=== PATIENT | male | born 1930 | race Caucasian/White ===

== ENCOUNTER → 2017-05-09 | Outpatient (CLI) | payer MEDICARE ==
[2017-05-09] MEDS: IOHEXOL 300 MG/ML 100ML VIAL. IV ×2 (10:36)
[2017-05-09] MEDS: IOHEXOL 240 MG/ML 50ML VIAL. PO ×2 (10:37)
== END | disposition home or self-care (01) ==
LOC: KCIC CT 10:20
DX: K43.9 Ventral hernia without obstruction or gangrene (principal); K57.30 Diverticulosis of large intestine without perforation or abscess without bleeding; N40.0 Benign prostatic hyperplasia without lower urinary tract symptoms; M47.896 Other spondylosis, lumbar region; D73.89 Other diseases of spleen; M81.0 Age-related osteoporosis without current pathological fracture; M48.061 Spinal stenosis, lumbar region without neurogenic claudication; I10 Essential (primary) hypertension; E11.9 Type 2 diabetes mellitus without complications; R91.1 Solitary pulmonary nodule
CPT/HCPCS: 74177; 82565; Q9966; Q9967

== ENCOUNTER 2017-06-24 05:52 | Observation (INO) | payer MEDICARE ==
[2017-06-24] MEDS: IV RINGERS,LACTATED 1000ML 1,000 ML IV (06:38)
[2017-06-24 06:40] LABS: POC GLUCOSE 161 mg/dL (70-99)
[2017-06-24 06:43] LABS: ADD MAN DIFF? NO
[2017-06-24 06:57] LABS: BASO % 1 % (0-3); EOS # 0.2 x10^3/uL (0.0-0.7); EOS % 3 % (0-3); HEMATOCRIT 43.6 % (39.0-53.0); HEMOGLOBIN 14.6 g/dL (13.0-17.5); LYMPH # 2.2 x10^3/uL (1.0-4.8); LYMPH % 36 % (24-48); MEAN CORPUSCULAR HEMOGLOBIN 31 pg (25-35); MEAN CORPUSCULAR HGB CONC 33 g/dL (31-37); MEAN CORPUSCULAR VOLUME 93 fL (79-100); MONO # 0.6 x10^3/uL (0.0-1.1); MONO % 10 % (0-9); NEUT # 3.1 x10^3uL (1.8-7.7); NEUT % 50 % (31-73); PLATELET COUNT 154 x10^3/uL (140-400); RED BLOOD COUNT 4.69 x10^6/uL (4.30-5.70); RED CELL DISTRIBUTION WIDTH 13.5 % (11.5-14.5); WHITE BLOOD COUNT 6.1 x10^3/uL (4.0-11.0)
[2017-06-24] MEDS ORDERED: LIDOCAINE 1% PF 2 ML VIAL. ID (07:00)
[2017-06-24] MEDS ORDERED: ONDANSETRON PF 4 MG/2 ML VIAL. IV ×2 (07:00→09:15)
[2017-06-24] MEDS ORDERED: MORPHINE SULFATE 4 MG/ML DISP.SYRIN. IV (07:00)
[2017-06-24] MEDS ORDERED: PROCHLORPERAZINE 10 MG/2 ML VIAL. IV (07:00)
[2017-06-24] MEDS ORDERED: fentaNYL PF VIAL 100 MCG/2 ML VIAL IV ×3 (07:00→10:15)
[2017-06-24] MEDS ORDERED: fentaNYL PF VIAL 100 MCG/2 ML VIAL ×2 (07:18→09:07)
[2017-06-24] MEDS ORDERED: DEXAMETHASONE SOD PHOS 20 MG/5 ML VIAL. (07:18)
[2017-06-24] MEDS ORDERED: PROPOFOL 20 ML IV (07:18)
[2017-06-24] MEDS ORDERED: ROCURONIUM 50 MG/5 ML VIAL. (07:18)
[2017-06-24] MEDS ORDERED: LIDOCAINE 1% PF 5 ML VIAL. (07:18)
[2017-06-24] MEDS ORDERED: ONDANSETRON PF 4 MG/2 ML VIAL. (07:18)
[2017-06-24] MEDS ORDERED: EPINEPHrine 1 MG/ML VIAL (07:52)
[2017-06-24] MEDS ORDERED: PHENYLEPHRINE 10 MG/ML VIAL. (08:03)
[2017-06-24] MEDS ORDERED: DESFLURANE 61 TO 120 MINUTES IH (08:24)
[2017-06-24] MEDS ORDERED: NEOSTIGMINE 10 MG/10 ML VIAL. (08:35)
[2017-06-24] MEDS ORDERED: GLYCOPYRROLATE 1 MG/5 ML VIAL. (08:36)
[2017-06-24] MEDS ORDERED: HYDROcodone/APAP 5/325MG 1 TAB TABLET PO (09:15)
[2017-06-24] MEDS ORDERED: 0.9 % SODIUM CHLORIDE 10 ML DISP.SYRIN. IV (09:15)
[2017-06-24 09:25] LABS: POC GLUCOSE 194 mg/dL (70-99)
[2017-06-24] MEDS: INSULIN ASPART 100 UNIT/ML 10ML VIAL. SQ (09:36)
[2017-06-24] MEDS: fentaNYL PF VIAL 100 MCG/2 ML VIAL IV ×2 (09:49→10:11)
[2017-06-24 10:56] LABS: POC GLUCOSE 160 mg/dL (70-99)
[2017-06-24] MEDS ORDERED: ceFAZolin 2GM PREMIX 2 GM/50 ML BAG IV (12:00)
[2017-06-24] MEDS: metFORMIN 500 MG TABLET PO ×2 (12:00→17:34)
[2017-06-24] MEDS: MULTIVITAMIN I-VITE TABLET. PO (12:17)
[2017-06-24] MEDS: IV 1/2 NORMAL SALINE 1,000 ML IV ×2 (12:21→23:30)
[2017-06-24 16:54] LABS: POC GLUCOSE 248 mg/dL (70-99)
[2017-06-24] MEDS: LISINOPRIL 20 MG TABLET PO (17:33)
[2017-06-24] MEDS: HYDROcodone/APAP 5/325MG 1 TAB TABLET PO (18:51)
[2017-06-24 20:46] LABS: POC GLUCOSE 252 mg/dL (70-99)
[2017-06-24] MEDS: ZOLPIDEM 5 MG TABLET. PO (20:53)
[2017-06-24] MEDS: ATORVASTATIN CALCIUM 10 MG TABLET. PO (20:54)
[2017-06-24] MEDS: TERAZOSIN 5 MG CAPSULE. PO (20:54)
[2017-06-25 08:42] LABS: POC GLUCOSE 170 mg/dL (70-99)
[2017-06-25] MEDS: MULTIVITAMIN I-VITE TABLET. PO (08:48)
[2017-06-25] MEDS: metFORMIN 500 MG TABLET PO ×2 (08:48→18:27)
[2017-06-25] MEDS: HYDROcodone/APAP 5/325MG 1 TAB TABLET PO ×2 (08:49→18:26)
[2017-06-25 13:10] LABS: POC GLUCOSE 241 mg/dL (70-99)
[2017-06-25] MEDS: IV 1/2 NORMAL SALINE 1,000 ML IV (13:48)
[2017-06-25 16:37] LABS: POC GLUCOSE 187 mg/dL (70-99)
[2017-06-25] MEDS: LISINOPRIL 20 MG TABLET PO (18:28)
== END 2017-06-25 19:00 | disposition home or self-care (01) ==
LOC: SURG 05:52 → 4 NORTH 09:12
DX: K43.9 Ventral hernia without obstruction or gangrene (principal)
CPT/HCPCS: 36415; 82962; 85025; G0378; G0379; J0171; J0690; J1100; J1815; J2405; J2704; J2710; J3010; J3490

== ENCOUNTER 2018-06-14 20:11 | Inpatient (IN) | payer MEDICARE ==
[~2018-06-14] VITALS: Ht 167.6 cm; Wt 91.9 kg
[~2018-06-14 20:11] MED LIST: DILT120C71 PO; FISH1CAP PO; HYDR-2761 PO; LISI-334 PO; LISI10TA2 PO; MECL-51 PO; METF500T16 PO; PRAV10TA2 PO; PRAV20TA2 PO; TERA5CAP3 PO; VIT1TABL32 PO; ZOLP10TA4 PO; ZOLP5TAB5 PO
[2018-06-14 20:35] LABS: BASO % 1 % (0-3); EOS # 0.2 x10^3/uL (0.0-0.7); EOS % 3 % (0-3); HEMATOCRIT 42.1 % (39.0-53.0); HEMOGLOBIN 14.1 g/dL (13.0-17.5); LYMPH # 2.3 x10^3/uL (1.0-4.8); LYMPH % 36 % (24-48); MEAN CORPUSCULAR HEMOGLOBIN 31 pg (25-35); MEAN CORPUSCULAR HGB CONC 34 g/dL (31-37); MEAN CORPUSCULAR VOLUME 93 fL (79-100); MONO # 0.6 x10^3/uL (0.0-1.1); MONO % 9 % (0-9); NEUT # 3.3 x10^3uL (1.8-7.7); NEUT % 51 % (31-73); PLATELET COUNT 157 x10^3/uL (140-400); RED BLOOD COUNT 4.53 x10^6/uL (4.30-5.70); RED CELL DISTRIBUTION WIDTH 13.5 % (11.5-14.5); WHITE BLOOD COUNT 6.4 x10^3/uL (4.0-11.0)
[2018-06-14 20:44] LABS: CREATININE 1.2 mg/dL (0.7-1.3); GFR 57.1; POTASSIUM 4.2 mmol/L (3.5-5.1)
[2018-06-14 20:45] LABS: PROTHROMBIN TIME PATIENT 11.8 SEC (11.7-14.0)
[2018-06-14] MEDS ORDERED: dilTIAZem INJ 125 MG in IV DEXTROSE 5% 100ML 100 ML IV ONE (20:45)
[2018-06-14] MEDS ORDERED: dilTIAZem IV PUSH 25 MG/5 ML VIAL IVP ONE (20:45)
[2018-06-14 20:49] LABS: ALBUMIN 3.8 g/dL (3.4-5.0); ALBUMIN/GLOBULIN RATIO 1.2 (1.0-1.7); MAGNESIUM 1.6 mg/dL (1.8-2.4); TOTAL BILIRUBIN 0.3 mg/dL (0.2-1.0); TOTAL PROTEIN 6.9 g/dL (6.4-8.2)
--- NOTE | 2018-06-14 20:51 | RAD ---
PORTABLE CHEST 1V History: Shortness of air, chest pressure Comparison: August 04, 2013 Findings: There is atherosclerotic calcification near aortic arch. Heart size is within normal limits. There is no pneumothorax or significant pleural fluid. There is some mild patchy airspace opacity at the lung bases bilaterally questionably increased at the right lung base, on the left probably component of fibrotic change. Impression: 1. There is mild patchy basilar airspace opacity probably somewhat increased on the right, could be due to mild infiltrate Electronically signed by: Tristen Justin MD (06/14/2018 8:48 PM) [facility]
[2018-06-14] MEDS ORDERED: IV NORMAL SALINE 500ML BAG 500 ML IV ONE (21:30)
[2018-06-14] MEDS ORDERED: cefTRIAXone IV Push 1 GM VIAL. IVP ONE (21:30)
[2018-06-14] MEDS ORDERED: DOXYCYCLINE HYCLATE 100 MG in IV DEXTROSE 5% 100ML 100 ML IV ONE (21:30)
[2018-06-14] MEDS ORDERED: MAGNESIUM SULFATE 1GM 100 ML IV ONE (21:45)
[2018-06-14] MEDS ORDERED: RIVAROXABAN 15 MG TABLET. PO ONE (21:45)
[2018-06-14 23:35] VITALS: BP 109/63
--- NOTE | 2018-06-14 23:43 | PHYS DOC ---
Past Medical History Past Medical History: Constipation, Diabetes-Type II, High Cholesterol, Hypertension Past Surgical History: Appendectomy Alcohol Use: None Drug Use: None Adult General Chief Complaint Chief Complaint: CHEST PAIN HPI HPI Patient is a 88 year old male who presents with brought in by ambulance with chest pain apparently had some chest heaviness lasted 20 minutes after eating 1- 1/2 hours after eating apparently was tachycardic for the paramedics currently totally chest pain-free no shortness of breath at all he feels fine now. No previous cardiac history history of hypertension diabetes only the chest pain was heaviness middle of the chest moderate in nature nonradiating Review of Systems Review of Systems Constitutional: Denies fever or chills [] Eyes: Denies change in visual acuity, redness, or eye pain [] HENT: Denies nasal congestion or sore throat [] Respiratory: [] : Denies dysuria or hematuria [] Musculoskeletal: Denies back pain or joint pain [] Integument: Denies rash or skin lesions [] Neurologic: Denies headache, focal weakness or sensory changes [] Endocrine: Denies polyuria or polydipsia [] All other systems were reviewed and found to be within normal limits, except as documented in this note. Current Medications Current Medications Current Medications Medications (Trade) Dose Ordered Sig/Jai Start Time Stop Time Status Last Admin Dose Admin Ceftriaxone Sodium (Rocephin) 1 gm 1X ONCE 06/14/18 21:30 06/14/18 21:31 DC 06/14/18 22:14 1 GM Diltiazem HCl (Cardizem Iv Push) 10 mg 1X ONCE 06/14/18 20:45 06/14/18 20:46 DC 06/14/18 20:52 10 MG Diltiazem HCl 125 mg/Dextrose 125 ml @ 5 mls/hr 1X ONCE 06/14/18 20:45 06/15/18 21:44 06/14/18 20:59 5 MLS/HR Doxycycline Hyclate 100 mg/ Dextrose 100 ml @ 50 mls/hr 1X ONCE 06/14/18 21:30 06/14/18 23:29 DC 06/14/18 21:44 50 MLS/HR Magnesium Sulfate/ Dextrose 100 ml @ 100 mls/hr 1X ONCE 06/14/18 21:45 06/14/18 22:44 DC 06/14/18 22:15 100 MLS/HR Rivaroxaban (Xarelto) 15 mg 1X ONCE 06/14/18 21:45 06/14/18 21:46 DC 06/14/18 21:56 15 MG Sodium Chloride 500 ml @ 500 mls/hr 1X ONCE 06/14/18 21:30 06/14/18 22:29 DC Allergies Allergies Allergies Coded Allergies Type Severity Reaction Last Updated Verified lovastatin Allergy Intermediate 06/24/17 Yes codeine Adverse Reaction Intermediate mental status change 06/24/17 Yes promethazine Adverse Reaction Intermediate mental status change 06/24/17 Yes Physical Exam Physical Exam Constitutional: Well developed, well nourished, no acute distress, non-toxic appearance. [] HENT: Normocephalic, atraumatic, bilateral external ears normal, oropharynx moist, no oral exudates, nose normal. [] Eyes: PERRLA, EOMI, conjunctiva normal, no discharge. [] Neck: Normal range of motion, no tenderness, supple, no stridor. [] Cardiovascular tachycardic and irregular no definite murmurs but difficult exam Lungs & Thorax: Bilateral breath sounds clear to auscultation [] Abdomen: Bowel sounds normal, soft, no tenderness, no masses, no pulsatile masses. [] Skin: Warm, dry, no erythema, no rash. [] Back: No tenderness, no CVA tenderness. [] Extremities: No tenderness, no cyanosis, no clubbing, ROM intact, trace edema. [ ] Neurologic: Alert and oriented X 3, normal motor function, normal sensory function, no focal deficits noted. [] Psychologic: Affect normal, judgement normal, mood normal. [] Current Patient Data Vital Signs Vital Signs Date Time Temp Pulse Resp B/P (MAP) Pulse Ox O2 Delivery O2 Flow Rate FiO2 06/14/18 21:12 146 18 100/58 (72) 96 Nasal Cannula 4.0 06/14/18 20:11 97.9 97.9 Lab Values Laboratory Tests Test 06/14/18 20:24 White Blood Count 6.4 x10^3/uL (4.0-11.0) Red Blood Count 4.53 x10^6/uL (4.30-5.70) Hemoglobin 14.1 g/dL (13.0-17.5) Hematocrit 42.1 % (39.0-53.0) Mean Corpuscular Volume 93 fL (79-100) Mean Corpuscular Hemoglobin 31 pg (25-35) Mean Corpuscular Hemoglobin Concent 34 g/dL (31-37) Red Cell Distribution Width 13.5 % (11.5-14.5) Platelet Count 157 x10^3/uL (140-400) Neutrophils (%) (Auto) 51 % (31-73) Lymphocytes (%) (Auto) 36 % (24-48) Monocytes (%) (Auto) 9 % (0-9) Eosinophils (%) (Auto) 3 % (0-3) Basophils (%) (Auto) 1 % (0-3) Neutrophils # (Auto) 3.3 x10^3uL (1.8-7.7) Lymphocytes # (Auto) 2.3 x10^3/uL (1.0-4.8) Monocytes # (Auto) 0.6 x10^3/uL (0.0-1.1) Eosinophils # (Auto) 0.2 x10^3/uL (0.0-0.7) Basophils # (Auto) 0.0 x10^3/uL (0.0-0.2) Prothrombin Time 11.8 SEC (11.7-14.0) Prothrombin Time INR 0.9 (0.8-1.1) Sodium Level 141 mmol/L (136-145) Potassium Level 4.2 mmol/L (3.5-5.1) Chloride Level 104 mmol/L (98-107) Carbon Dioxide Level 28 mmol/L (21-32) Anion Gap 9 (6-14) Blood Urea Nitrogen 13 mg/dL (8-26) Creatinine 1.2 mg/dL (0.7-1.3) Estimated GFR (Cockcroft-Gault) 57.1 BUN/Creatinine Ratio 11 (6-20) Glucose Level 235 mg/dL (70-99) H Lactic Acid Level 2.9 mmol/L (0.4-2.0) H Calcium Level 9.0 mg/dL (8.5-10.1) Magnesium Level 1.6 mg/dL (1.8-2.4) L Total Bilirubin 0.3 mg/dL (0.2-1.0) Aspartate Amino Transferase (AST) 13 U/L (15-37) L Alanine Aminotransferase (ALT) 21 U/L (16-63) Alkaline Phosphatase 122 U/L (46-116) H Troponin I Quantitative < 0.017 ng/mL (0.000-0.055) BX-Xno-Z-Type Natriuretic Peptide 243 pg/mL (0-449) Total Protein 6.9 g/dL (6.4-8.2) Albumin 3.8 g/dL (3.4-5.0) Albumin/Globulin Ratio 1.2 (1.0-1.7) Thyroid Stimulating Hormone (TSH) 3.981 uIU/mL (0.358-3.74) H Laboratory Tests 06/14/18 20:24 Laboratory Tests 06/14/18 20:24 EKG EKG []EKG at [address] Bowling he saw the EKG we are favoring A. fib with RVR due to irregular nature of this no obvious STEMI was identified however there were some rate related ST changes noted. Compared to August 04, 2013 this is different Radiology/Procedures Radiology/Procedures [] Impressions: Impression: 1. There is mild patchy basilar airspace opacity probably somewhat increased on the right, could be due to mild infiltrate Electronically signed by: Richard Mackey MD (06/14/2018 8:48 PM) [facility] DICTATED and SIGNED BY: RICHARD MACKEY MD DATE: 06/14/182047 Course & Med Decision Making Course & Med Decision Making Pertinent Labs and Imaging studies reviewed. (See chart for details) 88-year-old with hypertension diabetes found to be in tachyarrhythmia most likely A. fib I did give some consideration to ventricular tachycardia due to what seemed to be wide-complex over the QRS is measured at less than [address] Bowling favors A. fib with RVR I tend to agree due to irregular rhythm. We gave diltiazem per his recommendation the heart rate did go down from the 170s into the 130s and 40s in the emergency room apparently the blood pressure dropped so he was only on 5 of diltiazem when transferred to the ICU for further monitoring. Magnesium was repleted we did give antibiotics for the x- ray finding of the possible pneumonia although the patient really has not been coughing but we covered him anyway Magnesium was repleted lactic acid will be repeated, probably not from sepsis but rather from the tachyarrhythmia. Discussed with Dr. GARCIA WELL GAVE DOSE OF XARELTO TO COVER HIM TONIGHTFOR THE AFIB. LOW SUSPICION FOR PE PT IS NOT HYPOXIC, NO PLEURITIC PAIN. Critical care time was 45 minutes exclusive of procedures. Dragon Disclaimer Dragon Disclaimer This electronic medical record was generated, in whole or in part, using a voice recognition dictation system. Departure Departure Impression: Primary Impression: Atrial fibrillation with RVR Disposition: ADMITTED INPATIENT Admitting Physician: Snehal Garcia Condition: STABLE Referrals: PITER ALVAREZ MD (PCP) LOIS TALLEY MD Jun 14, 2018 23:43
[2018-06-14 23:45] VITALS: BP 98/69
[2018-06-15] VITALS (26 sets, daily range): BP systolic 85–137; BP diastolic 49–100
[2018-06-15] MEDS ORDERED: IV NORMAL SALINE 500ML BAG 500 ML IV PRN (01:30)
[2018-06-15] MEDS: IV NORMAL SALINE 1000ML BAG 1,000 ML IV SCH ×3 (02:00→20:53)
[2018-06-15] MEDS ORDERED: DIGOXIN IV 500 MCG/2 ML AMPUL. IV PRN (02:00)
[2018-06-15] MEDS ORDERED: DIGOXIN IV 500 MCG/2 ML AMPUL. IV ONE ×2 (02:30→04:30)
[2018-06-15] MEDS ORDERED: dilTIAZem INJ 125 MG in IV DEXTROSE 5% 100ML 100 ML IV PRN (06:45)
--- NOTE | 2018-06-15 10:28 | PDOC1 ---
History and Physical Date of Admission Date of Admission DATE: 06/15/18 TIME: 10:28 Identification/Chief Complaint Chief Complaint SEEN IN ER 88 year old male who presents with brought in by ambulance with chest pain //chest heaviness lasted 20 minutes after eating 1-1/2 hours after eating // was tachycardic for paramedics No previous cardiac history history of hypertension diabetes chest pain was heaviness middle of the chest moderate in nature nonradiating EKG suggested possible v-tach// a-fib rvr PREV CT SUGGESTED LUNG NODULE, [employer]MER [employer] denies cough/ soa cxr suggest mild infiltrate, pt INTERMITTENTLY hypotensive this AM Past Medical History Past Medical History Past Medical History Past Medical History: Constipation, Diabetes-Type II, High Cholesterol, Hypertension Past Surgical History: Appendectomy Alcohol Use: None Drug Use: None family hx obesity Cardiovascular: HTN Endocrine: Diabetes Past Surgical History Past Surgical History: Other Family History Family History: Hypertension Social History Smoke: Quit (QUIT 20 YRS AGO) ALCOHOL: none Drugs: None Current Medications Current Medications Current Medications Diltiazem HCl (Cardizem Iv Push) 10 mg 1X ONCE IVP Last administered on at 20:52; Start 06/14/18 at 20:45; Stop 06/14/18 at 20:46; Status DC Diltiazem HCl 125 mg/Dextrose 125 ml @ 5 mls/hr 1X ONCE IV Last administered on 06/14/18at 20:59; Start 06/14/18 at 20:45; Stop 06/15/18 at 07:17; Status DC Sodium Chloride 500 ml @ 500 mls/hr 1X ONCE IV ; Start 06/14/18 at 21:30; Stop 06/14/18 at 22:29; Status DC Ceftriaxone Sodium (Rocephin) 1 gm 1X ONCE IVP Last administered on 06/14/18at 22:14; Start 06/14/18 at 21:30; Stop 06/14/18 at 21:31; Status DC Doxycycline Hyclate 100 mg/ Dextrose 100 ml @ 50 mls/hr 1X ONCE IV Last administered on 06/14/18at 21:44; Start 06/14/18 at 21:30; Stop 06/14/18 at 23:29 ; Status DC Magnesium Sulfate/ Dextrose 100 ml @ 100 mls/hr 1X ONCE IV Last administered on 06/14/18at 22:15; Start 06/14/18 at 21:45; Stop 06/14/18 at 22:44; Status DC Rivaroxaban (Xarelto) 15 mg 1X ONCE PO Last administered on 06/14/18at 21:56; Start 06/14/18 at 21:45; Stop 06/14/18 at 21:46; Status DC Sodium Chloride 500 ml @ 500 mls/hr 1X PRN PRN IV PER PROTOCOL Last administered on 06/15/18at 01:49; Start 06/15/18 at 01:30 Sodium Chloride 1,000 ml @ 100 mls/hr Q10H IV Last administered on 06/15/18at 02:00; Start 06/15/18 at 02:00 Digoxin (Lanoxin) 0.625 mcg 1X PRN PRN IV PER PROTOCOL; Start 06/15/18 at 02:00 ; Stop 06/15/18 at 09:00; Status Cancel Digoxin (Lanoxin) 125 mcg 1X ONCE IV Last administered on 06/15/18at 02:43; Start 06/15/18 at 02:30; Stop 06/15/18 at 02:32; Status DC Digoxin (Lanoxin) 125 mcg 1X ONCE IV Last administered on 06/15/18at 05:12; Start 06/15/18 at 04:30; Stop 06/15/18 at 04:31; Status DC Diltiazem HCl 125 mg/Dextrose 125 ml @ 5 mls/hr CONT PRN IV SEE I/O RECORD Last administered on 06/15/18at 06:45; Start 06/15/18 at 06:45 Active Scripts Active Hydrocodone-Apap 5-325 (Hydrocodone Bit/Acetaminophen) 1 Each Tablet 1 Tab PO PRN Q4HRS PRN Reported Ocuvite Tablet (Vit A,C & E/Lutein/Minerals) 1 Each Tablet 1 Each PO DAILY Fish Oil 1,200 Mg Fish Oil (Fish Oil/Dha/Epa) 1 Each Capsule 1 Each PO DAILY Zolpidem Tartrate 5 Mg Tablet 5 Mg PO PRN QHS PRN Lisinopril 20 Mg Tablet 20 Mg PO DAILYBFRSUP Pravastatin Sodium 10 Mg Tablet 10 Mg PO QHS Terazosin Hcl 5 Mg Capsule 10 Mg PO QHS Metformin Hcl 500 Mg Tablet 500 Mg PO BID Cartia Xt (Diltiazem Hcl) 120 Mg Cap.er.24h 120 Mg PO Allergies Allergies: Coded Allergies: lovastatin (Verified Allergy, Intermediate, 06/24/17) codeine (Verified Adverse Reaction, Intermediate, mental status change, 06/24/17) promethazine (Verified Adverse Reaction, Intermediate, mental status change, 06/24/17) ROS Review of System Review of Systems Review of Systems Constitutional: Denies fever or chills [] Eyes: Denies change in visual acuity, redness, or eye pain [] HENT: Denies nasal congestion or sore throat [] Respiratory: [] : Denies dysuria or hematuria [] Musculoskeletal: Denies back pain or joint pain [] Integument: Denies rash or skin lesions [] Neurologic: Denies headache, focal weakness or sensory changes [] Endocrine: Denies polyuria or polydipsia [] 14 PT systems were reviewed and found to be within normal limits, except as documented General: No: Chills, Night Sweats, Fatigue, Malaise, Appetite, Other Respiratory: No: Cough, Hemoptysis, Orthopnea, Pleuritic Pain, Shortness of breath, SOB with excertion, Sputum Changes, Stridor, Tachypnea, Wheezing, Other Cardiovascular: yes Chest Pain Gastrointestinal: No Nausea, No Vomiting, No Abdominal Pain, No Diarrhea, No Constipation, No Melena, No Hematochezia, No Other Musculoskeletal: Yes Joint Stiffness Skin: No Dry Skin, No Eczema, No Hair Changes, No Lumps, No Mole Changes, No Mottling, No Nail Changes, No Pruritus, No Rash, No Skin Lesion Changes, No Other, No Acne Physical Exam Physical Exam Physical Exam Physical Exam Constitutional: Well developed, well nourished, no acute distress, non-toxic appearance. [] HENT: Normocephalic, atraumatic, bilateral external ears normal, oropharynx moist, no oral exudates, nose normal. [] Eyes: PERRLA, EOMI, conjunctiva normal, no discharge. [] Neck: Normal range of motion, no tenderness, supple, no stridor. [] Cardiovascular tachycardic and irregular no definite murmurs but difficult exam Lungs & Thorax: Bilateral breath sounds clear to auscultation [] Abdomen: Bowel sounds normal, soft, no tenderness, no masses, no pulsatile masses. [] Skin: Warm, dry, no erythema, no rash. [] Back: No tenderness, no CVA tenderness. [] Extremities: No tenderness, no cyanosis, no clubbing, ROM intact, trace edema. [ ] Neurologic: Alert and oriented X 3, normal motor function, normal sensory function, no focal deficits noted. [] Psychologic: Affect normal, judgement normal, mood normal. [] General: Alert, Oriented X3, Cooperative, No acute distress HEENT: Atraumatic, EOMI, Mucous membr. moist/pink Lungs: Normal air movement Heart: no rubs Breasts: Not examined Abdomen: Soft Rectal Exam: not examined Extremities: No clubbing, No cyanosis Skin: No breakdown Neuro: Normal speech, Cranial nerves 3-12 NL Psych/Mental Status: Mental status NL, Mood NL Vitals Vitals Vital Signs Date Time Temp Pulse Resp B/P (MAP) Pulse Ox O2 Delivery O2 Flow Rate FiO2 06/15/18 10:00 114 18 90/66 (74) 96 Nasal Cannula 2.0 06/15/18 08:00 97.8 97.8 Labs Labs Laboratory Tests Test 06/14/18 20:24 06/15/18 00:50 06/15/18 03:55 06/15/18 08:10 White Blood Count 6.4 x10^3/uL (4.0-11.0) Red Blood Count 4.53 x10^6/uL (4.30-5.70) Hemoglobin 14.1 g/dL (13.0-17.5) Hematocrit 42.1 % (39.0-53.0) Mean Corpuscular Volume 93 fL (79-100) Mean Corpuscular Hemoglobin 31 pg (25-35) Mean Corpuscular Hemoglobin Concent 34 g/dL (31-37) Red Cell Distribution Width 13.5 % (11.5-14.5) Platelet Count 157 x10^3/uL (140-400) Neutrophils (%) (Auto) 51 % (31-73) Lymphocytes (%) (Auto) 36 % (24-48) Monocytes (%) (Auto) 9 % (0-9) Eosinophils (%) (Auto) 3 % (0-3) Basophils (%) (Auto) 1 % (0-3) Neutrophils # (Auto) 3.3 x10^3uL (1.8-7.7) Lymphocytes # (Auto) 2.3 x10^3/uL (1.0-4.8) Monocytes # (Auto) 0.6 x10^3/uL (0.0-1.1) Eosinophils # (Auto) 0.2 x10^3/uL (0.0-0.7) Basophils # (Auto) 0.0 x10^3/uL (0.0-0.2) Prothrombin Time 11.8 SEC (11.7-14.0) Prothromb Time International Ratio 0.9 (0.8-1.1) Sodium Level 141 mmol/L (136-145) Potassium Level 4.2 mmol/L (3.5-5.1) Chloride Level 104 mmol/L (98-107) Carbon Dioxide Level 28 mmol/L (21-32) Anion Gap 9 (6-14) Blood Urea Nitrogen 13 mg/dL (8-26) Creatinine 1.2 mg/dL (0.7-1.3) Estimated GFR (Cockcroft-Gault) 57.1 BUN/Creatinine Ratio 11 (6-20) Glucose Level 235 mg/dL (70-99) Lactic Acid Level 2.9 mmol/L (0.4-2.0) 2.4 mmol/L (0.4-2.0) Calcium Level 9.0 mg/dL (8.5-10.1) Magnesium Level 1.6 mg/dL (1.8-2.4) 1.8 mg/dL (1.8-2.4) Total Bilirubin 0.3 mg/dL (0.2-1.0) Aspartate Amino Transf (AST/SGOT) 13 U/L (15-37) Alanine Aminotransferase (ALT/SGPT) 21 U/L (16-63) Alkaline Phosphatase 122 U/L (46-116) Troponin I Quantitative < 0.017 ng/mL (0.000-0.055) 0.486 ng/mL (0.000-0.055) 1.129 ng/mL (0.000-0.055) WG-Vbr-A-Type Natriuretic Peptide 243 pg/mL (0-449) Total Protein 6.9 g/dL (6.4-8.2) Albumin 3.8 g/dL (3.4-5.0) Albumin/Globulin Ratio 1.2 (1.0-1.7) Thyroid Stimulating Hormone (TSH) 3.981 uIU/mL (0.358-3.74) Glucose (Fingerstick) 132 mg/dL (70-99) Laboratory Tests Test 06/14/18 20:24 06/15/18 00:50 06/15/18 03:55 06/15/18 08:10 White Blood Count 6.4 x10^3/uL (4.0-11.0) Red Blood Count 4.53 x10^6/uL (4.30-5.70) Hemoglobin 14.1 g/dL (13.0-17.5) Hematocrit 42.1 % (39.0-53.0) Mean Corpuscular Volume 93 fL (79-100) Mean Corpuscular Hemoglobin 31 pg (25-35) Mean Corpuscular Hemoglobin Concent 34 g/dL (31-37) Red Cell Distribution Width 13.5 % (11.5-14.5) Platelet Count 157 x10^3/uL (140-400) Neutrophils (%) (Auto) 51 % (31-73) Lymphocytes (%) (Auto) 36 % (24-48) Monocytes (%) (Auto) 9 % (0-9) Eosinophils (%) (Auto) 3 % (0-3) Basophils (%) (Auto) 1 % (0-3) Neutrophils # (Auto) 3.3 x10^3uL (1.8-7.7) Lymphocytes # (Auto) 2.3 x10^3/uL (1.0-4.8) Monocytes # (Auto) 0.6 x10^3/uL (0.0-1.1) Eosinophils # (Auto) 0.2 x10^3/uL (0.0-0.7) Basophils # (Auto) 0.0 x10^3/uL (0.0-0.2) Prothrombin Time 11.8 SEC (11.7-14.0) Prothromb Time International Ratio 0.9 (0.8-1.1) Sodium Level 141 mmol/L (136-145) Potassium Level 4.2 mmol/L (3.5-5.1) Chloride Level 104 mmol/L (98-107) Carbon Dioxide Level 28 mmol/L (21-32) Anion Gap 9 (6-14) Blood Urea Nitrogen 13 mg/dL (8-26) Creatinine 1.2 mg/dL (0.7-1.3) Estimated GFR (Cockcroft-Gault) 57.1 BUN/Creatinine Ratio 11 (6-20) Glucose Level 235 mg/dL (70-99) Lactic Acid Level 2.9 mmol/L (0.4-2.0) 2.4 mmol/L (0.4-2.0) Calcium Level 9.0 mg/dL (8.5-10.1) Magnesium Level 1.6 mg/dL (1.8-2.4) 1.8 mg/dL (1.8-2.4) Total Bilirubin 0.3 mg/dL (0.2-1.0) Aspartate Amino Transf (AST/SGOT) 13 U/L (15-37) Alanine Aminotransferase (ALT/SGPT) 21 U/L (16-63) Alkaline Phosphatase 122 U/L (46-116) Troponin I Quantitative < 0.017 ng/mL (0.000-0.055) 0.486 ng/mL (0.000-0.055) 1.129 ng/mL (0.000-0.055) YQ-Znl-D-Type Natriuretic Peptide 243 pg/mL (0-449) Total Protein 6.9 g/dL (6.4-8.2) Albumin 3.8 g/dL (3.4-5.0) Albumin/Globulin Ratio 1.2 (1.0-1.7) Thyroid Stimulating Hormone (TSH) 3.981 uIU/mL (0.358-3.74) Glucose (Fingerstick) 132 mg/dL (70-99) Images Images 1. There is mild patchy basilar airspace opacity probably somewhat increased on the right, could be due to mild infiltrate VTE Prophylaxis Ordered VTE Prophylaxis Devices: Yes VTE Pharmacological Prophylaxi: Yes Assessment/Plan Assessment/Plan IMPRESSION 1. Chest pain 2. elevated troponin i 3. hypertension 4. tachyarrhythmia /// A. fib RVR // consideration of ventricular tachycardia // wide-complex over the QRS 5. hyperlipidemia 6. BPH 7. LACTIC ACIDOSIS R/O SEPSIS 8. Hypomagnesemia 9. patchy basilar airspace opacity increased on the right, could be due to mild infiltrate 10. hyperglycemia 11.Small noncalcified 9 mm nodule in the left lung base. follow-up CT chest today as per Fleischner Society criteria. 12. REMOTE TOBACCO ABUSE, stopped 06/14 diltiazem for heart rate for 170s into the 130s and 40s in the emergency room // became hypotensive transferred to the ICU for further monitoring. plan icu bed cardiology consult serial troponin i echo t4 cardizem blood and urine cultures iv zosyn, vanc ID consult accuchecks ct chest dvt prophylaxis xarelto if ok with cardiology d/w family 36 min cc time HALEY MARTINEZ MD Jun 15, 2018 10:28
[2018-06-15] MEDS ORDERED: ZOLPIDEM 5 MG TABLET. PO PRN (10:45)
[2018-06-15] MEDS: OMEGA-3 FATTY ACIDS/FISH OIL 1,000 MG CAPSULE. PO SCH (11:28)
[2018-06-15] MEDS ORDERED: VANCOMYCIN 1.75 GM in IV NORMAL SALINE 500ML BAG 500 ML IV ONE (13:00)
[2018-06-15] MEDS: PIPERACILLIN/TAZOBACTAM 3.375 GM in IV NORMAL SALINE 50ML 50 ML IV SCH ×3 (13:13→23:32)
--- NOTE | 2018-06-15 14:09 | RAD ---
Examination: CT CHEST WO CONTRAST History: mass Comparison/Correlation: 06/14/2018 portable chest x-ray exam, 08/04/2013 portable chest x-ray exam Findings: Axial images of chest were obtained without contrast. Sagittal and coronal reformatted images were provided. Coronary arterial calcification is notable. Small left pleural effusion is present. Very small right pleural effusion noted. No enlarged thoracic lymph nodes. Mild left basilar atelectasis is noted. Subtle interstitial thickening involving the right lateral lung armendariz is present and nonspecific. Right lateral lower lung field 0.5 cm diameter noncalcified nodule is present on axial image 32 of series 3. There is a 0.4 cm diameter noncalcified nodule involving the left lateral perihilar region also the same image. Few punctate noncalcified nodules also present involving the lower lung armendariz bilaterally. Calcification along the anterior aspect of the thoracic spine at numerous levels consecutively raises question of diffuse etiopathic skeletal hyperostosis. Partially visualized upper abdomen is unremarkable. Impression: No suspicious infiltrate. Small left pleural effusion is present with minimal adjacent atelectasis. There are noncalcified pulmonary nodules at the lower lung armendariz measuring less than 0.6 cm diameter. Findings may represent noncalcified granulomas. Correlate with risk factors in determining follow-up. Correlate with risk factors in determining interval follow-up CT exam in one year to assess stability. PQRS Compliance Statement: One or more of the following individualized dose reduction techniques were utilized for this examination: 1. Automated exposure control 2. Adjustment of the mA and/or kV according to patient size 3. Use of iterative reconstruction technique Electronically signed by: Anatoly Alvarado MD (06/15/2018 2:05 PM) [facility]
[2018-06-15] MEDS: VANCOMYCIN PER PHARMACY MC PRN ×2 (14:32→14:36)
--- NOTE | 2018-06-15 15:26 | PDOC ---
Infectious Disease Note Vital Sign Vital Signs Vital Signs Date Time Temp Pulse Resp B/P (MAP) Pulse Ox O2 Delivery O2 Flow Rate FiO2 06/15/18 15:00 64 18 116/58 (77) 97 Nasal Cannula 2.0 06/15/18 08:00 97.8 97.8 Labs Lab Laboratory Tests Test 06/14/18 20:24 06/15/18 00:50 06/15/18 03:12 06/15/18 03:55 White Blood Count 6.4 x10^3/uL (4.0-11.0) Red Blood Count 4.53 x10^6/uL (4.30-5.70) Hemoglobin 14.1 g/dL (13.0-17.5) Hematocrit 42.1 % (39.0-53.0) Mean Corpuscular Volume 93 fL (79-100) Mean Corpuscular Hemoglobin 31 pg (25-35) Mean Corpuscular Hemoglobin Concent 34 g/dL (31-37) Red Cell Distribution Width 13.5 % (11.5-14.5) Platelet Count 157 x10^3/uL (140-400) Neutrophils (%) (Auto) 51 % (31-73) Lymphocytes (%) (Auto) 36 % (24-48) Monocytes (%) (Auto) 9 % (0-9) Eosinophils (%) (Auto) 3 % (0-3) Basophils (%) (Auto) 1 % (0-3) Neutrophils # (Auto) 3.3 x10^3uL (1.8-7.7) Lymphocytes # (Auto) 2.3 x10^3/uL (1.0-4.8) Monocytes # (Auto) 0.6 x10^3/uL (0.0-1.1) Eosinophils # (Auto) 0.2 x10^3/uL (0.0-0.7) Basophils # (Auto) 0.0 x10^3/uL (0.0-0.2) Prothrombin Time 11.8 SEC (11.7-14.0) Prothromb Time International Ratio 0.9 (0.8-1.1) Sodium Level 141 mmol/L (136-145) Potassium Level 4.2 mmol/L (3.5-5.1) Chloride Level 104 mmol/L (98-107) Carbon Dioxide Level 28 mmol/L (21-32) Anion Gap 9 (6-14) Blood Urea Nitrogen 13 mg/dL (8-26) Creatinine 1.2 mg/dL (0.7-1.3) Estimated GFR (Cockcroft-Gault) 57.1 BUN/Creatinine Ratio 11 (6-20) Glucose Level 235 mg/dL (70-99) Lactic Acid Level 2.9 mmol/L (0.4-2.0) 2.4 mmol/L (0.4-2.0) Calcium Level 9.0 mg/dL (8.5-10.1) Magnesium Level 1.6 mg/dL (1.8-2.4) 1.8 mg/dL (1.8-2.4) Total Bilirubin 0.3 mg/dL (0.2-1.0) Aspartate Amino Transf (AST/SGOT) 13 U/L (15-37) Alanine Aminotransferase (ALT/SGPT) 21 U/L (16-63) Alkaline Phosphatase 122 U/L (46-116) Troponin I Quantitative < 0.017 ng/mL (0.000-0.055) 0.486 ng/mL (0.000-0.055) 1.129 ng/mL (0.000-0.055) EN-Rbr-N-Type Natriuretic Peptide 243 pg/mL (0-449) Total Protein 6.9 g/dL (6.4-8.2) Albumin 3.8 g/dL (3.4-5.0) Albumin/Globulin Ratio 1.2 (1.0-1.7) Thyroid Stimulating Hormone (TSH) 3.981 uIU/mL (0.358-3.74) Nasal Screen MRSA (PCR) Negative (Negative) Procalcitonin < 0.10 ng/mL (0.00-0.10) Free Thyroxine 0.96 ng/dL (0.76-1.46) Test 06/15/18 08:10 06/15/18 12:18 06/15/18 14:10 Glucose (Fingerstick) 132 mg/dL (70-99) 172 mg/dL (70-99) Lactic Acid Level 1.8 mmol/L (0.4-2.0) Objective Assessment Lactic acidosis,,,better A fib RVR,,on Cardizem Small left pleural effusion Noncalcified pulmonary nodules DM Plan Plan of Care Continue Zosyn, wean soon D/c vanc Monitor labs Supportive care D/w D/w nursing Thank you Patient seen, examined, I agree with above. Assessment and plan was formulated with DIRECTOR OF CRITICAL CARE. CRISTINA SINGER APRN Jun 15, 2018 15:26 MAGED VALLE MD Jun 15, 2018 16:31
--- NOTE | 2018-06-15 15:41 | PDOC2 ---
CONSULT Date of Consult Date of Consult DATE: 06/15/18 TIME: 15:36 Reason for Consult Reason for Consult: Tachyarrhythmia's Referring Physician Referring Physician: Dr. Cruz Identification/Chief Complaint Chief Complaint chest pressure Source Source: Chart review, Patient History of Present Illness Reason for Visit: The patient is a pleasant 88-year-old male reports feeling fatigue and weakness over the past month. He developed episodes of chest pressure and came to the ER for evaluation. In the ER the patient was found to be in a tachycardia arrhythmias prompting rapid atrial fibrillation with a rate of greater than 160. He was treated with IV Cardizem and anticoagulation and is feeling better today. Chest x-ray shows mild opacities. Troponin is minimally elevated at 1.1. EKG shows no acute ischemic changes. Today the patient is feeling significantly better. He denies any history of coronary disease, congestive heart failure or cardiac arrhythmias. Past Medical History Cardiovascular: HTN, Hyperlipidemia Endocrine: Diabetes Past Surgical History Past Surgical History: Appendectomy, Other Family History Family History: Hypertension Social History Quit (QUIT 20 YRS AGO) ALCOHOL: none Drugs: None Current Medications Current Medications Current Medications Diltiazem HCl (Cardizem Iv Push) 10 mg 1X ONCE IVP Last administered on at 20:52; Start 06/14/18 at 20:45; Stop 06/14/18 at 20:46; Status DC Diltiazem HCl 125 mg/Dextrose 125 ml @ 5 mls/hr 1X ONCE IV Last administered on 06/14/18at 20:59; Start 06/14/18 at 20:45; Stop 06/15/18 at 07:17; Status DC Sodium Chloride 500 ml @ 500 mls/hr 1X ONCE IV ; Start 06/14/18 at 21:30; Stop 06/14/18 at 22:29; Status DC Ceftriaxone Sodium (Rocephin) 1 gm 1X ONCE IVP Last administered on 06/14/18at 22:14; Start 06/14/18 at 21:30; Stop 06/14/18 at 21:31; Status DC Doxycycline Hyclate 100 mg/ Dextrose 100 ml @ 50 mls/hr 1X ONCE IV Last administered on 06/14/18at 21:44; Start 06/14/18 at 21:30; Stop 06/14/18 at 23:29 ; Status DC Magnesium Sulfate/ Dextrose 100 ml @ 100 mls/hr 1X ONCE IV Last administered on 06/14/18at 22:15; Start 06/14/18 at 21:45; Stop 06/14/18 at 22:44; Status DC Rivaroxaban (Xarelto) 15 mg 1X ONCE PO Last administered on 06/14/18at 21:56; Start 06/14/18 at 21:45; Stop 06/14/18 at 21:46; Status DC Sodium Chloride 500 ml @ 500 mls/hr 1X PRN PRN IV PER PROTOCOL Last administered on 06/15/18at 01:49; Start 06/15/18 at 01:30 Sodium Chloride 1,000 ml @ 100 mls/hr Q10H IV Last administered on 06/15/18at 11:29; Start 06/15/18 at 02:00 Digoxin (Lanoxin) 0.625 mcg 1X PRN PRN IV PER PROTOCOL; Start 06/15/18 at 02:00 ; Stop 06/15/18 at 09:00; Status Cancel Digoxin (Lanoxin) 125 mcg 1X ONCE IV Last administered on 06/15/18at 02:43; Start 06/15/18 at 02:30; Stop 06/15/18 at 02:32; Status DC Digoxin (Lanoxin) 125 mcg 1X ONCE IV Last administered on 06/15/18at 05:12; Start 06/15/18 at 04:30; Stop 06/15/18 at 04:31; Status DC Diltiazem HCl 125 mg/Dextrose 125 ml @ 5 mls/hr CONT PRN IV SEE I/O RECORD Last administered on 06/15/18at 06:45; Start 06/15/18 at 06:45 Lisinopril (Prinivil) 20 mg DAILYBFRSUP PO ; Start 06/15/18 at 17:00 Multivitamins/ Minerals (I-Marcel) 1 tab DAILY PO ; Start 06/16/18 at 09:00 Zolpidem Tartrate (Ambien) 5 mg PRN QHS PRN PO INSOMNIA; Start 06/15/18 at 10: 45 Fish Oil (Fish Oil) 1,000 mg DAILY PO Last administered on 06/15/18at 11:28; Start 06/15/18 at 11:00 Metformin HCl (Glucophage) 500 mg BIDWMEALS PO ; Start 06/15/18 at 17:00 Atorvastatin Calcium (Lipitor) 5 mg QHS PO ; Start 06/15/18 at 21:00 Terazosin HCl (Hytrin) 10 mg QHS PO ; Start 06/15/18 at 21:00 Diltiazem HCl (Cardizem 24hr Cd) 120 mg DAILY PO Last administered on at 11:28; Start 06/15/18 at 11:00 Piperacillin Sod/ Tazobactam Sod 3.375 gm/Sodium Chloride 50 ml @ 100 mls/hr Q6HRS IV Last administered on 06/15/18at 13:13; Start 06/15/18 at 13:00 Vancomycin HCl (Vanco Per Pharmacy) 1 each PRN DAILY PRN MC SEE COMMENTS Last administered on 06/15/18at 14:36; Start 06/15/18 at 12:30; Stop 06/15/18 at 15:21 ; Status DC Vancomycin HCl 1.75 gm/Sodium Chloride 500 ml @ 250 mls/hr 1X ONCE IV Last administered on 06/15/18at 13:53; Start 06/15/18 at 13:00; Stop 06/15/18 at 14:59 ; Status DC Albuterol/ Ipratropium (Duoneb) 3 ml RTQID NEB ; Start 06/15/18 at 16:00 Rivaroxaban (Xarelto) 15 mg DAILYWSUP PO ; Start 06/15/18 at 17:00 Vancomycin HCl 1.5 gm/Sodium Chloride 500 ml @ 250 mls/hr Q24H IV ; Start 06/16 at 14:00; Stop 06/16/18 at 14:00; Status DC Vancomycin HCl (Vancomycin Trough Level) 1 each 1X ONCE MC ; Start 06/17/18 at 13:30; Stop 06/17/18 at 13:31; Status Cancel Lactobacillus Rhamnosus (Culturelle) 1 cap BID PO ; Start 06/15/18 at 21:00 Active Scripts Active Hydrocodone-Apap 5-325 (Hydrocodone Bit/Acetaminophen) 1 Each Tablet 1 Tab PO PRN Q4HRS PRN Reported Ocuvite Tablet (Vit A,C & E/Lutein/Minerals) 1 Each Tablet 1 Each PO DAILY Fish Oil 1,200 Mg Fish Oil (Fish Oil/Dha/Epa) 1 Each Capsule 1 Each PO DAILY Zolpidem Tartrate 5 Mg Tablet 5 Mg PO PRN QHS PRN Lisinopril 20 Mg Tablet 20 Mg PO DAILYBFRSUP Pravastatin Sodium 10 Mg Tablet 10 Mg PO QHS Terazosin Hcl 5 Mg Capsule 10 Mg PO QHS Metformin Hcl 500 Mg Tablet 500 Mg PO BID Cartia Xt (Diltiazem Hcl) 120 Mg Cap.er.24h 120 Mg PO Allergies Allergies: Coded Allergies: lovastatin (Verified Allergy, Intermediate, 06/24/17) codeine (Verified Adverse Reaction, Intermediate, mental status change, 06/24/17) promethazine (Verified Adverse Reaction, Intermediate, mental status change, 06/24/17) ROS Respiratory: YES: SOB with excertion Cardiovascular: yes Chest Pain Physical Exam General: mild distress HEENT: Atraumatic Lungs: Other (mildly decreased breath sounds.) Heart: Other (irregularly irregular) Abdomen: Normal bowel sounds Vitals VITALS Vital Signs Date Time Temp Pulse Resp B/P (MAP) Pulse Ox O2 Delivery O2 Flow Rate FiO2 06/15/18 15:00 64 18 116/58 (77) 97 Nasal Cannula 2.0 06/15/18 08:00 97.8 97.8 Labs Labs Laboratory Tests Test 06/14/18 20:24 06/15/18 00:50 06/15/18 03:12 06/15/18 03:55 White Blood Count 6.4 x10^3/uL (4.0-11.0) Red Blood Count 4.53 x10^6/uL (4.30-5.70) Hemoglobin 14.1 g/dL (13.0-17.5) Hematocrit 42.1 % (39.0-53.0) Mean Corpuscular Volume 93 fL (79-100) Mean Corpuscular Hemoglobin 31 pg (25-35) Mean Corpuscular Hemoglobin Concent 34 g/dL (31-37) Red Cell Distribution Width 13.5 % (11.5-14.5) Platelet Count 157 x10^3/uL (140-400) Neutrophils (%) (Auto) 51 % (31-73) Lymphocytes (%) (Auto) 36 % (24-48) Monocytes (%) (Auto) 9 % (0-9) Eosinophils (%) (Auto) 3 % (0-3) Basophils (%) (Auto) 1 % (0-3) Neutrophils # (Auto) 3.3 x10^3uL (1.8-7.7) Lymphocytes # (Auto) 2.3 x10^3/uL (1.0-4.8) Monocytes # (Auto) 0.6 x10^3/uL (0.0-1.1) Eosinophils # (Auto) 0.2 x10^3/uL (0.0-0.7) Basophils # (Auto) 0.0 x10^3/uL (0.0-0.2) Prothrombin Time 11.8 SEC (11.7-14.0) Prothromb Time International Ratio 0.9 (0.8-1.1) Sodium Level 141 mmol/L (136-145) Potassium Level 4.2 mmol/L (3.5-5.1) Chloride Level 104 mmol/L (98-107) Carbon Dioxide Level 28 mmol/L (21-32) Anion Gap 9 (6-14) Blood Urea Nitrogen 13 mg/dL (8-26) Creatinine 1.2 mg/dL (0.7-1.3) Estimated GFR (Cockcroft-Gault) 57.1 BUN/Creatinine Ratio 11 (6-20) Glucose Level 235 mg/dL (70-99) Lactic Acid Level 2.9 mmol/L (0.4-2.0) 2.4 mmol/L (0.4-2.0) Calcium Level 9.0 mg/dL (8.5-10.1) Magnesium Level 1.6 mg/dL (1.8-2.4) 1.8 mg/dL (1.8-2.4) Total Bilirubin 0.3 mg/dL (0.2-1.0) Aspartate Amino Transf (AST/SGOT) 13 U/L (15-37) Alanine Aminotransferase (ALT/SGPT) 21 U/L (16-63) Alkaline Phosphatase 122 U/L (46-116) Troponin I Quantitative < 0.017 ng/mL (0.000-0.055) 0.486 ng/mL (0.000-0.055) 1.129 ng/mL (0.000-0.055) CF-Tda-D-Type Natriuretic Peptide 243 pg/mL (0-449) Total Protein 6.9 g/dL (6.4-8.2) Albumin 3.8 g/dL (3.4-5.0) Albumin/Globulin Ratio 1.2 (1.0-1.7) Thyroid Stimulating Hormone (TSH) 3.981 uIU/mL (0.358-3.74) Nasal Screen MRSA (PCR) Negative (Negative) Procalcitonin < 0.10 ng/mL (0.00-0.10) Free Thyroxine 0.96 ng/dL (0.76-1.46) Test 06/15/18 08:10 06/15/18 12:18 06/15/18 14:10 Glucose (Fingerstick) 132 mg/dL (70-99) 172 mg/dL (70-99) Lactic Acid Level 1.8 mmol/L (0.4-2.0) Laboratory Tests Test 06/14/18 20:24 06/15/18 00:50 06/15/18 03:12 06/15/18 03:55 White Blood Count 6.4 x10^3/uL (4.0-11.0) Red Blood Count 4.53 x10^6/uL (4.30-5.70) Hemoglobin 14.1 g/dL (13.0-17.5) Hematocrit 42.1 % (39.0-53.0) Mean Corpuscular Volume 93 fL (79-100) Mean Corpuscular Hemoglobin 31 pg (25-35) Mean Corpuscular Hemoglobin Concent 34 g/dL (31-37) Red Cell Distribution Width 13.5 % (11.5-14.5) Platelet Count 157 x10^3/uL (140-400) Neutrophils (%) (Auto) 51 % (31-73) Lymphocytes (%) (Auto) 36 % (24-48) Monocytes (%) (Auto) 9 % (0-9) Eosinophils (%) (Auto) 3 % (0-3) Basophils (%) (Auto) 1 % (0-3) Neutrophils # (Auto) 3.3 x10^3uL (1.8-7.7) Lymphocytes # (Auto) 2.3 x10^3/uL (1.0-4.8) Monocytes # (Auto) 0.6 x10^3/uL (0.0-1.1) Eosinophils # (Auto) 0.2 x10^3/uL (0.0-0.7) Basophils # (Auto) 0.0 x10^3/uL (0.0-0.2) Prothrombin Time 11.8 SEC (11.7-14.0) Prothromb Time International Ratio 0.9 (0.8-1.1) Sodium Level 141 mmol/L (136-145) Potassium Level 4.2 mmol/L (3.5-5.1) Chloride Level 104 mmol/L (98-107) Carbon Dioxide Level 28 mmol/L (21-32) Anion Gap 9 (6-14) Blood Urea Nitrogen 13 mg/dL (8-26) Creatinine 1.2 mg/dL (0.7-1.3) Estimated GFR (Cockcroft-Gault) 57.1 BUN/Creatinine Ratio 11 (6-20) Glucose Level 235 mg/dL (70-99) Lactic Acid Level 2.9 mmol/L (0.4-2.0) 2.4 mmol/L (0.4-2.0) Calcium Level 9.0 mg/dL (8.5-10.1) Magnesium Level 1.6 mg/dL (1.8-2.4) 1.8 mg/dL (1.8-2.4) Total Bilirubin 0.3 mg/dL (0.2-1.0) Aspartate Amino Transf (AST/SGOT) 13 U/L (15-37) Alanine Aminotransferase (ALT/SGPT) 21 U/L (16-63) Alkaline Phosphatase 122 U/L (46-116) Troponin I Quantitative < 0.017 ng/mL (0.000-0.055) 0.486 ng/mL (0.000-0.055) 1.129 ng/mL (0.000-0.055) CT-Dhl-L-Type Natriuretic Peptide 243 pg/mL (0-449) Total Protein 6.9 g/dL (6.4-8.2) Albumin 3.8 g/dL (3.4-5.0) Albumin/Globulin Ratio 1.2 (1.0-1.7) Thyroid Stimulating Hormone (TSH) 3.981 uIU/mL (0.358-3.74) Nasal Screen MRSA (PCR) Negative (Negative) Procalcitonin < 0.10 ng/mL (0.00-0.10) Free Thyroxine 0.96 ng/dL (0.76-1.46) Test 06/15/18 08:10 06/15/18 12:18 06/15/18 14:10 Glucose (Fingerstick) 132 mg/dL (70-99) 172 mg/dL (70-99) Lactic Acid Level 1.8 mmol/L (0.4-2.0) Images Images Chest X-ray with mild opacities. Assessment/Plan Assessment/Plan 1. Rapid atrial fibrillation. Patient's rate is under improved control. Patient reports feeling unwell for approximate month but his chest pressure and rapid heart rate appears to be new. Rate controlled with IV Cardizem. We'll convert to oral medications as tolerated. Anticoagulation has been started. TSH is minimally elevated at 3.9. We'll check an echocardiogram. Probably will attempt 3 weeks of anticoagulation and then consider cardioversion but this will depend on the patient's clinical response to treatment. This was discussed with the patient and his family. 2. Chest pain. Probably secondary to rapid atrial fibrillation. Mildly elevated troponin at 1.1. We'll continue to monitor. Echocardiogram for LV function. 3. Hypertension. Continue present medications and monitor. 4. Hyperlipidemia. Continue present medications. 5. Diabetes mellitus. As per the primary service. 6. Hypomagnesemia. Replace and monitor. Thank you for allowing us to participate in the care of your patient. DONNA THOMSON MD Jun 15, 2018 15:41
[2018-06-15] MEDS: IPRATRPIUM/ALBUTEROL 0.5/2.5MG 3 ML NEBU. NEB SCH ×2 (16:51→20:10)
[2018-06-15] MEDS ORDERED: RIVAROXABAN 15 MG TABLET. PO SCH (17:00)
[2018-06-15] MEDS: metFORMIN 500 MG TABLET PO SCH (17:21)
[2018-06-15] MEDS: LISINOPRIL 20 MG TABLET PO SCH (17:22)
[2018-06-15 19:33] LABS: BILIRUBIN,URINE NEGATIVE (NEG); CLARITY,URINE CLEAR; COLOR,URINE YELLOW; NITRITE,URINE NEGATIVE (NEG); PROTEIN,URINE NEGATIVE (NEG-TRACE); UROBILINOGEN,URINE 0.2 mg/dL (0.2 mg/dL)
[2018-06-15 19:59] LABS: BACTERIA,URINE 0 /HPF (0-FEW); RBC,URINE 0 /HPF (0-2); SQUAMOUS EPITHELIAL CELL,UR OCC /LPF
[2018-06-15] MEDS: LACTOBACILLUS RHAMNOSUS GG 1 CAPSULE. PO SCH (20:51)
[2018-06-15] MEDS: TERAZOSIN 5 MG CAPSULE. PO SCH (20:53)
[2018-06-15] MEDS: ATORVASTATIN CALCIUM 10 MG TABLET. PO SCH (20:53)
--- NOTE | 2018-06-15 22:06 | CONS ---
DATE OF CONSULTATION: 06/15/2018 REFERRING PHYSICIAN: Dr. Cruz. REASON FOR CONSULTATION: Lactic acidosis/pneumonitis. HISTORY OF PRESENT ILLNESS: This patient is an 88-year-old male with a PMH of cerebrovascular accident in 2009 without residual effect and a 20-year history of diabetes. He says he is independent of self-care and is normally very active. However, over the last month or so, he has not been feeling well. He has been unusually fatigued. No energy and lack of motivation. 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 He was brought to the ER by EMS. He was found to be in atrial fibrillation with RVR, responsive to Cardizem and anticoagulation. On admission, he had a lactic acid of 2.9. Normal WBC count. A chest CT scan revealed a small left pleural effusion with minimal adjacent atelectasis. Noncalcified pulmonary nodules at the lower lung field measuring less than 0.6 cm diameter. No suspicious infiltrate seen. He was dosed with vancomycin and Zosyn. ID has been asked to consult for further evaluation and antibiotic management. The patient says he is feeling much better. Chest pressure has settled down. He has a mild headache. Denies dizziness or lightheadedness. Denies nasal/sinus congestion or sore throat. Denies cough. Denies fevers, chills, sweats or body aches. Denies nausea, vomiting or diarrhea. His appetite has remained good with stable weight. He denies difficulty voiding. PAST MEDICAL HISTORY: CVA without residual effects in 2008, 20-year history of diabetes, hyperlipidemia, hypertension, BPH, lumbar spondylosis and stenosis, arthritis. PAST SURGICAL HISTORY: Ventral hernia repair with mesh in 2018, teeth extraction, appendectomy, skin cancer removed. FAMILY HISTORY: Positive for tremor. SOCIAL HISTORY: The patient is a x 2 and has been to his current for the past 16 years. He lives at home. 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 He enjoys gardening. 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 Denies history of smoking or heavy alcohol use. Denies traveling. ALLERGIES: CODEINE, LOVASTATIN AND PROMETHAZINE. MEDICATIONS: Vancomycin, Zosyn, one-time dose of doxycycline, Xarelto, Cardizem, probiotics, one-time dose of ceftriaxone. Other medications are available and have been reviewed on the MAR. REVIEW OF SYSTEMS: Per HPI, otherwise all other review of systems is negative. PHYSICAL EXAMINATION: VITAL SIGNS: Temperature is 97.8, blood pressure 116/58, heart rate 64, respiratory rate 18, pulse oximetry 97% on 2 liters oxygen. BMI 31. GENERAL: The patient is propped up in bed, alert and smiling. HEENT: Pupils equally round, reactive. Normal conjunctivae. He wears corrective lenses. Oral cavity: Pharynx pink and moist. Full dentures in place. NECK: Supple. LUNGS: Clear to auscultation. HEART: S1 and S2 regular. ABDOMEN: Obese, soft, nontender with bowel sounds present. EXTREMITIES: No gross edema or cyanosis. SKIN: Warm without rash. NEUROLOGIC: Alert and oriented x 3. LABORATORY DATA: From 06/14/2018, WBC 6.4, hemoglobin 14.1, platelets 157,000. Electrolytes unremarkable. Creatinine 1.2, BUN 13. Today's lactic acid 1.8 from 2.9. Troponin 1.129. Total bilirubin 0.3, AST 13, ALT 21, albumin 3.8. TSH 3.981. MRSA screen negative. Blood cultures pending. UA uncollected. Chest CT per HPI. Chest x-ray showed mild patchy basilar airspace opacity, probably somewhat increased on the right, could be due to mild infiltrate. IMPRESSION: 1. Lactic acidosis, improved. 2. Atrial fibrillation with rapid ventricular response, currently on Cardizem and Xarelto. 3. Small left pleural effusion. 4. Noncalcified pulmonary nodules. 5. Diabetes mellitus. PLAN: Discontinue the vancomycin. Continue the Zosyn for now, will dc soon. Monitor laboratory values and temperature. Cardiology is following. Supportive care. Discussed with . Thank you, Dr. Cruz for asking us to participate in this patient's care. Should you have further questions or concerns, please call. The patient seen, examined and plan of care implemented by Dr. Marjorie Yen. DICTATED BY: Abisai Craig, RICARDO MARJORIE YEN MD DR: KAT/kelly JOB#: [id number] / [id number] DIANA
[2018-06-16] VITALS (14 sets, daily range): BP systolic 112–158; BP diastolic 56–78
[2018-06-16 04:11] LABS: BASO % 0 % (0-3); EOS # 0.1 x10^3/uL (0.0-0.7); EOS % 2 % (0-3); HEMATOCRIT 36.3 % (39.0-53.0); HEMOGLOBIN 12.1 g/dL (13.0-17.5); LYMPH # 1.6 x10^3/uL (1.0-4.8); LYMPH % 25 % (24-48); MEAN CORPUSCULAR HEMOGLOBIN 31 pg (25-35); MEAN CORPUSCULAR HGB CONC 33 g/dL (31-37); MEAN CORPUSCULAR VOLUME 94 fL (79-100); MONO # 0.6 x10^3/uL (0.0-1.1); MONO % 9 % (0-9); NEUT % 64 % (31-73); PLATELET COUNT 130 x10^3/uL (140-400); RED BLOOD COUNT 3.86 x10^6/uL (4.30-5.70); RED CELL DISTRIBUTION WIDTH 13.8 % (11.5-14.5); WHITE BLOOD COUNT 6.3 x10^3/uL (4.0-11.0)
[2018-06-16 04:32] LABS: CALCIUM 8.2 mg/dL (8.5-10.1); CREATININE 1.1 mg/dL (0.7-1.3); GFR 63.2; MAGNESIUM 1.7 mg/dL (1.8-2.4); POTASSIUM 4.2 mmol/L (3.5-5.1)
[2018-06-16] MEDS: PIPERACILLIN/TAZOBACTAM 3.375 GM in IV NORMAL SALINE 50ML 50 ML IV SCH (06:06)
[2018-06-16] MEDS: IV NORMAL SALINE 1000ML BAG 1,000 ML IV SCH ×2 (07:43→18:21)
[2018-06-16] MEDS: LACTOBACILLUS RHAMNOSUS GG 1 CAPSULE. PO SCH ×2 (07:44→20:47)
[2018-06-16] MEDS: metFORMIN 500 MG TABLET PO SCH ×2 (07:44→16:47)
[2018-06-16] MEDS: OMEGA-3 FATTY ACIDS/FISH OIL 1,000 MG CAPSULE. PO SCH (07:44)
[2018-06-16] MEDS: MULTIVITAMIN I-VITE TABLET. PO SCH (07:44)
--- NOTE | 2018-06-16 09:15 | PDOC ---
Infectious Disease Note Subjective: Subjective Pt without complaints Some dry cough no chestpain no f/c/n/v/d/abdo pain ROS: ROS Negative except for above. Vital Signs: Vital Signs Vital Signs Date Time Temp Pulse Resp B/P (MAP) Pulse Ox O2 Delivery O2 Flow Rate FiO2 06/16/18 09:02 77 158/76 (103) 97 Nasal Cannula 2.0 06/16/18 07:00 98.0 14 98.0 Physical Exam: PHYSICAL EXAM GENERAL: The patient is propped up in bed, alert and smiling. HEENT: Pupils equally round, reactive. Normal conjunctivae. He wears corrective lenses. Oral cavity: Pharynx pink and moist. Full dentures in place. NECK: Supple. LUNGS: Clear to auscultation. HEART: S1 and S2 regular. ABDOMEN: Obese, soft, nontender with bowel sounds present. EXTREMITIES: No gross edema or cyanosis. SKIN: Warm without rash. NEUROLOGIC: Alert and oriented x 3. Medications: Inpatient Meds: Current Medications Medications (Trade) Dose Ordered Sig/Jai Start Time Stop Time Status Last Admin Dose Admin Albuterol/ Ipratropium (Duoneb) 3 ml RTQID 06/15/18 16:00 06/15/18 20:10 3 ML Atorvastatin Calcium (Lipitor) 5 mg QHS 06/15/18 21:00 06/15/18 20:53 5 MG Ceftriaxone Sodium (Rocephin) 1 gm 1X ONCE 06/14/18 21:30 06/14/18 21:31 DC 06/14/18 22:14 1 GM Digoxin (Lanoxin) 125 mcg 1X ONCE 06/15/18 04:30 06/15/18 04:31 DC 06/15/18 05:12 125 MCG Diltiazem HCl (Cardizem 24hr Cd) 120 mg DAILY 06/15/18 11:00 06/16/18 07:44 120 MG Diltiazem HCl (Cardizem Iv Push) 10 mg 1X ONCE 06/14/18 20:45 06/14/18 20:46 DC 06/14/18 20:52 10 MG Diltiazem HCl 125 mg/Dextrose 125 ml @ 5 mls/hr CONT PRN 06/15/18 06:45 06/15/18 06:45 15 MLS/HR Doxycycline Hyclate 100 mg/ Dextrose 100 ml @ 50 mls/hr 1X ONCE 06/14/18 21:30 06/14/18 23:29 DC 06/14/18 21:44 50 MLS/HR Fish Oil (Fish Oil) 1,000 mg DAILY 06/15/18 11:00 06/16/18 07:44 1,000 MG Lactobacillus Rhamnosus (Culturelle) 1 cap BID 06/15/18 21:00 06/16/18 07:44 1 CAP Lisinopril (Prinivil) 20 mg DAILYBFRSUP 06/15/18 17:00 06/15/18 17:22 20 MG Magnesium Sulfate/ Dextrose 100 ml @ 100 mls/hr 1X ONCE 06/14/18 21:45 06/14/18 22:44 DC 06/14/18 22:15 100 MLS/HR Metformin HCl (Glucophage) 500 mg BIDWMEALS 06/15/18 17:00 06/16/18 07:44 500 MG Multivitamins/ Minerals (I-[place]) 1 tab DAILY 06/16/18 09:00 06/16/18 07:44 1 TAB Piperacillin Sod/ Tazobactam Sod 3.375 gm/Sodium Chloride 50 ml @ 100 mls/hr Q6HRS 06/15/18 13:00 06/16/18 06:06 100 MLS/HR Rivaroxaban (Xarelto) 15 mg DAILYWSUP 06/15/18 17:00 06/15/18 17:00 15 MG Sodium Chloride 1,000 ml @ 100 mls/hr Q10H 06/15/18 02:00 06/16/18 07:43 100 MLS/HR Terazosin HCl (Hytrin) 10 mg QHS 06/15/18 21:00 06/15/18 20:53 10 MG Vancomycin HCl (Vanco Per Pharmacy) 1 each PRN DAILY PRN 06/15/18 12:30 06/15/18 15:21 DC 06/15/18 14:36 1 EACH Vancomycin HCl (Vancomycin Trough Level) 1 each 1X ONCE 06/17/18 13:30 06/17/18 13:31 Cancel Vancomycin HCl 1.5 gm/Sodium Chloride 500 ml @ 250 mls/hr Q24H 06/16/18 14:00 06/16/18 14:00 DC Vancomycin HCl 1.75 gm/Sodium Chloride 500 ml @ 250 mls/hr 1X ONCE 06/15/18 13:00 06/15/18 14:59 DC 06/15/18 13:53 250 MLS/HR Zolpidem Tartrate (Ambien) 5 mg PRN QHS PRN 06/15/18 10:45 Labs: Lab Laboratory Tests Test 06/15/18 12:18 06/15/18 14:10 06/15/18 17:10 06/15/18 19:00 Glucose (Fingerstick) 172 mg/dL (70-99) 140 mg/dL (70-99) Lactic Acid Level 1.8 mmol/L (0.4-2.0) Urine Collection Type Unknown Urine Color Yellow Urine Clarity Clear Urine pH 5.0 Urine Specific [place] 1.015 Urine Protein Negative mg/dL (NEG-TRACE) Urine Glucose (UA) Negative mg/dL (NEG) Urine Ketones (Stick) Negative mg/dL (NEG) Urine Blood Negative (NEG) Urine Nitrite Negative (NEG) Urine Bilirubin Negative (NEG) Urine Urobilinogen Dipstick 0.2 mg/dL (0.2 mg/dL) Urine Leukocyte Esterase Negative (NEG) Urine RBC 0 /HPF (0-2) Urine WBC 1-4 /HPF (0-4) Urine Squamous Epithelial Cells Occ /LPF Urine Bacteria 0 /HPF (0-FEW) Test 06/16/18 03:55 06/16/18 07:31 White Blood Count 6.3 x10^3/uL (4.0-11.0) Red Blood Count 3.86 x10^6/uL (4.30-5.70) Hemoglobin 12.1 g/dL (13.0-17.5) Hematocrit 36.3 % (39.0-53.0) Mean Corpuscular Volume 94 fL (79-100) Mean Corpuscular Hemoglobin 31 pg (25-35) Mean Corpuscular Hemoglobin Concent 33 g/dL (31-37) Red Cell Distribution Width 13.8 % (11.5-14.5) Platelet Count 130 x10^3/uL (140-400) Neutrophils (%) (Auto) 64 % (31-73) Lymphocytes (%) (Auto) 25 % (24-48) Monocytes (%) (Auto) 9 % (0-9) Eosinophils (%) (Auto) 2 % (0-3) Basophils (%) (Auto) 0 % (0-3) Neutrophils # (Auto) 4.0 x10^3uL (1.8-7.7) Lymphocytes # (Auto) 1.6 x10^3/uL (1.0-4.8) Monocytes # (Auto) 0.6 x10^3/uL (0.0-1.1) Eosinophils # (Auto) 0.1 x10^3/uL (0.0-0.7) Basophils # (Auto) 0.0 x10^3/uL (0.0-0.2) Sodium Level 144 mmol/L (136-145) Potassium Level 4.2 mmol/L (3.5-5.1) Chloride Level 108 mmol/L (98-107) Carbon Dioxide Level 27 mmol/L (21-32) Anion Gap 9 (6-14) Blood Urea Nitrogen 10 mg/dL (8-26) Creatinine 1.1 mg/dL (0.7-1.3) Estimated GFR (Cockcroft-Gault) 63.2 Glucose Level 149 mg/dL (70-99) Calcium Level 8.2 mg/dL (8.5-10.1) Magnesium Level 1.7 mg/dL (1.8-2.4) Troponin I Quantitative 0.866 ng/mL (0.000-0.055) Procalcitonin < 0.10 ng/mL (0.00-0.10) Glucose (Fingerstick) 135 mg/dL (70-99) Micro BC neg Objective: Assessment: 1. Lactic acidosis, improved.Cause likely noninfectious. 2. Atrial fibrillation with rapid ventricular response, currently on Cardizem and Xarelto. 3. Small left pleural effusion. 4. Noncalcified pulmonary nodules. 5. Diabetes mellitus. Plan: Plan of Care DC Zosyn Monitor off antibiotics closely Monitor labs Supportive care D/w nursing MAGED VALLE MD Jun 16, 2018 09:15
[2018-06-16] MEDS: IPRATRPIUM/ALBUTEROL 0.5/2.5MG 3 ML NEBU. NEB SCH ×4 (09:33→19:47)
--- NOTE | 2018-06-16 10:22 | EKG ---
[facility] [address] [place] [address] Test Date: 2018-06-14 Test Time: 20:19:25 Pat Name: MATTHEW GALLARDO Department: Room: 105 1 Gender: M [employer]ur[employer]: : 1930 Requested By: LOIS TALLEY Order Number: [id number] Reading MD: Chris Vaca MD Measurements Intervals Sikes Rate: 172 P: -39 MI: 126 QRS: 90 QRSD: 46 T: -149 QT: 204 QTc: 346 Interpretive Statements PROBABLE SUPRAVENTRICULAR TACHYCARDIA WITH ABERRANCY BUT CANNOT RULE OUT VT *SUSPECT LATERAL ACCESSORY PATHWAY BASED ON PRIOR EKG Electronically Signed On 06-16-2018 10:24:48 CDT by Chris Vaca MD
--- NOTE | 2018-06-16 10:51 | PDOC ---
PROGRESS NOTES History of Present Illness History of Present Illness Assessment/Plan Assessment/Plan IMPRESSION 1. Chest pain 2. elevated troponin i 3. hypertension 4. tachyarrhythmia /// A. fib RVR // consideration of ventricular tachycardia // wide-complex over the QRS 5. hyperlipidemia 6. BPH 7. LACTIC ACIDOSIS R/O SEPSIS 8. Hypomagnesemia 9. patchy basilar airspace opacity increased on the right, could be due to mild infiltrate 10. hyperglycemia 11.Small noncalcified 9 mm nodule in the left lung base. follow-up CT chest today as per Fleischner Society criteria. 12. REMOTE TOBACCO ABUSE, stopped 06/14 diltiazem for heart rate for 170s into the 130s and 40s in the emergency room // became hypotensive transferred to the ICU for further monitoring. plan Attempt 3 weeks of anticoagulation and then consider cardioversion icu bed cardiology consult serial troponin i echo t4 cardizem blood and urine cultures iv zosyn, vanc, D/C, MONITOR OFF ANTIBIOTICS ID consult accuchecks ct chest dvt prophylaxis xarelto if ok with cardiology d/w family 32 min cc time Vitals Vitals Vital Signs Date Time Temp Pulse Resp B/P (MAP) Pulse Ox O2 Delivery O2 Flow Rate FiO2 06/16/18 10:09 92 153/68 (96) 96 Nasal Cannula 2.0 06/16/18 07:00 98.0 14 98.0 Physical Exam Physical Exam GENERAL: The patient is propped up in bed, alert and smiling. HEENT: Pupils equally round, reactive. Normal conjunctivae. He wears corrective lenses. Oral cavity: Pharynx pink and moist. Full dentures in place. NECK: Supple. LUNGS: Clear to auscultation. HEART: S1 and S2 regular. ABDOMEN: Obese, soft, nontender with bowel sounds present. EXTREMITIES: No gross edema or cyanosis. SKIN: Warm without rash. NEUROLOGIC: Alert and oriented x 3. General: mild distress Heart: Other (irregularly irregular) Abdomen: Normal bowel sounds Extremities: No clubbing, No cyanosis Skin: No breakdown Labs LABS ATRIA The left atrium size is normal. The right atrium size is normal. The interatrial septum is intact with no evidence for an atrial septal defect or patent foramen ovale as noted on 2-D or Doppler imaging. AORTIC VALVE The aortic valve is not well visualized but appears calcified. Doppler and Color Flow revealed no significant aortic regurgitation. There is no significant aortic valvular stenosis. MITRAL VALVE The mitral valve is normal in structure and function. There is no evidence of mitral valve prolapse. There is no mitral valve stenosis. Doppler and Color Flow revealed trace mitral valve regurgitation. TRICUSPID VALVE The tricuspid valve is normal in structure and function. Doppler and Color Flow revealed trace to mild tricuspid regurgitation. The PA pressure was estimated at 38 mmHg. There is no tricuspid valve prolapse or vegetation. There is no tricuspid valve stenosis. PULMONIC VALVE The pulmonic valve is not well visualized. GREAT VESSELS The aortic root is mildly enlarged. The ascending aorta is not well seen. The IVC is normal in size and collapses >50% with inspiration. PERICARDIAL EFFUSION There is no evidence of significant pericardial effusion. Critical Notification Critical Value: No <Conclusion> Technically difficult study. The left ventricle is normal size. The systolic function is mildly impaired. The Ejection Fraction is 45-50%. There is mild global hypokinesis of the left ventricle. There is mild concentric left ventricular hypertrophy. There is no significant aortic valvular stenosis. Doppler and Color Flow revealed no significant aortic regurgitation. Doppler and Color Flow revealed trace mitral valve regurgitation. Doppler and Color Flow revealed trace to mild tricuspid regurgitation. The PA pressure was estimated at 38 mmHg. The aortic root is mildly enlarged. Signed by : Tim Recinos MD Electronically Approved : 06/16/2018 12:28:02 PATIENT: MATTHEW GALLARDO ACCT: [id number] LOC: 1 [facility] U : [id number] AGE/SX: 88/M ROOM: 105 REG : 06/14/[address]: KAREEN GRIGGS MD : 1930 BED: 1 DIS : STATUS: ADM IN TLOC: SPEC #: [id number] STAR: 06/15/18-49 STATUS: RES REQ #: [id number] RECD: 06/15/18-[address] [facility] [address]: LOIS TALLEY MD SOURCE: BLOOD ENTR: 06/14/[address] [facility] [address]: PITER ALVAREZ MD [facility]: ORDERED: BCULT Procedure Result BLOOD CULTURE Preliminary NO GROWTH AFTER 1 DAY Examination: CT CHEST WO CONTRAST History: mass Comparison/Correlation: 06/14/2018 portable chest x-ray exam, 08/04/2013 portable chest x-ray exam Findings: Axial images of chest were obtained without contrast. Sagittal and coronal reformatted images were provided. Coronary arterial calcification is notable. Small left pleural effusion is present. Very small right pleural effusion noted. No enlarged thoracic lymph nodes. Mild left basilar atelectasis is noted. Subtle interstitial thickening involving the right lateral lung armendariz is present and nonspecific. Right lateral lower lung field 0.5 cm diameter noncalcified nodule is present on axial image 32 of series 3. There is a 0.4 cm diameter noncalcified nodule involving the left lateral perihilar region also the same image. Few punctate noncalcified nodules also present involving the lower lung armendariz bilaterally. Calcification along the anterior aspect of the thoracic spine at numerous levels consecutively raises question of diffuse etiopathic skeletal hyperostosis. Partially visualized upper abdomen is unremarkable. Impression: No suspicious infiltrate. Small left pleural effusion is present with minimal adjacent atelectasis. There are noncalcified pulmonary nodules at the lower lung armendariz measuring less than 0.6 cm diameter. Findings may represent noncalcified granulomas. Correlate with risk factors in determining follow-up. Correlate with risk factors in determining interval follow-up CT exam in one year to assess stability. Laboratory Tests Test 06/15/18 12:18 06/15/18 14:10 06/15/18 17:10 06/15/18 19:00 Glucose (Fingerstick) 172 mg/dL (70-99) 140 mg/dL (70-99) Lactic Acid Level 1.8 mmol/L (0.4-2.0) Urine Collection Type Unknown Urine Color Yellow Urine Clarity Clear Urine pH 5.0 Urine Specific [place] 1.015 Urine Protein Negative mg/dL (NEG-TRACE) Urine Glucose (UA) Negative mg/dL (NEG) Urine Ketones (Stick) Negative mg/dL (NEG) Urine Blood Negative (NEG) Urine Nitrite Negative (NEG) Urine Bilirubin Negative (NEG) Urine Urobilinogen Dipstick 0.2 mg/dL (0.2 mg/dL) Urine Leukocyte Esterase Negative (NEG) Urine RBC 0 /HPF (0-2) Urine WBC 1-4 /HPF (0-4) Urine Squamous Epithelial Cells Occ /LPF Urine Bacteria 0 /HPF (0-FEW) Test 06/16/18 03:55 06/16/18 07:31 White Blood Count 6.3 x10^3/uL (4.0-11.0) Red Blood Count 3.86 x10^6/uL (4.30-5.70) Hemoglobin 12.1 g/dL (13.0-17.5) Hematocrit 36.3 % (39.0-53.0) Mean Corpuscular Volume 94 fL (79-100) Mean Corpuscular Hemoglobin 31 pg (25-35) Mean Corpuscular Hemoglobin Concent 33 g/dL (31-37) Red Cell Distribution Width 13.8 % (11.5-14.5) Platelet Count 130 x10^3/uL (140-400) Neutrophils (%) (Auto) 64 % (31-73) Lymphocytes (%) (Auto) 25 % (24-48) Monocytes (%) (Auto) 9 % (0-9) Eosinophils (%) (Auto) 2 % (0-3) Basophils (%) (Auto) 0 % (0-3) Neutrophils # (Auto) 4.0 x10^3uL (1.8-7.7) Lymphocytes # (Auto) 1.6 x10^3/uL (1.0-4.8) Monocytes # (Auto) 0.6 x10^3/uL (0.0-1.1) Eosinophils # (Auto) 0.1 x10^3/uL (0.0-0.7) Basophils # (Auto) 0.0 x10^3/uL (0.0-0.2) Sodium Level 144 mmol/L (136-145) Potassium Level 4.2 mmol/L (3.5-5.1) Chloride Level 108 mmol/L (98-107) Carbon Dioxide Level 27 mmol/L (21-32) Anion Gap 9 (6-14) Blood Urea Nitrogen 10 mg/dL (8-26) Creatinine 1.1 mg/dL (0.7-1.3) Estimated GFR (Cockcroft-Gault) 63.2 Glucose Level 149 mg/dL (70-99) Calcium Level 8.2 mg/dL (8.5-10.1) Magnesium Level 1.7 mg/dL (1.8-2.4) Troponin I Quantitative 0.866 ng/mL (0.000-0.055) Procalcitonin < 0.10 ng/mL (0.00-0.10) Glucose (Fingerstick) 135 mg/dL (70-99) Comment Review of Relevant I have reviewed the following items stewart (where applicable) has been applied. Labs Laboratory Tests Test 06/14/18 20:24 06/15/18 00:50 06/15/18 03:12 06/15/18 03:55 White Blood Count 6.4 x10^3/uL (4.0-11.0) Red Blood Count 4.53 x10^6/uL (4.30-5.70) Hemoglobin 14.1 g/dL (13.0-17.5) Hematocrit 42.1 % (39.0-53.0) Mean Corpuscular Volume 93 fL (79-100) Mean Corpuscular Hemoglobin 31 pg (25-35) Mean Corpuscular Hemoglobin Concent 34 g/dL (31-37) Red Cell Distribution Width 13.5 % (11.5-14.5) Platelet Count 157 x10^3/uL (140-400) Neutrophils (%) (Auto) 51 % (31-73) Lymphocytes (%) (Auto) 36 % (24-48) Monocytes (%) (Auto) 9 % (0-9) Eosinophils (%) (Auto) 3 % (0-3) Basophils (%) (Auto) 1 % (0-3) Neutrophils # (Auto) 3.3 x10^3uL (1.8-7.7) Lymphocytes # (Auto) 2.3 x10^3/uL (1.0-4.8) Monocytes # (Auto) 0.6 x10^3/uL (0.0-1.1) Eosinophils # (Auto) 0.2 x10^3/uL (0.0-0.7) Basophils # (Auto) 0.0 x10^3/uL (0.0-0.2) Prothrombin Time 11.8 SEC (11.7-14.0) Prothromb Time International Ratio 0.9 (0.8-1.1) Sodium Level 141 mmol/L (136-145) Potassium Level 4.2 mmol/L (3.5-5.1) Chloride Level 104 mmol/L (98-107) Carbon Dioxide Level 28 mmol/L (21-32) Anion Gap 9 (6-14) Blood Urea Nitrogen 13 mg/dL (8-26) Creatinine 1.2 mg/dL (0.7-1.3) Estimated GFR (Cockcroft-Gault) 57.1 BUN/Creatinine Ratio 11 (6-20) Glucose Level 235 mg/dL (70-99) Lactic Acid Level 2.9 mmol/L (0.4-2.0) 2.4 mmol/L (0.4-2.0) Calcium Level 9.0 mg/dL (8.5-10.1) Magnesium Level 1.6 mg/dL (1.8-2.4) 1.8 mg/dL (1.8-2.4) Total Bilirubin 0.3 mg/dL (0.2-1.0) Aspartate Amino Transf (AST/SGOT) 13 U/L (15-37) Alanine Aminotransferase (ALT/SGPT) 21 U/L (16-63) Alkaline Phosphatase 122 U/L (46-116) Troponin I Quantitative < 0.017 ng/mL (0.000-0.055) 0.486 ng/mL (0.000-0.055) 1.129 ng/mL (0.000-0.055) NQ-Ure-W-Type Natriuretic Peptide 243 pg/mL (0-449) Total Protein 6.9 g/dL (6.4-8.2) Albumin 3.8 g/dL (3.4-5.0) Albumin/Globulin Ratio 1.2 (1.0-1.7) Thyroid Stimulating Hormone (TSH) 3.981 uIU/mL (0.358-3.74) Nasal Screen MRSA (PCR) Negative (Negative) Procalcitonin < 0.10 ng/mL (0.00-0.10) Free Thyroxine 0.96 ng/dL (0.76-1.46) Test 06/15/18 08:10 06/15/18 12:18 06/15/18 14:10 06/15/18 17:10 Glucose (Fingerstick) 132 mg/dL (70-99) 172 mg/dL (70-99) 140 mg/dL (70-99) Lactic Acid Level 1.8 mmol/L (0.4-2.0) Test 06/15/18 19:00 06/16/18 03:55 06/16/18 07:31 Urine Collection Type Unknown Urine Color Yellow Urine Clarity Clear Urine pH 5.0 Urine Specific [place] 1.015 Urine Protein Negative mg/dL (NEG-TRACE) Urine Glucose (UA) Negative mg/dL (NEG) Urine Ketones (Stick) Negative mg/dL (NEG) Urine Blood Negative (NEG) Urine Nitrite Negative (NEG) Urine Bilirubin Negative (NEG) Urine Urobilinogen Dipstick 0.2 mg/dL (0.2 mg/dL) Urine Leukocyte Esterase Negative (NEG) Urine RBC 0 /HPF (0-2) Urine WBC 1-4 /HPF (0-4) Urine Squamous Epithelial Cells Occ /LPF Urine Bacteria 0 /HPF (0-FEW) White Blood Count 6.3 x10^3/uL (4.0-11.0) Red Blood Count 3.86 x10^6/uL (4.30-5.70) Hemoglobin 12.1 g/dL (13.0-17.5) Hematocrit 36.3 % (39.0-53.0) Mean Corpuscular Volume 94 fL (79-100) Mean Corpuscular Hemoglobin 31 pg (25-35) Mean Corpuscular Hemoglobin Concent 33 g/dL (31-37) Red Cell Distribution Width 13.8 % (11.5-14.5) Platelet Count 130 x10^3/uL (140-400) Neutrophils (%) (Auto) 64 % (31-73) Lymphocytes (%) (Auto) 25 % (24-48) Monocytes (%) (Auto) 9 % (0-9) Eosinophils (%) (Auto) 2 % (0-3) Basophils (%) (Auto) 0 % (0-3) Neutrophils # (Auto) 4.0 x10^3uL (1.8-7.7) Lymphocytes # (Auto) 1.6 x10^3/uL (1.0-4.8) Monocytes # (Auto) 0.6 x10^3/uL (0.0-1.1) Eosinophils # (Auto) 0.1 x10^3/uL (0.0-0.7) Basophils # (Auto) 0.0 x10^3/uL (0.0-0.2) Sodium Level 144 mmol/L (136-145) Potassium Level 4.2 mmol/L (3.5-5.1) Chloride Level 108 mmol/L (98-107) Carbon Dioxide Level 27 mmol/L (21-32) Anion Gap 9 (6-14) Blood Urea Nitrogen 10 mg/dL (8-26) Creatinine 1.1 mg/dL (0.7-1.3) Estimated GFR (Cockcroft-Gault) 63.2 Glucose Level 149 mg/dL (70-99) Calcium Level 8.2 mg/dL (8.5-10.1) Magnesium Level 1.7 mg/dL (1.8-2.4) Troponin I Quantitative 0.866 ng/mL (0.000-0.055) Procalcitonin < 0.10 ng/mL (0.00-0.10) Glucose (Fingerstick) 135 mg/dL (70-99) Laboratory Tests Test 06/15/18 12:18 06/15/18 14:10 06/15/18 17:10 06/15/18 19:00 Glucose (Fingerstick) 172 mg/dL (70-99) 140 mg/dL (70-99) Lactic Acid Level 1.8 mmol/L (0.4-2.0) Urine Collection Type Unknown Urine Color Yellow Urine Clarity Clear Urine pH 5.0 Urine Specific [place] 1.015 Urine Protein Negative mg/dL (NEG-TRACE) Urine Glucose (UA) Negative mg/dL (NEG) Urine Ketones (Stick) Negative mg/dL (NEG) Urine Blood Negative (NEG) Urine Nitrite Negative (NEG) Urine Bilirubin Negative (NEG) Urine Urobilinogen Dipstick 0.2 mg/dL (0.2 mg/dL) Urine Leukocyte Esterase Negative (NEG) Urine RBC 0 /HPF (0-2) Urine WBC 1-4 /HPF (0-4) Urine Squamous Epithelial Cells Occ /LPF Urine Bacteria 0 /HPF (0-FEW) Test 06/16/18 03:55 06/16/18 07:31 White Blood Count 6.3 x10^3/uL (4.0-11.0) Red Blood Count 3.86 x10^6/uL (4.30-5.70) Hemoglobin 12.1 g/dL (13.0-17.5) Hematocrit 36.3 % (39.0-53.0) Mean Corpuscular Volume 94 fL (79-100) Mean Corpuscular Hemoglobin 31 pg (25-35) Mean Corpuscular Hemoglobin Concent 33 g/dL (31-37) Red Cell Distribution Width 13.8 % (11.5-14.5) Platelet Count 130 x10^3/uL (140-400) Neutrophils (%) (Auto) 64 % (31-73) Lymphocytes (%) (Auto) 25 % (24-48) Monocytes (%) (Auto) 9 % (0-9) Eosinophils (%) (Auto) 2 % (0-3) Basophils (%) (Auto) 0 % (0-3) Neutrophils # (Auto) 4.0 x10^3uL (1.8-7.7) Lymphocytes # (Auto) 1.6 x10^3/uL (1.0-4.8) Monocytes # (Auto) 0.6 x10^3/uL (0.0-1.1) Eosinophils # (Auto) 0.1 x10^3/uL (0.0-0.7) Basophils # (Auto) 0.0 x10^3/uL (0.0-0.2) Sodium Level 144 mmol/L (136-145) Potassium Level 4.2 mmol/L (3.5-5.1) Chloride Level 108 mmol/L (98-107) Carbon Dioxide Level 27 mmol/L (21-32) Anion Gap 9 (6-14) Blood Urea Nitrogen 10 mg/dL (8-26) Creatinine 1.1 mg/dL (0.7-1.3) Estimated GFR (Cockcroft-Gault) 63.2 Glucose Level 149 mg/dL (70-99) Calcium Level 8.2 mg/dL (8.5-10.1) Magnesium Level 1.7 mg/dL (1.8-2.4) Troponin I Quantitative 0.866 ng/mL (0.000-0.055) Procalcitonin < 0.10 ng/mL (0.00-0.10) Glucose (Fingerstick) 135 mg/dL (70-99) Microbiology 06/15/18 Blood Culture - Preliminary, Resulted NO GROWTH AFTER 1 DAY Medications Current Medications Diltiazem HCl (Cardizem Iv Push) 10 mg 1X ONCE IVP Last administered on at 20:52; Start 06/14/18 at 20:45; Stop 06/14/18 at 20:46; Status DC Diltiazem HCl 125 mg/Dextrose 125 ml @ 5 mls/hr 1X ONCE IV Last administered on 06/14/18at 20:59; Start 06/14/18 at 20:45; Stop 06/15/18 at 07:17; Status DC Sodium Chloride 500 ml @ 500 mls/hr 1X ONCE IV ; Start 06/14/18 at 21:30; Stop 06/14/18 at 22:29; Status DC Ceftriaxone Sodium (Rocephin) 1 gm 1X ONCE IVP Last administered on 06/14/18at 22:14; Start 06/14/18 at 21:30; Stop 06/14/18 at 21:31; Status DC Doxycycline Hyclate 100 mg/ Dextrose 100 ml @ 50 mls/hr 1X ONCE IV Last administered on 06/14/18at 21:44; Start 06/14/18 at 21:30; Stop 06/14/18 at 23:29 ; Status DC Magnesium Sulfate/ Dextrose 100 ml @ 100 mls/hr 1X ONCE IV Last administered on 06/14/18at 22:15; Start 06/14/18 at 21:45; Stop 06/14/18 at 22:44; Status DC Rivaroxaban (Xarelto) 15 mg 1X ONCE PO Last administered on 06/14/18at 21:56; Start 06/14/18 at 21:45; Stop 06/14/18 at 21:46; Status DC Sodium Chloride 500 ml @ 500 mls/hr 1X PRN PRN IV PER PROTOCOL Last administered on 06/15/18at 01:49; Start 06/15/18 at 01:30 Sodium Chloride 1,000 ml @ 100 mls/hr Q10H IV Last administered on 06/16/18at 07:43; Start 06/15/18 at 02:00 Digoxin (Lanoxin) 0.625 mcg 1X PRN PRN IV PER PROTOCOL; Start 06/15/18 at 02:00 ; Stop 06/15/18 at 09:00; Status Cancel Digoxin (Lanoxin) 125 mcg 1X ONCE IV Last administered on 06/15/18at 02:43; Start 06/15/18 at 02:30; Stop 06/15/18 at 02:32; Status DC Digoxin (Lanoxin) 125 mcg 1X ONCE IV Last administered on 06/15/18at 05:12; Start 06/15/18 at 04:30; Stop 06/15/18 at 04:31; Status DC Diltiazem HCl 125 mg/Dextrose 125 ml @ 5 mls/hr CONT PRN IV SEE I/O RECORD Last administered on 06/15/18at 06:45; Start 06/15/18 at 06:45 Lisinopril (Prinivil) 20 mg DAILYBFRSUP PO Last administered on 06/15/18at 17:22 ; Start 06/15/18 at 17:00 Multivitamins/ Minerals (I-Marcel) 1 tab DAILY PO Last administered on 06/16/18 07:44; Start 06/16/18 at 09:00 Zolpidem Tartrate (Ambien) 5 mg PRN QHS PRN PO INSOMNIA; Start 06/15/18 at 10: 45 Fish Oil (Fish Oil) 1,000 mg DAILY PO Last administered on 06/16/18 07:44; Start 06/15/18 at 11:00 Metformin HCl (Glucophage) 500 mg BIDWMEALS PO Last administered on 06/16/18 07:44; Start 06/15/18 at 17:00 Atorvastatin Calcium (Lipitor) 5 mg QHS PO Last administered on 06/15/18 20:53 ; Start 06/15/18 at 21:00 Terazosin HCl (Hytrin) 10 mg QHS PO Last administered on 06/15/18 20:53; Start 06/15/18 at 21:00 Diltiazem HCl (Cardizem 24hr Cd) 120 mg DAILY PO Last administered on 07:44; Start 06/15/18 at 11:00 Piperacillin Sod/ Tazobactam Sod 3.375 gm/Sodium Chloride 50 ml @ 100 mls/hr Q6HRS IV Last administered on 06/16/18 06:06; Start 06/15/18 at 13:00; Stop at 09:16; Status DC Vancomycin HCl (Vanco Per Pharmacy) 1 each PRN DAILY PRN MC SEE COMMENTS Last administered on 06/15/18 14:36; Start 06/15/18 at 12:30; Stop 06/15/18 at 15:21 ; Status DC Vancomycin HCl 1.75 gm/Sodium Chloride 500 ml @ 250 mls/hr 1X ONCE IV Last administered on 06/15/18 13:53; Start 06/15/18 at 13:00; Stop 06/15/18 at 14:59 ; Status DC Albuterol/ Ipratropium (Duoneb) 3 ml RTQID NEB Last administered on 06/16/18 09:33; Start 06/15/18 at 16:00 Rivaroxaban (Xarelto) 15 mg DAILYWSUP PO Last administered on 06/15/18at 17:00; Start 06/15/18 at 17:00 Vancomycin HCl 1.5 gm/Sodium Chloride 500 ml @ 250 mls/hr Q24H IV ; Start 06/16 at 14:00; Stop 06/16/18 at 14:00; Status DC Vancomycin HCl (Vancomycin Trough Level) 1 each 1X ONCE MC ; Start 06/17/18 at 13:30; Stop 06/17/18 at 13:31; Status Cancel Lactobacillus Rhamnosus (Culturelle) 1 cap BID PO Last administered on at 07:44; Start 06/15/18 at 21:00 Active Scripts Active Hydrocodone-Apap 5-325 (Hydrocodone Bit/Acetaminophen) 1 Each Tablet 1 Tab PO PRN Q4HRS PRN Reported Ocuvite Tablet (Vit A,C & E/Lutein/Minerals) 1 Each Tablet 1 Each PO DAILY Fish Oil 1,200 Mg Fish Oil (Fish Oil/Dha/Epa) 1 Each Capsule 1 Each PO DAILY Zolpidem Tartrate 5 Mg Tablet 5 Mg PO PRN QHS PRN Lisinopril 20 Mg Tablet 20 Mg PO DAILYBFRSUP Pravastatin Sodium 10 Mg Tablet 10 Mg PO QHS Terazosin Hcl 5 Mg Capsule 10 Mg PO QHS Metformin Hcl 500 Mg Tablet 500 Mg PO BID Cartia Xt (Diltiazem Hcl) 120 Mg Cap.er.24h 120 Mg PO Vitals/I & O Vital Sign - Last 24 Hours 06/15/18 06/15/18 06/15/18 06/15/18 11:00 11:28 12:00 12:00 Temp 97.7 97.7 Pulse 104 96 Resp 20 B/P (MAP) 98/74 (82) 135/84 Pulse Ox 96 O2 Delivery Nasal Cannula Nasal Cannula O2 Flow Rate 2.0 2.0 06/15/18 06/15/18 06/15/18 06/15/18 12:00 13:00 14:00 15:00 Pulse 141 65 64 64 Resp 22 16 20 18 B/P (MAP) 107/74 (85) 137/62 (87) 120/60 (80) 116/58 (77) Pulse Ox 96 96 97 97 O2 Delivery Nasal Cannula Nasal Cannula Nasal Cannula Nasal Cannula O2 Flow Rate 2.0 2.0 2.0 2.0 06/15/18 06/15/18 06/15/18 06/15/18 16:00 16:00 16:53 17:00 Temp 97.9 97.9 Pulse 65 66 Resp 18 16 B/P (MAP) 133/49 (77) 129/56 (80) Pulse Ox 96 94 97 O2 Delivery Nasal Cannula Nasal Cannula Nasal Cannula Nasal Cannula O2 Flow Rate 2.0 2.0 2.0 2.0 06/15/18 06/15/18 06/15/18 06/15/18 17:22 18:00 19:00 20:00 Pulse 68 75 74 Resp 18 18 B/P (MAP) 141/65 133/64 (87) 121/59 (79) Pulse Ox 96 96 O2 Delivery Nasal Cannula Nasal Cannula Nasal Cannula O2 Flow Rate 2.0 2.0 2.0 06/15/18 06/15/18 06/15/18 06/15/18 20:00 20:10 20:53 21:00 Temp 98.1 98.1 Pulse 70 76 70 Resp 18 22 B/P (MAP) 124/56 (78) 128/56 128/56 (80) Pulse Ox 97 96 96 O2 Delivery Nasal Cannula Nasal Cannula Nasal Cannula O2 Flow Rate 2.0 2.0 2.0 06/15/18 06/15/18 06/16/18 06/16/18 22:00 23:00 00:00 00:00 Temp 98.5 98.5 Pulse 70 68 66 Resp 16 16 16 B/P (MAP) 118/60 (79) 112/61 (78) 119/59 (79) Pulse Ox 98 98 98 O2 Delivery Nasal Cannula Nasal Cannula Nasal Cannula Nasal Cannula O2 Flow Rate 2.0 2.0 2.0 2.0 06/16/18 06/16/18 06/16/18 06/16/18 01:00 02:00 03:00 03:35 Pulse 68 67 69 Resp 17 15 17 B/P (MAP) 121/60 (80) 123/63 (83) 124/60 (81) Pulse Ox 97 97 97 O2 Delivery Nasal Cannula Nasal Cannula Nasal Cannula Nasal Cannula O2 Flow Rate 2.0 2.0 2.0 2.0 06/16/18 06/16/18 06/16/18 06/16/18 04:00 05:00 06:00 07:00 Temp 98.1 98.0 98.1 98.0 Pulse 63 69 72 74 Resp 15 15 16 14 B/P (MAP) 130/61 (84) 112/60 (77) 126/65 (85) 144/72 (96) Pulse Ox 96 97 97 97 O2 Delivery Nasal Cannula Nasal Cannula Nasal Cannula Nasal Cannula O2 Flow Rate 2.0 2.0 2.0 2.0 06/16/18 06/16/18 06/16/18 06/16/18 07:44 07:50 07:55 09:02 Pulse 74 71 77 B/P (MAP) 144/72 152/78 (102) 158/76 (103) Pulse Ox 97 97 O2 Delivery Nasal Cannula Nasal Cannula Nasal Cannula O2 Flow Rate 2.0 2.0 2.0 06/16/18 06/16/18 09:33 10:09 Pulse 92 B/P (MAP) 153/68 (96) Pulse Ox 97 96 O2 Delivery Nasal Cannula Nasal Cannula O2 Flow Rate 2.0 2.0 Intake and Output 06/15/18 06/15/18 06/16/18 15:00 23:00 07:00 Intake Total 140.8 ml 2655.85 ml 1129 ml Output Total 1575 ml 825 ml Balance 140.8 ml 1080.85 ml 304 ml HALEY MARTINEZ MD Jun 16, 2018 10:51
[2018-06-16] MEDS ORDERED: MAGNESIUM SULFATE 1GM 100 ML IV ONE (11:30)
--- NOTE | 2018-06-16 12:06 | PDOC ---
PULMONARY PROGRESS NOTES Vitals Vital Signs Date Time Temp Pulse Resp B/P (MAP) Pulse Ox O2 Delivery O2 Flow Rate FiO2 06/16/18 11:05 86 138/56 (83) 98 Nasal Cannula 2.0 06/16/18 07:00 98.0 14 98.0 Labs Laboratory Tests Test 06/14/18 20:24 06/15/18 00:50 06/15/18 03:12 06/15/18 03:55 White Blood Count 6.4 x10^3/uL (4.0-11.0) Red Blood Count 4.53 x10^6/uL (4.30-5.70) Hemoglobin 14.1 g/dL (13.0-17.5) Hematocrit 42.1 % (39.0-53.0) Mean Corpuscular Volume 93 fL (79-100) Mean Corpuscular Hemoglobin 31 pg (25-35) Mean Corpuscular Hemoglobin Concent 34 g/dL (31-37) Red Cell Distribution Width 13.5 % (11.5-14.5) Platelet Count 157 x10^3/uL (140-400) Neutrophils (%) (Auto) 51 % (31-73) Lymphocytes (%) (Auto) 36 % (24-48) Monocytes (%) (Auto) 9 % (0-9) Eosinophils (%) (Auto) 3 % (0-3) Basophils (%) (Auto) 1 % (0-3) Neutrophils # (Auto) 3.3 x10^3uL (1.8-7.7) Lymphocytes # (Auto) 2.3 x10^3/uL (1.0-4.8) Monocytes # (Auto) 0.6 x10^3/uL (0.0-1.1) Eosinophils # (Auto) 0.2 x10^3/uL (0.0-0.7) Basophils # (Auto) 0.0 x10^3/uL (0.0-0.2) Prothrombin Time 11.8 SEC (11.7-14.0) Prothromb Time International Ratio 0.9 (0.8-1.1) Sodium Level 141 mmol/L (136-145) Potassium Level 4.2 mmol/L (3.5-5.1) Chloride Level 104 mmol/L (98-107) Carbon Dioxide Level 28 mmol/L (21-32) Anion Gap 9 (6-14) Blood Urea Nitrogen 13 mg/dL (8-26) Creatinine 1.2 mg/dL (0.7-1.3) Estimated GFR (Cockcroft-Gault) 57.1 BUN/Creatinine Ratio 11 (6-20) Glucose Level 235 mg/dL (70-99) Lactic Acid Level 2.9 mmol/L (0.4-2.0) 2.4 mmol/L (0.4-2.0) Calcium Level 9.0 mg/dL (8.5-10.1) Magnesium Level 1.6 mg/dL (1.8-2.4) 1.8 mg/dL (1.8-2.4) Total Bilirubin 0.3 mg/dL (0.2-1.0) Aspartate Amino Transf (AST/SGOT) 13 U/L (15-37) Alanine Aminotransferase (ALT/SGPT) 21 U/L (16-63) Alkaline Phosphatase 122 U/L (46-116) Troponin I Quantitative < 0.017 ng/mL (0.000-0.055) 0.486 ng/mL (0.000-0.055) 1.129 ng/mL (0.000-0.055) TO-Xeg-B-Type Natriuretic Peptide 243 pg/mL (0-449) Total Protein 6.9 g/dL (6.4-8.2) Albumin 3.8 g/dL (3.4-5.0) Albumin/Globulin Ratio 1.2 (1.0-1.7) Thyroid Stimulating Hormone (TSH) 3.981 uIU/mL (0.358-3.74) Nasal Screen MRSA (PCR) Negative (Negative) Procalcitonin < 0.10 ng/mL (0.00-0.10) Free Thyroxine 0.96 ng/dL (0.76-1.46) Test 06/15/18 08:10 06/15/18 12:18 06/15/18 14:10 06/15/18 17:10 Glucose (Fingerstick) 132 mg/dL (70-99) 172 mg/dL (70-99) 140 mg/dL (70-99) Lactic Acid Level 1.8 mmol/L (0.4-2.0) Test 06/15/18 19:00 06/16/18 03:55 06/16/18 07:31 06/16/18 12:00 Urine Collection Type Unknown Urine Color Yellow Urine Clarity Clear Urine pH 5.0 Urine Specific [place] 1.015 Urine Protein Negative mg/dL (NEG-TRACE) Urine Glucose (UA) Negative mg/dL (NEG) Urine Ketones (Stick) Negative mg/dL (NEG) Urine Blood Negative (NEG) Urine Nitrite Negative (NEG) Urine Bilirubin Negative (NEG) Urine Urobilinogen Dipstick 0.2 mg/dL (0.2 mg/dL) Urine Leukocyte Esterase Negative (NEG) Urine RBC 0 /HPF (0-2) Urine WBC 1-4 /HPF (0-4) Urine Squamous Epithelial Cells Occ /LPF Urine Bacteria 0 /HPF (0-FEW) White Blood Count 6.3 x10^3/uL (4.0-11.0) Red Blood Count 3.86 x10^6/uL (4.30-5.70) Hemoglobin 12.1 g/dL (13.0-17.5) Hematocrit 36.3 % (39.0-53.0) Mean Corpuscular Volume 94 fL (79-100) Mean Corpuscular Hemoglobin 31 pg (25-35) Mean Corpuscular Hemoglobin Concent 33 g/dL (31-37) Red Cell Distribution Width 13.8 % (11.5-14.5) Platelet Count 130 x10^3/uL (140-400) Neutrophils (%) (Auto) 64 % (31-73) Lymphocytes (%) (Auto) 25 % (24-48) Monocytes (%) (Auto) 9 % (0-9) Eosinophils (%) (Auto) 2 % (0-3) Basophils (%) (Auto) 0 % (0-3) Neutrophils # (Auto) 4.0 x10^3uL (1.8-7.7) Lymphocytes # (Auto) 1.6 x10^3/uL (1.0-4.8) Monocytes # (Auto) 0.6 x10^3/uL (0.0-1.1) Eosinophils # (Auto) 0.1 x10^3/uL (0.0-0.7) Basophils # (Auto) 0.0 x10^3/uL (0.0-0.2) Sodium Level 144 mmol/L (136-145) Potassium Level 4.2 mmol/L (3.5-5.1) Chloride Level 108 mmol/L (98-107) Carbon Dioxide Level 27 mmol/L (21-32) Anion Gap 9 (6-14) Blood Urea Nitrogen 10 mg/dL (8-26) Creatinine 1.1 mg/dL (0.7-1.3) Estimated GFR (Cockcroft-Gault) 63.2 Glucose Level 149 mg/dL (70-99) Calcium Level 8.2 mg/dL (8.5-10.1) Magnesium Level 1.7 mg/dL (1.8-2.4) Troponin I Quantitative 0.866 ng/mL (0.000-0.055) Procalcitonin < 0.10 ng/mL (0.00-0.10) Glucose (Fingerstick) 135 mg/dL (70-99) 178 mg/dL (70-99) Laboratory Tests Test 06/15/18 12:18 06/15/18 14:10 06/15/18 17:10 06/15/18 19:00 Glucose (Fingerstick) 172 mg/dL (70-99) 140 mg/dL (70-99) Lactic Acid Level 1.8 mmol/L (0.4-2.0) Urine Collection Type Unknown Urine Color Yellow Urine Clarity Clear Urine pH 5.0 Urine Specific [place] 1.015 Urine Protein Negative mg/dL (NEG-TRACE) Urine Glucose (UA) Negative mg/dL (NEG) Urine Ketones (Stick) Negative mg/dL (NEG) Urine Blood Negative (NEG) Urine Nitrite Negative (NEG) Urine Bilirubin Negative (NEG) Urine Urobilinogen Dipstick 0.2 mg/dL (0.2 mg/dL) Urine Leukocyte Esterase Negative (NEG) Urine RBC 0 /HPF (0-2) Urine WBC 1-4 /HPF (0-4) Urine Squamous Epithelial Cells Occ /LPF Urine Bacteria 0 /HPF (0-FEW) Test 06/16/18 03:55 06/16/18 07:31 06/16/18 12:00 White Blood Count 6.3 x10^3/uL (4.0-11.0) Red Blood Count 3.86 x10^6/uL (4.30-5.70) Hemoglobin 12.1 g/dL (13.0-17.5) Hematocrit 36.3 % (39.0-53.0) Mean Corpuscular Volume 94 fL (79-100) Mean Corpuscular Hemoglobin 31 pg (25-35) Mean Corpuscular Hemoglobin Concent 33 g/dL (31-37) Red Cell Distribution Width 13.8 % (11.5-14.5) Platelet Count 130 x10^3/uL (140-400) Neutrophils (%) (Auto) 64 % (31-73) Lymphocytes (%) (Auto) 25 % (24-48) Monocytes (%) (Auto) 9 % (0-9) Eosinophils (%) (Auto) 2 % (0-3) Basophils (%) (Auto) 0 % (0-3) Neutrophils # (Auto) 4.0 x10^3uL (1.8-7.7) Lymphocytes # (Auto) 1.6 x10^3/uL (1.0-4.8) Monocytes # (Auto) 0.6 x10^3/uL (0.0-1.1) Eosinophils # (Auto) 0.1 x10^3/uL (0.0-0.7) Basophils # (Auto) 0.0 x10^3/uL (0.0-0.2) Sodium Level 144 mmol/L (136-145) Potassium Level 4.2 mmol/L (3.5-5.1) Chloride Level 108 mmol/L (98-107) Carbon Dioxide Level 27 mmol/L (21-32) Anion Gap 9 (6-14) Blood Urea Nitrogen 10 mg/dL (8-26) Creatinine 1.1 mg/dL (0.7-1.3) Estimated GFR (Cockcroft-Gault) 63.2 Glucose Level 149 mg/dL (70-99) Calcium Level 8.2 mg/dL (8.5-10.1) Magnesium Level 1.7 mg/dL (1.8-2.4) Troponin I Quantitative 0.866 ng/mL (0.000-0.055) Procalcitonin < 0.10 ng/mL (0.00-0.10) Glucose (Fingerstick) 135 mg/dL (70-99) 178 mg/dL (70-99) Medications Active Scripts Medications Dose Route/Sig Max Daily Dose Days Date Category Hydrocodone-Apap 5-325 (Hydrocodone Bit/Acetaminophen) 1 Each Tablet 1 Tab PO PRN Q4HRS PRN 06/25/17 Rx Ocuvite Tablet (Vit A,C & E/Lutein/Minerals) 1 Each Tablet 1 Each PO DAILY 06/19/17 Reported Fish Oil 1,200 Mg Fish Oil (Fish Oil/Dha/Epa) 1 Each Capsule 1 Each PO DAILY 06/19/17 Reported Zolpidem Tartrate 5 Mg Tablet 5 Mg PO PRN QHS PRN 06/19/17 Reported Lisinopril 20 Mg Tablet 20 Mg PO DAILYBFRSUP 06/19/17 Reported Pravastatin Sodium 10 Mg Tablet 10 Mg PO QHS 06/19/17 Reported Terazosin Hcl 5 Mg Capsule 10 Mg PO QHS 08/04/13 Reported Metformin Hcl 500 Mg Tablet 500 Mg PO BID 08/04/13 Reported Cartia Xt (Diltiazem Hcl) 120 Mg Cap.er.24h 120 Mg PO 08/04/13 Reported Impression . FULL NOTE DICTATED THANKS WILL REPEAT CT CHEST IN 6 MONTHS NO FURTHER WORK UP AT THIS TIME SOFIA DAVID MD Jun 16, 2018 12:06
--- NOTE | 2018-06-16 12:26 | CONS ---
DATE OF CONSULTATION: 06/16/2018 ATTENDING PHYSICIAN: Dr. Cruz. REASON FOR CONSULTATION: The patient is seen in pulmonary consultation at the request of Dr. Cruz for abnormal CT chest. HISTORY OF PRESENT ILLNESS: The patient is an 88-year-old that normally does not wear oxygen, no history of documented COPD, does not utilize any metered dose inhalers at home, presented mainly because of chest discomfort across the chest. He is currently being evaluated by Cardiology. The patient denies any associated shortness of breath with chest pain. No fever or chills. No productive cough. He had a CT chest, which I personally reviewed. The CT has several findings including some peripheral interstitial lung disease mainly on the right. There was also evidence of small effusion on the left. There was a noncalcified pulmonary nodule in the lower lobes on the right and the left. I was asked to see him in consultation for further evaluation and management. The patient has a history of tobacco use, quit 20 years ago, smoked for approximately 30 years. He now uses smokeless tobacco. PAST MEDICAL HISTORY: Type 2 diabetes, hyperlipidemia, hypertension, status post appendectomy. PAST SURGICAL HISTORY: As above. ALLERGIES: CODEINE, LOVASTATIN, AND PROMETHAZINE. CURRENT MEDICATION: List was reviewed. 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 He smoked for 30 years, quit 20 years ago. FAMILY HISTORY: No family history of lung disorders. REVIEW OF SYSTEMS: CONSTITUTIONAL: No fever or chills. EYES: No change in visual acuity. HEENT: No nasal congestion or sore throat. PULMONARY: As indicated above. CARDIOVASCULAR: As indicated above. GASTROINTESTINAL: No nausea, vomiting, diarrhea. GENITOURINARY: No dysuria or frequency. MUSCULOSKELETAL: No localized muscle aches or joint pain. SKIN: No new skin rashes. NEUROLOGIC: No headaches, diplopia or blurred vision. PHYSICAL EXAMINATION: GENERAL: The patient was in the Intensive Care Unit, currently on 2 liters. He has been afebrile since admission. HEENT: Eyes: The sclerae were nonicteric. NECK: Jugular venous distention was not elevated. No lymphadenopathy. CHEST: Full expansion. LUNGS: Adequate airway flow with slight crackles. CARDIOVASCULAR: Regular rate and rhythm with S1, S2, no S3. ABDOMEN: Soft, nontender, nondistended. EXTREMITIES: No clubbing, cyanosis or edema. NEUROLOGIC: The patient was awake, alert, following commands. A detailed neuro exam was not performed. LABORATORY DATA: Reviewed. Troponin ghada to 0.866, baseline was 0.4, max was 1.29. Lactic acid level was initially elevated. Magnesium was low. CT and chest x-ray as indicated above. IMPRESSION: 1. 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 2. Two small nodules in a patient that smoked. We will repeat CT in 6 months. 3. Elevated troponin level per Cardiology. 4. Lactic acidosis related to increased work of breathing. 5. Atrial fibrillation with rapid ventricular response. 6. Hypertension. 7. Type 2 diabetes. 8. Hypomagnesemia. PLAN: 1. Repeat CT in 6 months. 2. Follow Cardiology input. 3. Empiric antibiotics. We will defer adjustments to ID. 4. Chest pain per Cardiology. I do appreciate the privilege in sharing in the patient's care. SOFIA DAVID MD DR: SHIRA/kelly JOB#: [id number] / [id number]
--- NOTE | 2018-06-16 12:28 | CARD ---
MR#: [id number] Date of Study: 06/16/2018 Ordering Physician: HALEY MARTINEZ, Referring Physician: KAREEN GRIGGS Tech: Bronwyn Kat [facility] APPROVED REPORT EXAM: Two-dimensional and M-mode echocardiogram with Doppler and color Doppler. Other Information Quality : Technically LimitedHR: 86bpm Rhythm : NSRTechnically limited study due to body habitus and lung interference. INDICATION Atrial Fibrillation 2D DIMENSIONS RVDd4.0 (2.9-3.5cm)Left Atrium(2D)2.7 (1.6-4.0cm) IVSd1.5 (0.7-1.1cm)Aortic Root(2D)4.0 (2.0-3.7cm) LVDd5.4 (3.9-5.9cm)LVOT Diameter2.1 (1.8-2.4cm) PWd1.3 (0.7-1.1cm)LVDs4.1 (2.5-4.0cm) FS (%) 22.6 %SV62.7 ml M-Mode DIMENSIONS Left Atrium(MM)3.52 (2.5-4.0cm)Aortic Root4.03 (2.2-3.7cm) Aortic Valve AoV Peak Manoj.168.8cm/sAoV VTI31.9cm AO Peak GR.11.4mmHgLVOT VTI 19.55cm AO Mean GR.7mmHgAVA (VMAX)2.20cm2 NIKOLAI (VTI)2.15cm2 Mitral Valve MV E Lhqucgia81.2cm/sMV DECEL ISBJ562pe MV A Xfbxbjpg258.2cm/sE/A Ratio0.7 MV A Tolepvdk116te Tricuspid Valve TR P. Cgbsoodd379zj/sRAP KAYPFPJZ2wsPs TR Peak Gr.38prXaSOUC40keSh LEFT VENTRICLE Technically difficult study. The left ventricle is normal size. There is mild concentric left ventric ular hypertrophy. The systolic function is mildly impaired. The Ejection Fraction is 45-50%. There is mild global hypokinesis of the left ventricle. Transmitral Doppler flow pattern is abnormal. RIGHT VENTRICLE The right ventricle is mildly dilated. There is normal right ventricular wall thickness. Right ventri cular function cannot be assessed due to poor image quality. ATRIA The left atrium size is normal. The right atrium size is normal. The interatrial septum is intact wit h no evidence for an atrial septal defect or patent foramen ovale as noted on 2-D or Doppler imaging. AORTIC VALVE The aortic valve is not well visualized but appears calcified. Doppler and Color Flow revealed no sig nificant aortic regurgitation. There is no significant aortic valvular stenosis. MITRAL VALVE The mitral valve is normal in structure and function. There is no evidence of mitral valve prolapse. There is no mitral valve stenosis. Doppler and Color Flow revealed trace mitral valve regurgitation. TRICUSPID VALVE The tricuspid valve is normal in structure and function. Doppler and Color Flow revealed trace to mil d tricuspid regurgitation. The PA pressure was estimated at 38 mmHg. There is no tricuspid valve prol apse or vegetation. There is no tricuspid valve stenosis. PULMONIC VALVE The pulmonic valve is not well visualized. GREAT VESSELS The aortic root is mildly enlarged. The ascending aorta is not well seen. The IVC is normal in size a nd collapses >50% with inspiration. PERICARDIAL EFFUSION There is no evidence of significant pericardial effusion. Critical Notification Critical Value: No <Conclusion> Technically difficult study. The left ventricle is normal size. The systolic function is mildly impaired. The Ejection Fraction is 45-50%. There is mild global hypokinesis of the left ventricle. There is mild concentric left ventricular hypertrophy. There is no significant aortic valvular stenosis. Doppler and Color Flow revealed no significant aortic regurgitation. Doppler and Color Flow revealed trace mitral valve regurgitation. Doppler and Color Flow revealed trace to mild tricuspid regurgitation. The PA pressure was estimated at 38 mmHg. The aortic root is mildly enlarged. Signed by : Tim Recinos MD Electronically Approved : 06/16/2018 12:28:02
--- NOTE | 2018-06-16 13:07 | PDOC ---
CARDIO Progress Notes Date and Time Date of Service 06/16/18 Subjective Subjective: No shortness of breath, No Palpitations, Other (c/o episode of CP following lunch. Heaviness/pressure across central chest. Radiated through to back and down left arm. Relieved with nitro x1) Vitals Vitals Vital Signs Date Time Temp Pulse Resp B/P (MAP) Pulse Ox O2 Delivery O2 Flow Rate FiO2 06/16/18 12:05 95 Nasal Cannula 2.0 06/16/18 11:05 86 138/56 (83) 06/16/18 07:00 98.0 14 98.0 Weight Weight [ ] Input and Output Intake and Output Intake and Output 06/16/18 07:00 Intake Total 3925.65 ml Output Total 2400 ml Balance 1525.65 ml Intake Oral 900 ml IV Total 3025.65 ml Output Urine Total 2400 ml # Voids 1 Laboratory Labs Laboratory Tests Test 06/15/18 14:10 06/15/18 17:10 06/15/18 19:00 06/16/18 03:55 Lactic Acid Level 1.8 mmol/L (0.4-2.0) Glucose (Fingerstick) 140 mg/dL (70-99) Urine Collection Type Unknown Urine Color Yellow Urine Clarity Clear Urine pH 5.0 Urine Specific [place] 1.015 Urine Protein Negative mg/dL (NEG-TRACE) Urine Glucose (UA) Negative mg/dL (NEG) Urine Ketones (Stick) Negative mg/dL (NEG) Urine Blood Negative (NEG) Urine Nitrite Negative (NEG) Urine Bilirubin Negative (NEG) Urine Urobilinogen Dipstick 0.2 mg/dL (0.2 mg/dL) Urine Leukocyte Esterase Negative (NEG) Urine RBC 0 /HPF (0-2) Urine WBC 1-4 /HPF (0-4) Urine Squamous Epithelial Cells Occ /LPF Urine Bacteria 0 /HPF (0-FEW) White Blood Count 6.3 x10^3/uL (4.0-11.0) Red Blood Count 3.86 x10^6/uL (4.30-5.70) Hemoglobin 12.1 g/dL (13.0-17.5) Hematocrit 36.3 % (39.0-53.0) Mean Corpuscular Volume 94 fL (79-100) Mean Corpuscular Hemoglobin 31 pg (25-35) Mean Corpuscular Hemoglobin Concent 33 g/dL (31-37) Red Cell Distribution Width 13.8 % (11.5-14.5) Platelet Count 130 x10^3/uL (140-400) Neutrophils (%) (Auto) 64 % (31-73) Lymphocytes (%) (Auto) 25 % (24-48) Monocytes (%) (Auto) 9 % (0-9) Eosinophils (%) (Auto) 2 % (0-3) Basophils (%) (Auto) 0 % (0-3) Neutrophils # (Auto) 4.0 x10^3uL (1.8-7.7) Lymphocytes # (Auto) 1.6 x10^3/uL (1.0-4.8) Monocytes # (Auto) 0.6 x10^3/uL (0.0-1.1) Eosinophils # (Auto) 0.1 x10^3/uL (0.0-0.7) Basophils # (Auto) 0.0 x10^3/uL (0.0-0.2) Sodium Level 144 mmol/L (136-145) Potassium Level 4.2 mmol/L (3.5-5.1) Chloride Level 108 mmol/L (98-107) Carbon Dioxide Level 27 mmol/L (21-32) Anion Gap 9 (6-14) Blood Urea Nitrogen 10 mg/dL (8-26) Creatinine 1.1 mg/dL (0.7-1.3) Estimated GFR (Cockcroft-Gault) 63.2 Glucose Level 149 mg/dL (70-99) Calcium Level 8.2 mg/dL (8.5-10.1) Magnesium Level 1.7 mg/dL (1.8-2.4) Troponin I Quantitative 0.866 ng/mL (0.000-0.055) Procalcitonin < 0.10 ng/mL (0.00-0.10) Test 06/16/18 07:31 06/16/18 12:00 Glucose (Fingerstick) 135 mg/dL (70-99) 178 mg/dL (70-99) Microbiology Micro Microbiology 06/15/18 Blood Culture - Preliminary, Resulted NO GROWTH AFTER 1 DAY Physical Exam HEENT: Neck Supple W Full Motion Chest: Symmetric LUNGS: Clear to Auscultation Heart: S1S2, RRR (SR/ST with LBBB), no rubs Abdomen: Soft N/T Extremities: No Edema Neurology: alert, oriented, follow commands Assessment Assessment 1. AFIB with RVR; converted to SR overnight. Oral Cardizem for rate control. Xarelto for stroke prophylaxis. 2. Chest pain, mixed features. Initially felt to be secondary to RVR, but patient c/o chest heaviness/pressure today despite controlled HF. Pain located across the chest and radiated down his left arm and through to his back. Associated with diaphoresis and resolved with SL nitro x1. 3. NSTEMI; peak 1.1. Echo revealed LVEF 45-50%. EKG with LBBB 4. CAD; coronary artery calcifications note on CT 5. Hypertension; controlled 6. Hyperlipidemia; statin 7. DM, II 8. Mid hypothyroidism Recommendations EKG now Keep NPO. Will monitor overnight and plan for MPI versus cardiac cath in am Hold Xarelto for now Add ASA Check lipids- increase statin as warranted Convert Cardizem to metoprolol Supportive care MARJORIE HARRIS APRN Jun 16, 2018 13:07
[2018-06-16] MEDS ORDERED: NITROGLYCERIN SUBLINGUAL 0.4 MG BOTTLE OF 25. SL PRN (13:45)
[2018-06-16] MEDS ORDERED: VANCOMYCIN 1.5 GM in IV NORMAL SALINE 500ML BAG 500 ML IV SCH (14:00)
--- NOTE | 2018-06-16 14:09 | EKG ---
[facility] [address] [place] [address] Test Date: 2018-06-16 Test Time: 14:01:24 Pat Name: MATTHEW GALLARDO Department: Room: 105 1 Gender: M Flame Gouger: TAYLOR : 1930 Requested By: HALEY MARTINEZ Order Number: [id number] Reading MD: Chris Vaca MD Measurements Intervals [place] Rate: 102 P: 36 OK: 204 QRS: -18 QRSD: 126 T: 130 QT: 374 QTc: 492 Interpretive Statements SINUS RHYTHM PAC'S LBBB PRIOR ANTEROLATERAL INFARCT POSSIBLE Electronically Signed On 06-17-2018 9:11:14 CDT by Chris Vaca MD
[2018-06-16] MEDS: ASPIRIN ENTERIC COATED 81 MG TABLET.DR. PO SCH (16:46)
[2018-06-16] MEDS: LISINOPRIL 20 MG TABLET PO SCH (16:46)
[2018-06-16] MEDS: TERAZOSIN 5 MG CAPSULE. PO SCH (20:47)
[2018-06-16] MEDS: ATORVASTATIN CALCIUM 10 MG TABLET. PO SCH (20:47)
[2018-06-16] MEDS: METOPROLOL TART IMMED RELEASE 50 MG TABLET. PO SCH (20:48)
[2018-06-17] VITALS (7 sets, daily range): BP systolic 114–165; BP diastolic 68–86
[2018-06-17] MEDS: IV NORMAL SALINE 1000ML BAG 1,000 ML IV SCH ×2 (04:00→14:00)
[2018-06-17 05:36] LABS: BASO # 0.1 x10^3/uL (0.0-0.2); BASO % 1 % (0-3); EOS # 0.2 x10^3/uL (0.0-0.7); EOS % 2 % (0-3); HEMATOCRIT 37.2 % (39.0-53.0); HEMOGLOBIN 12.7 g/dL (13.0-17.5); LYMPH # 1.4 x10^3/uL (1.0-4.8); LYMPH % 18 % (24-48); MEAN CORPUSCULAR HEMOGLOBIN 32 pg (25-35); MEAN CORPUSCULAR HGB CONC 34 g/dL (31-37); MEAN CORPUSCULAR VOLUME 93 fL (79-100); MONO # 0.7 x10^3/uL (0.0-1.1); MONO % 9 % (0-9); NEUT # 5.4 x10^3uL (1.8-7.7); NEUT % 70 % (31-73); PLATELET COUNT 134 x10^3/uL (140-400); RED BLOOD COUNT 3.99 x10^6/uL (4.30-5.70); RED CELL DISTRIBUTION WIDTH 13.7 % (11.5-14.5); WHITE BLOOD COUNT 7.7 x10^3/uL (4.0-11.0)
[2018-06-17 05:52] LABS: CALCIUM 8.3 mg/dL (8.5-10.1); CREATININE 0.8 mg/dL (0.7-1.3); GFR 91.2; POTASSIUM 4.1 mmol/L (3.5-5.1)
[2018-06-17] MEDS: IPRATRPIUM/ALBUTEROL 0.5/2.5MG 3 ML NEBU. NEB SCH ×4 (07:34→20:20)
[2018-06-17] MEDS: metFORMIN 500 MG TABLET PO SCH (08:00)
--- NOTE | 2018-06-17 08:17 | PDOC ---
Infectious Disease Note Subjective: Subjective Pt without complaints Some dry cough no chestpain no f/c/n/v/d/abdo pain ROS: ROS Negative except for above. Vital Signs: Vital Signs Vital Signs Date Time Temp Pulse Resp B/P (MAP) Pulse Ox O2 Delivery O2 Flow Rate FiO2 06/17/18 04:00 98.5 74 162/86 (111) 92 Room Air 98.5 06/16/18 16:05 2.0 06/16/18 07:00 14 Physical Exam: PHYSICAL EXAM GENERAL: The patient is propped up in bed, alert and smiling. HEENT: Pupils equally round, reactive. Normal conjunctivae. He wears corrective lenses. Oral cavity: Pharynx pink and moist. Full dentures in place. NECK: Supple. LUNGS: Clear to auscultation. HEART: S1 and S2 regular. ABDOMEN: Obese, soft, nontender with bowel sounds present. EXTREMITIES: No gross edema or cyanosis. SKIN: Warm without rash. NEUROLOGIC: Alert and oriented x 3. Medications: Inpatient Meds: Current Medications Medications (Trade) Dose Ordered Sig/Jai Start Time Stop Time Status Last Admin Dose Admin Albuterol/ Ipratropium (Duoneb) 3 ml RTQID 06/15/18 16:00 06/17/18 07:34 3 ML Aspirin (Ecotrin) 81 mg DAILYWBKFT 06/16/18 17:00 06/16/18 16:46 81 MG Atorvastatin Calcium (Lipitor) 5 mg QHS 06/15/18 21:00 06/16/18 20:47 5 MG Ceftriaxone Sodium (Rocephin) 1 gm 1X ONCE 06/14/18 21:30 06/14/18 21:31 DC 06/14/18 22:14 1 GM Digoxin (Lanoxin) 125 mcg 1X ONCE 06/15/18 04:30 06/15/18 04:31 DC 06/15/18 05:12 125 MCG Diltiazem HCl (Cardizem 24hr Cd) 120 mg DAILY 06/15/18 11:00 06/16/18 16:52 DC 06/16/18 07:44 120 MG Diltiazem HCl (Cardizem Iv Push) 10 mg 1X ONCE 06/14/18 20:45 06/14/18 20:46 DC 06/14/18 20:52 10 MG Diltiazem HCl 125 mg/Dextrose 125 ml @ 5 mls/hr CONT PRN 06/15/18 06:45 06/16/18 16:52 DC 06/15/18 06:45 15 MLS/HR Doxycycline Hyclate 100 mg/ Dextrose 100 ml @ 50 mls/hr 1X ONCE 06/14/18 21:30 06/14/18 23:29 DC 06/14/18 21:44 50 MLS/HR Fish Oil (Fish Oil) 1,000 mg DAILY 06/15/18 11:00 06/16/18 07:44 1,000 MG Lactobacillus Rhamnosus (Culturelle) 1 cap BID 06/15/18 21:00 06/16/18 20:47 1 CAP Lisinopril (Prinivil) 20 mg DAILYBFRSUP 06/15/18 17:00 06/16/18 16:46 20 MG Magnesium Sulfate/ Dextrose 100 ml @ 100 mls/hr 1X ONCE 06/16/18 11:30 06/16/18 12:29 DC 06/16/18 11:17 100 MLS/HR Metformin HCl (Glucophage) 500 mg BIDWMEALS 06/15/18 17:00 06/16/18 16:47 500 MG Metoprolol Tartrate (Lopressor) 50 mg BID 06/16/18 21:00 06/16/18 20:48 50 MG Multivitamins/ Minerals (I-Marcel) 1 tab DAILY 06/16/18 09:00 06/16/18 07:44 1 TAB Nitroglycerin (Nitrostat) 0.4 mg PRN Q5MIN PRN 06/16/18 13:45 06/16/18 13:45 0.4 MG Piperacillin Sod/ Tazobactam Sod 3.375 gm/Sodium Chloride 50 ml @ 100 mls/hr Q6HRS 06/15/18 13:00 06/16/18 09:16 DC 06/16/18 06:06 100 MLS/HR Rivaroxaban (Xarelto) 15 mg DAILYWSUP 06/15/18 17:00 06/16/18 16:41 DC 06/15/18 17:00 15 MG Sodium Chloride 1,000 ml @ 100 mls/hr Q10H 06/15/18 02:00 06/17/18 04:00 100 MLS/HR Terazosin HCl (Hytrin) 10 mg QHS 06/15/18 21:00 06/16/18 20:47 10 MG Vancomycin HCl (Vanco Per Pharmacy) 1 each PRN DAILY PRN 06/15/18 12:30 06/15/18 15:21 DC 06/15/18 14:36 1 EACH Vancomycin HCl (Vancomycin Trough Level) 1 each 1X ONCE 06/17/18 13:30 06/17/18 13:31 Cancel Vancomycin HCl 1.5 gm/Sodium Chloride 500 ml @ 250 mls/hr Q24H 06/16/18 14:00 06/16/18 14:00 DC Vancomycin HCl 1.75 gm/Sodium Chloride 500 ml @ 250 mls/hr 1X ONCE 06/15/18 13:00 06/15/18 14:59 DC 06/15/18 13:53 250 MLS/HR Zolpidem Tartrate (Ambien) 5 mg PRN QHS PRN 06/15/18 10:45 Labs: Lab Laboratory Tests Test 06/16/18 12:00 06/16/18 13:55 06/16/18 16:52 06/17/18 05:25 Glucose (Fingerstick) 178 mg/dL (70-99) 210 mg/dL (70-99) Troponin I Quantitative 0.364 ng/mL (0.000-0.055) White Blood Count 7.7 x10^3/uL (4.0-11.0) Red Blood Count 3.99 x10^6/uL (4.30-5.70) Hemoglobin 12.7 g/dL (13.0-17.5) Hematocrit 37.2 % (39.0-53.0) Mean Corpuscular Volume 93 fL (79-100) Mean Corpuscular Hemoglobin 32 pg (25-35) Mean Corpuscular Hemoglobin Concent 34 g/dL (31-37) Red Cell Distribution Width 13.7 % (11.5-14.5) Platelet Count 134 x10^3/uL (140-400) Neutrophils (%) (Auto) 70 % (31-73) Lymphocytes (%) (Auto) 18 % (24-48) Monocytes (%) (Auto) 9 % (0-9) Eosinophils (%) (Auto) 2 % (0-3) Basophils (%) (Auto) 1 % (0-3) Neutrophils # (Auto) 5.4 x10^3uL (1.8-7.7) Lymphocytes # (Auto) 1.4 x10^3/uL (1.0-4.8) Monocytes # (Auto) 0.7 x10^3/uL (0.0-1.1) Eosinophils # (Auto) 0.2 x10^3/uL (0.0-0.7) Basophils # (Auto) 0.1 x10^3/uL (0.0-0.2) Sodium Level 146 mmol/L (136-145) Potassium Level 4.1 mmol/L (3.5-5.1) Chloride Level 110 mmol/L (98-107) Carbon Dioxide Level 28 mmol/L (21-32) Anion Gap 8 (6-14) Blood Urea Nitrogen 9 mg/dL (8-26) Creatinine 0.8 mg/dL (0.7-1.3) Estimated GFR (Cockcroft-Gault) 91.2 Glucose Level 151 mg/dL (70-99) Calcium Level 8.3 mg/dL (8.5-10.1) Micro BC neg Objective: Assessment: 1. Lactic acidosis, improved.Cause likely noninfectious. 2. Atrial fibrillation with rapid ventricular response, currently on Cardizem and Xarelto. 3. Small left pleural effusion. 4. Noncalcified pulmonary nodules. 5. Diabetes mellitus. Plan: Plan of Care Monitor off antibiotics closely Monitor labs Supportive care D/w nursing MAGED VALLE MD Jun 17, 2018 08:17
[2018-06-17] MEDS: MULTIVITAMIN I-VITE TABLET. PO SCH (09:00)
[2018-06-17] MEDS: OMEGA-3 FATTY ACIDS/FISH OIL 1,000 MG CAPSULE. PO SCH (09:00)
[2018-06-17] MEDS: LACTOBACILLUS RHAMNOSUS GG 1 CAPSULE. PO SCH ×2 (09:00→21:11)
--- NOTE | 2018-06-17 09:11 | PDOC ---
CARDIO Progress Notes Date and Time Date of Service 06/17/2018 Time of Evaluation 0910 Subjective Subjective: No Chest Pain, No shortness of breath, No Palpitations Vitals Vitals Vital Signs Date Time Temp Pulse Resp B/P (MAP) Pulse Ox O2 Delivery O2 Flow Rate FiO2 06/17/18 08:00 97 Room Air 06/17/18 04:00 98.5 74 162/86 (111) 98.5 06/16/18 16:05 2.0 06/16/18 07:00 14 Weight Weight [ ] Input and Output Intake and Output Intake and Output 06/17/18 06:59 Intake Total 0 ml Output Total 2825 ml Balance -2825 ml Intake Oral 0 ml Output Urine Total 2825 ml # Voids 4 Laboratory Labs Laboratory Tests Test 06/16/18 12:00 06/16/18 13:55 06/16/18 16:52 06/17/18 05:25 Glucose (Fingerstick) 178 mg/dL (70-99) 210 mg/dL (70-99) Troponin I Quantitative 0.364 ng/mL (0.000-0.055) White Blood Count 7.7 x10^3/uL (4.0-11.0) Red Blood Count 3.99 x10^6/uL (4.30-5.70) Hemoglobin 12.7 g/dL (13.0-17.5) Hematocrit 37.2 % (39.0-53.0) Mean Corpuscular Volume 93 fL (79-100) Mean Corpuscular Hemoglobin 32 pg (25-35) Mean Corpuscular Hemoglobin Concent 34 g/dL (31-37) Red Cell Distribution Width 13.7 % (11.5-14.5) Platelet Count 134 x10^3/uL (140-400) Neutrophils (%) (Auto) 70 % (31-73) Lymphocytes (%) (Auto) 18 % (24-48) Monocytes (%) (Auto) 9 % (0-9) Eosinophils (%) (Auto) 2 % (0-3) Basophils (%) (Auto) 1 % (0-3) Neutrophils # (Auto) 5.4 x10^3uL (1.8-7.7) Lymphocytes # (Auto) 1.4 x10^3/uL (1.0-4.8) Monocytes # (Auto) 0.7 x10^3/uL (0.0-1.1) Eosinophils # (Auto) 0.2 x10^3/uL (0.0-0.7) Basophils # (Auto) 0.1 x10^3/uL (0.0-0.2) Sodium Level 146 mmol/L (136-145) Potassium Level 4.1 mmol/L (3.5-5.1) Chloride Level 110 mmol/L (98-107) Carbon Dioxide Level 28 mmol/L (21-32) Anion Gap 8 (6-14) Blood Urea Nitrogen 9 mg/dL (8-26) Creatinine 0.8 mg/dL (0.7-1.3) Estimated GFR (Cockcroft-Gault) 91.2 Glucose Level 151 mg/dL (70-99) Calcium Level 8.3 mg/dL (8.5-10.1) Microbiology Micro Microbiology 06/15/18 Blood Culture - Preliminary, Resulted NO GROWTH AFTER 2 DAYS Physical Exam HEENT: Neck Supple W Full Motion Chest: Symmetric LUNGS: Clear to Auscultation Heart: S1S2, RRR (SR LBBB) Abdomen: Soft N/T Extremities: No Calf Tenderness Neurology: alert, oriented, follow commands Assessment Assessment 1. AFIB with RVR; converted to SR overnight. 2. Chest pain, mixed features. Initially felt to be secondary to RVR, but patient c/o chest heaviness/pressure today despite controlled HF. Pain located across the chest and radiated down his left arm and through to his back. Associated with diaphoresis and resolved with SL nitro x1. 3. NSTEMI; peak 1.1. Echo revealed LVEF 45-50%. EKG with LBBB 4. CAD; coronary artery calcifications note on CT 5. Hypertension; controlled 6. Hyperlipidemia; on goal 7. DM, II 8. Mild hypothyroidism Recommendations Hold Radhika for now, secondary prevention measures, [facility] today, risks and benefits discussed and agreeable to proceed. BEVERLY BOND APRN Jun 17, 2018 09:11
[2018-06-17] MEDS ORDERED: LABETALOL 20 MG/4 ML DISP.SYRIN. IVP PRN (09:15)
--- NOTE | 2018-06-17 09:17 | PDOC ---
PULMONARY PROGRESS NOTES Subjective PT NOT MORE SOA Vitals Vital Signs Date Time Temp Pulse Resp B/P (MAP) Pulse Ox O2 Delivery O2 Flow Rate FiO2 06/17/18 08:00 97 Room Air 06/17/18 04:00 98.5 74 162/86 (111) 98.5 06/16/18 16:05 2.0 06/16/18 07:00 14 ROS: No Nausea, No Chest Pain, No Abdominal Pain, No Increase Cough General: Alert Cardiovascular: S1, S2 Abdomen: Soft Neuro Exam: Alert Extremities: No Edema Skin: Warm Labs Laboratory Tests Test 06/15/18 12:18 06/15/18 14:10 06/15/18 17:10 06/15/18 19:00 Glucose (Fingerstick) 172 mg/dL (70-99) 140 mg/dL (70-99) Lactic Acid Level 1.8 mmol/L (0.4-2.0) Urine Collection Type Unknown Urine Color Yellow Urine Clarity Clear Urine pH 5.0 Urine Specific [place] 1.015 Urine Protein Negative mg/dL (NEG-TRACE) Urine Glucose (UA) Negative mg/dL (NEG) Urine Ketones (Stick) Negative mg/dL (NEG) Urine Blood Negative (NEG) Urine Nitrite Negative (NEG) Urine Bilirubin Negative (NEG) Urine Urobilinogen Dipstick 0.2 mg/dL (0.2 mg/dL) Urine Leukocyte Esterase Negative (NEG) Urine RBC 0 /HPF (0-2) Urine WBC 1-4 /HPF (0-4) Urine Squamous Epithelial Cells Occ /LPF Urine Bacteria 0 /HPF (0-FEW) Test 06/16/18 03:55 06/16/18 07:31 06/16/18 12:00 06/16/18 13:55 White Blood Count 6.3 x10^3/uL (4.0-11.0) Red Blood Count 3.86 x10^6/uL (4.30-5.70) Hemoglobin 12.1 g/dL (13.0-17.5) Hematocrit 36.3 % (39.0-53.0) Mean Corpuscular Volume 94 fL (79-100) Mean Corpuscular Hemoglobin 31 pg (25-35) Mean Corpuscular Hemoglobin Concent 33 g/dL (31-37) Red Cell Distribution Width 13.8 % (11.5-14.5) Platelet Count 130 x10^3/uL (140-400) Neutrophils (%) (Auto) 64 % (31-73) Lymphocytes (%) (Auto) 25 % (24-48) Monocytes (%) (Auto) 9 % (0-9) Eosinophils (%) (Auto) 2 % (0-3) Basophils (%) (Auto) 0 % (0-3) Neutrophils # (Auto) 4.0 x10^3uL (1.8-7.7) Lymphocytes # (Auto) 1.6 x10^3/uL (1.0-4.8) Monocytes # (Auto) 0.6 x10^3/uL (0.0-1.1) Eosinophils # (Auto) 0.1 x10^3/uL (0.0-0.7) Basophils # (Auto) 0.0 x10^3/uL (0.0-0.2) Sodium Level 144 mmol/L (136-145) Potassium Level 4.2 mmol/L (3.5-5.1) Chloride Level 108 mmol/L (98-107) Carbon Dioxide Level 27 mmol/L (21-32) Anion Gap 9 (6-14) Blood Urea Nitrogen 10 mg/dL (8-26) Creatinine 1.1 mg/dL (0.7-1.3) Estimated GFR (Cockcroft-Gault) 63.2 Glucose Level 149 mg/dL (70-99) Calcium Level 8.2 mg/dL (8.5-10.1) Magnesium Level 1.7 mg/dL (1.8-2.4) Troponin I Quantitative 0.866 ng/mL (0.000-0.055) 0.364 ng/mL (0.000-0.055) Triglycerides Level 73 mg/dL (0-150) Cholesterol Level 118 mg/dL (0-200) LDL Cholesterol, Calculated 63 mg/dL (0-100) VLDL Cholesterol, Calculated 15 mg/dL (0-40) Non-HDL Cholesterol Calculated 78 mg/dL (0-129) HDL Cholesterol 40 mg/dL (40-60) Cholesterol/HDL Ratio 3.0 Procalcitonin < 0.10 ng/mL (0.00-0.10) Glucose (Fingerstick) 135 mg/dL (70-99) 178 mg/dL (70-99) Test 06/16/18 16:52 06/17/18 05:25 Glucose (Fingerstick) 210 mg/dL (70-99) White Blood Count 7.7 x10^3/uL (4.0-11.0) Red Blood Count 3.99 x10^6/uL (4.30-5.70) Hemoglobin 12.7 g/dL (13.0-17.5) Hematocrit 37.2 % (39.0-53.0) Mean Corpuscular Volume 93 fL (79-100) Mean Corpuscular Hemoglobin 32 pg (25-35) Mean Corpuscular Hemoglobin Concent 34 g/dL (31-37) Red Cell Distribution Width 13.7 % (11.5-14.5) Platelet Count 134 x10^3/uL (140-400) Neutrophils (%) (Auto) 70 % (31-73) Lymphocytes (%) (Auto) 18 % (24-48) Monocytes (%) (Auto) 9 % (0-9) Eosinophils (%) (Auto) 2 % (0-3) Basophils (%) (Auto) 1 % (0-3) Neutrophils # (Auto) 5.4 x10^3uL (1.8-7.7) Lymphocytes # (Auto) 1.4 x10^3/uL (1.0-4.8) Monocytes # (Auto) 0.7 x10^3/uL (0.0-1.1) Eosinophils # (Auto) 0.2 x10^3/uL (0.0-0.7) Basophils # (Auto) 0.1 x10^3/uL (0.0-0.2) Sodium Level 146 mmol/L (136-145) Potassium Level 4.1 mmol/L (3.5-5.1) Chloride Level 110 mmol/L (98-107) Carbon Dioxide Level 28 mmol/L (21-32) Anion Gap 8 (6-14) Blood Urea Nitrogen 9 mg/dL (8-26) Creatinine 0.8 mg/dL (0.7-1.3) Estimated GFR (Cockcroft-Gault) 91.2 Glucose Level 151 mg/dL (70-99) Calcium Level 8.3 mg/dL (8.5-10.1) Laboratory Tests Test 06/16/18 12:00 06/16/18 13:55 06/16/18 16:52 06/17/18 05:25 Glucose (Fingerstick) 178 mg/dL (70-99) 210 mg/dL (70-99) Troponin I Quantitative 0.364 ng/mL (0.000-0.055) White Blood Count 7.7 x10^3/uL (4.0-11.0) Red Blood Count 3.99 x10^6/uL (4.30-5.70) Hemoglobin 12.7 g/dL (13.0-17.5) Hematocrit 37.2 % (39.0-53.0) Mean Corpuscular Volume 93 fL (79-100) Mean Corpuscular Hemoglobin 32 pg (25-35) Mean Corpuscular Hemoglobin Concent 34 g/dL (31-37) Red Cell Distribution Width 13.7 % (11.5-14.5) Platelet Count 134 x10^3/uL (140-400) Neutrophils (%) (Auto) 70 % (31-73) Lymphocytes (%) (Auto) 18 % (24-48) Monocytes (%) (Auto) 9 % (0-9) Eosinophils (%) (Auto) 2 % (0-3) Basophils (%) (Auto) 1 % (0-3) Neutrophils # (Auto) 5.4 x10^3uL (1.8-7.7) Lymphocytes # (Auto) 1.4 x10^3/uL (1.0-4.8) Monocytes # (Auto) 0.7 x10^3/uL (0.0-1.1) Eosinophils # (Auto) 0.2 x10^3/uL (0.0-0.7) Basophils # (Auto) 0.1 x10^3/uL (0.0-0.2) Sodium Level 146 mmol/L (136-145) Potassium Level 4.1 mmol/L (3.5-5.1) Chloride Level 110 mmol/L (98-107) Carbon Dioxide Level 28 mmol/L (21-32) Anion Gap 8 (6-14) Blood Urea Nitrogen 9 mg/dL (8-26) Creatinine 0.8 mg/dL (0.7-1.3) Estimated GFR (Cockcroft-Gault) 91.2 Glucose Level 151 mg/dL (70-99) Calcium Level 8.3 mg/dL (8.5-10.1) Medications Active Scripts Medications Dose Route/Sig Max Daily Dose Days Date Category Hydrocodone-Apap 5-325 (Hydrocodone Bit/Acetaminophen) 1 Each Tablet 1 Tab PO PRN Q4HRS PRN 06/25/17 Rx Ocuvite Tablet (Vit A,C & E/Lutein/Minerals) 1 Each Tablet 1 Each PO DAILY 06/19/17 Reported Fish Oil 1,200 Mg Fish Oil (Fish Oil/Dha/Epa) 1 Each Capsule 1 Each PO DAILY 06/19/17 Reported Zolpidem Tartrate 5 Mg Tablet 5 Mg PO PRN QHS PRN 06/19/17 Reported Lisinopril 20 Mg Tablet 20 Mg PO DAILYBFRSUP 06/19/17 Reported Pravastatin Sodium 10 Mg Tablet 10 Mg PO QHS 06/19/17 Reported Terazosin Hcl 5 Mg Capsule 10 Mg PO QHS 08/04/13 Reported Metformin Hcl 500 Mg Tablet 500 Mg PO BID 08/04/13 Reported Cartia Xt (Diltiazem Hcl) 120 Mg Cap.er.24h 120 Mg PO 08/04/13 Reported Impression . IMPRESSION: 1. 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 2. Two small nodules in a patient that smoked. We will repeat CT in 6 months. 3. Elevated troponin level per Cardiology. 4. Lactic acidosis related to increased work of breathing. 5. Atrial fibrillation with rapid ventricular response. 6. Hypertension. 7. Type 2 diabetes. 8. Hypomagnesemia. Plan . PT TO UNDERGO CATH TODAY SPOKE WITH DR Olson 1. Repeat CT in 6 months. 2. Follow Cardiology input. 3. Empiric antibiotics. We will defer adjustments to ID. 4. Chest pain per Cardiology. SOFIA DAVID MD Jun 17, 2018 09:17
[2018-06-17] MEDS: METOPROLOL TART IMMED RELEASE 50 MG TABLET. PO SCH ×2 (09:50→21:10)
[2018-06-17] MEDS: ASPIRIN ENTERIC COATED 81 MG TABLET.DR. PO SCH (09:50)
--- NOTE | 2018-06-17 10:42 | PDOC ---
PROGRESS NOTES History of Present Illness History of Present Illness Assessment/Plan Assessment/Plan IMPRESSION 1. Chest pain 2. elevated troponin i 3. hypertension 4. tachyarrhythmia /// A. fib RVR // consideration of ventricular tachycardia // wide-complex over the QRS 5. hyperlipidemia 6. BPH 7. LACTIC ACIDOSIS R/O SEPSIS 8. Hypomagnesemia 9. patchy basilar airspace opacity increased on the right, could be due to mild infiltrate 10. hyperglycemia 11.Small noncalcified 9 mm nodule in the left lung base. follow-up CT chest today as per Fleischner Society criteria. 12. REMOTE TOBACCO ABUSE, stopped 06/14 diltiazem for heart rate for 170s into the 130s and 40s in the emergency room // became hypotensive transferred to the ICU for further monitoring. plan Attempt 3 weeks of anticoagulation and then consider cardioversion icu bed cardiology consult serial troponin i echo t4 cardizem blood and urine cultures iv zosyn, vanc, D/C, MONITOR OFF ANTIBIOTICS ID consult accuchecks ct chest dvt prophylaxis xarelto if ok with cardiology d/w family TO CUST[employer]ER ADVIS[employer] SPECIALIST TODAY 06/17 UNSTABLE ANGINA 36 min cc time Vitals Vitals Vital Signs Date Time Temp Pulse Resp B/P (MAP) Pulse Ox O2 Delivery O2 Flow Rate FiO2 06/17/18 09:50 86 165/82 06/17/18 08:00 Room Air 06/17/18 08:00 98.6 18 95 98.6 06/16/18 16:05 2.0 Physical Exam Physical Exam GENERAL: The patient is propped up in bed, alert and smiling. HEENT: Pupils equally round, reactive. Normal conjunctivae. He wears corrective lenses. Oral cavity: Pharynx pink and moist. Full dentures in place. NECK: Supple. LUNGS: Clear to auscultation. HEART: S1 and S2 regular. ABDOMEN: Obese, soft, nontender with bowel sounds present. EXTREMITIES: No gross edema or cyanosis. SKIN: Warm without rash. NEUROLOGIC: Alert and oriented x 3. General: mild distress Heart: Other (irregularly irregular) Abdomen: Normal bowel sounds Extremities: No clubbing, No cyanosis Skin: No breakdown Labs LABS Right lateral lower lung field 0.5 cm diameter noncalcified nodule is present on axial image 32 of series 3. There is a 0.4 cm diameter noncalcified nodule involving the left lateral perihilar region also the same image. Few punctate noncalcified nodules also present involving the lower lung armendariz bilaterally. Calcification along the anterior aspect of the thoracic spine at numerous levels consecutively raises question of diffuse etiopathic skeletal hyperostosis. Partially visualized upper abdomen is unremarkable. Impression: No suspicious infiltrate. Small left pleural effusion is present with minimal adjacent atelectasis. There are noncalcified pulmonary nodules at the lower lung armendariz measuring less than 0.6 cm diameter. Findings may represent noncalcified granulomas. Correlate with risk factors in determining follow-up. Correlate with risk factors in determining interval follow-up CT exam in one year to assess stability. PQRS Compliance Statement: One or more of the following individualized dose reduction techniques were utilized for this examination: 1. Automated exposure control 2. Adjustment of the mA and/or kV according to patient size 3. Use of iterative reconstruction technique Electronically signed by: Anatoly Alvarado MD (06/15/2018 2:05 PM) [facility] Laboratory Tests Test 06/16/18 12:00 06/16/18 13:55 06/16/18 16:52 06/17/18 05:25 Glucose (Fingerstick) 178 mg/dL (70-99) 210 mg/dL (70-99) Troponin I Quantitative 0.364 ng/mL (0.000-0.055) White Blood Count 7.7 x10^3/uL (4.0-11.0) Red Blood Count 3.99 x10^6/uL (4.30-5.70) Hemoglobin 12.7 g/dL (13.0-17.5) Hematocrit 37.2 % (39.0-53.0) Mean Corpuscular Volume 93 fL (79-100) Mean Corpuscular Hemoglobin 32 pg (25-35) Mean Corpuscular Hemoglobin Concent 34 g/dL (31-37) Red Cell Distribution Width 13.7 % (11.5-14.5) Platelet Count 134 x10^3/uL (140-400) Neutrophils (%) (Auto) 70 % (31-73) Lymphocytes (%) (Auto) 18 % (24-48) Monocytes (%) (Auto) 9 % (0-9) Eosinophils (%) (Auto) 2 % (0-3) Basophils (%) (Auto) 1 % (0-3) Neutrophils # (Auto) 5.4 x10^3uL (1.8-7.7) Lymphocytes # (Auto) 1.4 x10^3/uL (1.0-4.8) Monocytes # (Auto) 0.7 x10^3/uL (0.0-1.1) Eosinophils # (Auto) 0.2 x10^3/uL (0.0-0.7) Basophils # (Auto) 0.1 x10^3/uL (0.0-0.2) Sodium Level 146 mmol/L (136-145) Potassium Level 4.1 mmol/L (3.5-5.1) Chloride Level 110 mmol/L (98-107) Carbon Dioxide Level 28 mmol/L (21-32) Anion Gap 8 (6-14) Blood Urea Nitrogen 9 mg/dL (8-26) Creatinine 0.8 mg/dL (0.7-1.3) Estimated GFR (Cockcroft-Gault) 91.2 Glucose Level 151 mg/dL (70-99) Calcium Level 8.3 mg/dL (8.5-10.1) Test 06/17/18 09:48 Glucose (Fingerstick) 143 mg/dL (70-99) Comment Review of Relevant I have reviewed the following items stewart (where applicable) has been applied. Labs Laboratory Tests Test 06/15/18 12:18 06/15/18 14:10 06/15/18 17:10 06/15/18 19:00 Glucose (Fingerstick) 172 mg/dL (70-99) 140 mg/dL (70-99) Lactic Acid Level 1.8 mmol/L (0.4-2.0) Urine Collection Type Unknown Urine Color Yellow Urine Clarity Clear Urine pH 5.0 Urine Specific [place] 1.015 Urine Protein Negative mg/dL (NEG-TRACE) Urine Glucose (UA) Negative mg/dL (NEG) Urine Ketones (Stick) Negative mg/dL (NEG) Urine Blood Negative (NEG) Urine Nitrite Negative (NEG) Urine Bilirubin Negative (NEG) Urine Urobilinogen Dipstick 0.2 mg/dL (0.2 mg/dL) Urine Leukocyte Esterase Negative (NEG) Urine RBC 0 /HPF (0-2) Urine WBC 1-4 /HPF (0-4) Urine Squamous Epithelial Cells Occ /LPF Urine Bacteria 0 /HPF (0-FEW) Test 06/16/18 03:55 06/16/18 07:31 06/16/18 12:00 06/16/18 13:55 White Blood Count 6.3 x10^3/uL (4.0-11.0) Red Blood Count 3.86 x10^6/uL (4.30-5.70) Hemoglobin 12.1 g/dL (13.0-17.5) Hematocrit 36.3 % (39.0-53.0) Mean Corpuscular Volume 94 fL (79-100) Mean Corpuscular Hemoglobin 31 pg (25-35) Mean Corpuscular Hemoglobin Concent 33 g/dL (31-37) Red Cell Distribution Width 13.8 % (11.5-14.5) Platelet Count 130 x10^3/uL (140-400) Neutrophils (%) (Auto) 64 % (31-73) Lymphocytes (%) (Auto) 25 % (24-48) Monocytes (%) (Auto) 9 % (0-9) Eosinophils (%) (Auto) 2 % (0-3) Basophils (%) (Auto) 0 % (0-3) Neutrophils # (Auto) 4.0 x10^3uL (1.8-7.7) Lymphocytes # (Auto) 1.6 x10^3/uL (1.0-4.8) Monocytes # (Auto) 0.6 x10^3/uL (0.0-1.1) Eosinophils # (Auto) 0.1 x10^3/uL (0.0-0.7) Basophils # (Auto) 0.0 x10^3/uL (0.0-0.2) Sodium Level 144 mmol/L (136-145) Potassium Level 4.2 mmol/L (3.5-5.1) Chloride Level 108 mmol/L (98-107) Carbon Dioxide Level 27 mmol/L (21-32) Anion Gap 9 (6-14) Blood Urea Nitrogen 10 mg/dL (8-26) Creatinine 1.1 mg/dL (0.7-1.3) Estimated GFR (Cockcroft-Gault) 63.2 Glucose Level 149 mg/dL (70-99) Calcium Level 8.2 mg/dL (8.5-10.1) Magnesium Level 1.7 mg/dL (1.8-2.4) Troponin I Quantitative 0.866 ng/mL (0.000-0.055) 0.364 ng/mL (0.000-0.055) Triglycerides Level 73 mg/dL (0-150) Cholesterol Level 118 mg/dL (0-200) LDL Cholesterol, Calculated 63 mg/dL (0-100) VLDL Cholesterol, Calculated 15 mg/dL (0-40) Non-HDL Cholesterol Calculated 78 mg/dL (0-129) HDL Cholesterol 40 mg/dL (40-60) Cholesterol/HDL Ratio 3.0 Procalcitonin < 0.10 ng/mL (0.00-0.10) Glucose (Fingerstick) 135 mg/dL (70-99) 178 mg/dL (70-99) Test 06/16/18 16:52 06/17/18 05:25 06/17/18 09:48 Glucose (Fingerstick) 210 mg/dL (70-99) 143 mg/dL (70-99) White Blood Count 7.7 x10^3/uL (4.0-11.0) Red Blood Count 3.99 x10^6/uL (4.30-5.70) Hemoglobin 12.7 g/dL (13.0-17.5) Hematocrit 37.2 % (39.0-53.0) Mean Corpuscular Volume 93 fL (79-100) Mean Corpuscular Hemoglobin 32 pg (25-35) Mean Corpuscular Hemoglobin Concent 34 g/dL (31-37) Red Cell Distribution Width 13.7 % (11.5-14.5) Platelet Count 134 x10^3/uL (140-400) Neutrophils (%) (Auto) 70 % (31-73) Lymphocytes (%) (Auto) 18 % (24-48) Monocytes (%) (Auto) 9 % (0-9) Eosinophils (%) (Auto) 2 % (0-3) Basophils (%) (Auto) 1 % (0-3) Neutrophils # (Auto) 5.4 x10^3uL (1.8-7.7) Lymphocytes # (Auto) 1.4 x10^3/uL (1.0-4.8) Monocytes # (Auto) 0.7 x10^3/uL (0.0-1.1) Eosinophils # (Auto) 0.2 x10^3/uL (0.0-0.7) Basophils # (Auto) 0.1 x10^3/uL (0.0-0.2) Sodium Level 146 mmol/L (136-145) Potassium Level 4.1 mmol/L (3.5-5.1) Chloride Level 110 mmol/L (98-107) Carbon Dioxide Level 28 mmol/L (21-32) Anion Gap 8 (6-14) Blood Urea Nitrogen 9 mg/dL (8-26) Creatinine 0.8 mg/dL (0.7-1.3) Estimated GFR (Cockcroft-Gault) 91.2 Glucose Level 151 mg/dL (70-99) Calcium Level 8.3 mg/dL (8.5-10.1) Laboratory Tests Test 06/16/18 12:00 06/16/18 13:55 06/16/18 16:52 06/17/18 05:25 Glucose (Fingerstick) 178 mg/dL (70-99) 210 mg/dL (70-99) Troponin I Quantitative 0.364 ng/mL (0.000-0.055) White Blood Count 7.7 x10^3/uL (4.0-11.0) Red Blood Count 3.99 x10^6/uL (4.30-5.70) Hemoglobin 12.7 g/dL (13.0-17.5) Hematocrit 37.2 % (39.0-53.0) Mean Corpuscular Volume 93 fL (79-100) Mean Corpuscular Hemoglobin 32 pg (25-35) Mean Corpuscular Hemoglobin Concent 34 g/dL (31-37) Red Cell Distribution Width 13.7 % (11.5-14.5) Platelet Count 134 x10^3/uL (140-400) Neutrophils (%) (Auto) 70 % (31-73) Lymphocytes (%) (Auto) 18 % (24-48) Monocytes (%) (Auto) 9 % (0-9) Eosinophils (%) (Auto) 2 % (0-3) Basophils (%) (Auto) 1 % (0-3) Neutrophils # (Auto) 5.4 x10^3uL (1.8-7.7) Lymphocytes # (Auto) 1.4 x10^3/uL (1.0-4.8) Monocytes # (Auto) 0.7 x10^3/uL (0.0-1.1) Eosinophils # (Auto) 0.2 x10^3/uL (0.0-0.7) Basophils # (Auto) 0.1 x10^3/uL (0.0-0.2) Sodium Level 146 mmol/L (136-145) Potassium Level 4.1 mmol/L (3.5-5.1) Chloride Level 110 mmol/L (98-107) Carbon Dioxide Level 28 mmol/L (21-32) Anion Gap 8 (6-14) Blood Urea Nitrogen 9 mg/dL (8-26) Creatinine 0.8 mg/dL (0.7-1.3) Estimated GFR (Cockcroft-Gault) 91.2 Glucose Level 151 mg/dL (70-99) Calcium Level 8.3 mg/dL (8.5-10.1) Test 06/17/18 09:48 Glucose (Fingerstick) 143 mg/dL (70-99) Microbiology 06/15/18 Blood Culture - Preliminary, Resulted NO GROWTH AFTER 2 DAYS Medications Current Medications Diltiazem HCl (Cardizem Iv Push) 10 mg 1X ONCE IVP Last administered on at 20:52; Start 06/14/18 at 20:45; Stop 06/14/18 at 20:46; Status DC Diltiazem HCl 125 mg/Dextrose 125 ml @ 5 mls/hr 1X ONCE IV Last administered on 06/14/18at 20:59; Start 06/14/18 at 20:45; Stop 06/15/18 at 07:17; Status DC Sodium Chloride 500 ml @ 500 mls/hr 1X ONCE IV ; Start 06/14/18 at 21:30; Stop 06/14/18 at 22:29; Status DC Ceftriaxone Sodium (Rocephin) 1 gm 1X ONCE IVP Last administered on 06/14/18at 22:14; Start 06/14/18 at 21:30; Stop 06/14/18 at 21:31; Status DC Doxycycline Hyclate 100 mg/ Dextrose 100 ml @ 50 mls/hr 1X ONCE IV Last administered on 06/14/18at 21:44; Start 06/14/18 at 21:30; Stop 06/14/18 at 23:29 ; Status DC Magnesium Sulfate/ Dextrose 100 ml @ 100 mls/hr 1X ONCE IV Last administered on 06/14/18at 22:15; Start 06/14/18 at 21:45; Stop 06/14/18 at 22:44; Status DC Rivaroxaban (Xarelto) 15 mg 1X ONCE PO Last administered on 06/14/18at 21:56; Start 06/14/18 at 21:45; Stop 06/14/18 at 21:46; Status DC Sodium Chloride 500 ml @ 500 mls/hr 1X PRN PRN IV PER PROTOCOL Last administered on 06/15/18at 01:49; Start 06/15/18 at 01:30 Sodium Chloride 1,000 ml @ 100 mls/hr Q10H IV Last administered on 06/17/18at 04:00; Start 06/15/18 at 02:00 Digoxin (Lanoxin) 0.625 mcg 1X PRN PRN IV PER PROTOCOL; Start 06/15/18 at 02:00 ; Stop 06/15/18 at 09:00; Status Cancel Digoxin (Lanoxin) 125 mcg 1X ONCE IV Last administered on 06/15/18at 02:43; Start 06/15/18 at 02:30; Stop 06/15/18 at 02:32; Status DC Digoxin (Lanoxin) 125 mcg 1X ONCE IV Last administered on 06/15/18at 05:12; Start 06/15/18 at 04:30; Stop 06/15/18 at 04:31; Status DC Diltiazem HCl 125 mg/Dextrose 125 ml @ 5 mls/hr CONT PRN IV SEE I/O RECORD Last administered on 06/15/18at 06:45; Start 06/15/18 at 06:45; Stop 06/16/18 at 16:52; Status DC Lisinopril (Prinivil) 20 mg DAILYBFRSUP PO Last administered on 06/16/18at 16:46 ; Start 06/15/18 at 17:00 Multivitamins/ Minerals (I-Marcel) 1 tab DAILY PO Last administered on 06/16/18at 07:44; Start 06/16/18 at 09:00 Zolpidem Tartrate (Ambien) 5 mg PRN QHS PRN PO INSOMNIA; Start 06/15/18 at 10: 45 Fish Oil (Fish Oil) 1,000 mg DAILY PO Last administered on 06/16/18 07:44; Start 06/15/18 at 11:00 Metformin HCl (Glucophage) 500 mg BIDWMEALS PO Last administered on 06/16/18 16:47; Start 06/15/18 at 17:00 Atorvastatin Calcium (Lipitor) 5 mg QHS PO Last administered on 06/16/18 20:47 ; Start 06/15/18 at 21:00 Terazosin HCl (Hytrin) 10 mg QHS PO Last administered on 06/16/18 20:47; Start 06/15/18 at 21:00 Diltiazem HCl (Cardizem 24hr Cd) 120 mg DAILY PO Last administered on 07:44; Start 06/15/18 at 11:00; Stop 06/16/18 at 16:52; Status DC Piperacillin Sod/ Tazobactam Sod 3.375 gm/Sodium Chloride 50 ml @ 100 mls/hr Q6HRS IV Last administered on 06/16/18 06:06; Start 06/15/18 at 13:00; Stop at 09:16; Status DC Vancomycin HCl (Vanco Per Pharmacy) 1 each PRN DAILY PRN MC SEE COMMENTS Last administered on 06/15/18at 14:36; Start 06/15/18 at 12:30; Stop 06/15/18 at 15:21 ; Status DC Vancomycin HCl 1.75 gm/Sodium Chloride 500 ml @ 250 mls/hr 1X ONCE IV Last administered on 06/15/18 13:53; Start 06/15/18 at 13:00; Stop 06/15/18 at 14:59 ; Status DC Albuterol/ Ipratropium (Duoneb) 3 ml RTQID NEB Last administered on 06/17/18at 07:34; Start 06/15/18 at 16:00 Rivaroxaban (Xarelto) 15 mg DAILYWSUP PO Last administered on 06/15/18 17:00; Start 06/15/18 at 17:00; Stop 06/16/18 at 16:41; Status DC Vancomycin HCl 1.5 gm/Sodium Chloride 500 ml @ 250 mls/hr Q24H IV ; Start 06/16 at 14:00; Stop 06/16/18 at 14:00; Status DC Vancomycin HCl (Vancomycin Trough Level) 1 each 1X ONCE MC ; Start 06/17/18 at 13:30; Stop 06/17/18 at 13:31; Status Cancel Lactobacillus Rhamnosus (Culturelle) 1 cap BID PO Last administered on at 20:47; Start 06/15/18 at 21:00 Magnesium Sulfate/ Dextrose 100 ml @ 100 mls/hr 1X ONCE IV Last administered on 06/16/18at 11:17; Start 06/16/18 at 11:30; Stop 06/16/18 at 12:29; Status DC Nitroglycerin (Nitrostat) 0.4 mg PRN Q5MIN PRN SL CHEST PAIN Last administered on 06/16/18at 13:45; Start 06/16/18 at 13:45 Aspirin (Ecotrin) 81 mg DAILYWBKFT PO Last administered on 06/17/18at 09:50; Start 06/16/18 at 17:00 Metoprolol Tartrate (Lopressor) 50 mg BID PO Last administered on 06/17/18at 09: 50; Start 06/16/18 at 21:00 Labetalol HCl (Normodyne Iv Push) 20 mg PRN Q2HR PRN IVP HYPERTENSION, SEE COMMENTS; Start 06/17/18 at 09:15 Active Scripts Active Hydrocodone-Apap 5-325 (Hydrocodone Bit/Acetaminophen) 1 Each Tablet 1 Tab PO PRN Q4HRS PRN Reported Ocuvite Tablet (Vit A,C & E/Lutein/Minerals) 1 Each Tablet 1 Each PO DAILY Fish Oil 1,200 Mg Fish Oil (Fish Oil/Dha/Epa) 1 Each Capsule 1 Each PO DAILY Zolpidem Tartrate 5 Mg Tablet 5 Mg PO PRN QHS PRN Lisinopril 20 Mg Tablet 20 Mg PO DAILYBFRSUP Pravastatin Sodium 10 Mg Tablet 10 Mg PO QHS Terazosin Hcl 5 Mg Capsule 10 Mg PO QHS Metformin Hcl 500 Mg Tablet 500 Mg PO BID Cartia Xt (Diltiazem Hcl) 120 Mg Cap.er.24h 120 Mg PO Vitals/I & O Vital Sign - Last 24 Hours 06/16/18 06/16/18 06/16/18 06/16/18 11:05 12:05 13:45 15:06 Pulse 86 106 B/P (MAP) 138/56 (83) 149/75 Pulse Ox 98 95 98 O2 Delivery Nasal Cannula Nasal Cannula Room Air O2 Flow Rate 2.0 2.0 06/16/18 06/16/18 06/16/18 06/16/18 16:05 16:46 19:47 20:00 Temp 98.6 98.6 Pulse 106 106 96 B/P (MAP) 140/74 (96) 140/74 128/68 (88) Pulse Ox 96 94 95 O2 Delivery Nasal Cannula Room Air Room Air O2 Flow Rate 2.0 06/16/18 06/16/18 06/16/18 06/17/18 20:00 20:47 20:48 00:00 Temp 98.9 98.9 Pulse 110 111 78 B/P (MAP) 128/68 128/68 114/69 (84) Pulse Ox 91 O2 Delivery Room Air Room Air 06/17/18 06/17/18 06/17/18 06/17/18 04:00 08:00 08:00 08:00 Temp 98.5 98.6 98.5 98.6 Pulse 74 86 Resp 18 B/P (MAP) 162/86 (111) 165/82 (109) Pulse Ox 92 97 95 O2 Delivery Room Air Room Air Room Air Room Air 06/17/18 09:50 Pulse 86 B/P (MAP) 165/82 Intake and Output 06/16/18 06/16/18 06/17/18 14:59 22:59 06:59 Intake Total 0 ml Output Total 1475 ml 825 ml 525 ml Balance -1475 ml -825 ml -525 ml HALEY MARTINEZ MD Jun 17, 2018 10:42
[2018-06-17] MEDS ORDERED: LIDOCAINE 1% Multi-Dose 20 ML VIAL. ONE (12:32)
[2018-06-17] MEDS ORDERED: IODIXANOL 320 MG/ML 100 ML VIAL. ONE (12:32)
[2018-06-17] MEDS ORDERED: VERAPAMIL 5 MG/2 ML VIAL. ONE (12:39)
[2018-06-17] MEDS ORDERED: HEPARIN for IV BOLUS 10,000 UNIT/10 ML VIAL. ONE (12:39)
[2018-06-17] MEDS ORDERED: fentaNYL PF VIAL 100 MCG/2 ML VIAL ONE (12:39)
[2018-06-17] MEDS ORDERED: NITROGLYCERIN 200 MCG/2 ML SYRINGE FOR CATH/VASC LAB. ONE (12:39)
[2018-06-17] MEDS ORDERED: MIDAZOLAM HCL/PF 2 MG/2 ML VIAL. ONE (12:39)
--- NOTE | 2018-06-17 12:58 | PDOC ---
MODERATE SEDATION ASSESSMENT RISKS/ALTERNATIVES Risks/Alternatives Risks and alternatives of this type of sedation and procedure discussed with: RISK/ALTERNATIVES: Patient H & P ON CHART H & P H & P on chart and reviewed for co-morbid conditions and appropriate labs. H&P ON CHART: Yes STATUS PREG STATUS ASSESSED: N/A MEDS/ALLERGIES REVIEWED Meds/Allergies Reviewed Medications and Allergies including time and route of recently administered narcotics and sedatives. MEDS/ALLERGIES REVIEWED: Yes ASA RATING ASA RATING: II AIRWAY ASSESSMENT Airway Assessment Airway patency, oral function limitations, presence of caps, crowns, dentures, partials, and ability to extend neck assessed. AIRWAY ASSESSMENT: Yes MALLAMPATI SCORE MALLAMPATI SCORE: II PRE-SEDATION ASSESSMENT PRE-SEDATION ASSESSMENT: Yes ROBBI BARNETT MD Jun 17, 2018 12:58
[2018-06-17] MEDS ORDERED: DEXTROSE 50% 25 GM / 50ML DISP.SYRIN. IV PRN (13:15)
[2018-06-17] MEDS ORDERED: MIDAZOLAM HCL/PF 2 MG/2 ML VIAL. IV ONE (13:15)
[2018-06-17] MEDS ORDERED: VERAPAMIL 5 MG/2 ML VIAL. IART ONE (13:15)
[2018-06-17] MEDS ORDERED: NITROGLYCERIN 200 MCG/2 ML SYRINGE FOR CATH/VASC LAB. IART ONE (13:15)
[2018-06-17] MEDS ORDERED: IODIXANOL 320 MG/ML 100 ML VIAL. IART ONE (13:15)
[2018-06-17] MEDS ORDERED: CONTRAST GIVEN. MC PRN (13:15)
[2018-06-17] MEDS ORDERED: LIDOCAINE 1% PF 2 ML VIAL. INJ ONE (13:15)
[2018-06-17] MEDS ORDERED: fentaNYL PF VIAL 100 MCG/2 ML VIAL IV ONE (13:15)
[2018-06-17] MEDS ORDERED: HEPARIN for IV BOLUS 10,000 UNIT/10 ML VIAL. IART ONE (13:15)
[2018-06-17] MEDS ORDERED: LIDOCAINE 1% Multi-Dose 20 ML VIAL. INJ ONE (13:30)
--- NOTE | 2018-06-17 14:47 | CARD ---
MR#: [id number] Date of Study: 06/17/2018 Ordering Physician: BEVERLY BOND, Referring Physician: KAREEN GRIGGS Tech: RT Dagmar (R) APPROVED REPORT Technologist: Jessica Nath RT (R) Nurse: Hilda Marinelli R.N. Procedure(s) performed: moderate sedation: 30 minutes fluoro time: 3.6 minutes DAP: 0.71 Gym2 contrast: 77cc [facility], Coronary angiography HISTORY The patient is a 88 year-old male with a history of : hypertension, dyslipidemia. INDICATION The indication(s) include : non-STEMI . CSHA Clinical Frailty Scale CS Clinical Frailty Scale: Vulnerable Heart Failure Heart Failure: Yes If Yes, Newly Diagnosed: Yes If Yes, HF Type: Diastolic If Yes, NYHA Class: Class II PROCEDURE NARRATIVE INFORMED CONSENT: After explaining the risks and benefits of the procedure and alternatives, informed consent was obtained. The patient was brought electively to the cardiac catheterization lab. A timeout was performed confi rming the patient's name, date of , procedure, and site of procedure. All necessary personnel w ere wearing the appropriate protective equipment and radiation monitor devices. (See nursing notes for medications administered). ACCESS: The right wrist was sterilely prepped and draped in the usual fashion. The right wrist was infiltrat ed with 1 mL of 2% lidocaine for subcutaneous anesthesia. A 6 Telugu Terumo glide sheath was inserte d into the right radial artery without difficulty. CORONARY ANGIOGRAPHY: Right and left coronary angiography was performed using a 6Fr TIG 4.0 catheter. Left ventricular en d diastolic pressure was obtained with a pigtail catheter and pullback was performed after left ventr iculography. All catheter exchanges and advancements were performed over a guidewire. CLOSURE: At case completion the right radial sheath was removed and a Terumo radial band was applied with 13 m l of air. COMPLICATIONS: The patient tolerated the procedure well and there were no immediate complications. FINDINGS: HEMODYNAMICS: LVEDP 15 mm Hg No gradient on LV to aortic pullback. AO: 128/78 LEFT VENTRICULOGRAM: Deferred due to known EF by echo. CORONARY ANGIOGRAPHY: LM is a very short caliber vessel with near separate ostia of the LAD and LCx. LAD is a large caliber vessel with proximal 40% stenosis. There is a mid 40% stenosis. Remainder of t he vessel has mild luminal irregularities. D1 is a small caliber vessel with mild luminal irregularities. LCx is a large caliber co-dominant vessel with a mid subtotal occlusion with left to left collaterals . OM1 is a moderate caliber vessel with proximal 40% stenosis. LPL/LPDA are small caliber vessels that fill via left to left collaterals and have mild luminal irreg ularities. RCA is a moderate caliber non-dominant vessel with a proximal 99, heavily calcified stenosis. The dis carlos vessel is seen to fill via left to right collaterals. Conclusion 1. Normal left sided filling pressures. 2. 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 Recommendations 1. Consider aggressive medical therapy. If no symptom improvement then consider PCI of MEAL TEMPERER of the LCx . Signed by : Chris Vaca, Electronically Approved : 06/17/2018 14:47:15
--- NOTE | 2018-06-17 16:52 | PDOC3 ---
Discharge Summary Date of Admission: Jun 15, 2018 Date of Discharge: Jun 17, 2018 Follow-Up: 3-5 days Admitting Diagnosis comment: discharge dx Assessment/Plan IMPRESSION 1. Chest pain/ unstable angina 2. elevated troponin i 3. hypertension 4. tachyarrhythmia /// A. fib RVR // consideration of ventricular tachycardia // wide-complex over the QRS 5. hyperlipidemia 6. BPH 7. LACTIC ACIDOSIS R/O SEPSIS 8. Hypomagnesemia 9. patchy basilar airspace opacity increased on the right, could be due to mild infiltrate 10. hyperglycemia 11.Small noncalcified 9 mm nodule in the left lung base. follow-up CT chest today as per Fleischner Society criteria. 12. REMOTE TOBACCO ABUSE, stopped 06/14 diltiazem for heart rate for 170s into the 130s and 40s in the emergency room // became hypotensive transferred to the ICU for further monitoring. plan Attempt 3 weeks of anticoagulation and then consider cardioversion icu bed cardiology consult serial troponin i echo t4 cardizem blood and urine cultures iv zosyn, vanc, D/C, MONITOR OFF ANTIBIOTICS ID consult accuchecks ct chest dvt prophylaxis xarelto if ok with cardiology d/w family TO ENVELOPE ADJUSTER TODAY 06/17 UNSTABLE ANGINA 36 min cc time Vitals Vitals Vital Signs Date Time Temp Pulse Resp B/P (MAP) Pulse Ox O2 Delivery O2 Flow Rate FiO2 06/17/18 09:50 86 165/82 06/17/18 08:00 Room Air 06/17/18 08:00 98.6 18 95 98.6 06/16/18 16:05 2.0 Physical Exam Physical Exam GENERAL: The patient is propped up in bed, alert and smiling. HEENT: Pupils equally round, reactive. Normal conjunctivae. He wears corrective lenses. Oral cavity: Pharynx pink and moist. Full dentures in place. NECK: Supple. LUNGS: Clear to auscultation. HEART: S1 and S2 regular. ABDOMEN: Obese, soft, nontender with bowel sounds present. EXTREMITIES: No gross edema or cyanosis. SKIN: Warm without rash. NEUROLOGIC: Alert and oriented x 3. General: mild distress Heart: Other (irregularly irregular) Abdomen: Normal bowel sounds Extremities: No clubbing, No cyanosis Skin: No breakdown Labs LABS Right lateral lower lung field 0.5 cm diameter noncalcified nodule is present on axial image 32 of series 3. There is a 0.4 cm diameter noncalcified nodule involving the left lateral perihilar region also the same image. Few punctate noncalcified nodules also present involving the lower lung armendariz bilaterally. Calcification along the anterior aspect of the thoracic spine at numerous levels consecutively raises question of diffuse etiopathic skeletal hyperostosis. Partially visualized upper abdomen is unremarkable. Impression: No suspicious infiltrate. Small left pleural effusion is present with minimal adjacent atelectasis. There are noncalcified pulmonary nodules at the lower lung armendariz measuring less than 0.6 cm diameter. Findings may represent noncalcified granulomas. Correlate with risk factors in determining follow-up. Correlate with risk factors in determining interval follow-up CT exam in one year to assess stability. PQRS Compliance Statement: One or more of the following individualized dose reduction techniques were utilized for this examination: 1. Automated exposure control 2. Adjustment of the mA and/or kV according to patient size 3. Use of iterative reconstruction technique Electronically signed by: Anatoly Alvarado MD (06/15/2018 2:05 PM) [facility] Technologist: Jessica Nath RT (R) Nurse: Hilda Marinelli R.N. Procedure(s) performed: moderate sedation: 30 minutes fluoro time: 3.6 minutes DAP: 0.71 Gym2 contrast: 77cc C, Coronary angiography HISTORY The patient is a 88 year-old male with a history of : hypertension, dyslipidemia. INDICATION The indication(s) include : non-STEMI . CSHA Clinical Frailty Scale [facility] Clinical Frailty Scale: Vulnerable Heart Failure Heart Failure: Yes If Yes, Newly Diagnosed: Yes If Yes, HF Type: Diastolic If Yes, NYHA Class: Class II PROCEDURE NARRATIVE INFORMED CONSENT: After explaining the risks and benefits of the procedure and alternatives, informed consent was obtained. The patient was brought electively to the cardiac catheterization lab. A timeout was performed confirming the patient's name, date of , procedure, and site of procedure. All necessary personnel were wearing the appropriate protective equipment and radiation monitor devices. (See nursing notes for medications administered). ACCESS: The right wrist was sterilely prepped and draped in the usual fashion. The right wrist was infiltrated with 1 mL of 2% lidocaine for subcutaneous anesthesia. A 6 [place] Terumo glide sheath was inserted into the right radial artery without difficulty. CORONARY ANGIOGRAPHY: Right and left coronary angiography was performed using a 6Fr TIG 4.0 catheter. Left ventricular end diastolic pressure was obtained with a pigtail catheter and pullback was performed after left ventriculography. All catheter exchanges and advancements were performed over a guidewire. CLOSURE: At case completion the right radial sheath was removed and a Terumo radial band was applied with 13 ml of air. COMPLICATIONS: The patient tolerated the procedure well and there were no immediate complications. FINDINGS: HEMODYNAMICS: LVEDP 15 mm Hg No gradient on LV to aortic pullback. AO: 128/78 LEFT VENTRICULOGRAM: Deferred due to known EF by echo. CORONARY ANGIOGRAPHY: LM is a very short caliber vessel with near separate ostia of the LAD and LCx. LAD is a large caliber vessel with proximal 40% stenosis. There is a mid 40% stenosis. Remainder of the vessel has mild luminal irregularities. D1 is a small caliber vessel with mild luminal irregularities. LCx is a large caliber co-dominant vessel with a mid subtotal occlusion with left to left collaterals. OM1 is a moderate caliber vessel with proximal 40% stenosis. LPL/LPDA are small caliber vessels that fill via left to left collaterals and have mild luminal irregularities. RCA is a moderate caliber non-dominant vessel with a proximal 99, heavily calcified stenosis. The distal vessel is seen to fill via left to right collaterals. Conclusion 1. Normal left sided filling pressures. 2. 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 Recommendations 1. Consider aggressive medical therapy. If no symptom improvement then consider PCI of SNOWBLOWER [employer]CH[employer]IC of the LCx. Signed by : Robbi Vaca, Electronically Approved : 06/17/2018 14:47:15 DICTATED and SIGNED BY: ROBBI VACA MD DATE: 06/17/18 1447 [id number] 0 [id number] CC: BEVERLY BOND APRN; ROBBI VACA MD; KAREEN GRIGGS MD; PITER ALVAREZ MD ~ Page of Brief Hospital Course Mr. Fernandes is a 88 old [sex] who presented with [ unstable angina] CONDITION AT DISCHARGE: Improved Discharge Medications Current Medications Diltiazem HCl (Cardizem Iv Push) 10 mg 1X ONCE IVP Last administered on at 20:52; Start 06/14/18 at 20:45; Stop 06/14/18 at 20:46; Status DC Diltiazem HCl 125 mg/Dextrose 125 ml @ 5 mls/hr 1X ONCE IV Last administered on 06/14/18at 20:59; Start 06/14/18 at 20:45; Stop 06/15/18 at 07:17; Status DC Sodium Chloride 500 ml @ 500 mls/hr 1X ONCE IV ; Start 06/14/18 at 21:30; Stop 06/14/18 at 22:29; Status DC Ceftriaxone Sodium (Rocephin) 1 gm 1X ONCE IVP Last administered on 06/14/18at 22:14; Start 06/14/18 at 21:30; Stop 06/14/18 at 21:31; Status DC Doxycycline Hyclate 100 mg/ Dextrose 100 ml @ 50 mls/hr 1X ONCE IV Last administered on 06/14/18at 21:44; Start 06/14/18 at 21:30; Stop 06/14/18 at 23:29 ; Status DC Magnesium Sulfate/ Dextrose 100 ml @ 100 mls/hr 1X ONCE IV Last administered on 06/14/18at 22:15; Start 06/14/18 at 21:45; Stop 06/14/18 at 22:44; Status DC Rivaroxaban (Xarelto) 15 mg 1X ONCE PO Last administered on 06/14/18at 21:56; Start 06/14/18 at 21:45; Stop 06/14/18 at 21:46; Status DC Sodium Chloride 500 ml @ 500 mls/hr 1X PRN PRN IV PER PROTOCOL Last administered on 06/15/18at 01:49; Start 06/15/18 at 01:30 Sodium Chloride 1,000 ml @ 100 mls/hr Q10H IV Last administered on 06/17/18at 04:00; Start 06/15/18 at 02:00 Digoxin (Lanoxin) 0.625 mcg 1X PRN PRN IV PER PROTOCOL; Start 06/15/18 at 02:00 ; Stop 06/15/18 at 09:00; Status Cancel Digoxin (Lanoxin) 125 mcg 1X ONCE IV Last administered on 06/15/18at 02:43; Start 06/15/18 at 02:30; Stop 06/15/18 at 02:32; Status DC Digoxin (Lanoxin) 125 mcg 1X ONCE IV Last administered on 06/15/18at 05:12; Start 06/15/18 at 04:30; Stop 06/15/18 at 04:31; Status DC Diltiazem HCl 125 mg/Dextrose 125 ml @ 5 mls/hr CONT PRN IV SEE I/O RECORD Last administered on 06/15/18at 06:45; Start 06/15/18 at 06:45; Stop 06/16/18 at 16:52; Status DC Lisinopril (Prinivil) 20 mg DAILYBFRSUP PO Last administered on 06/16/18at 16:46 ; Start 06/15/18 at 17:00 Multivitamins/ Minerals (I-Marcel) 1 tab DAILY PO Last administered on 06/16/18at 07:44; Start 06/16/18 at 09:00 Zolpidem Tartrate (Ambien) 5 mg PRN QHS PRN PO INSOMNIA; Start 06/15/18 at 10: 45 Fish Oil (Fish Oil) 1,000 mg DAILY PO Last administered on 06/16/18at 07:44; Start 06/15/18 at 11:00 Metformin HCl (Glucophage) 500 mg BIDWMEALS PO Last administered on 06/16/18at 16:47; Start 06/15/18 at 17:00; Stop 06/17/18 at 13:12; Status DC Atorvastatin Calcium (Lipitor) 5 mg QHS PO Last administered on 06/16/18at 20:47 ; Start 06/15/18 at 21:00 Terazosin HCl (Hytrin) 10 mg QHS PO Last administered on 06/16/18at 20:47; Start 06/15/18 at 21:00 Diltiazem HCl (Cardizem 24hr Cd) 120 mg DAILY PO Last administered on at 07:44; Start 06/15/18 at 11:00; Stop 06/16/18 at 16:52; Status DC Piperacillin Sod/ Tazobactam Sod 3.375 gm/Sodium Chloride 50 ml @ 100 mls/hr Q6HRS IV Last administered on 06/16/18at 06:06; Start 06/15/18 at 13:00; Stop at 09:16; Status DC Vancomycin HCl (Vanco Per Pharmacy) 1 each PRN DAILY PRN MC SEE COMMENTS Last administered on 06/15/18at 14:36; Start 06/15/18 at 12:30; Stop 06/15/18 at 15:21 ; Status DC Vancomycin HCl 1.75 gm/Sodium Chloride 500 ml @ 250 mls/hr 1X ONCE IV Last administered on 06/15/18at 13:53; Start 06/15/18 at 13:00; Stop 06/15/18 at 14:59 ; Status DC Albuterol/ Ipratropium (Duoneb) 3 ml RTQID NEB Last administered on 06/17/18at 12:09; Start 06/15/18 at 16:00 Rivaroxaban (Xarelto) 15 mg DAILYWSUP PO Last administered on 06/15/18at 17:00; Start 06/15/18 at 17:00; Stop 06/16/18 at 16:41; Status DC Vancomycin HCl 1.5 gm/Sodium Chloride 500 ml @ 250 mls/hr Q24H IV ; Start 06/16 at 14:00; Stop 06/16/18 at 14:00; Status DC Vancomycin HCl (Vancomycin Trough Level) 1 each 1X ONCE MC ; Start 06/17/18 at 13:30; Stop 06/17/18 at 13:31; Status Cancel Lactobacillus Rhamnosus (Culturelle) 1 cap BID PO Last administered on at 20:47; Start 06/15/18 at 21:00 Magnesium Sulfate/ Dextrose 100 ml @ 100 mls/hr 1X ONCE IV Last administered on 06/16/18at 11:17; Start 06/16/18 at 11:30; Stop 06/16/18 at 12:29; Status DC Nitroglycerin (Nitrostat) 0.4 mg PRN Q5MIN PRN SL CHEST PAIN Last administered on 06/16/18at 13:45; Start 06/16/18 at 13:45 Aspirin (Ecotrin) 81 mg DAILYWBKFT PO Last administered on 06/17/18at 09:50; Start 06/16/18 at 17:00 Metoprolol Tartrate (Lopressor) 50 mg BID PO Last administered on 06/17/18at 09: 50; Start 06/16/18 at 21:00 Labetalol HCl (Normodyne Iv Push) 20 mg PRN Q2HR PRN IVP HYPERTENSION, SEE COMMENTS; Start 06/17/18 at 09:15 Iodixanol (Visipaque 320) 100 ml STK-MED ONCE .ROUTE ; Start 06/17/18 at 12:32; Stop 06/17/18 at 12:33; Status DC Lidocaine HCl (Lidocaine 1% 20ml Vial) 20 ml STK-MED ONCE .ROUTE ; Start at 12:32; Stop 06/17/18 at 12:33; Status DC Heparin Sodium/ Sodium Chloride 1,000 ml @ As Directed STK-MED ONCE .ROUTE ; Start 06/17/18 at 12:32; Stop 06/17/18 at 12:33; Status DC Fentanyl Citrate (Fentanyl 2ml Vial) 100 mcg STK-MED ONCE .ROUTE ; Start at 12:39; Stop 06/17/18 at 12:40; Status DC Midazolam HCl (Versed) 2 mg STK-MED ONCE .ROUTE ; Start 06/17/18 at 12:39; Stop 06/17/18 at 12:40; Status DC Heparin Sodium (Porcine) (Heparin Sodium) 10,000 unit STK-MED ONCE .ROUTE ; Start 06/17/18 at 12:39; Stop 06/17/18 at 12:40; Status DC Verapamil HCl (Verapamil) 5 mg STK-MED ONCE .ROUTE ; Start 06/17/18 at 12:39; Stop 06/17/18 at 12:40; Status DC Nitroglycerin (Nitroglycerin) 200 mcg STK-MED ONCE .ROUTE ; Start 06/17/18 at 12 :39; Stop 06/17/18 at 12:40; Status DC Nitroglycerin (Nitroglycerin) 200 mcg 1X ONCE IART Last administered on at 13:22; Start 06/17/18 at 13:15; Stop 06/17/18 at 13:16; Status DC Verapamil HCl (Verapamil) 2.5 mg 1X ONCE IART Last administered on 06/17/18at 13:23; Start 06/17/18 at 13:15; Stop 06/17/18 at 13:16; Status DC Heparin Sodium (Porcine) (Heparin Sodium) 2,500 unit 1X ONCE IART Last administered on 06/17/18at 13:28; Start 06/17/18 at 13:15; Stop 06/17/18 at 13:16 ; Status DC Heparin Sodium/ Sodium Chloride (HEPARIN for ARTERIAL LINE FLUSH) 1,000 unit 1X ONCE IART Last administered on 06/17/18at 13:22; Start 06/17/18 at 13:15; Stop 06/17/18 at 13:16; Status DC Midazolam HCl (Versed) 2 mg 1X ONCE IV Last administered on 06/17/18at 13:24; Start 06/17/18 at 13:15; Stop 06/17/18 at 13:16; Status DC Fentanyl Citrate (Fentanyl 2ml Vial) 100 mcg 1X ONCE IV Last administered on at 13:24; Start 06/17/18 at 13:15; Stop 06/17/18 at 13:16; Status DC Iodixanol (Visipaque 320) 100 ml 1X ONCE IART Last administered on 06/17/18at 13:22; Start 06/17/18 at 13:15; Stop 06/17/18 at 13:16; Status DC Lidocaine HCl (Xylocaine-Mpf 1% 2ml Vial) 2 ml 1X ONCE INJ ; Start 06/17/18 at 13:15; Stop 06/17/18 at 13:16; Status Cancel Info (CONTRAST GIVEN -- Rx MONITORING) 1 each PRN DAILY PRN MC SEE COMMENTS; Start 06/17/18 at 13:15; Stop 06/19/18 at 13:14 Metformin HCl (Glucophage) 500 mg BIDWMEALS PO ; Start 06/19/18 at 17:00 Insulin Human Lispro (HumaLOG) 0-5 UNITS TIDWMEALS SQ ; Start 06/17/18 at 17:00 Dextrose (Dextrose 50%-Water Syringe) 12.5 gm PRN Q15MIN PRN IV SEE COMMENTS; Start 06/17/18 at 13:15 Lidocaine HCl (Lidocaine 1% 20ml Vial) 20 ml 1X ONCE INJ Last administered on 06/17/18at 13:30; Start 06/17/18 at 13:30; Stop 06/17/18 at 13:31; Status DC Active Scripts Active Hydrocodone-Apap 5-325 (Hydrocodone Bit/Acetaminophen) 1 Each Tablet 1 Tab PO PRN Q4HRS PRN Reported Ocuvite Tablet (Vit A,C & E/Lutein/Minerals) 1 Each Tablet 1 Each PO DAILY Fish Oil 1,200 Mg Fish Oil (Fish Oil/Dha/Epa) 1 Each Capsule 1 Each PO DAILY Zolpidem Tartrate 5 Mg Tablet 5 Mg PO PRN QHS PRN Lisinopril 20 Mg Tablet 20 Mg PO DAILYBFRSUP Pravastatin Sodium 10 Mg Tablet 10 Mg PO QHS Terazosin Hcl 5 Mg Capsule 10 Mg PO QHS Metformin Hcl 500 Mg Tablet 500 Mg PO BID Cartia Xt (Diltiazem Hcl) 120 Mg Cap.er.24h 120 Mg PO Vital Signs Vital Signs Date Time Temp Pulse Resp B/P (MAP) Pulse Ox O2 Delivery O2 Flow Rate FiO2 06/17/18 16:00 72 16 134/74 (94) Room Air 06/17/18 13:29 93 2.0 06/17/18 11:41 98.5 98.5 Labs Laboratory Tests Test 06/15/18 17:10 06/15/18 19:00 06/16/18 03:55 06/16/18 07:31 Glucose (Fingerstick) 140 mg/dL (70-99) 135 mg/dL (70-99) Urine Collection Type Unknown Urine Color Yellow Urine Clarity Clear Urine pH 5.0 Urine Specific [place] 1.015 Urine Protein Negative mg/dL (NEG-TRACE) Urine Glucose (UA) Negative mg/dL (NEG) Urine Ketones (Stick) Negative mg/dL (NEG) Urine Blood Negative (NEG) Urine Nitrite Negative (NEG) Urine Bilirubin Negative (NEG) Urine Urobilinogen Dipstick 0.2 mg/dL (0.2 mg/dL) Urine Leukocyte Esterase Negative (NEG) Urine RBC 0 /HPF (0-2) Urine WBC 1-4 /HPF (0-4) Urine Squamous Epithelial Cells Occ /LPF Urine Bacteria 0 /HPF (0-FEW) White Blood Count 6.3 x10^3/uL (4.0-11.0) Red Blood Count 3.86 x10^6/uL (4.30-5.70) Hemoglobin 12.1 g/dL (13.0-17.5) Hematocrit 36.3 % (39.0-53.0) Mean Corpuscular Volume 94 fL (79-100) Mean Corpuscular Hemoglobin 31 pg (25-35) Mean Corpuscular Hemoglobin Concent 33 g/dL (31-37) Red Cell Distribution Width 13.8 % (11.5-14.5) Platelet Count 130 x10^3/uL (140-400) Neutrophils (%) (Auto) 64 % (31-73) Lymphocytes (%) (Auto) 25 % (24-48) Monocytes (%) (Auto) 9 % (0-9) Eosinophils (%) (Auto) 2 % (0-3) Basophils (%) (Auto) 0 % (0-3) Neutrophils # (Auto) 4.0 x10^3uL (1.8-7.7) Lymphocytes # (Auto) 1.6 x10^3/uL (1.0-4.8) Monocytes # (Auto) 0.6 x10^3/uL (0.0-1.1) Eosinophils # (Auto) 0.1 x10^3/uL (0.0-0.7) Basophils # (Auto) 0.0 x10^3/uL (0.0-0.2) Sodium Level 144 mmol/L (136-145) Potassium Level 4.2 mmol/L (3.5-5.1) Chloride Level 108 mmol/L (98-107) Carbon Dioxide Level 27 mmol/L (21-32) Anion Gap 9 (6-14) Blood Urea Nitrogen 10 mg/dL (8-26) Creatinine 1.1 mg/dL (0.7-1.3) Estimated GFR (Cockcroft-Gault) 63.2 Glucose Level 149 mg/dL (70-99) Calcium Level 8.2 mg/dL (8.5-10.1) Magnesium Level 1.7 mg/dL (1.8-2.4) Troponin I Quantitative 0.866 ng/mL (0.000-0.055) Triglycerides Level 73 mg/dL (0-150) Cholesterol Level 118 mg/dL (0-200) LDL Cholesterol, Calculated 63 mg/dL (0-100) VLDL Cholesterol, Calculated 15 mg/dL (0-40) Non-HDL Cholesterol Calculated 78 mg/dL (0-129) HDL Cholesterol 40 mg/dL (40-60) Cholesterol/HDL Ratio 3.0 Procalcitonin < 0.10 ng/mL (0.00-0.10) Test 06/16/18 12:00 06/16/18 13:55 06/16/18 16:52 06/17/18 05:25 Glucose (Fingerstick) 178 mg/dL (70-99) 210 mg/dL (70-99) Troponin I Quantitative 0.364 ng/mL (0.000-0.055) White Blood Count 7.7 x10^3/uL (4.0-11.0) Red Blood Count 3.99 x10^6/uL (4.30-5.70) Hemoglobin 12.7 g/dL (13.0-17.5) Hematocrit 37.2 % (39.0-53.0) Mean Corpuscular Volume 93 fL (79-100) Mean Corpuscular Hemoglobin 32 pg (25-35) Mean Corpuscular Hemoglobin Concent 34 g/dL (31-37) Red Cell Distribution Width 13.7 % (11.5-14.5) Platelet Count 134 x10^3/uL (140-400) Neutrophils (%) (Auto) 70 % (31-73) Lymphocytes (%) (Auto) 18 % (24-48) Monocytes (%) (Auto) 9 % (0-9) Eosinophils (%) (Auto) 2 % (0-3) Basophils (%) (Auto) 1 % (0-3) Neutrophils # (Auto) 5.4 x10^3uL (1.8-7.7) Lymphocytes # (Auto) 1.4 x10^3/uL (1.0-4.8) Monocytes # (Auto) 0.7 x10^3/uL (0.0-1.1) Eosinophils # (Auto) 0.2 x10^3/uL (0.0-0.7) Basophils # (Auto) 0.1 x10^3/uL (0.0-0.2) Sodium Level 146 mmol/L (136-145) Potassium Level 4.1 mmol/L (3.5-5.1) Chloride Level 110 mmol/L (98-107) Carbon Dioxide Level 28 mmol/L (21-32) Anion Gap 8 (6-14) Blood Urea Nitrogen 9 mg/dL (8-26) Creatinine 0.8 mg/dL (0.7-1.3) Estimated GFR (Cockcroft-Gault) 91.2 Glucose Level 151 mg/dL (70-99) Calcium Level 8.3 mg/dL (8.5-10.1) Test 06/17/18 09:48 06/17/18 11:24 Glucose (Fingerstick) 143 mg/dL (70-99) 147 mg/dL (70-99) Laboratory Tests Test 06/16/18 16:52 06/17/18 05:25 06/17/18 09:48 06/17/18 11:24 Glucose (Fingerstick) 210 mg/dL (70-99) 143 mg/dL (70-99) 147 mg/dL (70-99) White Blood Count 7.7 x10^3/uL (4.0-11.0) Red Blood Count 3.99 x10^6/uL (4.30-5.70) Hemoglobin 12.7 g/dL (13.0-17.5) Hematocrit 37.2 % (39.0-53.0) Mean Corpuscular Volume 93 fL (79-100) Mean Corpuscular Hemoglobin 32 pg (25-35) Mean Corpuscular Hemoglobin Concent 34 g/dL (31-37) Red Cell Distribution Width 13.7 % (11.5-14.5) Platelet Count 134 x10^3/uL (140-400) Neutrophils (%) (Auto) 70 % (31-73) Lymphocytes (%) (Auto) 18 % (24-48) Monocytes (%) (Auto) 9 % (0-9) Eosinophils (%) (Auto) 2 % (0-3) Basophils (%) (Auto) 1 % (0-3) Neutrophils # (Auto) 5.4 x10^3uL (1.8-7.7) Lymphocytes # (Auto) 1.4 x10^3/uL (1.0-4.8) Monocytes # (Auto) 0.7 x10^3/uL (0.0-1.1) Eosinophils # (Auto) 0.2 x10^3/uL (0.0-0.7) Basophils # (Auto) 0.1 x10^3/uL (0.0-0.2) Sodium Level 146 mmol/L (136-145) Potassium Level 4.1 mmol/L (3.5-5.1) Chloride Level 110 mmol/L (98-107) Carbon Dioxide Level 28 mmol/L (21-32) Anion Gap 8 (6-14) Blood Urea Nitrogen 9 mg/dL (8-26) Creatinine 0.8 mg/dL (0.7-1.3) Estimated GFR (Cockcroft-Gault) 91.2 Glucose Level 151 mg/dL (70-99) Calcium Level 8.3 mg/dL (8.5-10.1) Allergies Allergies Coded Allergies Type Severity Reaction Last Updated Verified lovastatin Allergy Intermediate 06/24/17 Yes codeine Adverse Reaction Intermediate mental status change 06/24/17 Yes promethazine Adverse Reaction Intermediate mental status change 06/24/17 Yes Disposition/Orders: D/C to Home Patient Instructions d/c planning 44 min HALEY MARTINEZ MD Jun 17, 2018 16:52
[2018-06-17] MEDS ORDERED: NITR0.4T SL (16:56)
[2018-06-17] MEDS ORDERED: IPRA3AMP29 NEB (16:56)
[2018-06-17] MEDS ORDERED: METO50TA6 PO (16:56)
--- NOTE | 2018-06-17 16:58 | DISCH ---
DISCHARGE INSTRUCTIONS Condition on Discharge Condition on Discharge: Stable Activity After Discharge Activity Instructions for Disc: Activity as tolerated Lifting Instructions after Dis: No heavy lifting, No pulling or pushing Exercise Instruction after Dis: Walk 10 min, 3 x per day Driving Instructions after Dis: Do not drive Weight Bearing Status after Di: As tolerated Diet after Discharge Diet after Discharge: Cardiac Checks after Discharge Checks after discharge: Check blood press - daily Contacting the DR. after DC Call your doctor for: If your condition worsens HALEY MARTINEZ MD Jun 17, 2018 16:58
[2018-06-17] MEDS: LISINOPRIL 20 MG TABLET PO SCH (17:15)
[2018-06-17] MEDS: INSULIN LISPRO 300 UNITS/3 ML INSULN.PEN. SQ SCH (17:15)
[2018-06-17] MEDS: ATORVASTATIN CALCIUM 10 MG TABLET. PO SCH (21:09)
[2018-06-17] MEDS: TERAZOSIN 5 MG CAPSULE. PO SCH (21:10)
[2018-06-18 00:27] VITALS: BP 123/63
[2018-06-18 03:40] VITALS: BP 136/70
[2018-06-18 03:57] LABS: GFR 70.5
[2018-06-18] MEDS: IPRATRPIUM/ALBUTEROL 0.5/2.5MG 3 ML NEBU. NEB SCH ×3 (06:01→15:33)
[2018-06-18 07:00] VITALS: BP 141/64
[2018-06-18] MEDS: INSULIN LISPRO 300 UNITS/3 ML INSULN.PEN. SQ SCH ×3 (08:00→17:00)
[2018-06-18] MEDS: OMEGA-3 FATTY ACIDS/FISH OIL 1,000 MG CAPSULE. PO SCH (08:42)
[2018-06-18] MEDS: LACTOBACILLUS RHAMNOSUS GG 1 CAPSULE. PO SCH (08:42)
[2018-06-18] MEDS: MULTIVITAMIN I-VITE TABLET. PO SCH (08:42)
[2018-06-18] MEDS: ASPIRIN ENTERIC COATED 81 MG TABLET.DR. PO SCH (08:42)
[2018-06-18] MEDS: METOPROLOL TART IMMED RELEASE 50 MG TABLET. PO SCH (08:43)
--- NOTE | 2018-06-18 08:58 | PDOC ---
Infectious Disease Note Subjective: Subjective Pt without complaints some cough,dry no chestpain no f/c/n/v/d/abdo pain ROS: ROS Negative except for above. Vital Signs: Vital Signs Vital Signs Date Time Temp Pulse Resp B/P (MAP) Pulse Ox O2 Delivery O2 Flow Rate FiO2 06/18/18 08:43 83 141/64 06/18/18 07:00 97.9 18 92 Room Air 97.9 06/17/18 13:29 2.0 Physical Exam: PHYSICAL EXAM GENERAL: The patient is propped up in bed, alert and smiling. HEENT: Pupils equally round, reactive. Normal conjunctivae. He wears corrective lenses. Oral cavity: Pharynx pink and moist. Full dentures in place. NECK: Supple. LUNGS: Clear to auscultation. HEART: S1 and S2 regular. ABDOMEN: Obese, soft, nontender with bowel sounds present. EXTREMITIES: No gross edema or cyanosis. SKIN: Warm without rash. NEUROLOGIC: Alert and oriented x 3. Medications: Inpatient Meds: Current Medications Medications (Trade) Dose Ordered Sig/Jai Start Time Stop Time Status Last Admin Dose Admin Albuterol/ Ipratropium (Duoneb) 3 ml RTQID 06/15/18 16:00 06/18/18 06:01 3 ML Aspirin (Ecotrin) 81 mg DAILYWBKFT 06/16/18 17:00 06/18/18 08:42 81 MG Atorvastatin Calcium (Lipitor) 5 mg QHS 06/15/18 21:00 06/17/18 21:09 5 MG Ceftriaxone Sodium (Rocephin) 1 gm 1X ONCE 06/14/18 21:30 06/14/18 21:31 DC 06/14/18 22:14 1 GM Dextrose (Dextrose 50%-Water Syringe) 12.5 gm PRN Q15MIN PRN 06/17/18 13:15 Digoxin (Lanoxin) 125 mcg 1X ONCE 06/15/18 04:30 06/15/18 04:31 DC 06/15/18 05:12 125 MCG Diltiazem HCl (Cardizem 24hr Cd) 120 mg DAILY 06/15/18 11:00 06/16/18 16:52 DC 06/16/18 07:44 120 MG Diltiazem HCl (Cardizem Iv Push) 10 mg 1X ONCE 06/14/18 20:45 06/14/18 20:46 DC 06/14/18 20:52 10 MG Diltiazem HCl 125 mg/Dextrose 125 ml @ 5 mls/hr CONT PRN 06/15/18 06:45 06/16/18 16:52 DC 06/15/18 06:45 15 MLS/HR Doxycycline Hyclate 100 mg/ Dextrose 100 ml @ 50 mls/hr 1X ONCE 06/14/18 21:30 06/14/18 23:29 DC 06/14/18 21:44 50 MLS/HR Fentanyl Citrate (Fentanyl 2ml Vial) 100 mcg 1X ONCE 06/17/18 13:15 06/17/18 13:16 DC 06/17/18 13:24 50 MCG Fish Oil (Fish Oil) 1,000 mg DAILY 06/15/18 11:00 06/18/18 08:42 1,000 MG Heparin Sodium (Porcine) (Heparin Sodium) 2,500 unit 1X ONCE 06/17/18 13:15 06/17/18 13:16 DC 06/17/18 13:28 2,500 UNIT Heparin Sodium/ Sodium Chloride (HEPARIN for ARTERIAL LINE FLUSH) 1,000 unit 1X ONCE 06/17/18 13:15 06/17/18 13:16 DC 06/17/18 13:22 2,000 UNIT Info (CONTRAST GIVEN -- Rx MONITORING) 1 each PRN DAILY PRN 06/17/18 13:15 06/19/18 13:14 Insulin Human Lispro (HumaLOG) 0-5 UNITS TIDWMEALS 06/17/18 17:00 06/17/18 17:15 2 UNITS Iodixanol (Visipaque 320) 100 ml 1X ONCE 06/17/18 13:15 06/17/18 13:16 DC 06/17/18 13:22 77 ML Labetalol HCl (Normodyne Iv Push) 20 mg PRN Q2HR PRN 06/17/18 09:15 Lactobacillus Rhamnosus (Culturelle) 1 cap BID 06/15/18 21:00 06/18/18 08:42 1 CAP Lidocaine HCl (Lidocaine 1% 20ml Vial) 20 ml 1X ONCE 06/17/18 13:30 06/17/18 13:31 DC 06/17/18 13:30 2 ML Lidocaine HCl (Xylocaine-Mpf 1% 2ml Vial) 2 ml 1X ONCE 06/17/18 13:15 06/17/18 13:16 Cancel Lisinopril (Prinivil) 20 mg DAILYBFRSUP 06/15/18 17:00 06/17/18 17:15 20 MG Magnesium Sulfate/ Dextrose 100 ml @ 100 mls/hr 1X ONCE 06/16/18 11:30 06/16/18 12:29 DC 06/16/18 11:17 100 MLS/HR Metformin HCl (Glucophage) 500 mg BIDWMEALS 06/19/18 17:00 Metoprolol Tartrate (Lopressor) 50 mg BID 06/16/18 21:00 06/18/18 08:43 50 MG Midazolam HCl (Versed) 2 mg 1X ONCE 06/17/18 13:15 06/17/18 13:16 DC 06/17/18 13:24 1 MG Multivitamins/ Minerals (I-Marcel) 1 tab DAILY 06/16/18 09:00 06/18/18 08:42 1 TAB Nitroglycerin (Nitroglycerin) 200 mcg 1X ONCE 06/17/18 13:15 06/17/18 13:16 DC 06/17/18 13:22 200 MCG Nitroglycerin (Nitrostat) 0.4 mg PRN Q5MIN PRN 06/16/18 13:45 06/16/18 13:45 0.4 MG Piperacillin Sod/ Tazobactam Sod 3.375 gm/Sodium Chloride 50 ml @ 100 mls/hr Q6HRS 06/15/18 13:00 06/16/18 09:16 DC 06/16/18 06:06 100 MLS/HR Rivaroxaban (Xarelto) 15 mg DAILYWSUP 06/15/18 17:00 06/16/18 16:41 DC 06/15/18 17:00 15 MG Sodium Chloride 1,000 ml @ 100 mls/hr Q10H 06/15/18 02:00 06/17/18 04:00 100 MLS/HR Terazosin HCl (Hytrin) 10 mg QHS 06/15/18 21:00 06/17/18 21:10 10 MG Vancomycin HCl (Vanco Per Pharmacy) 1 each PRN DAILY PRN 06/15/18 12:30 06/15/18 15:21 DC 06/15/18 14:36 1 EACH Vancomycin HCl (Vancomycin Trough Level) 1 each 1X ONCE 06/17/18 13:30 06/17/18 13:31 Cancel Vancomycin HCl 1.5 gm/Sodium Chloride 500 ml @ 250 mls/hr Q24H 06/16/18 14:00 06/16/18 14:00 DC Vancomycin HCl 1.75 gm/Sodium Chloride 500 ml @ 250 mls/hr 1X ONCE 06/15/18 13:00 06/15/18 14:59 DC 06/15/18 13:53 250 MLS/HR Verapamil HCl (Verapamil) 2.5 mg 1X ONCE 06/17/18 13:15 06/17/18 13:16 DC 06/17/18 13:23 2.5 MG Zolpidem Tartrate (Ambien) 5 mg PRN QHS PRN 06/15/18 10:45 Labs: Lab Laboratory Tests Test 06/17/18 09:48 06/17/18 11:24 06/17/18 17:13 06/17/18 21:20 Glucose (Fingerstick) 143 mg/dL (70-99) 147 mg/dL (70-99) 154 mg/dL (70-99) 123 mg/dL (70-99) Test 06/18/18 03:00 06/18/18 07:10 Creatinine 1.0 mg/dL (0.7-1.3) Estimated GFR (Cockcroft-Gault) 70.5 Glucose (Fingerstick) 131 mg/dL (70-99) Micro BC neg Objective: Assessment: 1. Lactic acidosis, improved.Cause likely noninfectious. 2. Atrial fibrillation with rapid ventricular response, currently on Cardizem and Xarelto. 3. Small left pleural effusion. 4. Noncalcified pulmonary nodules. 5. Diabetes mellitus. Plan: Plan of Care Monitor off antibiotics closely cult neg so far Supportive care D/w nursing MAGED VALLE MD Jun 18, 2018 08:58
--- NOTE | 2018-06-18 09:21 | PDOC ---
PULMONARY PROGRESS NOTES Subjective PT NOT MORE SOA Vitals Vital Signs Date Time Temp Pulse Resp B/P (MAP) Pulse Ox O2 Delivery O2 Flow Rate FiO2 06/18/18 08:43 83 141/64 06/18/18 07:00 97.9 18 92 Room Air 97.9 06/17/18 13:29 2.0 ROS: No Nausea, No Chest Pain, No Abdominal Pain, No Increase Cough General: Alert Cardiovascular: S1, S2 Abdomen: Soft Neuro Exam: Alert Extremities: No Edema Skin: Warm Labs Laboratory Tests Test 06/16/18 12:00 06/16/18 13:55 06/16/18 16:52 06/17/18 05:25 Glucose (Fingerstick) 178 mg/dL (70-99) 210 mg/dL (70-99) Troponin I Quantitative 0.364 ng/mL (0.000-0.055) White Blood Count 7.7 x10^3/uL (4.0-11.0) Red Blood Count 3.99 x10^6/uL (4.30-5.70) Hemoglobin 12.7 g/dL (13.0-17.5) Hematocrit 37.2 % (39.0-53.0) Mean Corpuscular Volume 93 fL (79-100) Mean Corpuscular Hemoglobin 32 pg (25-35) Mean Corpuscular Hemoglobin Concent 34 g/dL (31-37) Red Cell Distribution Width 13.7 % (11.5-14.5) Platelet Count 134 x10^3/uL (140-400) Neutrophils (%) (Auto) 70 % (31-73) Lymphocytes (%) (Auto) 18 % (24-48) Monocytes (%) (Auto) 9 % (0-9) Eosinophils (%) (Auto) 2 % (0-3) Basophils (%) (Auto) 1 % (0-3) Neutrophils # (Auto) 5.4 x10^3uL (1.8-7.7) Lymphocytes # (Auto) 1.4 x10^3/uL (1.0-4.8) Monocytes # (Auto) 0.7 x10^3/uL (0.0-1.1) Eosinophils # (Auto) 0.2 x10^3/uL (0.0-0.7) Basophils # (Auto) 0.1 x10^3/uL (0.0-0.2) Sodium Level 146 mmol/L (136-145) Potassium Level 4.1 mmol/L (3.5-5.1) Chloride Level 110 mmol/L (98-107) Carbon Dioxide Level 28 mmol/L (21-32) Anion Gap 8 (6-14) Blood Urea Nitrogen 9 mg/dL (8-26) Creatinine 0.8 mg/dL (0.7-1.3) Estimated GFR (Cockcroft-Gault) 91.2 Glucose Level 151 mg/dL (70-99) Calcium Level 8.3 mg/dL (8.5-10.1) Test 06/17/18 09:48 06/17/18 11:24 06/17/18 17:13 06/17/18 21:20 Glucose (Fingerstick) 143 mg/dL (70-99) 147 mg/dL (70-99) 154 mg/dL (70-99) 123 mg/dL (70-99) Test 06/18/18 03:00 06/18/18 07:10 Creatinine 1.0 mg/dL (0.7-1.3) Estimated GFR (Cockcroft-Gault) 70.5 Glucose (Fingerstick) 131 mg/dL (70-99) Laboratory Tests Test 06/17/18 09:48 06/17/18 11:24 06/17/18 17:13 06/17/18 21:20 Glucose (Fingerstick) 143 mg/dL (70-99) 147 mg/dL (70-99) 154 mg/dL (70-99) 123 mg/dL (70-99) Test 06/18/18 03:00 06/18/18 07:10 Creatinine 1.0 mg/dL (0.7-1.3) Estimated GFR (Cockcroft-Gault) 70.5 Glucose (Fingerstick) 131 mg/dL (70-99) Medications Active Scripts Medications Dose Route/Sig Max Daily Dose Days Date Category Hydrocodone-Apap 5-325 (Hydrocodone Bit/Acetaminophen) 1 Each Tablet 1 Tab PO PRN Q4HRS PRN 06/25/17 Rx Ocuvite Tablet (Vit A,C & E/Lutein/Minerals) 1 Each Tablet 1 Each PO DAILY 06/19/17 Reported Fish Oil 1,200 Mg Fish Oil (Fish Oil/Dha/Epa) 1 Each Capsule 1 Each PO DAILY 06/19/17 Reported Zolpidem Tartrate 5 Mg Tablet 5 Mg PO PRN QHS PRN 06/19/17 Reported Lisinopril 20 Mg Tablet 20 Mg PO DAILYBFRSUP 06/19/17 Reported Pravastatin Sodium 10 Mg Tablet 10 Mg PO QHS 06/19/17 Reported Terazosin Hcl 5 Mg Capsule 10 Mg PO QHS 08/04/13 Reported Metformin Hcl 500 Mg Tablet 500 Mg PO BID 08/04/13 Reported Cartia Xt (Diltiazem Hcl) 120 Mg Cap.er.24h 120 Mg PO 08/04/13 Reported Impression . IMPRESSION: 1. 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 2. Two small nodules in a patient that smoked. We will repeat CT in 6 months. 3. Elevated troponin level per Cardiology. 4. Lactic acidosis related to increased work of breathing. 5. Atrial fibrillation with rapid ventricular response. 6. Hypertension. 7. Type 2 diabetes. 8. Hypomagnesemia. CATH Conclusion 1. Normal left sided filling pressures. 2. 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 Recommendations 1. Consider aggressive medical therapy. 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 Plan . D/C HOME FOLLOW UP WITH ME IN 6-8 WEEKS FOLLOW CARD INPUT REPEAT CT 6 MONTHS SOFIA DAVID MD Jun 18, 2018 09:21
[2018-06-18] MEDS: IV NORMAL SALINE 1000ML BAG 1,000 ML IV SCH ×2 (10:00)
[2018-06-18 11:11] VITALS: BP 129/75
--- NOTE | 2018-06-18 11:14 | PDOC ---
PROGRESS NOTES History of Present Illness History of Present Illness Assessment/Plan Assessment/Plan IMPRESSION 1. Chest pain 2. elevated troponin i 3. hypertension 4. tachyarrhythmia /// A. fib RVR // consideration of ventricular tachycardia // wide-complex over the QRS 5. hyperlipidemia 6. BPH 7. LACTIC ACIDOSIS R/O SEPSIS 8. Hypomagnesemia 9. patchy basilar airspace opacity increased on the right, could be due to mild infiltrate 10. hyperglycemia 11.Small noncalcified 9 mm nodule in the left lung base. follow-up CT chest today as per Fleischner Society criteria. 12. REMOTE TOBACCO ABUSE, stopped 06/14 diltiazem for heart rate for 170s into the 130s and 40s in the emergency room // became hypotensive transferred to the ICU for further monitoring. plan Follow up with Dr. Recinos in 4 weeks. 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 HEENT: Pupils equally round, reactive. Normal conjunctivae. He wears corrective lenses. Oral cavity: Pharynx pink and moist. Full dentures in place. NECK: Supple. LUNGS: Clear to auscultation. HEART: S1 and S2 regular. ABDOMEN: Obese, soft, nontender with bowel sounds present. EXTREMITIES: No gross edema or cyanosis. SKIN: Warm without rash. NEUROLOGIC: Alert and oriented x 3. General: Alert, Oriented X3, Cooperative, No acute distress, mild distress Heart: Other (irregularly irregular) Lungs: Clear Abdomen: Normal bowel sounds Extremities: No clubbing, No cyanosis Skin: No breakdown Labs LABS Laboratory Tests Test 06/17/18 11:24 06/17/18 17:13 06/17/18 21:20 06/18/18 03:00 Glucose (Fingerstick) 147 mg/dL (70-99) 154 mg/dL (70-99) 123 mg/dL (70-99) Creatinine 1.0 mg/dL (0.7-1.3) Estimated GFR (Cockcroft-Gault) 70.5 Test 06/18/18 07:10 Glucose (Fingerstick) 131 mg/dL (70-99) Comment Review of Relevant I have reviewed the following items stewart (where applicable) has been applied. Labs Laboratory Tests Test 06/16/18 12:00 06/16/18 13:55 06/16/18 16:52 06/17/18 05:25 Glucose (Fingerstick) 178 mg/dL (70-99) 210 mg/dL (70-99) Troponin I Quantitative 0.364 ng/mL (0.000-0.055) White Blood Count 7.7 x10^3/uL (4.0-11.0) Red Blood Count 3.99 x10^6/uL (4.30-5.70) Hemoglobin 12.7 g/dL (13.0-17.5) Hematocrit 37.2 % (39.0-53.0) Mean Corpuscular Volume 93 fL (79-100) Mean Corpuscular Hemoglobin 32 pg (25-35) Mean Corpuscular Hemoglobin Concent 34 g/dL (31-37) Red Cell Distribution Width 13.7 % (11.5-14.5) Platelet Count 134 x10^3/uL (140-400) Neutrophils (%) (Auto) 70 % (31-73) Lymphocytes (%) (Auto) 18 % (24-48) Monocytes (%) (Auto) 9 % (0-9) Eosinophils (%) (Auto) 2 % (0-3) Basophils (%) (Auto) 1 % (0-3) Neutrophils # (Auto) 5.4 x10^3uL (1.8-7.7) Lymphocytes # (Auto) 1.4 x10^3/uL (1.0-4.8) Monocytes # (Auto) 0.7 x10^3/uL (0.0-1.1) Eosinophils # (Auto) 0.2 x10^3/uL (0.0-0.7) Basophils # (Auto) 0.1 x10^3/uL (0.0-0.2) Sodium Level 146 mmol/L (136-145) Potassium Level 4.1 mmol/L (3.5-5.1) Chloride Level 110 mmol/L (98-107) Carbon Dioxide Level 28 mmol/L (21-32) Anion Gap 8 (6-14) Blood Urea Nitrogen 9 mg/dL (8-26) Creatinine 0.8 mg/dL (0.7-1.3) Estimated GFR (Cockcroft-Gault) 91.2 Glucose Level 151 mg/dL (70-99) Calcium Level 8.3 mg/dL (8.5-10.1) Test 06/17/18 09:48 06/17/18 11:24 06/17/18 17:13 06/17/18 21:20 Glucose (Fingerstick) 143 mg/dL (70-99) 147 mg/dL (70-99) 154 mg/dL (70-99) 123 mg/dL (70-99) Test 06/18/18 03:00 06/18/18 07:10 Creatinine 1.0 mg/dL (0.7-1.3) Estimated GFR (Cockcroft-Gault) 70.5 Glucose (Fingerstick) 131 mg/dL (70-99) Laboratory Tests Test 06/17/18 11:24 06/17/18 17:13 06/17/18 21:20 06/18/18 03:00 Glucose (Fingerstick) 147 mg/dL (70-99) 154 mg/dL (70-99) 123 mg/dL (70-99) Creatinine 1.0 mg/dL (0.7-1.3) Estimated GFR (Cockcroft-Gault) 70.5 Test 06/18/18 07:10 Glucose (Fingerstick) 131 mg/dL (70-99) Microbiology 06/15/18 Blood Culture - Preliminary, Resulted NO GROWTH AFTER 3 DAYS Medications Current Medications Diltiazem HCl (Cardizem Iv Push) 10 mg 1X ONCE IVP Last administered on at 20:52; Start 06/14/18 at 20:45; Stop 06/14/18 at 20:46; Status DC Diltiazem HCl 125 mg/Dextrose 125 ml @ 5 mls/hr 1X ONCE IV Last administered on 06/14/18at 20:59; Start 06/14/18 at 20:45; Stop 06/15/18 at 07:17; Status DC Sodium Chloride 500 ml @ 500 mls/hr 1X ONCE IV ; Start 06/14/18 at 21:30; Stop 06/14/18 at 22:29; Status DC Ceftriaxone Sodium (Rocephin) 1 gm 1X ONCE IVP Last administered on 06/14/18at 22:14; Start 06/14/18 at 21:30; Stop 06/14/18 at 21:31; Status DC Doxycycline Hyclate 100 mg/ Dextrose 100 ml @ 50 mls/hr 1X ONCE IV Last administered on 06/14/18at 21:44; Start 06/14/18 at 21:30; Stop 06/14/18 at 23:29 ; Status DC Magnesium Sulfate/ Dextrose 100 ml @ 100 mls/hr 1X ONCE IV Last administered on 06/14/18at 22:15; Start 06/14/18 at 21:45; Stop 06/14/18 at 22:44; Status DC Rivaroxaban (Xarelto) 15 mg 1X ONCE PO Last administered on 06/14/18at 21:56; Start 06/14/18 at 21:45; Stop 06/14/18 at 21:46; Status DC Sodium Chloride 500 ml @ 500 mls/hr 1X PRN PRN IV PER PROTOCOL Last administered on 06/15/18at 01:49; Start 06/15/18 at 01:30 Sodium Chloride 1,000 ml @ 100 mls/hr Q10H IV Last administered on 06/17/18at 04:00; Start 06/15/18 at 02:00 Digoxin (Lanoxin) 0.625 mcg 1X PRN PRN IV PER PROTOCOL; Start 06/15/18 at 02:00 ; Stop 06/15/18 at 09:00; Status Cancel Digoxin (Lanoxin) 125 mcg 1X ONCE IV Last administered on 06/15/18at 02:43; Start 06/15/18 at 02:30; Stop 06/15/18 at 02:32; Status DC Digoxin (Lanoxin) 125 mcg 1X ONCE IV Last administered on 06/15/18at 05:12; Start 06/15/18 at 04:30; Stop 06/15/18 at 04:31; Status DC Diltiazem HCl 125 mg/Dextrose 125 ml @ 5 mls/hr CONT PRN IV SEE I/O RECORD Last administered on 06/15/18at 06:45; Start 06/15/18 at 06:45; Stop 06/16/18 at 16:52; Status DC Lisinopril (Prinivil) 20 mg DAILYBFRSUP PO Last administered on 06/17/18at 17:15 ; Start 06/15/18 at 17:00 Multivitamins/ Minerals (I-Marcel) 1 tab DAILY PO Last administered on 06/18/18at 08:42; Start 06/16/18 at 09:00 Zolpidem Tartrate (Ambien) 5 mg PRN QHS PRN PO INSOMNIA; Start 06/15/18 at 10: 45 Fish Oil (Fish Oil) 1,000 mg DAILY PO Last administered on 06/18/18at 08:42; Start 06/15/18 at 11:00 Metformin HCl (Glucophage) 500 mg BIDWMEALS PO Last administered on 06/16/18at 16:47; Start 06/15/18 at 17:00; Stop 06/17/18 at 13:12; Status DC Atorvastatin Calcium (Lipitor) 5 mg QHS PO Last administered on 06/17/18at 21:09 ; Start 06/15/18 at 21:00 Terazosin HCl (Hytrin) 10 mg QHS PO Last administered on 06/17/18at 21:10; Start 06/15/18 at 21:00 Diltiazem HCl (Cardizem 24hr Cd) 120 mg DAILY PO Last administered on at 07:44; Start 06/15/18 at 11:00; Stop 06/16/18 at 16:52; Status DC Piperacillin Sod/ Tazobactam Sod 3.375 gm/Sodium Chloride 50 ml @ 100 mls/hr Q6HRS IV Last administered on 06/16/18at 06:06; Start 06/15/18 at 13:00; Stop at 09:16; Status DC Vancomycin HCl (Vanco Per Pharmacy) 1 each PRN DAILY PRN MC SEE COMMENTS Last administered on 06/15/18at 14:36; Start 06/15/18 at 12:30; Stop 06/15/18 at 15:21 ; Status DC Vancomycin HCl 1.75 gm/Sodium Chloride 500 ml @ 250 mls/hr 1X ONCE IV Last administered on 06/15/18at 13:53; Start 06/15/18 at 13:00; Stop 06/15/18 at 14:59 ; Status DC Albuterol/ Ipratropium (Duoneb) 3 ml RTQID NEB Last administered on 06/18/18at 06:01; Start 06/15/18 at 16:00 Rivaroxaban (Xarelto) 15 mg DAILYWSUP PO Last administered on 06/15/18at 17:00; Start 06/15/18 at 17:00; Stop 06/16/18 at 16:41; Status DC Vancomycin HCl 1.5 gm/Sodium Chloride 500 ml @ 250 mls/hr Q24H IV ; Start 06/16 at 14:00; Stop 06/16/18 at 14:00; Status DC Vancomycin HCl (Vancomycin Trough Level) 1 each 1X ONCE MC ; Start 06/17/18 at 13:30; Stop 06/17/18 at 13:31; Status Cancel Lactobacillus Rhamnosus (Culturelle) 1 cap BID PO Last administered on at 08:42; Start 06/15/18 at 21:00 Magnesium Sulfate/ Dextrose 100 ml @ 100 mls/hr 1X ONCE IV Last administered on 06/16/18at 11:17; Start 06/16/18 at 11:30; Stop 06/16/18 at 12:29; Status DC Nitroglycerin (Nitrostat) 0.4 mg PRN Q5MIN PRN SL CHEST PAIN Last administered on 06/16/18at 13:45; Start 06/16/18 at 13:45 Aspirin (Ecotrin) 81 mg DAILYWBKFT PO Last administered on 06/18/18at 08:42; Start 06/16/18 at 17:00 Metoprolol Tartrate (Lopressor) 50 mg BID PO Last administered on 06/18/18at 08: 43; Start 06/16/18 at 21:00 Labetalol HCl (Normodyne Iv Push) 20 mg PRN Q2HR PRN IVP HYPERTENSION, SEE COMMENTS; Start 06/17/18 at 09:15 Iodixanol (Visipaque 320) 100 ml STK-MED ONCE .ROUTE ; Start 06/17/18 at 12:32; Stop 06/17/18 at 12:33; Status DC Lidocaine HCl (Lidocaine 1% 20ml Vial) 20 ml STK-MED ONCE .ROUTE ; Start at 12:32; Stop 06/17/18 at 12:33; Status DC Heparin Sodium/ Sodium Chloride 1,000 ml @ As Directed STK-MED ONCE .ROUTE ; Start 06/17/18 at 12:32; Stop 06/17/18 at 12:33; Status DC Fentanyl Citrate (Fentanyl 2ml Vial) 100 mcg STK-MED ONCE .ROUTE ; Start at 12:39; Stop 06/17/18 at 12:40; Status DC Midazolam HCl (Versed) 2 mg STK-MED ONCE .ROUTE ; Start 06/17/18 at 12:39; Stop 06/17/18 at 12:40; Status DC Heparin Sodium (Porcine) (Heparin Sodium) 10,000 unit STK-MED ONCE .ROUTE ; Start 06/17/18 at 12:39; Stop 06/17/18 at 12:40; Status DC Verapamil HCl (Verapamil) 5 mg STK-MED ONCE .ROUTE ; Start 06/17/18 at 12:39; Stop 06/17/18 at 12:40; Status DC Nitroglycerin (Nitroglycerin) 200 mcg STK-MED ONCE .ROUTE ; Start 06/17/18 at 12 :39; Stop 06/17/18 at 12:40; Status DC Nitroglycerin (Nitroglycerin) 200 mcg 1X ONCE IART Last administered on at 13:22; Start 06/17/18 at 13:15; Stop 06/17/18 at 13:16; Status DC Verapamil HCl (Verapamil) 2.5 mg 1X ONCE IART Last administered on 06/17/18at 13:23; Start 06/17/18 at 13:15; Stop 06/17/18 at 13:16; Status DC Heparin Sodium (Porcine) (Heparin Sodium) 2,500 unit 1X ONCE IART Last administered on 06/17/18at 13:28; Start 06/17/18 at 13:15; Stop 06/17/18 at 13:16 ; Status DC Heparin Sodium/ Sodium Chloride (HEPARIN for ARTERIAL LINE FLUSH) 1,000 unit 1X ONCE IART Last administered on 06/17/18at 13:22; Start 06/17/18 at 13:15; Stop 06/17/18 at 13:16; Status DC Midazolam HCl (Versed) 2 mg 1X ONCE IV Last administered on 06/17/18at 13:24; Start 06/17/18 at 13:15; Stop 06/17/18 at 13:16; Status DC Fentanyl Citrate (Fentanyl 2ml Vial) 100 mcg 1X ONCE IV Last administered on at 13:24; Start 06/17/18 at 13:15; Stop 06/17/18 at 13:16; Status DC Iodixanol (Visipaque 320) 100 ml 1X ONCE IART Last administered on 06/17/18at 13:22; Start 06/17/18 at 13:15; Stop 06/17/18 at 13:16; Status DC Lidocaine HCl (Xylocaine-Mpf 1% 2ml Vial) 2 ml 1X ONCE INJ ; Start 06/17/18 at 13:15; Stop 06/17/18 at 13:16; Status Cancel Info (CONTRAST GIVEN -- Rx MONITORING) 1 each PRN DAILY PRN MC SEE COMMENTS; Start 06/17/18 at 13:15; Stop 06/19/18 at 13:14 Metformin HCl (Glucophage) 500 mg BIDWMEALS PO ; Start 06/19/18 at 17:00 Insulin Human Lispro (HumaLOG) 0-5 UNITS TIDWMEALS SQ Last administered on 06/17at 17:15; Start 06/17/18 at 17:00 Dextrose (Dextrose 50%-Water Syringe) 12.5 gm PRN Q15MIN PRN IV SEE COMMENTS; Start 06/17/18 at 13:15 Lidocaine HCl (Lidocaine 1% 20ml Vial) 20 ml 1X ONCE INJ Last administered on 06/17/18at 13:30; Start 06/17/18 at 13:30; Stop 06/17/18 at 13:31; Status DC Active Scripts Active Hydrocodone-Apap 5-325 (Hydrocodone Bit/Acetaminophen) 1 Each Tablet 1 Tab PO PRN Q4HRS PRN Reported Ocuvite Tablet (Vit A,C & E/Lutein/Minerals) 1 Each Tablet 1 Each PO DAILY Fish Oil 1,200 Mg Fish Oil (Fish Oil/Dha/Epa) 1 Each Capsule 1 Each PO DAILY Zolpidem Tartrate 5 Mg Tablet 5 Mg PO PRN QHS PRN Lisinopril 20 Mg Tablet 20 Mg PO DAILYBFRSUP Pravastatin Sodium 10 Mg Tablet 10 Mg PO QHS Terazosin Hcl 5 Mg Capsule 10 Mg PO QHS Metformin Hcl 500 Mg Tablet 500 Mg PO BID Cartia Xt (Diltiazem Hcl) 120 Mg Cap.er.24h 120 Mg PO Vitals/I & O Vital Sign - Last 24 Hours 06/17/18 06/17/18 06/17/18 06/17/18 11:41 12:05 13:23 13:24 Temp 98.5 98.5 Pulse 68 60 Resp 16 22 B/P (MAP) 143/81 (101) 142/71 Pulse Ox 94 98 93 O2 Delivery Room Air Room Air Nasal Cannula O2 Flow Rate 2.0 06/17/18 06/17/18 06/17/18 06/17/18 13:29 16:00 16:58 17:15 Pulse 91 72 72 Resp 21 16 B/P (MAP) 134/74 (94) 134/74 Pulse Ox 93 95 O2 Delivery Nasal Cannula Room Air Room Air O2 Flow Rate 2.0 06/17/18 06/17/18 06/17/18 06/17/18 19:10 20:00 20:20 21:10 Temp 97.6 97.6 Pulse 82 82 Resp 19 B/P (MAP) 142/68 (92) 142/68 Pulse Ox 93 93 O2 Delivery Room Air Room Air Room Air 06/17/18 06/18/18 06/18/18 06/18/18 21:10 00:27 03:40 06:01 Temp 98.4 98.8 98.4 98.8 Pulse 82 77 77 Resp 18 18 B/P (MAP) 142/68 123/63 (83) 136/70 (92) Pulse Ox 94 93 94 O2 Delivery Room Air Room Air Room Air 06/18/18 06/18/18 06/18/18 06/18/18 07:00 07:30 08:43 11:11 Temp 97.9 97.5 97.9 97.5 Pulse 81 83 71 Resp 18 17 B/P (MAP) 141/64 (89) 141/64 129/75 (93) Pulse Ox 92 93 O2 Delivery Room Air Room Air Room Air Intake and Output 06/17/18 06/17/18 06/18/18 15:00 23:00 07:00 Intake Total 200 ml 400 ml Output Total 525 ml 700 ml Balance -525 ml 200 ml -300 ml HALEY MARTINEZ MD Jun 18, 2018 11:14
--- NOTE | 2018-06-18 13:24 | PDOC ---
CARDIO Progress Notes Date and Time Date of Service 06/18/2018 Time of Evaluation 1300 Subjective Subjective: No Chest Pain, No shortness of breath, No Palpitations Vitals Vitals Vital Signs Date Time Temp Pulse Resp B/P (MAP) Pulse Ox O2 Delivery O2 Flow Rate FiO2 06/18/18 11:29 94 Room Air 06/18/18 11:11 97.5 71 17 129/75 (93) 97.5 06/17/18 13:29 2.0 Weight Weight [ ] Input and Output Intake and Output Intake and Output 06/18/18 07:00 Intake Total 600 ml Output Total 1225 ml Balance -625 ml Intake Oral 600 ml Output Urine Total 1225 ml Laboratory Labs Laboratory Tests Test 06/17/18 17:13 06/17/18 21:20 06/18/18 03:00 06/18/18 07:10 Glucose (Fingerstick) 154 mg/dL (70-99) 123 mg/dL (70-99) 131 mg/dL (70-99) Creatinine 1.0 mg/dL (0.7-1.3) Estimated GFR (Cockcroft-Gault) 70.5 Test 06/18/18 12:07 Glucose (Fingerstick) 142 mg/dL (70-99) Microbiology Micro Microbiology 06/15/18 Blood Culture - Preliminary, Resulted NO GROWTH AFTER 3 DAYS Physical Exam HEENT: Neck Supple W Full Motion Chest: Symmetric LUNGS: Clear to Auscultation Heart: S1S2, RRR (SR LBBB) Abdomen: Soft N/T Extremities: No Calf Tenderness Neurology: alert, oriented, follow commands Other Exams right wrist arteriotomy site intact, no erythema or swelling. Neurovascular status to right hand intact Assessment Assessment 1. AFIB with RVR; converted to SR overnight. Likely the culprit for CP 2. NSTEMI; peak 1.1. 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 3. CAD; coronary artery calcifications note on CT 4. Hypertension; controlled 5. Hyperlipidemia; on goal 6. DM, II 7. Mild hypothyroidism Recommendations 1. Follow up with Dr. Recinos in 4 weeks. 2. Xarelto 15 mg, borderline CrCl, for stroke prevention 3. Secondary prevention measures 4. Consider aggressive medical therapy. 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 5. ACEi/BB, statin, ASA. 6. Encouraged cardiac rehab 7. MCOT to note afib burden and therapy adjustment BEVERLY BOND WAITER/WAITRESS CAPTAIN Jun 18, 2018 13:24
[2018-06-18 15:08] VITALS: BP 157/76
[2018-06-18] MEDS ORDERED: ANTI-COAG MONITOR BY PHARMACY. MC PRN (16:00)
[2018-06-18] MEDS ORDERED: RIVAROXABAN 15 MG TABLET. PO SCH (17:00)
[2018-06-18 17:07] VITALS: BP 157/76
[2018-06-18] MEDS: LISINOPRIL 20 MG TABLET PO SCH (17:07)
--- NOTE | 2018-06-18 17:10 | PDOC3 ---
Discharge Summary Date of Admission: Jun 15, 2018 Date of Discharge: Jun 18, 2018 Follow-Up: By telephone Admitting Diagnosis comment: DISCHARGE DX Assessment/Plan IMPRESSION 1. Chest pain, NSTEMI 2. elevated troponin i 3. hypertension 4. tachyarrhythmia /// A. fib RVR // consideration of ventricular tachycardia // wide-complex over the QRS 5. hyperlipidemia 6. BPH 7. LACTIC ACIDOSIS R/O SEPSIS 8. Hypomagnesemia, REPLACED 9. patchy basilar airspace opacity increased on the right, could be due to mild infiltrate 10. hyperglycemia 11.Small noncalcified 9 mm nodule in the left lung base. follow-up CT chest today as per Fleischner Society criteria. 12. REMOTE TOBACCO ABUSE, stopped 06/14 diltiazem for heart rate for 170s into the 130s and 40s in the emergency room // became hypotensive transferred to the ICU for further monitoring. plan Follow up with Dr. Recinos in 4 weeks. Xarelto 15 mg, borderline CrCl, for stroke prevention Attempt 3 weeks of anticoagulation and then consider cardioversion cvc bed cardiology consult ok with d/c today serial troponin i echo t4 cardizem blood and urine cultures iv zosyn, vanc, D/C, MONITOR OFF ANTIBIOTICS ID consult accuchecks ct chest d/w family TO WOUND CARE RN TODAY 06/17 UNSTABLE ANGINA 26 min d/c planning time Vitals Vitals Vital Signs Date Time Temp Pulse Resp B/P (MAP) Pulse Ox O2 Delivery O2 Flow Rate FiO2 06/18/18 11:11 97.5 71 17 129/75 (93) 93 Room Air 97.5 06/17/18 13:29 2.0 Physical Exam Physical Exam GENERAL: The patient is propped up in bed, alert and smiling. HEENT: Pupils equally round, reactive. Normal conjunctivae. He wears corrective lenses. Oral cavity: Pharynx pink and moist. Full dentures in place. NECK: Supple. LUNGS: Clear to auscultation. HEART: S1 and S2 regular. ABDOMEN: Obese, soft, nontender with bowel sounds present. EXTREMITIES: No gross edema or cyanosis. SKIN: Warm without rash. NEUROLOGIC: Alert and oriented x 3. General: Alert, Oriented X3, Cooperative, No acute distress, mild distress Heart: Other (irregularly irregular) Lungs: Clear Abdomen: Normal bowel sounds Extremities: No clubbing, No cyanosis Skin: No breakdown Brief Hospital Course Mr. Fernandes is a 88 old [sex] who presented with [ a-fib rvr/ angina// NSTEMI] CONDITION AT DISCHARGE: Improved Discharge Medications Current Medications Diltiazem HCl (Cardizem Iv Push) 10 mg 1X ONCE IVP Last administered on at 20:52; Start 06/14/18 at 20:45; Stop 06/14/18 at 20:46; Status DC Diltiazem HCl 125 mg/Dextrose 125 ml @ 5 mls/hr 1X ONCE IV Last administered on 06/14/18at 20:59; Start 06/14/18 at 20:45; Stop 06/15/18 at 07:17; Status DC Sodium Chloride 500 ml @ 500 mls/hr 1X ONCE IV ; Start 06/14/18 at 21:30; Stop 06/14/18 at 22:29; Status DC Ceftriaxone Sodium (Rocephin) 1 gm 1X ONCE IVP Last administered on 06/14/18at 22:14; Start 06/14/18 at 21:30; Stop 06/14/18 at 21:31; Status DC Doxycycline Hyclate 100 mg/ Dextrose 100 ml @ 50 mls/hr 1X ONCE IV Last administered on 06/14/18at 21:44; Start 06/14/18 at 21:30; Stop 06/14/18 at 23:29 ; Status DC Magnesium Sulfate/ Dextrose 100 ml @ 100 mls/hr 1X ONCE IV Last administered on 06/14/18at 22:15; Start 06/14/18 at 21:45; Stop 06/14/18 at 22:44; Status DC Rivaroxaban (Xarelto) 15 mg 1X ONCE PO Last administered on 06/14/18at 21:56; Start 06/14/18 at 21:45; Stop 06/14/18 at 21:46; Status DC Sodium Chloride 500 ml @ 500 mls/hr 1X PRN PRN IV PER PROTOCOL Last administered on 06/15/18at 01:49; Start 06/15/18 at 01:30 Sodium Chloride 1,000 ml @ 100 mls/hr Q10H IV Last administered on 06/17/18at 04:00; Start 06/15/18 at 02:00 Digoxin (Lanoxin) 0.625 mcg 1X PRN PRN IV PER PROTOCOL; Start 06/15/18 at 02:00 ; Stop 06/15/18 at 09:00; Status Cancel Digoxin (Lanoxin) 125 mcg 1X ONCE IV Last administered on 06/15/18at 02:43; Start 06/15/18 at 02:30; Stop 06/15/18 at 02:32; Status DC Digoxin (Lanoxin) 125 mcg 1X ONCE IV Last administered on 06/15/18at 05:12; Start 06/15/18 at 04:30; Stop 06/15/18 at 04:31; Status DC Diltiazem HCl 125 mg/Dextrose 125 ml @ 5 mls/hr CONT PRN IV SEE I/O RECORD Last administered on 06/15/18at 06:45; Start 06/15/18 at 06:45; Stop 06/16/18 at 16:52; Status DC Lisinopril (Prinivil) 20 mg DAILYBFRSUP PO Last administered on 06/17/18at 17:15 ; Start 06/15/18 at 17:00 Multivitamins/ Minerals (I-Marcel) 1 tab DAILY PO Last administered on 06/18/18 08:42; Start 06/16/18 at 09:00 Zolpidem Tartrate (Ambien) 5 mg PRN QHS PRN PO INSOMNIA; Start 06/15/18 at 10: 45 Fish Oil (Fish Oil) 1,000 mg DAILY PO Last administered on 06/18/18 08:42; Start 06/15/18 at 11:00 Metformin HCl (Glucophage) 500 mg BIDWMEALS PO Last administered on 06/16/18at 16:47; Start 06/15/18 at 17:00; Stop 06/17/18 at 13:12; Status DC Atorvastatin Calcium (Lipitor) 5 mg QHS PO Last administered on 06/17/18 21:09 ; Start 06/15/18 at 21:00 Terazosin HCl (Hytrin) 10 mg QHS PO Last administered on 06/17/18at 21:10; Start 06/15/18 at 21:00 Diltiazem HCl (Cardizem 24hr Cd) 120 mg DAILY PO Last administered on 3/25/ 19at 07:44; Start 06/15/18 at 11:00; Stop 06/16/18 at 16:52; Status DC Piperacillin Sod/ Tazobactam Sod 3.375 gm/Sodium Chloride 50 ml @ 100 mls/hr Q6HRS IV Last administered on 06/16/18at 06:06; Start 06/15/18 at 13:00; Stop at 09:16; Status DC Vancomycin HCl (Vanco Per Pharmacy) 1 each PRN DAILY PRN MC SEE COMMENTS Last administered on 06/15/18at 14:36; Start 06/15/18 at 12:30; Stop 06/15/18 at 15:21 ; Status DC Vancomycin HCl 1.75 gm/Sodium Chloride 500 ml @ 250 mls/hr 1X ONCE IV Last administered on 06/15/18at 13:53; Start 06/15/18 at 13:00; Stop 06/15/18 at 14:59 ; Status DC Albuterol/ Ipratropium (Duoneb) 3 ml RTQID NEB Last administered on 06/18/18at 15:33; Start 06/15/18 at 16:00 Rivaroxaban (Xarelto) 15 mg DAILYWSUP PO Last administered on 06/15/18at 17:00; Start 06/15/18 at 17:00; Stop 06/16/18 at 16:41; Status DC Vancomycin HCl 1.5 gm/Sodium Chloride 500 ml @ 250 mls/hr Q24H IV ; Start 06/16 at 14:00; Stop 06/16/18 at 14:00; Status DC Vancomycin HCl (Vancomycin Trough Level) 1 each 1X ONCE MC ; Start 06/17/18 at 13:30; Stop 06/17/18 at 13:31; Status Cancel Lactobacillus Rhamnosus (Culturelle) 1 cap BID PO Last administered on at 08:42; Start 06/15/18 at 21:00 Magnesium Sulfate/ Dextrose 100 ml @ 100 mls/hr 1X ONCE IV Last administered on 06/16/18at 11:17; Start 06/16/18 at 11:30; Stop 06/16/18 at 12:29; Status DC Nitroglycerin (Nitrostat) 0.4 mg PRN Q5MIN PRN SL CHEST PAIN Last administered on 06/16/18at 13:45; Start 06/16/18 at 13:45 Aspirin (Ecotrin) 81 mg DAILYWBKFT PO Last administered on 06/18/18at 08:42; Start 06/16/18 at 17:00 Metoprolol Tartrate (Lopressor) 50 mg BID PO Last administered on 06/18/18at 08: 43; Start 06/16/18 at 21:00 Labetalol HCl (Normodyne Iv Push) 20 mg PRN Q2HR PRN IVP HYPERTENSION, SEE COMMENTS; Start 06/17/18 at 09:15 Iodixanol (Visipaque 320) 100 ml STK-MED ONCE .ROUTE ; Start 06/17/18 at 12:32; Stop 06/17/18 at 12:33; Status DC Lidocaine HCl (Lidocaine 1% 20ml Vial) 20 ml STK-MED ONCE .ROUTE ; Start at 12:32; Stop 06/17/18 at 12:33; Status DC Heparin Sodium/ Sodium Chloride 1,000 ml @ As Directed STK-MED ONCE .ROUTE ; Start 06/17/18 at 12:32; Stop 06/17/18 at 12:33; Status DC Fentanyl Citrate (Fentanyl 2ml Vial) 100 mcg STK-MED ONCE .ROUTE ; Start at 12:39; Stop 06/17/18 at 12:40; Status DC Midazolam HCl (Versed) 2 mg STK-MED ONCE .ROUTE ; Start 06/17/18 at 12:39; Stop 06/17/18 at 12:40; Status DC Heparin Sodium (Porcine) (Heparin Sodium) 10,000 unit STK-MED ONCE .ROUTE ; Start 06/17/18 at 12:39; Stop 06/17/18 at 12:40; Status DC Verapamil HCl (Verapamil) 5 mg STK-MED ONCE .ROUTE ; Start 06/17/18 at 12:39; Stop 06/17/18 at 12:40; Status DC Nitroglycerin (Nitroglycerin) 200 mcg STK-MED ONCE .ROUTE ; Start 06/17/18 at 12 :39; Stop 06/17/18 at 12:40; Status DC Nitroglycerin (Nitroglycerin) 200 mcg 1X ONCE IART Last administered on at 13:22; Start 06/17/18 at 13:15; Stop 06/17/18 at 13:16; Status DC Verapamil HCl (Verapamil) 2.5 mg 1X ONCE IART Last administered on 06/17/18 13:23; Start 06/17/18 at 13:15; Stop 06/17/18 at 13:16; Status DC Heparin Sodium (Porcine) (Heparin Sodium) 2,500 unit 1X ONCE IART Last administered on 06/17/18 13:28; Start 06/17/18 at 13:15; Stop 06/17/18 at 13:16 ; Status DC Heparin Sodium/ Sodium Chloride (HEPARIN for ARTERIAL LINE FLUSH) 1,000 unit 1X ONCE IART Last administered on 06/17/18 13:22; Start 06/17/18 at 13:15; Stop 06/17/18 at 13:16; Status DC Midazolam HCl (Versed) 2 mg 1X ONCE IV Last administered on 06/17/18 13:24; Start 06/17/18 at 13:15; Stop 06/17/18 at 13:16; Status DC Fentanyl Citrate (Fentanyl 2ml Vial) 100 mcg 1X ONCE IV Last administered on 13:24; Start 06/17/18 at 13:15; Stop 06/17/18 at 13:16; Status DC Iodixanol (Visipaque 320) 100 ml 1X ONCE IART Last administered on 06/17/18 13:22; Start 06/17/18 at 13:15; Stop 06/17/18 at 13:16; Status DC Lidocaine HCl (Xylocaine-Mpf 1% 2ml Vial) 2 ml 1X ONCE INJ ; Start 06/17/18 at 13:15; Stop 06/17/18 at 13:16; Status Cancel Info (CONTRAST GIVEN -- Rx MONITORING) 1 each PRN DAILY PRN MC SEE COMMENTS; Start 06/17/18 at 13:15; Stop 06/19/18 at 13:14 Metformin HCl (Glucophage) 500 mg BIDWMEALS PO ; Start 06/19/18 at 17:00 Insulin Human Lispro (HumaLOG) 0-5 UNITS TIDWMEALS SQ Last administered on 06/17at 17:15; Start 06/17/18 at 17:00 Dextrose (Dextrose 50%-Water Syringe) 12.5 gm PRN Q15MIN PRN IV SEE COMMENTS; Start 06/17/18 at 13:15 Lidocaine HCl (Lidocaine 1% 20ml Vial) 20 ml 1X ONCE INJ Last administered on 06/17/18at 13:30; Start 06/17/18 at 13:30; Stop 06/17/18 at 13:31; Status DC Rivaroxaban (Xarelto) 15 mg DAILYWSUP PO ; Start 06/18/18 at 17:00 Aspirin (Ecotrin) 81 mg DAILYWBKFT PO ; Start 06/19/18 at 08:00; Status UNV Info (Anti-Coagulation Monitoring By Pharmacy) 1 each PRN DAILY PRN MC SEE COMMENTS Last administered on 06/18/18at 15:51; Start 06/18/18 at 16:00 Active Scripts Active Hydrocodone-Apap 5-325 (Hydrocodone Bit/Acetaminophen) 1 Each Tablet 1 Tab PO PRN Q4HRS PRN Reported Ocuvite Tablet (Vit A,C & E/Lutein/Minerals) 1 Each Tablet 1 Each PO DAILY Fish Oil 1,200 Mg Fish Oil (Fish Oil/Dha/Epa) 1 Each Capsule 1 Each PO DAILY Zolpidem Tartrate 5 Mg Tablet 5 Mg PO PRN QHS PRN Lisinopril 20 Mg Tablet 20 Mg PO DAILYBFRSUP Pravastatin Sodium 10 Mg Tablet 10 Mg PO QHS Terazosin Hcl 5 Mg Capsule 10 Mg PO QHS Metformin Hcl 500 Mg Tablet 500 Mg PO BID Cartia Xt (Diltiazem Hcl) 120 Mg Cap.er.24h 120 Mg PO Vital Signs Vital Signs Date Time Temp Pulse Resp B/P (MAP) Pulse Ox O2 Delivery O2 Flow Rate FiO2 06/18/18 15:34 Room Air 06/18/18 15:08 97.8 72 16 157/76 (103) 94 97.8 06/17/18 13:29 2.0 Labs Laboratory Tests Test 06/17/18 05:25 06/17/18 09:48 06/17/18 11:24 06/17/18 17:13 White Blood Count 7.7 x10^3/uL (4.0-11.0) Red Blood Count 3.99 x10^6/uL (4.30-5.70) Hemoglobin 12.7 g/dL (13.0-17.5) Hematocrit 37.2 % (39.0-53.0) Mean Corpuscular Volume 93 fL (79-100) Mean Corpuscular Hemoglobin 32 pg (25-35) Mean Corpuscular Hemoglobin Concent 34 g/dL (31-37) Red Cell Distribution Width 13.7 % (11.5-14.5) Platelet Count 134 x10^3/uL (140-400) Neutrophils (%) (Auto) 70 % (31-73) Lymphocytes (%) (Auto) 18 % (24-48) Monocytes (%) (Auto) 9 % (0-9) Eosinophils (%) (Auto) 2 % (0-3) Basophils (%) (Auto) 1 % (0-3) Neutrophils # (Auto) 5.4 x10^3uL (1.8-7.7) Lymphocytes # (Auto) 1.4 x10^3/uL (1.0-4.8) Monocytes # (Auto) 0.7 x10^3/uL (0.0-1.1) Eosinophils # (Auto) 0.2 x10^3/uL (0.0-0.7) Basophils # (Auto) 0.1 x10^3/uL (0.0-0.2) Sodium Level 146 mmol/L (136-145) Potassium Level 4.1 mmol/L (3.5-5.1) Chloride Level 110 mmol/L (98-107) Carbon Dioxide Level 28 mmol/L (21-32) Anion Gap 8 (6-14) Blood Urea Nitrogen 9 mg/dL (8-26) Creatinine 0.8 mg/dL (0.7-1.3) Estimated GFR (Cockcroft-Gault) 91.2 Glucose Level 151 mg/dL (70-99) Calcium Level 8.3 mg/dL (8.5-10.1) Glucose (Fingerstick) 143 mg/dL (70-99) 147 mg/dL (70-99) 154 mg/dL (70-99) Test 06/17/18 21:20 06/18/18 03:00 06/18/18 07:10 06/18/18 12:07 Glucose (Fingerstick) 123 mg/dL (70-99) 131 mg/dL (70-99) 142 mg/dL (70-99) Creatinine 1.0 mg/dL (0.7-1.3) Estimated GFR (Cockcroft-Gault) 70.5 Laboratory Tests Test 06/17/18 17:13 06/17/18 21:20 06/18/18 03:00 06/18/18 07:10 Glucose (Fingerstick) 154 mg/dL (70-99) 123 mg/dL (70-99) 131 mg/dL (70-99) Creatinine 1.0 mg/dL (0.7-1.3) Estimated GFR (Cockcroft-Gault) 70.5 Test 06/18/18 12:07 Glucose (Fingerstick) 142 mg/dL (70-99) Allergies Allergies Coded Allergies Type Severity Reaction Last Updated Verified lovastatin Allergy Intermediate 06/24/17 Yes codeine Adverse Reaction Intermediate mental status change 06/24/17 Yes promethazine Adverse Reaction Intermediate mental status change 06/24/17 Yes Disposition/Orders: D/C to Home Patient Instructions d/c planning 26 min HALEY MARTINEZ MD Jun 18, 2018 17:10
[2018-06-19] MEDS ORDERED: ASPIRIN ENTERIC COATED 81 MG TABLET.DR. PO SCH (08:00)
[2018-06-19] MEDS ORDERED: metFORMIN 500 MG TABLET PO SCH (17:00)
[2018-06-26] MEDS ORDERED: ASPI-612 PO (13:08)
== END 2018-06-18 18:38 | disposition home or self-care (01) | DRG 871 ==
LOC: ER 20:11 → 1 WEST ICU 22:40 → 2 SOUTH 06-17 18:45
PROVIDERS: ADMIT Internal Medicine; ATTEND Internal Medicine
PROC: 4A023N7 Measurement of Cardiac Sampling and Pressure, Left Heart, Percutaneous Approach (ICD-10-PCS; principal; 2018-06-17)
PROC: B2111ZZ Fluoroscopy of Multiple Coronary Arteries using Low Osmolar Contrast (ICD-10-PCS; 2018-06-17)
DX: A41.9 Sepsis, unspecified organism (principal); I21.4 Non-ST elevation (NSTEMI) myocardial infarction; J18.9 Pneumonia, unspecified organism; E87.2 Acidosis; I25.110 Atherosclerotic heart disease of native coronary artery with unstable angina pectoris; I48.91 Unspecified atrial fibrillation; E03.9 Hypothyroidism, unspecified; E78.00 Pure hypercholesterolemia, unspecified; E78.5 Hyperlipidemia, unspecified; E83.42 Hypomagnesemia; I11.0 Hypertensive heart disease with heart failure; E11.65 Type 2 diabetes mellitus with hyperglycemia; I50.9 Heart failure, unspecified; I44.7 Left bundle-branch block, unspecified; N40.0 Benign prostatic hyperplasia without lower urinary tract symptoms; Z90.49 Acquired absence of other specified parts of digestive tract; Z88.8 Allergy status to other drugs, medicaments and biological substances; Z79.899 Other long term (current) drug therapy; Z86.73 Personal history of transient ischemic attack (TIA), and cerebral infarction without residual deficits; Z85.828 Personal history of other malignant neoplasm of skin; Z82.49 Family history of ischemic heart disease and other diseases of the circulatory system; Z83.3 Family history of diabetes mellitus
CPT/HCPCS: 36415; 71045; 71250; 80048; 80053; 80061; 81001; 82565; 82962; 83605; 83735; 83880; 84145; 84439; 84443; 84484; 85025; 85610; 87040; 87641; 93005; 93306; 93458; 94640; 94760; 96365; 96366; 96368; 96375; 99152; 99153; C1769; C1892; J0696; J1160; J1644; J1815; J2250; J2543; J3010; J3370; J3475; J3490; J7030; J7040; J7620; Q9967; 97116; 99285-25

== ENCOUNTER 2019-11-24 22:32 | Inpatient (IN) | payer MEDICARE ==
[~2019-11-24] VITALS: Ht 172.7 cm; Wt 85.8 kg
[~2019-11-24 22:32] MED LIST changes: +AMIO200T7 PO; +AMLO10TA8 PO; +ASPI-886 PO; +IPRA3AMP29 NEB; +METO50TA6 PO; +NITR0.4T24 SL; +RIVA15TA PO; +TERA10CA3 PO
[2019-11-24] MEDS ORDERED: AMIODARONE 450 MG in IV DEXTROSE 5% 250 ML IV PRN (22:45)
[2019-11-24 22:54] LABS: BASO # 0.1 x10^3/uL (0.0-0.2); BASO % 1 % (0-3); EOS # 0.2 x10^3/uL (0.0-0.7); EOS % 2 % (0-3); HEMATOCRIT 41.3 % (39.0-53.0); LYMPH # 2.8 x10^3/uL (1.0-4.8); LYMPH % 33 % (24-48); MEAN CORPUSCULAR HEMOGLOBIN 32 pg (25-35); MEAN CORPUSCULAR HGB CONC 34 g/dL (31-37); MEAN CORPUSCULAR VOLUME 94 fL (79-100); MONO # 0.7 x10^3/uL (0.0-1.1); MONO % 9 % (0-9); NEUT # 4.9 x10^3/uL (1.8-7.7); NEUT % 56 % (31-73); PLATELET COUNT 173 x10^3/uL (140-400); RED BLOOD COUNT 4.39 x10^6/uL (4.30-5.70); RED CELL DISTRIBUTION WIDTH 14.2 % (11.5-14.5); WHITE BLOOD COUNT 8.7 x10^3/uL (4.0-11.0)
[2019-11-24 23:00] LABS: CALCIUM 9.1 mg/dL (8.5-10.1); CREATININE 1.8 mg/dL (0.7-1.3); GFR 35.7; POTASSIUM 4.8 mmol/L (3.5-5.1)
[2019-11-24] MEDS ORDERED: fentaNYL PF VIAL 100 MCG/2 ML VIAL IV ONE (23:00)
[2019-11-24] MEDS ORDERED: ASPIRIN 325 MG TABLET PO ONE (23:00)
[2019-11-24] MEDS ORDERED: IV NORMAL SALINE 1000ML BAG 1,000 ML IV ONE (23:00)
[2019-11-24] MEDS ORDERED: AMIODARONE 150 MG/3 ML VIAL IVP ONE (23:00)
[2019-11-24] MEDS ORDERED: fentaNYL PF VIAL 100 MCG/2 ML VIAL IV PRN (23:00)
[2019-11-24 23:07] LABS: ALBUMIN 3.5 g/dL (3.4-5.0); ALBUMIN/GLOBULIN RATIO 1.2 (1.0-1.7); MAGNESIUM 1.7 mg/dL (1.8-2.4); TOTAL BILIRUBIN 0.4 mg/dL (0.2-1.0); TOTAL PROTEIN 6.5 g/dL (6.4-8.2)
[2019-11-24] MEDS ORDERED: ROCURONIUM 50 MG/5 ML VIAL. IV ONE (23:30)
[2019-11-24] MEDS ORDERED: ETOMIDATE 20 MG/10 ML VIAL. IV ONE (23:30)
[2019-11-24 23:55] LABS: BASE EXCESS ABG -16 mmol/L (-3-3); FIO2 ABG 100; HCO3 ABG 13 mmol/L (21-28); PCO2 ABG 39 mmHg (35-46); PO2 ABG < 42 mmHg (65-108); SAT O2 ABG 65 % (92-99)
[2019-11-25] VITALS (22 sets, daily range): BP systolic 94–144; BP diastolic 51–96
--- NOTE | 2019-11-25 00:13 | RAD ---
INDICATION: Reason: chest pain, ET and gastric tube placement / Spl. Instructions: / History: COMPARISON: September 17, 2019 FINDINGS: Single view of chest obtained. Endotracheal tube near the thoracic inlet. Enteric tube coursing below diaphragm. Disorganized pulmonary markings bilaterally with groundglass and interstitial opacities seen IMPRESSION: * Interstitial and groundglass opacities bilaterally which could be secondary to edema or infiltrate. * Lines and tubes as above. Electronically signed by: Gregorio Maloney MD (11/25/2019 12:11 AM) [id number]
[2019-11-25] MEDS ORDERED: PROPOFOL 50 ML IV PRN (00:15)
--- NOTE | 2019-11-25 00:18 | PHYS DOC ---
Past Medical History Past Medical History: CHF, Constipation, CVA, Diabetes-Type II, High Cholesterol, Hypertension, [place] Past Medical History Limited secondary to respiratory distress Past Surgical History: Appendectomy Past Surgical History Limited secondary to respiratory distress Smoking Status: Former Smoker Alcohol Use: None Drug Use: None Social History Limited secondary to respiratory distress General Adult EDM: Chief Complaint: CHEST PAIN HPI: HPI: Patient is a 89 year old male who presents via EMS from home with report of shortness of breath. Patient has had slow onset and increasing shortness of breath over the last few days. He contacted EMS when he felt clammy and diaphoretic and had some chest pain. Denies known fever. Family denies known exposure to COVID19. EMS reports concern for runs of Vtach noted on telemetry monitoring upon arrival. History of present illness limited secondary to respiratory distress. Review of Systems: Review of Systems: Constitutional: Denies fever or chills Respiratory: Reports shortness of breath Cardiovascular: Reports chest pain GI: Patient reports nausea. Neurologic: Denies headache, focal weakness or sensory changes Review of systems limited secondary to respiratory distress Heart Score: HEART Score for Chest Pain: HEART Score for Chest Pain Response (Comments) Value History Moderately Suspicious 1 ECG Nonspecific Repolarizatio 1 Age > 65 2 Risk Factors >3 Risk Factors or Hx CAD 2 Troponin >1-<3x Normal Limit 1 Total 7 Risk Factors: Risk Factors: DM, Current or recent (<one month) smoker, HTN, HLP, family history of CAD, obesity. Risk Scores: Score 0 - 3: 2.5% MACE over next 6 weeks - Discharge Home Score 4 - 6: 20.3% MACE over next 6 weeks - Admit for Clinical Observation Score 7 - 10: 72.7% MACE over next 6 weeks - Early Invasive Strategies Current Medications: Current Medications Medications (Trade) Dose Ordered Sig/Jai Start Time Stop Time Status Last Admin Dose Admin Amiodarone HCl (Cordarone) 150 mg 1X ONCE 11/24/19 23:00 11/24/19 23:01 DC 11/24/19 22:39 150 MG Amiodarone HCl 450 mg/Dextrose 259 ml @ 0 mls/hr CONT PRN 11/24/19 22:45 Aspirin (Aspirin Rectal Supp) 300 mg 1X ONCE 11/25/19 00:30 11/25/19 00:31 Aspirin (Nidhi Aspirin) 325 mg 1X ONCE 11/24/19 23:00 11/24/19 23:52 DC Bumetanide (Bumex) 1 mg 1X ONCE 11/25/19 00:30 11/25/19 00:31 Chlorhexidine Gluconate (Peridex) 15 ml BID 11/25/19 09:00 Etomidate (Amidate) 20 mg 1X ONCE 11/24/19 23:30 11/24/19 23:31 DC 11/24/19 23:09 20 MG Fentanyl Citrate (Fentanyl 2ml Vial) 50 mcg PRN Q1HR PRN 11/24/19 23:00 Norepinephrine Bitartrate 8 mg/ Dextrose 258 ml @ 20.124 mls/ hr 1X ONCE 11/25/19 00:30 11/25/19 13:19 Propofol 50 ml @ 1.56 mls/hr CONT PRN PRN 11/25/19 00:15 11/25/19 12:00 Rocuronium [place] (Zemuron) 50 mg 1X ONCE 11/24/19 23:30 11/24/19 23:31 DC 11/24/19 23:09 50 MG Sodium Bicarbonate 150 meq/Sterile Water 1,150 ml @ 125 mls/hr 1X ONCE 11/25/19 00:30 11/25/19 09:41 Sodium Chloride 1,000 ml @ 1,000 mls/hr 1X ONCE 11/24/19 23:00 11/24/19 23:59 DC 11/24/19 23:00 1,000 MLS/HR Allergies: Allergies: Allergies Coded Allergies Type Severity Reaction Last Updated Verified lovastatin Allergy Intermediate 06/24/17 Yes codeine Adverse Reaction Intermediate mental status change 06/24/17 Yes Physical Exam: PE: Constitutional: Patient appears to be in severe acute distress respiratory distress, exceptionally diaphoretic whole body HENT: Normocephalic, atraumatic Eyes: PERRL, conjunctiva normal, no discharge Neck: Normal range of motion, no tenderness, supple. No carotid bruits. Lungs & Thorax: Patient has bilateral crackles in upper and lower lobes, worse in the lower lobes. Increased work of breathing. Heart: Irregular rapid heartbeat. No murmurs auscultated. S1 and S2 indistinguishable. Heart sounds are very faint and distant. .,. Abdomen: Protuberant mildly tense abdomen. Positive fluid wave. Bowel sounds present in all 4 quadrants. Skin: Cold clammy diaphoretic. Back: No tenderness, no CVA tenderness Extremities: No tenderness, ROM intact, 2+ pitting edema bilateral lower extremities. Neurologic: Alert and oriented X 3, no focal deficits noted Current Patient Data: Labs: Laboratory Tests Test 11/24/19 22:39 11/24/19 22:49 11/24/19 23:32 White Blood Count 8.7 x10^3/uL (4.0-11.0) Red Blood Count 4.39 x10^6/uL (4.30-5.70) Hemoglobin 14.0 g/dL (13.0-17.5) Hematocrit 41.3 % (39.0-53.0) Mean Corpuscular Volume 94 fL (79-100) Mean Corpuscular Hemoglobin 32 pg (25-35) Mean Corpuscular Hemoglobin Concent 34 g/dL (31-37) Red Cell Distribution Width 14.2 % (11.5-14.5) Platelet Count 173 x10^3/uL (140-400) Neutrophils (%) (Auto) 56 % (31-73) Lymphocytes (%) (Auto) 33 % (24-48) Monocytes (%) (Auto) 9 % (0-9) Eosinophils (%) (Auto) 2 % (0-3) Basophils (%) (Auto) 1 % (0-3) Neutrophils # (Auto) 4.9 x10^3/uL (1.8-7.7) Lymphocytes # (Auto) 2.8 x10^3/uL (1.0-4.8) Monocytes # (Auto) 0.7 x10^3/uL (0.0-1.1) Eosinophils # (Auto) 0.2 x10^3/uL (0.0-0.7) Basophils # (Auto) 0.1 x10^3/uL (0.0-0.2) Prothrombin Time 18.0 SEC (11.7-14.0) H Prothrombin Time INR 1.5 (0.8-1.1) H Activated Partial Thromboplast Time 29 SEC (24-38) Sodium Level 136 mmol/L (136-145) Potassium Level 4.8 mmol/L (3.5-5.1) Chloride Level 104 mmol/L (98-107) Carbon Dioxide Level 21 mmol/L (21-32) Anion Gap 11 (6-14) Blood Urea Nitrogen 35 mg/dL (8-26) H Creatinine 1.8 mg/dL (0.7-1.3) H Estimated GFR (Cockcroft-Gault) 35.7 BUN/Creatinine Ratio 19 (6-20) Glucose Level 254 mg/dL (70-99) H Calcium Level 9.1 mg/dL (8.5-10.1) Magnesium Level 1.7 mg/dL (1.8-2.4) L Total Bilirubin 0.4 mg/dL (0.2-1.0) Aspartate Amino Transferase (AST) 10 U/L (15-37) L Alanine Aminotransferase (ALT) 18 U/L (16-63) Alkaline Phosphatase 117 U/L (46-116) H Troponin I Quantitative 0.088 ng/mL (0.000-0.055) OE-Xej-U-Type Natriuretic Peptide 5998 pg/mL (0-449) H Total Protein 6.5 g/dL (6.4-8.2) Albumin 3.5 g/dL (3.4-5.0) Albumin/Globulin Ratio 1.2 (1.0-1.7) Lipase 108 U/L (73-393) Glucose (Fingerstick) 306 mg/dL (70-99) H O2 Saturation 65 % (92-99) *L Arterial Blood pH 7.12 (7.35-7.45) *L Arterial Blood pCO2 at Patient Temp 39 mmHg (35-46) Arterial Blood pO2 at Patient Temp < 42 mmHg (65-108) *L Arterial Blood HCO3 13 mmol/L (21-28) L Arterial Blood Base Excess -16 mmol/L (-3-3) L FiO2 100 Laboratory Tests 11/24/19 22:39 Laboratory Tests 11/24/19 22:39 Vital Signs: Vital Signs Date Time Temp Pulse Resp B/P (MAP) Pulse Ox O2 Delivery O2 Flow Rate FiO2 11/24/19 23:56 88 127/60 (82) 97 Ventilator 11/24/19 23:11 12.0 11/24/19 22:54 97.6 34 97.6 EKG: EK09/18/2019 6:33 KS: 212 ms QRS: 128 ms QT: 464 ms QTc: 469 [place] Sinus rhythm with left axis deviation and a left bundle branch block. Mild ST depression noted in V4 V5 and V6. 11/24/2019 22:45 KS: --- QRS:180ms QT: 338ms QTc: 504 Sustained ventricular tachycardia, with left bundle branch block. 11-25-2019 3:26 AM KS: 242 ms QRS 148 ms QT 458 ms QTc 550 ms Sinus bradycardia, left bundle branch block consistent with prior EKGs from before this episode of CHF exacerbation. T wave inversion in leads II, III and aVF, V3 through 6. Potential ST segment depression in lead II. Radiology/Procedures: Radiology/Procedures: PROCEDURE: PORTABLE CHEST 1V INDICATION: Reason: chest pain, ET and gastric tube placement / Spl. Instructions: / History: COMPARISON: September 17, 2019 FINDINGS: Single view of chest obtained. Endotracheal tube near the thoracic inlet. Enteric tube coursing below diaphragm. Disorganized pulmonary markings bilaterally with groundglass and interstitial opacities seen IMPRESSION: * Interstitial and groundglass opacities bilaterally which could be secondary to edema or infiltrate. * Lines and tubes as above. Electronically signed by: Gregorio Maloney MD (11/25/2019 12:11 AM) [id number] PROCEDURE: CHEST AP ONLY INDICATION: Reason: s/p RIJ central line, pt intubated / Spl. Instructions: / History: COMPARISON: One day prior FINDINGS: Single view of chest obtained. Rotated exam limits evaluation. Endotracheal tube near the thoracic inlet. Enteric tube is seen coursing towards the diaphragm. Interval placement of right-sided vascular catheter with tip projecting over SVC. There is some patchy opacities within the bilateral lungs again seen. Appears slightly more prominent right lung base compared to prior IMPRESSION: * Interval placement of right-sided vascular catheter with tip projecting over SVC. * Multifocal opacities in the bilateral lungs which could be from infiltrate or asymmetric edema. Appears slightly increased at right lung base compared to prior. Electronically signed by: Gregorio Maloney MD (11/25/2019 3:45 AM) [id number] Course & Med Decision Making: Course & Med Decision Making Patient presents with severe respiratory distress with HR up to 160 bpm. O2 sats were approximately 72%. Telemetry monitoring noted patient with runs of Vtach. Amidorone bolus given. Patient with worsening respiratory status. Concern for flash pulmonary edema. Decision to protect airway. Patient able to verbalize request to provide intubation and placement on ventilator. Following intubation ventilation patient O2 sats returned to the mid 90s. Labs obtained and posted to chart. Troponin slightly elevated. BNP ~6000. Bumex provided. Patient's blood pressure tenuous with especially with addition of sedation medications. Levophed therefore initiated. Central line therefore placed to [facility] under bedside ultrasound guidance. Cannot fully exclude COVID. COVID precautions in place upon patient's arrival. COVID testing pending. Patient requiring admission for further evaluation and treatment. Discussed with Dr. Chiang (hospitalist) who is in agreement with ICU admission. Discussed findings and plan with family, who acknowledges understanding and agreement. Patient's repeat troponin up to 1.5. Patient currently on Xarelto. Discussed case with Dr. Vaca (cardiology) regarding. Recommends to hold heparin at this time, given patient anticoagulated with Xarelto. COVID-19 CRITERIA: The patient was evaluated during the global COVID-19 pandemic, and that diagnosis was suspected/considered upon their initial presentation. Their evaluation, treatment and testing was consistent with current guidelines for patients who present with complaints or symptoms that may be related to COVID-19. Dragon Disclaimer: [employer] Disclaimer: This electronic medical record was generated, in whole or in part, using a voice recognition dictation system. Central Line Central Line : Central Line Lumen: triple Central Line Procedure: sterile drapes applied, sterile dressing applied Central Line Postion: internal jugular (R) Anesthesia: Lidocaine cc's of anesthesia: 3 Complications: none Central Line Post Position: sutured, good blood return, position confirmed w/ CXR Progress Written consent obtained from spouse. Time out performed. Hand hygiene utilized. Sterile gloves and gown donned. Right neck cleaned with ChloraPrep and sterile drapes applied. Bedside ultrasound utilized with visualization of oval shaped, thin-walled, compressible hypoechoic structure consistent with right internal jugular vein. Anesthesia obtained via a 25-gauge hypodermic needle with (1) mL's of lidocaine 1%. Triple-lumen catheter successfully placed under ultrasound guidance via Seldinger technique. Catheter sutured in place. All three ports checked with good blood return and flush easily. XR obtained with good position of central line. Sterile dressing placed. Patient tolerated procedure well and without difficulty. Intubation Intubation : Intubation Method: orotracheal Tube Size (cm): 8.0 Breath Sounds after Intubation: equal Intubation Complications: no complications Post Intubation Xray: Yes Progress Emergent consent obtained. Time out performed. Hand hygiene utilized. Rapid sequence intubation performed with 20 mg of etomidate and 50 mg of rocuronium. #4 [place] bladed laryngoscope utilized with visualization of vocal cords and successful placement of 8.0 ET tube over bougie. Fogging of the tube noted with equal breath sounds and chest rise. Positive CO2 indicator. Patient tolerated procedure well and without difficulty. Departure Departure Impression: Primary Impression: Respiratory failure Qualified Codes: J96.01 - Acute respiratory failure with hypoxia Additional Impressions: V-tach Elevated troponin Acute exacerbation of CHF (congestive heart failure) Qualified Codes: I50.9 - Heart failure, unspecified Hypoxia Suspected 2019 novel coronavirus infection Hypomagnesemia Disposition: ADMITTED INPATIENT Admitting Physician: ABRAM (Mariia) Condition: GUARDED Referrals: PITER ALVAREZ MD (PCP) Justicifation of Admission Dx: Justifications for Admission: Justification of Admission Dx: Yes CHF: Cardiac Arrhythmias Respiratory Failure: Mechanical Ventilation COVID-19 Assessment: COVID-19 Patient Risks: Age 65 or older: Yes Sign of co-morbidity: Yes Exp to person + for COVID: No Exp to PUI: No Travel from affected area: No Lower respiratory symptoms: Yes Fever: No PPE Use: Full PPE with N95 mask or PAPR: Yes Critical Care Time Critical care time was 30 minutes which includes time at bedside, spent in discussion of patient's care with specialists and/or family members, with interpretation of laboratory and/or radiological studies and is exclusive of procedures. ALMA ROSA ECHOLS DO Nov 25, 2019 00:18
[2019-11-25] MEDS ORDERED: SODIUM BICARBONATE VIAL 150 MEQ in IV STERILE WATER 1,000 ML IV ONE (00:30)
[2019-11-25] MEDS ORDERED: ASPIRIN RECTAL 300 MG SUPP. PR ONE (00:30)
[2019-11-25] MEDS ORDERED: BUMETANIDE 1 MG/4 ML VIAL. IV ONE (00:30)
[2019-11-25] MEDS ORDERED: NOREPINEPHRINE VIAL 8 MG in IV DEXTROSE 5% 250 ML IV ONE (00:30)
[2019-11-25] MEDS ORDERED: ONDANSETRON PF 4 MG/2 ML VIAL. IV PRN (00:30)
[2019-11-25] MEDS ORDERED: DEXTROSE 50% 25 GM / 50ML DISP.SYRIN. IV PRN ×2 (00:30→20:30)
[2019-11-25 00:35] LABS: BASE EXCESS COOX -8 mmol/L (-3-3); HCO3 COOX 17 mmol/L (21-28); METHEMOGLOBIN 0.4 % (0.0-1.9); OXYHEMOGLOBIN 92.1 %; PCO2 COOX 36 mmHg (35-46); PO2 COOX 74 mmHg (65-108); SAT O2 COOX 93 % (92-99)
[2019-11-25] MEDS ORDERED: fentaNYL PF VIAL 100 MCG/2 ML VIAL IV ONE (01:00)
[2019-11-25] MEDS ORDERED: MIDAZOLAM HCL/PF 5 MG/5 ML VIAL. IV ONE (01:00)
[2019-11-25] MEDS ORDERED: PROPOFOL 50 ML IV ONE (03:06)
[2019-11-25] MEDS ORDERED: MIDAZOLAM 100mg/100ml NS BAG 100 ML IV PRN (03:30)
[2019-11-25] MEDS ORDERED: MAGNESIUM SULFATE 2GM 50 ML IV ONE (03:30)
--- NOTE | 2019-11-25 03:48 | RAD ---
INDICATION: Reason: s/p RIJ central line, pt intubated / Spl. Instructions: / History: COMPARISON: One day prior FINDINGS: Single view of chest obtained. Rotated exam limits evaluation. Endotracheal tube near the thoracic inlet. Enteric tube is seen coursing towards the diaphragm. Interval placement of right-sided vascular catheter with tip projecting over SVC. There is some patchy opacities within the bilateral lungs again seen. Appears slightly more prominent right lung base compared to prior IMPRESSION: * Interval placement of right-sided vascular catheter with tip projecting over SVC. * Multifocal opacities in the bilateral lungs which could be from infiltrate or asymmetric edema. Appears slightly increased at right lung base compared to prior. Electronically signed by: Gregorio Maloney MD (11/25/2019 3:45 AM) [id number]
--- NOTE | 2019-11-25 05:00 | NUR ---
Arrived to ICU room 107 from the ED. Amiodorone, levophed, propofol, and bicarb infusing. Ventilated via ETT and OG placed in ED. Placement confirmed with cxr in Ed. VSS with infusions. No family present for further patient information.
[2019-11-25] MEDS: PROPOFOL 100 ML IV PRN ×4 (05:10→21:07)
[2019-11-25] MEDS ORDERED: ETOMIDATE 20 MG/10 ML VIAL. IV ONE (07:09)
[2019-11-25] MEDS ORDERED: ROCURONIUM 50 MG/5 ML VIAL. ONE (07:09)
[2019-11-25] MEDS: CHLORHEXIDINE 0.12% 15 ML MOUTHWASH. MM SCH ×2 (07:42→20:10)
[2019-11-25 08:00] LABS: BASE EXCESS ABG -2 mmol/L (-3-3); HCO3 ABG 21 mmol/L (21-28); PCO2 ABG 31 mmHg (35-46); PO2 ABG 409 mmHg (65-108); SAT O2 ABG 100 % (92-99)
[2019-11-25 08:02] LABS: FIO2 ABG 100/VENT
[2019-11-25] MEDS: INSULIN LISPRO 300 UNITS/3 ML VIAL. SQ SCH ×3 (08:02→17:25)
[2019-11-25] MEDS: NOREPINEPHRINE VIAL 8 MG in IV DEXTROSE 5% 250 ML IV PRN ×2 (08:09→19:31)
[2019-11-25 08:21] LABS: CREATININE 1.9 mg/dL (0.7-1.3); GFR 33.5; MAGNESIUM 2.4 mg/dL (1.8-2.4); POTASSIUM 5.6 mmol/L (3.5-5.1)
--- NOTE | 2019-11-25 08:41 | RAD ---
EXAM: CHEST AP ONLY INDICATION: Reason: adjustment (advanced 2cm) of ETT / Spl. Instructions: / History: . TECHNIQUE: Single view COMPARISON: Chest x-ray 11/25/2019 at 2:47 AM FINDINGS: Endotracheal tube appears to have been advanced in the interval. Tip now terminates 3.1 cm above the korey. Stable right jugular approach central venous catheter with tip in the proximal SVC. Stable enteric tube passing below the diaphragms. The heart size is unchanged, borderline enlarged.. The great vessels show aortic calcification and tortuosity similar to prior.. There is no hilar or mediastinal mass. The lungs show improvement in aeration of the right lung base with less volume loss. Perihilar hazy densities in the left lung base are marginally improved as well. There is no evidence of a pleural effusion or pneumothorax but the costophrenic angles are partly excluded.. There are no significant osseous abnormalities. IMPRESSION: Interval advancement of endotracheal tube with the tip now 3 cm above the korey, and slight improvement in aeration of the lungs, most notably at the right lung base. Electronically signed by: Cassy Dorantes MD (11/25/2019 8:38 AM) [id number]
--- NOTE | 2019-11-25 08:58 | PDOC2 ---
BEVERLY BOND RN ACUTE DIALYSIS 11/25/19 0858: CARDIAC CONSULT DATE OF CONSULT Date of Consult DATE: 11/25/19 TIME: 08:49 REASON FOR CONSULT Reason for Consult: VT, CHF REFERRING PHYSICIAN Referring Physician: Forrest SOURCE Source: Chart review HISTORY OF PRESENT ILLNESS HISTORY OF PRESENT ILLNESS This is an 89 yo male admitted for complains of SOA and chest pain. Presently he is intubated with vent. Pt was noted with diaphoresis and clamminess per chart review. No known fever. I checked his medications and no listed diuretics. Upon admission he was noted with NSTEMI and also is in decompensated CHF. He has known CAD and cardiomyopathy. Also was noted with VT but no copy to verify. He is chronically has LBBB and has hx of PAFIB. PAST MEDICAL HISTORY Past Medical History Cardiovascular: AFIB, CAD, CHF, HTN, Hyperlipidemia Pulmonary: Other (midl ILD?) CENTRAL NERVOUS SYSTEM: Other (No pertinent history) GI: No pertinent hx, Diverticulosis Hepatobiliary: No pertinent hx Psych: No pertinent hx Musculoskeletal: Osteoarthritis Rheumatologic: No pertinent hx Infectious disease: No pertinent hx ENT: No pertinent hx Renal/: Benign prostatic enlarg. Endocrine: Diabetes Dermatology: Other (skin CA) PAST SURGICAL HISTORY Past Surgical History Appendectomy, Other (LHC) FAMILY HISTORY Family History: Hypertension SOCIAL HISTORY Smoke: No ALCOHOL: none Drugs: None Lives: with Family CURRENT MEDICATIONS CURRENT MEDICATIONS Current Medications Medications (Trade) Dose Ordered Sig/Jai Route PRN Reason Start Time Stop Time Status Last Admin Dose Admin Sodium Chloride 1,000 ml @ 1,000 mls/hr 1X ONCE IV 11/24/19 23:00 11/24/19 23:59 DC 11/24/19 23:00 Amiodarone HCl (Cordarone) 150 mg 1X ONCE IVP 11/24/19 23:00 11/24/19 23:01 DC 11/24/19 22:39 Fentanyl Citrate (Fentanyl 2ml Vial) 50 mcg 1X ONCE IV 11/24/19 23:00 11/24/19 23:01 DC 11/24/19 23:53 Rocuronium [place] (Zemuron) 50 mg 1X ONCE IV 11/24/19 23:30 11/24/19 23:31 DC 11/24/19 23:09 Etomidate (Amidate) 20 mg 1X ONCE IV 11/24/19 23:30 11/24/19 23:31 DC 11/24/19 23:09 Propofol 100 ml @ 0 mls/hr CONT PRN IV SEE PROTOCOL 11/24/19 23:00 11/25/19 05:10 Chlorhexidine Gluconate (Peridex) 15 ml BID MM 11/25/19 09:00 11/25/19 07:42 Sodium Bicarbonate 150 meq/Sterile Water 1,150 ml @ 125 mls/hr 1X ONCE IV 11/25/19 00:30 11/25/19 09:41 11/25/19 05:11 Bumetanide (Bumex) 1 mg 1X ONCE IV 11/25/19 00:30 11/25/19 00:31 DC 11/25/19 00:29 Norepinephrine Bitartrate 8 mg/ Dextrose 258 ml @ 20.124 mls/ hr 1X ONCE IV 11/25/19 00:30 11/25/19 13:19 11/25/19 01:30 Aspirin (Aspirin Rectal Supp) 300 mg 1X ONCE MN 11/25/19 00:30 11/25/19 00:31 DC 11/25/19 00:30 Propofol 50 ml @ 1.56 mls/hr CONT PRN PRN IV SEDATION 11/25/19 00:15 11/25/19 03:00 DC 11/25/19 00:23 Insulin Human Lispro (HumaLOG) 0-5 UNITS TIDWMEALS SQ 11/25/19 08:00 11/25/19 08:02 Fentanyl Citrate (Fentanyl 2ml Vial) 100 mcg 1X ONCE IV 11/25/19 01:00 11/25/19 01:01 DC 11/25/19 01:04 Midazolam HCl (Versed) 5 mg 1X ONCE IV 11/25/19 01:00 11/25/19 01:01 DC 11/25/19 01:03 Magnesium Sulfate 50 ml @ 25 mls/hr 1X ONCE IV 11/25/19 03:30 11/25/19 05:29 DC 11/25/19 04:27 Norepinephrine Bitartrate 8 mg/ Dextrose 258 ml @ 17.028 mls/ hr CONT PRN IV PER PROTOCOL 11/25/19 06:15 11/25/19 08:09 ALLERGIES ALLERGIES: Coded Allergies: lovastatin (Verified Allergy, Intermediate, 11/25/19) Atorvastatin ok codeine (Verified Adverse Reaction, Intermediate, mental status change, 06/24/17) ROS Review of System unreliable, intubated PHYSICAL EXAM General: Other (sedated) HEENT: Atraumatic Lungs: Other (diminished, mechanical vent) Heart: Regular rate (SR with LBBB) Abdomen: Soft Extremities: Other (2+ bilateral LE pitting edema) Skin: No breakdown Neuro: Other (sedated) MUSCULOSKELETAL: Osteoarthritic changes both hands VITALS/I&O VITALS/I&O: Vital Signs Date Time Temp Pulse Resp B/P (MAP) Pulse Ox O2 Delivery O2 Flow Rate FiO2 11/25/19 07:38 100 Ventilator 11/25/19 07:00 60 24 114/55 (74) 11/25/19 06:00 96.3 96.3 11/24/19 23:11 12.0 I & O 11/24/19 11/24/19 11/25/19 15:00 23:00 07:00 Output Total 625 ml Balance -625 ml LABS Lab: Laboratory Tests Test 11/24/19 22:39 11/24/19 22:49 11/24/19 23:32 11/25/19 00:35 White Blood Count 8.7 x10^3/uL (4.0-11.0) Red Blood Count 4.39 x10^6/uL (4.30-5.70) Hemoglobin 14.0 g/dL (13.0-17.5) Hematocrit 41.3 % (39.0-53.0) Mean Corpuscular Volume 94 fL (79-100) Mean Corpuscular Hemoglobin 32 pg (25-35) Mean Corpuscular Hemoglobin Concent 34 g/dL (31-37) Red Cell Distribution Width 14.2 % (11.5-14.5) Platelet Count 173 x10^3/uL (140-400) Neutrophils (%) (Auto) 56 % (31-73) Lymphocytes (%) (Auto) 33 % (24-48) Monocytes (%) (Auto) 9 % (0-9) Eosinophils (%) (Auto) 2 % (0-3) Basophils (%) (Auto) 1 % (0-3) Neutrophils # (Auto) 4.9 x10^3/uL (1.8-7.7) Lymphocytes # (Auto) 2.8 x10^3/uL (1.0-4.8) Monocytes # (Auto) 0.7 x10^3/uL (0.0-1.1) Eosinophils # (Auto) 0.2 x10^3/uL (0.0-0.7) Basophils # (Auto) 0.1 x10^3/uL (0.0-0.2) Prothrombin Time 18.0 SEC (11.7-14.0) H Prothrombin Time INR 1.5 (0.8-1.1) H Activated Partial Thromboplast Time 29 SEC (24-38) Sodium Level 136 mmol/L (136-145) Potassium Level 4.8 mmol/L (3.5-5.1) Chloride Level 104 mmol/L (98-107) Carbon Dioxide Level 21 mmol/L (21-32) Anion Gap 11 (6-14) Blood Urea Nitrogen 35 mg/dL (8-26) H Creatinine 1.8 mg/dL (0.7-1.3) H Estimated GFR (Cockcroft-Gault) 35.7 BUN/Creatinine Ratio 19 (6-20) Glucose Level 254 mg/dL (70-99) H Calcium Level 9.1 mg/dL (8.5-10.1) Magnesium Level 1.7 mg/dL (1.8-2.4) L Total Bilirubin 0.4 mg/dL (0.2-1.0) Aspartate Amino Transferase (AST) 10 U/L (15-37) L Alanine Aminotransferase (ALT) 18 U/L (16-63) Alkaline Phosphatase 117 U/L (46-116) H Troponin I Quantitative 0.088 ng/mL (0.000-0.055) UO-Oze-Z-Type Natriuretic Peptide 5998 pg/mL (0-449) H Total Protein 6.5 g/dL (6.4-8.2) Albumin 3.5 g/dL (3.4-5.0) Albumin/Globulin Ratio 1.2 (1.0-1.7) Lipase 108 U/L (73-393) Glucose (Fingerstick) 306 mg/dL (70-99) H O2 Saturation 65 % (92-99) *L 93 % (92-99) Arterial Blood pH 7.12 (7.35-7.45) *L 7.30 (7.35-7.45) L Arterial Blood pCO2 at Patient Temp 39 mmHg (35-46) 36 mmHg (35-46) Arterial Blood pO2 at Patient Temp < 42 mmHg (65-108) *L 74 mmHg (65-108) Arterial Blood HCO3 13 mmol/L (21-28) L 17 mmol/L (21-28) L Arterial Blood Base Excess -16 mmol/L (-3-3) L -8 mmol/L (-3-3) L FiO2 100 100 Oxyhemoglobin 92.1 % Methemoglobin 0.4 % (0.0-1.9) Carbon Monoxide, Quantitative 0.3 % (0.0-1.9) Test 11/25/19 01:23 11/25/19 07:44 11/25/19 07:59 11/25/19 08:00 Troponin I Quantitative 1.596 ng/mL (0.000-0.055) 9.514 ng/mL (0.000-0.055) Glucose (Fingerstick) 352 mg/dL (70-99) H Sodium Level 134 mmol/L (136-145) L Potassium Level 5.6 mmol/L (3.5-5.1) H Chloride Level 100 mmol/L (98-107) Carbon Dioxide Level 25 mmol/L (21-32) Anion Gap 9 (6-14) Blood Urea Nitrogen 38 mg/dL (8-26) H Creatinine 1.9 mg/dL (0.7-1.3) H Estimated GFR (Cockcroft-Gault) 33.5 Glucose Level 361 mg/dL (70-99) H Calcium Level 8.0 mg/dL (8.5-10.1) L Magnesium Level 2.4 mg/dL (1.8-2.4) O2 Saturation 100 % (92-99) H Arterial Blood pH 7.44 (7.35-7.45) Arterial Blood pCO2 at Patient Temp 31 mmHg (35-46) L Arterial Blood pO2 at Patient Temp 409 mmHg (65-108) H Arterial Blood HCO3 21 mmol/L (21-28) Arterial Blood Base Excess -2 mmol/L (-3-3) FiO2 100/vent Laboratory Tests 11/24/19 22:39 Laboratory Tests 11/24/19 22:39 11/25/19 07:59 ECHOCARDIOGRAM ECHOCARDIOGRAM <Conclusion> The ejection fraction is moderately to severely impaired. Ejection fraction 25- 30%. There is global hypokinesis of the left ventricle. Doppler and Color-flow revealed mild to moderate mitral regurgitation. DATE: 09/18/19 1142 HEART CATH HEART CATH LEFT VENTRICULOGRAM: Deferred due to known EF by echo. CORONARY ANGIOGRAPHY: LM is a very short caliber vessel with near separate ostia of the LAD and LCx. LAD is a large caliber vessel with proximal 40% stenosis. There is a mid 40% stenosis. Remainder of the vessel has mild luminal irregularities. D1 is a small caliber vessel with mild luminal irregularities. LCx is a large caliber co-dominant vessel with a mid subtotal occlusion with left to left collaterals. OM1 is a moderate caliber vessel with proximal 40% stenosis. LPL/LPDA are small caliber vessels that fill via left to left collaterals and have mild luminal irregularities. RCA is a moderate caliber non-dominant vessel with a proximal 99, heavily calcified stenosis. The distal vessel is seen to fill via left to right collaterals. Conclusion 1. Normal left sided filling pressures. 2. 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 Recommendations 1. Consider aggressive medical therapy. If no symptom improvement then consider PCI of YARD HAND of the LCx. DATE: 06/17/18 1447 ASSESSMENT/PLAN ASSESSMENT/PLAN 1. NSTEMI; typical features with EKG changes 2. OFELIA on CKD with hyperkalemia 3. Acute on chronic combined diastolic/systolic CHF: no diuretics noted on home meds 4. Chronic LBBB 5. CAD: notable for YARD HAND to LCx with multiple underlying lesions. recent LHC as noted above 6. HTN; controlled 7. Acute on chronic respiratory failure due to CHF and severe CM: intubated with vent 8. PAFIB: presently SR 9. VT?: no copies noted in chart. potential from sinus tach with underlying LBBB or abberant AFIB 10. Severe ICM 11. Cardiogenic shock Recommendations 1. Optimize diuretic therapy. Pressor as warranted., on levophed currently, BP stable 2. Secondary prevention measures. ASA and start on heparin drip. 3. Discussed case with primary byproducts extractor, ischemic workup in the next 24-48 hours. 4. Restart home amiodarone. hold home xarelto. 5. BMP and troponin at noon MCSWEYN,DONNA J MD 11/25/191926: CARDIAC CONSULT ASSESSMENT/PLAN ASSESSMENT/PLAN Patient seen and examined Discussed with our nurse practitioner. I agree with assessment and plan as above. Respiratory failure. Intubated. History of cardiomyopathy. Ventilator management as per pulmonary. Continue diuretics and pressors as tolerated. Episodes of ventricular tachycardia by report. Now sinus tachycardia with preexistent left bundle. We will continue amiodarone. Non-ST elevated myocardial infarction. Continuing present treatments. Reviewing old imaging. Continuing present treatment as above. Acute kidney injury. Hyperkalemia. Treatments and diuretics with close mon itoring. Paroxysmal atrial fibrillation. Monitor shows sinus rhythm at this time. Thank you for allowing us to participate in the care of your patient. BEVERLY BOND APRN Nov 25, 2019 08:58 DONNA THOMSON MD Nov 25, 2019 19:27
[2019-11-25] MEDS ORDERED: HEPARIN 25,000UTS/250ML PREMIX 250 ML IV PRN (09:00)
[2019-11-25] MEDS ORDERED: HEPARIN for IV BOLUS 10,000 UNIT/10 ML VIAL. IV PRN ×2 (09:00)
[2019-11-25] MEDS: HEPARIN 25,000UTS/250ML PREMIX 250 ML IV PRN (09:20)
--- NOTE | 2019-11-25 09:33 | EKG ---
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
--- NOTE | 2019-11-25 09:35 | EKG ---
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
[2019-11-25] MEDS ORDERED: FUROSEMIDE 40 MG/4 ML VIAL. IVP ONE (10:45)
[2019-11-25] MEDS: AMIODARONE HCL 200 MG TABLET. PO SCH (10:51)
--- NOTE | 2019-11-25 11:28 | CONS ---
DATE OF CONSULTATION: 11/25/2019 PULMONARY CONSULTATION ATTENDING PHYSICIAN: Nathan Chiang MD REASON FOR CONSULTATION: Respiratory failure. HISTORY OF PRESENT ILLNESS: The patient is an 89-year-old male who has history of coronary artery disease, history of previous echo with an EF of 25-30% and global hypokinesis of left ventricle. He was brought into the hospital with increasing shortness of breath. Per EMS report, he had suspected V-tach. He was intubated by the ER physician. He had no exposures to COVID-19. I have reviewed post-intubation chest x-rays that revealed evidence of mild CHF. He is currently on Levophed. He is sedated. His ABGs showed a pH of 7.12, pCO2 of 39, a pO2 of less than 42 with bicarbonate of 13. Latest ABG showed a pH of 7.44, pCO2 of 31 and a pO2 of 409. He is on 50% oxygen and 12 of PEEP. I have been asked to see him for further evaluation. PAST MEDICAL HISTORY: Significant for CVA, history of constipation, CHF, cardiomyopathy with an EF of 25%, dyslipidemia, hypertension and NE. PAST SURGICAL HISTORY: Appendectomy. SOCIAL HISTORY: Former smoker. ALLERGIES: CODEINE and LOVASTATIN. MEDICATIONS: Reviewed as listed in the MRAD. REVIEW OF SYSTEMS: Unable to obtain from the patient. PHYSICAL EXAMINATION: VITAL SIGNS: Reviewed. Blood pressure is stable on pressors. Pulse ox 99-100%, afebrile. HEENT: Visual exam done due to COVID-19 pandemia. CHEST: He is in no obvious respiratory distress. No paradoxical respiratory motion. SKIN: No skin rash. LABORATORY DATA: Reviewed. ABGs as discussed in my history of present illness. BUN 38, creatinine 1.9. Troponin is 9.5, potassium 5.6. INR 1.5. White cell count 8.7, hemoglobin 14.0, and platelets 173. IMPRESSION: 1. Acute hypoxic respiratory failure secondary to ventricular arrhythmias in a patient with severe cardiomyopathy. 2. 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 3. Metabolic acidosis, likely related to acute kidney injury. 4. Markedly increased troponin level suggestive of non STEMI. 5. Abnormal chest x-ray consistent with congestive heart failure. RECOMMENDATIONS: 1. Continue present assist control mode. Would recommend to wean PEEP down and wean FiO2. 2. Follow cardiology recommendations. 3. Wean off vasopressor. 4. Amiodarone per Cardiology. 5. Heparin protocol per Cardiology. 6. The patient's prognosis is poor. I would recommend establishment of code status. I have discussed with family. I have discussed with the patient, RN and RT. Critical care time 37 minutes. FITZ KENT MD DR: BRET/kelly JOB#: [id number] / [id number] DIANA
--- NOTE | 2019-11-25 12:34 | HP ---
ADMIT DATE: 11/25/2019 CHIEF COMPLAINT: Shortness of breath. HISTORY OF PRESENT ILLNESS: The patient is a pleasant 89-year-old male who has a previous known history of severe coronary artery disease that was managed medically. He also has heart failure. He presented with shortness of breath via ambulance. He states it has been occurring for the past several days, but got worse suddenly last night. He increased his home meds, but that did not help. Describes the symptoms as very irritating. Symptoms are worse with moving, better with sitting still, rated at 7/10. I discussed the case with the ER physician. It appears the patient has acute on chronic systolic and diastolic heart failure and respiratory failure as well. He had to be intubated. The patient is now being examined in the ICU where he is critically ill. PAST MEDICAL HISTORY: CHF, CAD that was being treated medically because the lesions were not able to be stented, constipation, stroke, diabetes, hyperlipidemia, hypertension, myocardial infarction, appendectomy, previous tobacco abuse. ALLERGIES: CODEINE AND LOVASTATIN. FAMILY HISTORY: Coronary artery disease. SOCIAL HISTORY: He quit smoking, no drinking or drugs. He is retired. MEDICATIONS: Reviewed, please refer to the MRAD. REVIEW OF SYSTEMS: Unable to obtain. The patient is intubated. PHYSICAL EXAMINATION: VITALS: Within normal limits and are stable. GENERAL: He is sedated with propofol and he also has Levophed hanging and a bicarbonate drip. HEENT: Normal cephalic atraumatic, external auditory canals are patent. Eyes: Extraocular muscles are intact, pupils are equally round and reactive to light and accommodation MUSCULOSKELETAL: Well developed, well nourished, good range of motion. ENDOCRINE: No thyromegaly was palpated. LYMPHATICS: No cervical chain or axillary nodes were noted. HEMATOPOIETIC: No bruising. NECK: Supple, no JVD, no thyromegaly was noted. LUNGS: He is intubated with assist control/24/450/50% with 12 of PEEP. He has bilateral crackles. HEART: RRR, S1, S2 present. Peripheral pulses intact, no obvious murmurs were noted. GASTROINTESTINAL: His abdomen is distended with decreased bowel sounds. EXTREMITIES: Without any cyanosis, clubbing, or edema. Pedal pulses intact, Homans sign is negative. NEUROLOGIC: Normal speech, normal tone. A and O x 3, moves all extremities, no obvious focal deficits. PSYCHIATRIC: Unobtainable. SKIN: No ulcerations or rashes, good skin turgor, no jaundice. VASCULAR: Good capillary refill, neurovascular bundle appears to be intact. LABORATORY DATA: Hematology is normal. Electrolytes: Sodium 144, potassium 5.6, chloride 100, bicarbonate 25, BUN 38, creatinine 1.9, glucose 361. INR is 1.5. ABG: pH 7.12, pCO2 of 39, pO2 of 40 and that was taken on 100% FiO2. He was satting 65%. After being intubated, his saturation is currently 100%. He has got a pH of 7.4, pCO2 of 31 and pO2 of 49. Chest x-ray shows interstitial ground glass opacities, which could be secondary to edema or infiltrate. ASSESSMENT AND PLAN: Respiratory failure. The patient has been admitted to the ICU, on the vent. We have consulted Pulmonary. We have consulted Cardiology. IV Lasix. Serial enzymes. Serial EKGs. Consider echocardiogram. Home meds. DVT prophylaxis. Full code. He is critically ill. TOTAL CC TIME: 32 minutes. [place] CALVO DO DR: PIOTR/kelly JOB#: [id number] / [id number]
[2019-11-25 12:45] LABS: CREATININE 1.9 mg/dL (0.7-1.3); GFR 33.5; POTASSIUM 4.3 mmol/L (3.5-5.1)
[2019-11-25] MEDS: IV NORMAL SALINE 1000ML BAG 1,000 ML IV SCH (12:45)
[2019-11-25 12:50] LABS: BILIRUBIN,URINE NEGATIVE (NEG); CLARITY,URINE CLEAR; COLOR,URINE YELLOW; NITRITE,URINE NEGATIVE (NEG); PROTEIN,URINE NEGATIVE (NEG-TRACE); UROBILINOGEN,URINE 0.2 mg/dL (0.2 mg/dL)
[2019-11-25 12:59] LABS: RBC,URINE RARE /HPF (0-2); WBC,URINE RARE /HPF (0-4)
[2019-11-25 13:00] LABS: BACTERIA,URINE 0 /HPF (0-FEW)
[2019-11-25] MEDS: ANTI-COAG MONITOR BY PHARMACY. MC PRN ×2 (13:01→13:06)
--- NOTE | 2019-11-25 14:33 | NUR ---
SS following for discharge planning. SS reviewed pt chart and discussed with pt RN. Pt is from home with spouse and is currently on the vent. COVID19 test pending. SS will continue to follow for discharge planning.
[2019-11-25] MEDS: PANTOPRAZOLE IV PUSH 40 MG VIAL. IVP SCH (14:56)
[2019-11-25] MEDS: ATORVASTATIN CALCIUM 10 MG TABLET. PO SCH (23:09)
[2019-11-26] VITALS (24 sets, daily range): BP systolic 73–140; BP diastolic 3–65
[2019-11-26] MEDS: PROPOFOL 100 ML IV PRN ×2 (00:49→09:07)
[2019-11-26] MEDS: IV NORMAL SALINE 1000ML BAG 1,000 ML IV SCH ×2 (04:08→20:44)
[2019-11-26] MEDS: HEPARIN 25,000UTS/250ML PREMIX 250 ML IV PRN (06:04)
[2019-11-26 06:19] LABS: HEMATOCRIT 35.4 % (39.0-53.0); RED BLOOD COUNT 3.83 x10^6/uL (4.30-5.70); WHITE BLOOD COUNT 9.3 x10^3/uL (4.0-11.0)
[2019-11-26 06:28] LABS: CALCIUM 8.4 mg/dL (8.5-10.1); CREATININE 1.4 mg/dL (0.7-1.3); GFR 47.7; MAGNESIUM 1.6 mg/dL (1.8-2.4); POTASSIUM 3.8 mmol/L (3.5-5.1)
[2019-11-26 06:37] LABS: CHOLESTEROL/HDL RATIO 2.5
--- NOTE | 2019-11-26 07:39 | EKG ---
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
[2019-11-26] MEDS: NOREPINEPHRINE VIAL 8 MG in IV DEXTROSE 5% 250 ML IV PRN (07:52)
[2019-11-26] MEDS: PANTOPRAZOLE IV PUSH 40 MG VIAL. IVP SCH ×2 (09:17→20:48)
[2019-11-26] MEDS: ASPIRIN CHEWABLE 81 MG TABLET. PO SCH (09:18)
[2019-11-26] MEDS: FUROSEMIDE 40 MG/4 ML VIAL. IVP SCH (09:18)
[2019-11-26] MEDS: AMIODARONE HCL 200 MG TABLET. PO SCH (09:19)
[2019-11-26 09:24] LABS: BASE EXCESS ABG 1 mmol/L (-3-3); HCO3 ABG 22 mmol/L (21-28); PCO2 ABG 27 mmHg (35-46); PO2 ABG 100 mmHg (65-108); SAT O2 ABG 98 % (92-99)
[2019-11-26 09:26] LABS: FIO2 ABG 40
--- NOTE | 2019-11-26 10:15 | PDOC ---
PULMONARY PROGRESS NOTES DATE: 11/26/19 TIME: 10:12 Subjective intubated/sedated low dose levophed Vitals Vital Signs Date Time Temp Pulse Resp B/P (MAP) Pulse Ox O2 Delivery O2 Flow Rate FiO2 11/26/19 09:19 132/61 11/26/19 09:09 99 Ventilator 11/26/19 06:00 50 24 11/26/19 04:00 98.6 98.6 11/26/19 03:48 12.0 Lungs: Other (decrease bs) Cardiovascular: S1, S2 Abdomen: Soft Extremities: No Edema Skin: Warm Labs Laboratory Tests Test 11/24/19 22:39 11/24/19 22:49 11/24/19 23:32 11/25/19 00:35 White Blood Count 8.7 x10^3/uL (4.0-11.0) Red Blood Count 4.39 x10^6/uL (4.30-5.70) Hemoglobin 14.0 g/dL (13.0-17.5) Hematocrit 41.3 % (39.0-53.0) Mean Corpuscular Volume 94 fL (79-100) Mean Corpuscular Hemoglobin 32 pg (25-35) Mean Corpuscular Hemoglobin Concent 34 g/dL (31-37) Red Cell Distribution Width 14.2 % (11.5-14.5) Platelet Count 173 x10^3/uL (140-400) Neutrophils (%) (Auto) 56 % (31-73) Lymphocytes (%) (Auto) 33 % (24-48) Monocytes (%) (Auto) 9 % (0-9) Eosinophils (%) (Auto) 2 % (0-3) Basophils (%) (Auto) 1 % (0-3) Neutrophils # (Auto) 4.9 x10^3/uL (1.8-7.7) Lymphocytes # (Auto) 2.8 x10^3/uL (1.0-4.8) Monocytes # (Auto) 0.7 x10^3/uL (0.0-1.1) Eosinophils # (Auto) 0.2 x10^3/uL (0.0-0.7) Basophils # (Auto) 0.1 x10^3/uL (0.0-0.2) Prothrombin Time 18.0 SEC (11.7-14.0) Prothromb Time International Ratio 1.5 (0.8-1.1) Activated Partial Thromboplast Time 29 SEC (24-38) Sodium Level 136 mmol/L (136-145) Potassium Level 4.8 mmol/L (3.5-5.1) Chloride Level 104 mmol/L (98-107) Carbon Dioxide Level 21 mmol/L (21-32) Anion Gap 11 (6-14) Blood Urea Nitrogen 35 mg/dL (8-26) Creatinine 1.8 mg/dL (0.7-1.3) Estimated GFR (Cockcroft-Gault) 35.7 BUN/Creatinine Ratio 19 (6-20) Glucose Level 254 mg/dL (70-99) Calcium Level 9.1 mg/dL (8.5-10.1) Magnesium Level 1.7 mg/dL (1.8-2.4) Total Bilirubin 0.4 mg/dL (0.2-1.0) Aspartate Amino Transf (AST/SGOT) 10 U/L (15-37) Alanine Aminotransferase (ALT/SGPT) 18 U/L (16-63) Alkaline Phosphatase 117 U/L (46-116) Troponin I Quantitative 0.088 ng/mL (0.000-0.055) DX-Poj-Q-Type Natriuretic Peptide 5998 pg/mL (0-449) Total Protein 6.5 g/dL (6.4-8.2) Albumin 3.5 g/dL (3.4-5.0) Albumin/Globulin Ratio 1.2 (1.0-1.7) Lipase 108 U/L (73-393) Glucose (Fingerstick) 306 mg/dL (70-99) O2 Saturation 65 % (92-99) 93 % (92-99) Arterial Blood pH 7.12 (7.35-7.45) 7.30 (7.35-7.45) Arterial Blood pCO2 at Patient Temp 39 mmHg (35-46) 36 mmHg (35-46) Arterial Blood pO2 at Patient Temp < 42 mmHg (65-108) 74 mmHg (65-108) Arterial Blood HCO3 13 mmol/L (21-28) 17 mmol/L (21-28) Arterial Blood Base Excess -16 mmol/L (-3-3) -8 mmol/L (-3-3) FiO2 100 100 Oxyhemoglobin 92.1 % Methemoglobin 0.4 % (0.0-1.9) Carbon Monoxide, Quantitative 0.3 % (0.0-1.9) Test 11/25/19 01:23 11/25/19 07:44 11/25/19 07:59 11/25/19 08:00 Troponin I Quantitative 1.596 ng/mL (0.000-0.055) 9.514 ng/mL (0.000-0.055) Glucose (Fingerstick) 352 mg/dL (70-99) Sodium Level 134 mmol/L (136-145) Potassium Level 5.6 mmol/L (3.5-5.1) Chloride Level 100 mmol/L (98-107) Carbon Dioxide Level 25 mmol/L (21-32) Anion Gap 9 (6-14) Blood Urea Nitrogen 38 mg/dL (8-26) Creatinine 1.9 mg/dL (0.7-1.3) Estimated GFR (Cockcroft-Gault) 33.5 Glucose Level 361 mg/dL (70-99) Calcium Level 8.0 mg/dL (8.5-10.1) Magnesium Level 2.4 mg/dL (1.8-2.4) Thyroid Stimulating Hormone (TSH) 4.344 uIU/mL (0.358-3.74) O2 Saturation 100 % (92-99) Arterial Blood pH 7.44 (7.35-7.45) Arterial Blood pCO2 at Patient Temp 31 mmHg (35-46) Arterial Blood pO2 at Patient Temp 409 mmHg (65-108) Arterial Blood HCO3 21 mmol/L (21-28) Arterial Blood Base Excess -2 mmol/L (-3-3) FiO2 100/vent Test 11/25/19 12:00 11/25/19 12:22 11/25/19 12:42 11/25/19 15:08 Urine Collection Type Unknown Urine Color Yellow Urine Clarity Clear Urine pH 6.0 (<5.0-8.0) Urine Specific [place] <=1.005 (1.000-1.030) Urine Protein Negative mg/dL (NEG-TRACE) Urine Glucose (UA) Negative mg/dL (NEG) Urine Ketones (Stick) Negative mg/dL (NEG) Urine Blood Negative (NEG) Urine Nitrite Negative (NEG) Urine Bilirubin Negative (NEG) Urine Urobilinogen Dipstick 0.2 mg/dL (0.2 mg/dL) Urine Leukocyte Esterase Negative (NEG) Urine RBC Rare /HPF (0-2) Urine WBC Rare /HPF (0-4) Urine Bacteria 0 /HPF (0-FEW) Sodium Level 137 mmol/L (136-145) Potassium Level 4.3 mmol/L (3.5-5.1) Chloride Level 101 mmol/L (98-107) Carbon Dioxide Level 27 mmol/L (21-32) Anion Gap 9 (6-14) Blood Urea Nitrogen 33 mg/dL (8-26) Creatinine 1.9 mg/dL (0.7-1.3) Estimated GFR (Cockcroft-Gault) 33.5 Glucose Level 275 mg/dL (70-99) Calcium Level 8.0 mg/dL (8.5-10.1) Coronavirus (PCR) Not detected (Not Detected) Troponin I Quantitative 12.686 ng/mL (0.000-0.055) Glucose (Fingerstick) 237 mg/dL (70-99) Activated Partial Thromboplast Time 52 SEC (24-38) Test 11/25/19 17:23 11/25/19 21:22 11/26/19 01:58 11/26/19 06:00 Glucose (Fingerstick) 220 mg/dL (70-99) 229 mg/dL (70-99) Activated Partial Thromboplast Time 71 SEC (24-38) White Blood Count 9.3 x10^3/uL (4.0-11.0) Red Blood Count 3.83 x10^6/uL (4.30-5.70) Hemoglobin 12.0 g/dL (13.0-17.5) Hematocrit 35.4 % (39.0-53.0) Mean Corpuscular Volume 93 fL (79-100) Mean Corpuscular Hemoglobin 31 pg (25-35) Mean Corpuscular Hemoglobin Concent 34 g/dL (31-37) Red Cell Distribution Width 14.0 % (11.5-14.5) Platelet Count 157 x10^3/uL (140-400) Sodium Level 137 mmol/L (136-145) Potassium Level 3.8 mmol/L (3.5-5.1) Chloride Level 103 mmol/L (98-107) Carbon Dioxide Level 28 mmol/L (21-32) Anion Gap 6 (6-14) Blood Urea Nitrogen 24 mg/dL (8-26) Creatinine 1.4 mg/dL (0.7-1.3) Estimated GFR (Cockcroft-Gault) 47.7 Glucose Level 227 mg/dL (70-99) Calcium Level 8.4 mg/dL (8.5-10.1) Magnesium Level 1.6 mg/dL (1.8-2.4) Triglycerides Level 70 mg/dL (0-150) Cholesterol Level 116 mg/dL (0-200) LDL Cholesterol, Calculated 56 mg/dL (0-100) VLDL Cholesterol, Calculated 14 mg/dL (0-40) Non-HDL Cholesterol Calculated 70 mg/dL (0-129) HDL Cholesterol 46 mg/dL (40-60) Cholesterol/HDL Ratio 2.5 Test 11/26/19 09:20 O2 Saturation 98 % (92-99) Arterial Blood pH 7.53 (7.35-7.45) Arterial Blood pCO2 at Patient Temp 27 mmHg (35-46) Arterial Blood pO2 at Patient Temp 100 mmHg (65-108) Arterial Blood HCO3 22 mmol/L (21-28) Arterial Blood Base Excess 1 mmol/L (-3-3) FiO2 40 Laboratory Tests Test 11/25/19 12:00 11/25/19 12:22 11/25/19 12:42 11/25/19 15:08 Urine Collection Type Unknown Urine Color Yellow Urine Clarity Clear Urine pH 6.0 (<5.0-8.0) Urine Specific [place] <=1.005 (1.000-1.030) Urine Protein Negative mg/dL (NEG-TRACE) Urine Glucose (UA) Negative mg/dL (NEG) Urine Ketones (Stick) Negative mg/dL (NEG) Urine Blood Negative (NEG) Urine Nitrite Negative (NEG) Urine Bilirubin Negative (NEG) Urine Urobilinogen Dipstick 0.2 mg/dL (0.2 mg/dL) Urine Leukocyte Esterase Negative (NEG) Urine RBC Rare /HPF (0-2) Urine WBC Rare /HPF (0-4) Urine Bacteria 0 /HPF (0-FEW) Sodium Level 137 mmol/L (136-145) Potassium Level 4.3 mmol/L (3.5-5.1) Chloride Level 101 mmol/L (98-107) Carbon Dioxide Level 27 mmol/L (21-32) Anion Gap 9 (6-14) Blood Urea Nitrogen 33 mg/dL (8-26) Creatinine 1.9 mg/dL (0.7-1.3) Estimated GFR (Cockcroft-Gault) 33.5 Glucose Level 275 mg/dL (70-99) Calcium Level 8.0 mg/dL (8.5-10.1) Coronavirus (PCR) Not detected (Not Detected) Troponin I Quantitative 12.686 ng/mL (0.000-0.055) Glucose (Fingerstick) 237 mg/dL (70-99) Activated Partial Thromboplast Time 52 SEC (24-38) Test 11/25/19 17:23 11/25/19 21:22 11/26/19 01:58 11/26/19 06:00 Glucose (Fingerstick) 220 mg/dL (70-99) 229 mg/dL (70-99) Activated Partial Thromboplast Time 71 SEC (24-38) White Blood Count 9.3 x10^3/uL (4.0-11.0) Red Blood Count 3.83 x10^6/uL (4.30-5.70) Hemoglobin 12.0 g/dL (13.0-17.5) Hematocrit 35.4 % (39.0-53.0) Mean Corpuscular Volume 93 fL (79-100) Mean Corpuscular Hemoglobin 31 pg (25-35) Mean Corpuscular Hemoglobin Concent 34 g/dL (31-37) Red Cell Distribution Width 14.0 % (11.5-14.5) Platelet Count 157 x10^3/uL (140-400) Sodium Level 137 mmol/L (136-145) Potassium Level 3.8 mmol/L (3.5-5.1) Chloride Level 103 mmol/L (98-107) Carbon Dioxide Level 28 mmol/L (21-32) Anion Gap 6 (6-14) Blood Urea Nitrogen 24 mg/dL (8-26) Creatinine 1.4 mg/dL (0.7-1.3) Estimated GFR (Cockcroft-Gault) 47.7 Glucose Level 227 mg/dL (70-99) Calcium Level 8.4 mg/dL (8.5-10.1) Magnesium Level 1.6 mg/dL (1.8-2.4) Triglycerides Level 70 mg/dL (0-150) Cholesterol Level 116 mg/dL (0-200) LDL Cholesterol, Calculated 56 mg/dL (0-100) VLDL Cholesterol, Calculated 14 mg/dL (0-40) Non-HDL Cholesterol Calculated 70 mg/dL (0-129) HDL Cholesterol 46 mg/dL (40-60) Cholesterol/HDL Ratio 2.5 Test 11/26/19 09:20 O2 Saturation 98 % (92-99) Arterial Blood pH 7.53 (7.35-7.45) Arterial Blood pCO2 at Patient Temp 27 mmHg (35-46) Arterial Blood pO2 at Patient Temp 100 mmHg (65-108) Arterial Blood HCO3 22 mmol/L (21-28) Arterial Blood Base Excess 1 mmol/L (-3-3) FiO2 40 Medications Active Scripts Medications Dose Route/Sig Max Daily Dose Days Date Category Amlodipine Besylate 10 Mg Tablet 10 Mg PO DAILY 30 09/20/19 Rx Pacerone (Amiodarone Hcl) 200 Mg Tablet 200 Mg PO DAILY 30 09/20/19 Rx Xarelto (Rivaroxaban) 15 Mg Tablet 15 Mg PO DAILY 11/19/18 Reported Terazosin Hcl 10 Mg Capsule 10 Mg PO HS 11/19/18 Reported Aspirin Ec (Aspirin) 81 Mg Tablet.dr 1 Tab PO DAILY 06/26/18 Rx Metoprolol Tartrate 50 Mg Tablet 50 Mg PO BID 30 06/17/18 Rx Nitrostat (Nitroglycerin) 0.4 Mg Tab.subl 0.4 Mg SL PRN Q5MIN PRN 30 06/17/18 Rx Zolpidem Tartrate 5 Mg Tablet 5 Mg PO PRN QHS PRN 06/19/17 Reported Lisinopril 20 Mg Tablet 20 Mg PO DAILYBFRSUP 06/19/17 Reported Pravastatin Sodium 10 Mg Tablet 10 Mg PO QHS 06/19/17 Reported Metformin Hcl 500 Mg Tablet 500 Mg PO BID 08/04/13 Reported Impression . 1. Acute hypoxic respiratory failure secondary to ventricular arrhythmias in a patient with severe cardiomyopathy. 2. 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 3. Metabolic acidosis, likely related to acute kidney injury. 4. Markedly increased troponin level suggestive of non STEMI. 9peak at 12) 5. Abnormal chest x-ray consistent with congestive heart failure. Plan . 1. Continue present assist control mode. wean off sedation. reduce rate. CPAP trial once awake 2. Follow cardiology recommendations. 3. Wean off vasopressor. 4. Amiodarone per Cardiology. 5. Heparin protocol per Cardiology. 6. The patient's prognosis is poor. I would recommend establishment of code status. I have discussed with the patient, RN and RT. 7. Plans for cath per cardiology Critical care time 30 minutes. FITZ KENT MD Nov 26, 2019 10:15
--- NOTE | 2019-11-26 10:42 | NUR ---
SS following up with discharge planning. SS reviewed pt chart and discussed with pt RN. Pt on the vent at this time. Possible extubation soon. COVID19 negative. No cath per Dr. Bowling. SS will continue to follow for discharge planning.
[2019-11-26] MEDS: ANTI-COAG MONITOR BY PHARMACY. MC PRN (11:03)
--- NOTE | 2019-11-26 11:08 | PDOC ---
[employer] PROGRESS NOTE Date of Service DOS: DATE: 11/26/19 TIME: 11:07 Chief Complaint Chief Complaint Respiratory failure requiring mechanical ventilation Prior history of CHF, CAD that was being treated medically because the lesions were not able to be stented, constipation, stroke, diabetes, hyperlipidemia, hypertension, myocardial infarction, appendectomy, previous tobacco abuse. History of Present Illness History of Present Illness 11/26/2019 Patient seen and examined in the ICU He is mechanically ventilated Assist-control/24/ 50/40% with 6 of PEEP He has OG feeds running at 45 cc/h Discussed with case management Discussed with RN Chart reviewed Vitals/I&O Vitals/I&O: Vital Signs Date Time Temp Pulse Resp B/P (MAP) Pulse Ox O2 Delivery O2 Flow Rate FiO2 11/26/19 09:19 132/61 11/26/19 09:09 99 Ventilator 11/26/19 06:00 50 24 11/26/19 04:00 98.6 98.6 11/26/19 03:48 12.0 I & O 11/25/19 11/25/19 11/26/19 15:00 23:00 07:00 Intake Total 120 ml 737 ml 259 ml Output Total 2475 ml 855 ml 625 ml Balance -2355 ml -118 ml -366 ml Physical Exam General: Other (sedated on the vent) Heart: Regular rate (SR with LBBB) Lungs: Crackles, Other (decrease bs) Abdomen: Soft Extremities: Other (2+ bilateral LE pitting edema) Skin: No breakdown Labs Labs: Laboratory Tests Test 11/25/19 12:00 11/25/19 12:22 11/25/19 12:42 11/25/19 15:08 Urine Collection Type Unknown Urine Color Yellow Urine Clarity Clear Urine pH 6.0 (<5.0-8.0) Urine Specific [place] <=1.005 (1.000-1.030) Urine Protein Negative mg/dL (NEG-TRACE) Urine Glucose (UA) Negative mg/dL (NEG) Urine Ketones (Stick) Negative mg/dL (NEG) Urine Blood Negative (NEG) Urine Nitrite Negative (NEG) Urine Bilirubin Negative (NEG) Urine Urobilinogen Dipstick 0.2 mg/dL (0.2 mg/dL) Urine Leukocyte Esterase Negative (NEG) Urine RBC Rare /HPF (0-2) Urine WBC Rare /HPF (0-4) Urine Bacteria 0 /HPF (0-FEW) Sodium Level 137 mmol/L (136-145) Potassium Level 4.3 mmol/L (3.5-5.1) Chloride Level 101 mmol/L (98-107) Carbon Dioxide Level 27 mmol/L (21-32) Anion Gap 9 (6-14) Blood Urea Nitrogen 33 mg/dL (8-26) Creatinine 1.9 mg/dL (0.7-1.3) Estimated GFR (Cockcroft-Gault) 33.5 Glucose Level 275 mg/dL (70-99) Calcium Level 8.0 mg/dL (8.5-10.1) Coronavirus (PCR) Not detected (Not Detected) Troponin I Quantitative 12.686 ng/mL (0.000-0.055) Glucose (Fingerstick) 237 mg/dL (70-99) Activated Partial Thromboplast Time 52 SEC (24-38) Test 11/25/19 17:23 11/25/19 21:22 11/26/19 01:58 11/26/19 06:00 Glucose (Fingerstick) 220 mg/dL (70-99) 229 mg/dL (70-99) Activated Partial Thromboplast Time 71 SEC (24-38) 85 SEC (24-38) White Blood Count 9.3 x10^3/uL (4.0-11.0) Red Blood Count 3.83 x10^6/uL (4.30-5.70) Hemoglobin 12.0 g/dL (13.0-17.5) Hematocrit 35.4 % (39.0-53.0) Mean Corpuscular Volume 93 fL (79-100) Mean Corpuscular Hemoglobin 31 pg (25-35) Mean Corpuscular Hemoglobin Concent 34 g/dL (31-37) Red Cell Distribution Width 14.0 % (11.5-14.5) Platelet Count 157 x10^3/uL (140-400) Sodium Level 137 mmol/L (136-145) Potassium Level 3.8 mmol/L (3.5-5.1) Chloride Level 103 mmol/L (98-107) Carbon Dioxide Level 28 mmol/L (21-32) Anion Gap 6 (6-14) Blood Urea Nitrogen 24 mg/dL (8-26) Creatinine 1.4 mg/dL (0.7-1.3) Estimated GFR (Cockcroft-Gault) 47.7 Glucose Level 227 mg/dL (70-99) Calcium Level 8.4 mg/dL (8.5-10.1) Magnesium Level 1.6 mg/dL (1.8-2.4) Triglycerides Level 70 mg/dL (0-150) Cholesterol Level 116 mg/dL (0-200) LDL Cholesterol, Calculated 56 mg/dL (0-100) VLDL Cholesterol, Calculated 14 mg/dL (0-40) Non-HDL Cholesterol Calculated 70 mg/dL (0-129) HDL Cholesterol 46 mg/dL (40-60) Cholesterol/HDL Ratio 2.5 Test 11/26/19 09:20 O2 Saturation 98 % (92-99) Arterial Blood pH 7.53 (7.35-7.45) Arterial Blood pCO2 at Patient Temp 27 mmHg (35-46) Arterial Blood pO2 at Patient Temp 100 mmHg (65-108) Arterial Blood HCO3 22 mmol/L (21-28) Arterial Blood Base Excess 1 mmol/L (-3-3) FiO2 40 Assessment and Plan Assessmemt and Plan Problems Medical Problems: (1) Acute exacerbation of CHF (congestive heart failure) Status: Acute (2) Elevated troponin Status: Acute (3) Hypomagnesemia Status: Acute (4) Hypoxia Status: Acute (5) Respiratory failure Status: Acute (6) Suspected 2019 novel coronavirus infection Status: Acute (7) V-tach Status: Acute Respiratory failure requiring mechanical ventilation Prior history of CHF, CAD that was being treated medically because the lesions were not able to be stented, constipation, stroke, diabetes, hyperlipidemia, hypertension, myocardial infarction, appendectomy, previous tobacco abuse. Plan ICU monitoring Mechanical ventilation Vent weaning Continue OG feeds at 45 cc an hour Trying to wean off the Levophed Discussed with case investigator Discussed with RN Chart reviewed He remains critically ill Prognosis guarded 32 minutes cc time Comment Review of Relevant I have reviewed the following items stewart (where applicable) has been applied. Medications: Current Medications Medications (Trade) Dose Ordered Sig/Jai Route PRN Reason Start Time Stop Time Status Last Admin Dose Admin Atorvastatin Calcium (Lipitor) 5 mg QHS PO 11/25/19 21:00 11/25/19 23:09 Aspirin (Aspirin Chewable) 81 mg [id number] PO 11/26/19 08:00 11/26/19 09:18 Info (Anti-Coagulation Monitoring By Pharmacy) 1 each PRN DAILY PRN MC SEE COMMENTS 11/25/19 13:00 11/26/19 11:03 Pantoprazole Sodium (PROTONIX VIAL for IV PUSH) 40 mg DAILYAC IVP 11/25/19 14:00 11/26/19 09:17 Furosemide (Lasix) 40 mg DAILY IVP 11/26/19 09:00 11/26/19 09:18 Justifications for Admission Other Justification [place] CALVO III DO Nov 26, 2019 11:08
--- NOTE | 2019-11-26 13:31 | PDOC ---
CARDIO Progress Notes Date and Time Date of Service 11/26/2019 Time of Evaluation 1130 Subjective Subjective: Other (tracking with eyes, intubate) Vitals Vitals Vital Signs Date Time Temp Pulse Resp B/P (MAP) Pulse Ox O2 Delivery O2 Flow Rate FiO2 11/26/19 11:04 99 Ventilator 11/26/19 11:00 62 20 137/62 (87) 11/26/19 08:00 98.7 98.7 11/26/19 03:48 12.0 Weight Weight [ ] Input and Output Intake and Output Intake and Output 11/26/19 07:00 Intake Total 1116 ml Output Total 3955 ml Balance -2839 ml Intake IV Total 780 ml Tube Feeding 216 ml Other 120 ml Output Urine Total 3955 ml Laboratory Labs Laboratory Tests Test 11/25/19 15:08 11/25/19 17:23 11/25/19 21:22 11/26/19 01:58 Activated Partial Thromboplast Time 52 SEC (24-38) 71 SEC (24-38) Glucose (Fingerstick) 220 mg/dL (70-99) 229 mg/dL (70-99) Test 11/26/19 06:00 11/26/19 09:20 White Blood Count 9.3 x10^3/uL (4.0-11.0) Red Blood Count 3.83 x10^6/uL (4.30-5.70) Hemoglobin 12.0 g/dL (13.0-17.5) Hematocrit 35.4 % (39.0-53.0) Mean Corpuscular Volume 93 fL (79-100) Mean Corpuscular Hemoglobin 31 pg (25-35) Mean Corpuscular Hemoglobin Concent 34 g/dL (31-37) Red Cell Distribution Width 14.0 % (11.5-14.5) Platelet Count 157 x10^3/uL (140-400) Activated Partial Thromboplast Time 85 SEC (24-38) Sodium Level 137 mmol/L (136-145) Potassium Level 3.8 mmol/L (3.5-5.1) Chloride Level 103 mmol/L (98-107) Carbon Dioxide Level 28 mmol/L (21-32) Anion Gap 6 (6-14) Blood Urea Nitrogen 24 mg/dL (8-26) Creatinine 1.4 mg/dL (0.7-1.3) Estimated GFR (Cockcroft-Gault) 47.7 Glucose Level 227 mg/dL (70-99) Calcium Level 8.4 mg/dL (8.5-10.1) Magnesium Level 1.6 mg/dL (1.8-2.4) Triglycerides Level 70 mg/dL (0-150) Cholesterol Level 116 mg/dL (0-200) LDL Cholesterol, Calculated 56 mg/dL (0-100) VLDL Cholesterol, Calculated 14 mg/dL (0-40) Non-HDL Cholesterol Calculated 70 mg/dL (0-129) HDL Cholesterol 46 mg/dL (40-60) Cholesterol/HDL Ratio 2.5 O2 Saturation 98 % (92-99) Arterial Blood pH 7.53 (7.35-7.45) Arterial Blood pCO2 at Patient Temp 27 mmHg (35-46) Arterial Blood pO2 at Patient Temp 100 mmHg (65-108) Arterial Blood HCO3 22 mmol/L (21-28) Arterial Blood Base Excess 1 mmol/L (-3-3) FiO2 40 Physical Exam HEENT: Neck Supple W Full Motion Chest: Symmetric LUNGS: Other (diminsihed, intubated with vent) Heart: RRR (SR) Abdomen: Soft N/T Extremities: No Calf Tenderness Neurology: other (off sedation; awake) Assessment Assessment 1. NSTEMI: typical features 2. OFELIA on CKD with hyperkalemia: back to baseline 3. Acute on chronic combined diastolic/systolic CHF: better with diurese 4. Chronic LBBB 5. 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 recent LHC as noted above 6. HTN; controlled 7. Acute on chronic respiratory failure due to CHF and severe CM: intubated with vent 8. PAFIB: presently SR with LBBB 9. VT?: no copies noted in chart. potential from sinus tach with underlying LBBB or abberant AFIB. No recurrence 10. Severe ICM 11. Cardiogenic shock: BP better Recommendations 1. Off sedation, vent weaning ongoing. Continue diuretic therapy 2. Secondary prevention measures. ASA and will DC heparin drip tomorrow 3. Discussed case with primary bleach mixer. Notable for significant lesions to RCA and LCx but with collaterals, noted with diffuse disease. Given the latter, high risk with advanced age and noted complex lesions, will treat medically and will start on vasodilators, optimize diuretics pending BP trend. 4. Continue PO amiodarone and will restart xarelto tomorrow when off heparin and able to swallow. 5. Rhythm stable and levophed to titrate off. Justicifation of Admission Dx: Justifications for Admission: Justification of Admission Dx: Yes CHF: Cardiac Arrhythmias Respiratory Failure: Mechanical Ventilation BEVERLY BOND APRN Nov 26, 2019 13:31
[2019-11-26] MEDS: ATORVASTATIN CALCIUM 10 MG TABLET. PO SCH (20:33)
[2019-11-27] VITALS (14 sets, daily range): BP systolic 110–148; BP diastolic 50–68
[2019-11-27] MEDS: HEPARIN 25,000UTS/250ML PREMIX 250 ML IV PRN ×2 (04:17→05:17)
--- NOTE | 2019-11-27 08:17 | PDOC ---
CARDIO Progress Notes Date and Time Date of Service 11/27/2019 Time of Evaluation 0930 Subjective Subjective: No Chest Pain, No shortness of breath Vitals Vitals Vital Signs Date Time Temp Pulse Resp B/P (MAP) Pulse Ox O2 Delivery O2 Flow Rate FiO2 11/27/19 06:00 86 32 148/65 (92) 98 Nasal Cannula 2.0 11/26/19 23:00 99.2 99.2 Weight Weight [ ] Input and Output Intake and Output Intake and Output 11/27/19 07:00 Intake Total 1879 ml Output Total 4600 ml Balance -2721 ml Intake Oral 0 ml IV Total 1159 ml Other 720 ml Output Urine Total 4600 ml Laboratory Labs Laboratory Tests Test 11/26/19 09:20 11/26/19 16:30 11/26/19 16:44 11/26/19 23:26 O2 Saturation 98 % (92-99) Arterial Blood pH 7.53 (7.35-7.45) Arterial Blood pCO2 at Patient Temp 27 mmHg (35-46) Arterial Blood pO2 at Patient Temp 100 mmHg (65-108) Arterial Blood HCO3 22 mmol/L (21-28) Arterial Blood Base Excess 1 mmol/L (-3-3) FiO2 40 Activated Partial Thromboplast Time 92 SEC (24-38) Glucose (Fingerstick) 183 mg/dL (70-99) 154 mg/dL (70-99) Test 11/27/19 04:25 Activated Partial Thromboplast Time 76 SEC (24-38) Physical Exam HEENT: Neck Supple W Full Motion Chest: Symmetric LUNGS: Other (diminsihed, intubated with vent) Heart: RRR (SR) Abdomen: Soft N/T Extremities: No Calf Tenderness, Other (trace LE edema) Neurology: alert, follow commands, other (disoriented) Assessment Assessment 1. NSTEMI: multifactorial 2. OFELIA on CKD with hyperkalemia: back to baseline 3. Acute on chronic combined diastolic/systolic CHF: better compensated 4. Chronic LBBB 5. 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 recent LHC as noted above 6. HTN; controlled 7. Acute on chronic respiratory failure due to CHF: now extubated 8. PAFIB: presently SR with LBBB 9. VT?: no copies noted in chart. potential from sinus tach with underlying LBBB or abberant AFIB. No recurrence 10. Hx of Severe ICM: EF was 25% now at 55% 11. Hematuria: noted with [place] Recommendations 1. Extubated. Replace Mg. Continue diuretic therapy. DC heparin. Will restart home xarelto for stroke prevention once hematuria is better 2. Secondary prevention measures. Will continue ASA. Continue PO amiodarone. Resume BB and ACEi 3. Notable for significant lesions to RCA and LCx but with collaterals, noted with diffuse disease. Given the latter, high risk with advanced age and noted complex lesions, will treat medically and will start on vasodilators, optimize diuretics pending BP trend. Justicifation of Admission Dx: Justifications for Admission: Justification of Admission Dx: Yes CHF: Cardiac Arrhythmias Respiratory Failure: Mechanical Ventilation BEVERLY BOND [employer]AL HANDLING SUPERVISOR Nov 27, 2019 08:17
[2019-11-27] MEDS: ASPIRIN CHEWABLE 81 MG TABLET. PO SCH (08:19)
[2019-11-27] MEDS: AMIODARONE HCL 200 MG TABLET. PO SCH (08:20)
[2019-11-27 09:21] LABS: ALBUMIN 2.8 g/dL (3.4-5.0); ALBUMIN/GLOBULIN RATIO 0.9 (1.0-1.7); CALCIUM 7.8 mg/dL (8.5-10.1); CREATININE 1.2 mg/dL (0.7-1.3); MAGNESIUM 1.5 mg/dL (1.8-2.4); POTASSIUM 3.9 mmol/L (3.5-5.1); TOTAL BILIRUBIN 0.9 mg/dL (0.2-1.0); TOTAL PROTEIN 5.9 g/dL (6.4-8.2)
[2019-11-27] MEDS: FUROSEMIDE 40 MG/4 ML VIAL. IVP SCH (09:41)
[2019-11-27] MEDS ORDERED: MAGNESIUM SULFATE 4GM 100 ML IV ONE (10:00)
--- NOTE | 2019-11-27 10:28 | NUR ---
SS following up with discharge planning. SS reviewed pt chart and discussed with pt RN. Pt now extubated and currently on two liters nasal canula. COVID19 negative. SS will continue to follow for discharge planning.
--- NOTE | 2019-11-27 11:05 | PDOC ---
[facility] [facility] PROGRESS NOTE Date of Service DOS: DATE: 11/27/19 TIME: 11:04 Chief Complaint Chief Complaint Respiratory failure requiring mechanical ventilation Prior history of CHF, CAD that was being treated medically because the lesions were not able to be stented, constipation, stroke, diabetes, hyperlipidemia, hypertension, myocardial infarction, appendectomy, previous tobacco abuse. History of Present Illness History of Present Illness 11/27/2019 Patient seen and examined in the ICU He is now extubated Discussed with case management Discussed with RNs Chart reviewed 11/26/2019 Patient seen and examined in the ICU He is mechanically ventilated Assist-control/16/07 50/40% with 6 of PEEP He has OG feeds running at 45 cc/h Discussed with case management Discussed with RN Chart reviewed Vitals/I&O Vitals/I&O: Vital Signs Date Time Temp Pulse Resp B/P (MAP) Pulse Ox O2 Delivery O2 Flow Rate FiO2 11/27/19 08:20 141/89 11/27/19 06:00 86 32 98 Nasal Cannula 2.0 11/26/19 23:00 99.2 99.2 I & O 11/26/19 11/26/19 11/27/19 15:00 23:00 07:00 Intake Total 86 ml 1073 ml 720 ml Output Total 1250 ml 2300 ml 1050 ml Balance -1164 ml -1227 ml -330 ml Physical Exam General: Other (sedated on the vent) Heart: Regular rate (SR with LBBB) Lungs: Crackles, Other (decrease bs) Abdomen: Soft Extremities: Other (2+ bilateral LE pitting edema) Skin: No breakdown Labs Labs: Laboratory Tests Test 11/26/19 16:30 11/26/19 16:44 11/26/19 23:26 11/27/19 04:25 Activated Partial Thromboplast Time 92 SEC (24-38) 76 SEC (24-38) Glucose (Fingerstick) 183 mg/dL (70-99) 154 mg/dL (70-99) Test 11/27/19 08:48 Sodium Level 142 mmol/L (136-145) Potassium Level 3.9 mmol/L (3.5-5.1) Chloride Level 106 mmol/L (98-107) Carbon Dioxide Level 30 mmol/L (21-32) Anion Gap 6 (6-14) Blood Urea Nitrogen 15 mg/dL (8-26) Creatinine 1.2 mg/dL (0.7-1.3) Estimated GFR (Cockcroft-Gault) 57.0 BUN/Creatinine Ratio 13 (6-20) Glucose Level 169 mg/dL (70-99) Calcium Level 7.8 mg/dL (8.5-10.1) Magnesium Level 1.5 mg/dL (1.8-2.4) Total Bilirubin 0.9 mg/dL (0.2-1.0) Aspartate Amino Transf (AST/SGOT) 19 U/L (15-37) Alanine Aminotransferase (ALT/SGPT) 16 U/L (16-63) Alkaline Phosphatase 96 U/L (46-116) Total Protein 5.9 g/dL (6.4-8.2) Albumin 2.8 g/dL (3.4-5.0) Albumin/Globulin Ratio 0.9 (1.0-1.7) Assessment and Plan Assessmemt and Plan Problems Medical Problems: (1) Acute exacerbation of CHF (congestive heart failure) Status: Acute (2) Elevated troponin Status: Acute (3) Hypomagnesemia Status: Acute (4) Hypoxia Status: Acute (5) Respiratory failure Status: Acute (6) Suspected 2019 novel coronavirus infection Status: Acute (7) V-tach Status: Acut Respiratory failure requiring mechanical ventilation Prior history of CHF, CAD that was being treated medically because the lesions were not able to be stented, constipation, stroke, diabetes, hyperlipidemia, hypertension, myocardial infarction, appendectomy, previous tobacco abuse. Plan ICU monitoring Heparin drip for now but we are trying to titrate that off once he can take p.o. Medical management for his cardiac disease Clements to bedside drainage SCDs Trend labs Discussed with case packer and sealer Discussed with RN Chart reviewed Prognosis guarded but improving since he is now extubated Per cardiology recommendations please see below and I certainly agree; Replace K and Mg as warranted. Continue diuretic therapy. Will DC heparin when able to swallow and restart home xarelto for stroke prevention Secondary prevention measures. Will continue ASA. Continue PO amiodarone Notable for significant lesions to RCA and LCx but with collaterals, noted with diffuse disease. Given the latter, high risk with advanced age and noted complex lesions, will treat medically and will start on vasodilators, optimize diuretics pending BP trend. Titrate off pressors Comment Review of Relevant I have reviewed the following items stewart (where applicable) has been applied. Medications: Current Medications Medications (Trade) Dose Ordered Sig/Jai Route PRN Reason Start Time Stop Time Status Last Admin Dose Admin Lorazepam (Ativan Inj) 1 mg PRN Q4HRS PRN IVP ANXIETY / AGITATION 11/26/19 23:30 11/27/19 04:18 Magnesium Sulfate 100 ml @ 25 mls/hr 1X ONCE IV 11/27/19 10:00 11/27/19 13:59 11/27/19 09:41 Justifications for Admission Other Justification [place] CALVO III DO Nov 27, 2019 11:05
--- NOTE | 2019-11-27 11:34 | PDOC ---
PULMONARY PROGRESS NOTES DATE: 11/27/19 TIME: 11:32 Subjective extubated 11/25 on nasal canula Vitals Vital Signs Date Time Temp Pulse Resp B/P (MAP) Pulse Ox O2 Delivery O2 Flow Rate FiO2 11/27/19 08:20 141/89 11/27/19 06:00 86 32 98 Nasal Cannula 2.0 11/26/19 23:00 99.2 99.2 General: Alert, No acute distress Lungs: Crackles (bases) Cardiovascular: S1, S2 Abdomen: Soft Neuro Exam: Alert Extremities: No Edema Skin: Warm Labs Laboratory Tests Test 11/25/19 12:00 11/25/19 12:22 11/25/19 12:42 11/25/19 15:08 Urine Collection Type Unknown Urine Color Yellow Urine Clarity Clear Urine pH 6.0 (<5.0-8.0) Urine Specific [place] <=1.005 (1.000-1.030) Urine Protein Negative mg/dL (NEG-TRACE) Urine Glucose (UA) Negative mg/dL (NEG) Urine Ketones (Stick) Negative mg/dL (NEG) Urine Blood Negative (NEG) Urine Nitrite Negative (NEG) Urine Bilirubin Negative (NEG) Urine Urobilinogen Dipstick 0.2 mg/dL (0.2 mg/dL) Urine Leukocyte Esterase Negative (NEG) Urine RBC Rare /HPF (0-2) Urine WBC Rare /HPF (0-4) Urine Bacteria 0 /HPF (0-FEW) Sodium Level 137 mmol/L (136-145) Potassium Level 4.3 mmol/L (3.5-5.1) Chloride Level 101 mmol/L (98-107) Carbon Dioxide Level 27 mmol/L (21-32) Anion Gap 9 (6-14) Blood Urea Nitrogen 33 mg/dL (8-26) Creatinine 1.9 mg/dL (0.7-1.3) Estimated GFR (Cockcroft-Gault) 33.5 Glucose Level 275 mg/dL (70-99) Calcium Level 8.0 mg/dL (8.5-10.1) Coronavirus (PCR) Not detected (Not Detected) Troponin I Quantitative 12.686 ng/mL (0.000-0.055) Glucose (Fingerstick) 237 mg/dL (70-99) Activated Partial Thromboplast Time 52 SEC (24-38) Test 11/25/19 17:23 11/25/19 21:22 11/26/19 01:58 11/26/19 06:00 Glucose (Fingerstick) 220 mg/dL (70-99) 229 mg/dL (70-99) Activated Partial Thromboplast Time 71 SEC (24-38) 85 SEC (24-38) White Blood Count 9.3 x10^3/uL (4.0-11.0) Red Blood Count 3.83 x10^6/uL (4.30-5.70) Hemoglobin 12.0 g/dL (13.0-17.5) Hematocrit 35.4 % (39.0-53.0) Mean Corpuscular Volume 93 fL (79-100) Mean Corpuscular Hemoglobin 31 pg (25-35) Mean Corpuscular Hemoglobin Concent 34 g/dL (31-37) Red Cell Distribution Width 14.0 % (11.5-14.5) Platelet Count 157 x10^3/uL (140-400) Sodium Level 137 mmol/L (136-145) Potassium Level 3.8 mmol/L (3.5-5.1) Chloride Level 103 mmol/L (98-107) Carbon Dioxide Level 28 mmol/L (21-32) Anion Gap 6 (6-14) Blood Urea Nitrogen 24 mg/dL (8-26) Creatinine 1.4 mg/dL (0.7-1.3) Estimated GFR (Cockcroft-Gault) 47.7 Glucose Level 227 mg/dL (70-99) Calcium Level 8.4 mg/dL (8.5-10.1) Magnesium Level 1.6 mg/dL (1.8-2.4) Triglycerides Level 70 mg/dL (0-150) Cholesterol Level 116 mg/dL (0-200) LDL Cholesterol, Calculated 56 mg/dL (0-100) VLDL Cholesterol, Calculated 14 mg/dL (0-40) Non-HDL Cholesterol Calculated 70 mg/dL (0-129) HDL Cholesterol 46 mg/dL (40-60) Cholesterol/HDL Ratio 2.5 Test 11/26/19 09:20 11/26/19 16:30 11/26/19 16:44 11/26/19 23:26 O2 Saturation 98 % (92-99) Arterial Blood pH 7.53 (7.35-7.45) Arterial Blood pCO2 at Patient Temp 27 mmHg (35-46) Arterial Blood pO2 at Patient Temp 100 mmHg (65-108) Arterial Blood HCO3 22 mmol/L (21-28) Arterial Blood Base Excess 1 mmol/L (-3-3) FiO2 40 Activated Partial Thromboplast Time 92 SEC (24-38) Glucose (Fingerstick) 183 mg/dL (70-99) 154 mg/dL (70-99) Test 11/27/19 04:25 11/27/19 08:48 Activated Partial Thromboplast Time 76 SEC (24-38) Sodium Level 142 mmol/L (136-145) Potassium Level 3.9 mmol/L (3.5-5.1) Chloride Level 106 mmol/L (98-107) Carbon Dioxide Level 30 mmol/L (21-32) Anion Gap 6 (6-14) Blood Urea Nitrogen 15 mg/dL (8-26) Creatinine 1.2 mg/dL (0.7-1.3) Estimated GFR (Cockcroft-Gault) 57.0 BUN/Creatinine Ratio 13 (6-20) Glucose Level 169 mg/dL (70-99) Calcium Level 7.8 mg/dL (8.5-10.1) Magnesium Level 1.5 mg/dL (1.8-2.4) Total Bilirubin 0.9 mg/dL (0.2-1.0) Aspartate Amino Transf (AST/SGOT) 19 U/L (15-37) Alanine Aminotransferase (ALT/SGPT) 16 U/L (16-63) Alkaline Phosphatase 96 U/L (46-116) Total Protein 5.9 g/dL (6.4-8.2) Albumin 2.8 g/dL (3.4-5.0) Albumin/Globulin Ratio 0.9 (1.0-1.7) Laboratory Tests Test 11/26/19 16:30 11/26/19 16:44 11/26/19 23:26 11/27/19 04:25 Activated Partial Thromboplast Time 92 SEC (24-38) 76 SEC (24-38) Glucose (Fingerstick) 183 mg/dL (70-99) 154 mg/dL (70-99) Test 11/27/19 08:48 Sodium Level 142 mmol/L (136-145) Potassium Level 3.9 mmol/L (3.5-5.1) Chloride Level 106 mmol/L (98-107) Carbon Dioxide Level 30 mmol/L (21-32) Anion Gap 6 (6-14) Blood Urea Nitrogen 15 mg/dL (8-26) Creatinine 1.2 mg/dL (0.7-1.3) Estimated GFR (Cockcroft-Gault) 57.0 BUN/Creatinine Ratio 13 (6-20) Glucose Level 169 mg/dL (70-99) Calcium Level 7.8 mg/dL (8.5-10.1) Magnesium Level 1.5 mg/dL (1.8-2.4) Total Bilirubin 0.9 mg/dL (0.2-1.0) Aspartate Amino Transf (AST/SGOT) 19 U/L (15-37) Alanine Aminotransferase (ALT/SGPT) 16 U/L (16-63) Alkaline Phosphatase 96 U/L (46-116) Total Protein 5.9 g/dL (6.4-8.2) Albumin 2.8 g/dL (3.4-5.0) Albumin/Globulin Ratio 0.9 (1.0-1.7) Medications Active Scripts Medications Dose Route/Sig Max Daily Dose Days Date Category Amlodipine Besylate 10 Mg Tablet 10 Mg PO DAILY 30 09/20/19 Rx Pacerone (Amiodarone Hcl) 200 Mg Tablet 200 Mg PO DAILY 30 09/20/19 Rx Xarelto (Rivaroxaban) 15 Mg Tablet 15 Mg PO DAILY 11/19/18 Reported Terazosin Hcl 10 Mg Capsule 10 Mg PO HS 11/19/18 Reported Aspirin Ec (Aspirin) 81 Mg Tablet.dr 1 Tab PO DAILY 06/26/18 Rx Metoprolol Tartrate 50 Mg Tablet 50 Mg PO BID 30 06/17/18 Rx Nitrostat (Nitroglycerin) 0.4 Mg Tab.subl 0.4 Mg SL PRN Q5MIN PRN 30 06/17/18 Rx Zolpidem Tartrate 5 Mg Tablet 5 Mg PO PRN QHS PRN 06/19/17 Reported Lisinopril 20 Mg Tablet 20 Mg PO DAILYBFRSUP 06/19/17 Reported Pravastatin Sodium 10 Mg Tablet 10 Mg PO QHS 06/19/17 Reported Metformin Hcl 500 Mg Tablet 500 Mg PO BID 08/04/13 Reported Impression . 1. Acute hypoxic respiratory failure secondary to ventricular arrhythmias in a patient with severe cardiomyopathy. 2. 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 3. Metabolic acidosis, likely related to acute kidney injury. 4. Markedly increased troponin level suggestive of non STEMI. (peak at 12) 5. Abnormal chest x-ray consistent with congestive heart failure. Plan . 1. extubated 11/25. on canula 2. Follow cardiology recommendations. 3. off vasopressor. 4. Amiodarone per Cardiology. 5. Heparin protocol per Cardiology. 6. The patient's prognosis is poor. I would recommend establishment of code status. I have discussed with the patient, RN and RT. 7. per cardiology "Notable for significant lesions to RCA and LCx but with collaterals, noted with diffuse disease. Given the latter, high risk with advanced age and noted complex lesions, will treat medically and will start on vasodilators, optimize diuretics pending BP trend. 8. Consider FITZ Cohen MD Nov 27, 2019 11:34
--- NOTE | 2019-11-27 12:01 | CARD ---
MR#: [id number] Date of Study: 11/27/2019 Ordering Physician: BEVERLY BOND, Referring Physician: BEVERLY BOND, Tech: Malnii Souza APPROVED REPORT EXAM: Two-dimensional and M-mode echocardiogram with Doppler and color Doppler. Other Information Quality : AverageHR: 74bpm INDICATION Atrial Fibrillation Cardiac Disease: CAD LV Function:SystolicDiastolic RISK FACTORS Hypertension Hyperlipidemia Diabetes 2D DIMENSIONS Left Atrium(2D)3.7 (1.6-4.0cm)IVSd1.2 (0.7-1.1cm) Aortic Root(2D)3.9 (2.0-3.7cm)LVDd5.9 (3.9-5.9cm) PWd1.2 (0.7-1.1cm)LVDs3.5 (2.5-4.0cm) FS (%) 41.7 %SV126.2 ml LEFT VENTRICLE Limited study for LV function. The left ventricle is normal size. There is mild concentric left ventr icular hypertrophy. The left ventricular systolic function is normal and the ejection fraction is wit hin normal range. The Ejection Fraction is 50-55%. Wall motion consistent with conduction abnormality . RIGHT VENTRICLE The right ventricle is normal size. There is normal right ventricular wall thickness. The right ventr icular systolic function is normal. ATRIA The left atrium size is normal. The right atrium size is normal. The interatrial septum is intact wit h no evidence for an atrial septal defect or patent foramen ovale as noted on 2-D or Doppler imaging. AORTIC VALVE The aortic valve is calcified but opens well. Doppler and color-flow analysis was not performed. Ther e is no significant aortic valvular stenosis. MITRAL VALVE The mitral valve is normal in structure and function. There is no evidence of mitral valve prolapse. There is no mitral valve stenosis. Doppler and color-flow analysis was not performed. TRICUSPID VALVE The tricuspid valve is not visualized. Doppler and color-flow analysis was not performed. PULMONIC VALVE The pulmonic valve is not well visualized. Doppler and color-flow analysis was not performed. GREAT VESSELS The aortic root is normal in size. The IVC is normal in size and collapses >50% with inspiration. PERICARDIAL EFFUSION There is no evidence of significant pericardial effusion. Critical Notification Critical Value: No <Conclusion> Limited study for LV function. The left ventricle is normal size. The left ventricular systolic function is normal and the ejection fraction is within normal range. The Ejection Fraction is 50-55%. Wall motion consistent with conduction abnormality. There is mild concentric left ventricular hypertrophy. There is no evidence of significant pericardial effusion. Signed by : Tim Recinos MD Electronically Approved : 11/27/2019 12:00:39
[2019-11-27] MEDS ORDERED: hydrALAZINE 20 MG/ML VIAL. IVP PRN (13:00)
[2019-11-27] MEDS: IV NORMAL SALINE 1000ML BAG 1,000 ML IV SCH (13:45)
[2019-11-27] MEDS: RIVAROXABAN 15 MG TABLET. PO SCH (14:54)
[2019-11-27] MEDS: METOPROLOL TART IMMED RELEASE 50 MG TABLET. PO SCH ×2 (14:55→21:08)
[2019-11-27] MEDS: LISINOPRIL 20 MG TABLET PO SCH (17:00)
[2019-11-27] MEDS: ATORVASTATIN CALCIUM 10 MG TABLET. PO SCH (21:07)
[2019-11-28 03:30] VITALS: BP 121/64
[2019-11-28] MEDS: IV NORMAL SALINE 1000ML BAG 1,000 ML IV SCH (04:41)
[2019-11-28 07:00] VITALS: BP 130/54
[2019-11-28] MEDS: ANTI-COAG MONITOR BY PHARMACY. MC PRN (08:00)
--- NOTE | 2019-11-28 08:19 | PDOC ---
PULMONARY PROGRESS NOTES DATE: 11/28/19 TIME: 08:17 Subjective extubated 11/25 on ra, denies sob, cough, cp, had afib nsr Vitals Vital Signs Date Time Temp Pulse Resp B/P (MAP) Pulse Ox O2 Delivery O2 Flow Rate FiO2 11/28/19 03:30 99.1 55 21 121/64 (83) 98 Nasal Cannula 2.0 99.1 General: Alert, No acute distress Lungs: Crackles (bases) Cardiovascular: S1, S2 Abdomen: Soft Neuro Exam: Alert Extremities: No Edema Skin: Warm Labs Laboratory Tests Test 11/26/19 09:20 11/26/19 16:30 11/26/19 16:44 11/26/19 23:26 O2 Saturation 98 % (92-99) Arterial Blood pH 7.53 (7.35-7.45) Arterial Blood pCO2 at Patient Temp 27 mmHg (35-46) Arterial Blood pO2 at Patient Temp 100 mmHg (65-108) Arterial Blood HCO3 22 mmol/L (21-28) Arterial Blood Base Excess 1 mmol/L (-3-3) FiO2 40 Activated Partial Thromboplast Time 92 SEC (24-38) Glucose (Fingerstick) 183 mg/dL (70-99) 154 mg/dL (70-99) Test 11/27/19 04:25 11/27/19 08:48 11/27/19 21:03 11/28/19 07:42 Activated Partial Thromboplast Time 76 SEC (24-38) Sodium Level 142 mmol/L (136-145) Potassium Level 3.9 mmol/L (3.5-5.1) Chloride Level 106 mmol/L (98-107) Carbon Dioxide Level 30 mmol/L (21-32) Anion Gap 6 (6-14) Blood Urea Nitrogen 15 mg/dL (8-26) Creatinine 1.2 mg/dL (0.7-1.3) Estimated GFR (Cockcroft-Gault) 57.0 BUN/Creatinine Ratio 13 (6-20) Glucose Level 169 mg/dL (70-99) Calcium Level 7.8 mg/dL (8.5-10.1) Magnesium Level 1.5 mg/dL (1.8-2.4) Total Bilirubin 0.9 mg/dL (0.2-1.0) Aspartate Amino Transf (AST/SGOT) 19 U/L (15-37) Alanine Aminotransferase (ALT/SGPT) 16 U/L (16-63) Alkaline Phosphatase 96 U/L (46-116) Total Protein 5.9 g/dL (6.4-8.2) Albumin 2.8 g/dL (3.4-5.0) Albumin/Globulin Ratio 0.9 (1.0-1.7) Glucose (Fingerstick) 169 mg/dL (70-99) 141 mg/dL (70-99) Laboratory Tests Test 11/27/19 08:48 11/27/19 21:03 11/28/19 07:42 Sodium Level 142 mmol/L (136-145) Potassium Level 3.9 mmol/L (3.5-5.1) Chloride Level 106 mmol/L (98-107) Carbon Dioxide Level 30 mmol/L (21-32) Anion Gap 6 (6-14) Blood Urea Nitrogen 15 mg/dL (8-26) Creatinine 1.2 mg/dL (0.7-1.3) Estimated GFR (Cockcroft-Gault) 57.0 BUN/Creatinine Ratio 13 (6-20) Glucose Level 169 mg/dL (70-99) Calcium Level 7.8 mg/dL (8.5-10.1) Magnesium Level 1.5 mg/dL (1.8-2.4) Total Bilirubin 0.9 mg/dL (0.2-1.0) Aspartate Amino Transf (AST/SGOT) 19 U/L (15-37) Alanine Aminotransferase (ALT/SGPT) 16 U/L (16-63) Alkaline Phosphatase 96 U/L (46-116) Total Protein 5.9 g/dL (6.4-8.2) Albumin 2.8 g/dL (3.4-5.0) Albumin/Globulin Ratio 0.9 (1.0-1.7) Glucose (Fingerstick) 169 mg/dL (70-99) 141 mg/dL (70-99) Medications Active Scripts Medications Dose Route/Sig Max Daily Dose Days Date Category Amlodipine Besylate 10 Mg Tablet 10 Mg PO DAILY 09/20/19 Rx Pacerone (Amiodarone Hcl) 200 Mg Tablet 200 Mg PO DAILY 09/20/19 Rx Xarelto (Rivaroxaban) 15 Mg Tablet 15 Mg PO DAILY 11/19/18 Reported Terazosin Hcl 10 Mg Capsule 10 Mg PO HS 11/19/18 Reported Aspirin Ec (Aspirin) 81 Mg Tablet.dr 1 Tab PO DAILY 06/26/18 Rx Metoprolol Tartrate 50 Mg Tablet 50 Mg PO BID 30 06/17/18 Rx Nitrostat (Nitroglycerin) 0.4 Mg Tab.subl 0.4 Mg SL PRN Q5MIN PRN 30 06/17/18 Rx Zolpidem Tartrate 5 Mg Tablet 5 Mg PO PRN QHS PRN 06/19/17 Reported Lisinopril 20 Mg Tablet 20 Mg PO DAILYBFRSUP 06/19/17 Reported Pravastatin Sodium 10 Mg Tablet 10 Mg PO QHS 06/19/17 Reported Metformin Hcl 500 Mg Tablet 500 Mg PO BID 08/04/13 Reported Impression . 1. Acute hypoxic respiratory failure secondary to ventricular arrhythmias in a patient with severe cardiomyopathy. 2. 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 3. Metabolic acidosis, likely related to acute kidney injury. 4. Markedly increased troponin level suggestive of non STEMI. (peak at 12) 5. Abnormal chest x-ray consistent with congestive heart failure. Plan . 1. extubated 11/25. 02 titration 2. Follow cardiology recommendations. 3. owill dc iv fluid 4. Amiodarone per Cardiology. 5. xeralto per Cardiology. 6. recommend establishment of code status. I have discussed with the patient, RN and RT. 7. per cardiology "Notable for significant lesions to RCA and LCx but with collaterals, noted with diffuse disease. Given the latter, high risk with advanced age and noted complex lesions, will treat medically and will start on vasodilators, optimize diuretics pending BP trend. 8. Consider lifevest per cardiology JOLANTA OLSON MD Nov 28, 2019 08:19
[2019-11-28] MEDS: PANTOPRAZOLE IV PUSH 40 MG VIAL. IVP SCH (08:48)
[2019-11-28] MEDS: ASPIRIN CHEWABLE 81 MG TABLET. PO SCH (08:48)
[2019-11-28] MEDS: METOPROLOL TART IMMED RELEASE 50 MG TABLET. PO SCH ×2 (08:49→21:08)
[2019-11-28] MEDS: AMIODARONE HCL 200 MG TABLET. PO SCH (08:50)
[2019-11-28] MEDS: FUROSEMIDE 40 MG/4 ML VIAL. IVP SCH (08:52)
--- NOTE | 2019-11-28 10:40 | PDOC ---
[employer] [facility] PROGRESS NOTE Date of Service DOS: DATE: 11/28/19 TIME: 10:23 Chief Complaint Chief Complaint Respiratory failure requiring mechanical ventilation Prior history of CHF, CAD that was being treated medically because the lesions were not able to be stented, constipation, stroke, diabetes, hyperlipidemia, hypertension, myocardial infarction, appendectomy, previous tobacco abuse. History of Present Illness History of Present Illness 11/28/2019 Patient seen and examined Patient is upright Patient in NAD Patient has triple lumen central line to right internal jugular vain Discussed with RNs Chart reviewed 11/27/2019 Patient seen and examined in the ICU He is now extubated Discussed with case management Discussed with RNs Chart reviewed 11/26/2019 Patient seen and examined in the ICU He is mechanically ventilated Assist-control/16/07 50/40% with 6 of PEEP He has OG feeds running at 45 cc/h Discussed with case management Discussed with RN Chart reviewed Vitals/I&O Vitals/I&O: Vital Signs Date Time Temp Pulse Resp B/P (MAP) Pulse Ox O2 Delivery O2 Flow Rate FiO2 11/28/19 08:50 55 121/64 11/28/19 08:00 Nasal Cannula 2.0 11/28/19 07:00 99.7 20 91 99.7 I & O 11/27/19 11/27/19 11/28/19 15:00 23:00 07:00 Intake Total 1350 ml 100 ml 230 ml Output Total 1200 ml 1275 ml 250 ml Balance 150 ml -1175 ml -20 ml Physical Exam General: No acute distress Heart: Regular rate (SR with LBBB) Lungs: Crackles (bases) Abdomen: Soft Extremities: Other (2+ bilateral LE pitting edema) Skin: No breakdown Labs Labs: Laboratory Tests Test 11/27/19 21:03 11/28/19 07:42 Glucose (Fingerstick) 169 mg/dL (70-99) 141 mg/dL (70-99) Review of Systems Review of Systems: Patient denies pain. Patient denies weakness. Assessment and Plan Assessmemt and Plan Problems Medical Problems: (1) Acute exacerbation of CHF (congestive heart failure) Status: Acute (2) Elevated troponin Status: Acute (3) Hypomagnesemia Status: Acute (4) Hypoxia Status: Acute (5) Respiratory failure Status: Acute (6) Suspected 2019 novel coronavirus infection Status: Acute (7) V-tach Status: Acute Assessment Respiratory failure Prior history of CHF, CAD Constipation Stroke Diabetes Hyperlipidemia Hypertension Myocardial infarction Appendectomy Previous tobacco abuse Plan Cardiac monitoring Continue PO anticoagulation Continue medical management for cardiac disease Evaluate for SNU Clements to bedside drainage Continue home meds Trend labs Full code PT OT Comment Review of Relevant I have reviewed the following items stewart (where applicable) has been applied. Medications: Current Medications Medications (Trade) Dose Ordered Sig/Jai Route PRN Reason Start Time Stop Time Status Last Admin Dose Admin Rivaroxaban (Xarelto) 15 mg DAILYWSUP PO 11/27/19 15:00 11/27/19 14:54 Metoprolol Tartrate (Lopressor) 50 mg BID PO 11/27/19 13:00 11/28/19 08:49 Info (Anti-Coagulation Monitoring By Pharmacy) 1 each PRN DAILY PRN MC SEE COMMENTS 11/28/19 08:00 11/28/19 08:00 Justifications for Admission Other Justification [place] CALVO III DO Nov 28, 2019 10:40
[2019-11-28 11:00] VITALS: BP 103/64
[2019-11-28] MEDS: DOCUSATE SODIUM 100 MG CAPSULE. PO SCH (11:23)
[2019-11-28] MEDS: POLYETHYLENE GLYCOL 3350 17 GM PACKET. PO SCH (11:23)
[2019-11-28 15:00] VITALS: BP 94/42
--- NOTE | 2019-11-28 15:28 | PDOC ---
CARDIOLOGY PROGRESS NOTE SUBJECTIVE: No complaints OBJECTIVE: Vital Signs/I&O: Vital Signs Date Time Temp Pulse Resp B/P (MAP) Pulse Ox O2 Delivery O2 Flow Rate FiO2 11/28/19 11:00 98.5 55 20 103/64 (77) 95 Nasal Cannula 2.0 98.5 I & O 11/27/19 11/27/19 11/28/19 15:00 23:00 07:00 Intake Total 1350 ml 100 ml 230 ml Output Total 1200 ml 1275 ml 250 ml Balance 150 ml -1175 ml -20 ml Objective: a/ox 3 NAD lungs clr no edema. normal heart tones. CURRENT MEDICATIONS: Current Medications Medications (Trade) Dose Ordered Sig/Jai Route PRN Reason Start Time Stop Time Status Last Admin Dose Admin Info (Anti-Coagulation Monitoring By Pharmacy) 1 each PRN DAILY PRN MC SEE COMMENTS 11/28/19 08:00 11/28/19 08:00 Docusate Sodium (Colace) 100 mg DAILY PO 11/28/19 11:00 11/28/19 11:23 Polyethylene Glycol (miraLAX PACKET) 17 gm DAILY PO 11/28/19 11:00 11/28/19 11:23 DIAGNOSTIC TESTING: Labs: Laboratory Tests Test 11/27/19 21:03 11/28/19 07:42 11/28/19 11:49 Glucose (Fingerstick) 169 mg/dL (70-99) H 141 mg/dL (70-99) H 202 mg/dL (70-99) H ASSESSMENT: 1. NSTEMI: multifactorial 2. OFLEIA on CKD with hyperkalemia: back to baseline 3. Acute on chronic combined diastolic/systolic CHF: better compensated 4. Chronic LBBB 5. 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 recent LHC as noted above 6. HTN; controlled 7. Acute on chronic respiratory failure due to CHF: now extubated 8. PAFIB: presently SR with LBBB 9. VT?: no copies noted in chart. potential from sinus tach with underlying LBBB or abberant AFIB. No recurrence 10. Hx of Severe ICM: EF was 25% now at 55% 11. Hematuria: noted with [place] PLAN: 1. He is doing well overall. Will change Metoprolol To Toprol XL 75mg daily 2. Continue lisinopril. Consider outpt Spironolactone. 3. Continue asa, statin 4. Continue xarelto for afib. Supportive care. Discussed r/b/a to cath with patient and family and they wish to continue conservative mgmt, which is quite reasonable. Justicifation of Admission Dx: Justifications for Admission: Justification of Admission Dx: Yes CHF: Cardiac Arrhythmias Respiratory Failure: Mechanical Ventilation ROBBI BARNETT MD Nov 28, 2019 15:28
[2019-11-28] MEDS: RIVAROXABAN 15 MG TABLET. PO SCH (17:00)
[2019-11-28] MEDS: LISINOPRIL 20 MG TABLET PO SCH (17:00)
[2019-11-28 19:30] VITALS: BP 133/61
[2019-11-28] MEDS: ATORVASTATIN CALCIUM 10 MG TABLET. PO SCH (21:07)
[2019-11-28] MEDS: ZOLPIDEM 5 MG TABLET. PO PRN (21:46)
[2019-11-28 23:30] VITALS: BP 119/64
[2019-11-29 03:55] VITALS: BP 143/63
[2019-11-29 05:36] LABS: HEMATOCRIT 33.3 % (39.0-53.0); HEMOGLOBIN 11.2 g/dL (13.0-17.5); RED BLOOD COUNT 3.55 x10^6/uL (4.30-5.70); RED CELL DISTRIBUTION WIDTH 13.6 % (11.5-14.5); WHITE BLOOD COUNT 11.8 x10^3/uL (4.0-11.0)
[2019-11-29 07:30] VITALS: BP 138/62
[2019-11-29] MEDS: FUROSEMIDE 40 MG/4 ML VIAL. IVP SCH (08:18)
[2019-11-29] MEDS: DOCUSATE SODIUM 100 MG CAPSULE. PO SCH (08:18)
[2019-11-29] MEDS: ASPIRIN CHEWABLE 81 MG TABLET. PO SCH (08:19)
[2019-11-29] MEDS: AMIODARONE HCL 200 MG TABLET. PO SCH (08:19)
[2019-11-29] MEDS: METOPROLOL TART IMMED RELEASE 50 MG TABLET. PO SCH (08:19)
[2019-11-29] MEDS: PANTOPRAZOLE 40 MG TABLET.DR. PO SCH (08:25)
[2019-11-29] MEDS: POLYETHYLENE GLYCOL 3350 17 GM PACKET. PO SCH ×2 (08:29→22:37)
--- NOTE | 2019-11-29 09:55 | PDOC ---
PULMONARY PROGRESS NOTES DATE: 11/29/19 TIME: 09:54 Subjective extubated 11/25 on 02 2 lpm, denies sob, cough, cp, in and out of afib now sinus rhythm Vitals Vital Signs Date Time Temp Pulse Resp B/P (MAP) Pulse Ox O2 Delivery O2 Flow Rate FiO2 11/29/19 08:19 70 11/29/19 07:30 98.1 22 138/62 (87) 97 Nasal Cannula 2.0 98.1 General: Alert, No acute distress Lungs: Crackles (bases) Cardiovascular: S1, S2 Abdomen: Soft Neuro Exam: Alert Extremities: No Edema Skin: Warm Labs Laboratory Tests Test 11/27/19 21:03 11/28/19 07:42 11/28/19 11:49 11/28/19 16:27 Glucose (Fingerstick) 169 mg/dL (70-99) 141 mg/dL (70-99) 202 mg/dL (70-99) 215 mg/dL (70-99) Test 11/28/19 20:31 11/29/19 05:15 Glucose (Fingerstick) 193 mg/dL (70-99) White Blood Count 11.8 x10^3/uL (4.0-11.0) Red Blood Count 3.55 x10^6/uL (4.30-5.70) Hemoglobin 11.2 g/dL (13.0-17.5) Hematocrit 33.3 % (39.0-53.0) Mean Corpuscular Volume 94 fL (79-100) Mean Corpuscular Hemoglobin 32 pg (25-35) Mean Corpuscular Hemoglobin Concent 34 g/dL (31-37) Red Cell Distribution Width 13.6 % (11.5-14.5) Platelet Count 153 x10^3/uL (140-400) Laboratory Tests Test 11/28/19 11:49 11/28/19 16:27 11/28/19 20:31 11/29/19 05:15 Glucose (Fingerstick) 202 mg/dL (70-99) 215 mg/dL (70-99) 193 mg/dL (70-99) White Blood Count 11.8 x10^3/uL (4.0-11.0) Red Blood Count 3.55 x10^6/uL (4.30-5.70) Hemoglobin 11.2 g/dL (13.0-17.5) Hematocrit 33.3 % (39.0-53.0) Mean Corpuscular Volume 94 fL (79-100) Mean Corpuscular Hemoglobin 32 pg (25-35) Mean Corpuscular Hemoglobin Concent 34 g/dL (31-37) Red Cell Distribution Width 13.6 % (11.5-14.5) Platelet Count 153 x10^3/uL (140-400) Medications Active Scripts Medications Dose Route/Sig Max Daily Dose Days Date Category Amlodipine Besylate 10 Mg Tablet 10 Mg PO DAILY 30 09/20/19 Rx Pacerone (Amiodarone Hcl) 200 Mg Tablet 200 Mg PO DAILY 30 09/20/19 Rx Xarelto (Rivaroxaban) 15 Mg Tablet 15 Mg PO DAILY 11/19/18 Reported Terazosin Hcl 10 Mg Capsule 10 Mg PO HS 11/19/18 Reported Aspirin Ec (Aspirin) 81 Mg Tablet.dr 1 Tab PO DAILY 06/26/18 Rx Metoprolol Tartrate 50 Mg Tablet 50 Mg PO BID 30 06/17/18 Rx Nitrostat (Nitroglycerin) 0.4 Mg Tab.subl 0.4 Mg SL PRN Q5MIN PRN 30 06/17/18 Rx Zolpidem Tartrate 5 Mg Tablet 5 Mg PO PRN QHS PRN 06/19/17 Reported Lisinopril 20 Mg Tablet 20 Mg PO DAILYBFRSUP 06/19/17 Reported Pravastatin Sodium 10 Mg Tablet 10 Mg PO QHS 06/19/17 Reported Metformin Hcl 500 Mg Tablet 500 Mg PO BID 08/04/13 Reported Impression . 1. Acute hypoxic respiratory failure secondary to ventricular arrhythmias in a patient with severe cardiomyopathy. 2. 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 3. Metabolic acidosis, likely related to acute kidney injury. 4. Markedly increased troponin level suggestive of non STEMI. (peak at 12) 5. Abnormal chest x-ray consistent with congestive heart failure. Plan . 1. extubated 11/25. 02 titration. 6 min walk at dc 2. Follow cardiology recommendations. 3. iv fluid dced 4. Amiodarone per Cardiology. 5. xeralto per Cardiology. 6. recommend establishment of code status. 7. per cardiology "Notable for significant lesions to RCA and LCx but with collaterals, noted with diffuse disease. Given the latter, high risk with advanced age and noted complex lesions, will treat medically and will start on vasodilators, optimize diuretics pending BP trend. 8. Consider lifevest per cardiology discussed w pt JOLANTA Rangel MD Nov 29, 2019 09:55
--- NOTE | 2019-11-29 10:07 | PDOC ---
[facility] [facility] PROGRESS NOTE Date of Service DOS: DATE: 11/29/19 TIME: 10:05 Chief Complaint Chief Complaint Respiratory failure requiring mechanical ventilation Prior history of CHF, CAD that was being treated medically because the lesions were not able to be stented, constipation, stroke, diabetes, hyperlipidemia, hypertension, myocardial infarction, appendectomy, previous tobacco abuse. History of Present Illness History of Present Illness 11/29/2019 Patient seen and examined Patient is upright Patient in NAD Patient has abdominal distention Discussed with RNs Chart reviewed 11/28/2019 Patient seen and examined Patient is upright Patient in NAD Patient has triple lumen central line to right internal jugular vain Discussed with RNs Chart reviewed 11/27/2019 Patient seen and examined in the ICU He is now extubated Discussed with case management Discussed with RNs Chart reviewed 11/26/2019 Patient seen and examined in the ICU He is mechanically ventilated Assist-control/16/07 50/40% with 6 of PEEP He has OG feeds running at 45 cc/h Discussed with case management Discussed with RN Chart reviewed Vitals/I&O Vitals/I&O: Vital Signs Date Time Temp Pulse Resp B/P (MAP) Pulse Ox O2 Delivery O2 Flow Rate FiO2 11/29/19 08:19 70 11/29/19 07:30 98.1 22 138/62 (87) 97 Nasal Cannula 2.0 98.1 I & O 11/28/19 11/28/19 11/29/19 15:00 23:00 07:00 Intake Total 300 ml 260 ml Output Total 1675 ml 200 ml Balance 300 ml -1415 ml -200 ml Physical Exam General: Alert, No acute distress Heart: Regular rate (SR with LBBB) Lungs: Crackles (bases) Abdomen: Soft Extremities: Other (2+ bilateral LE pitting edema) Skin: No breakdown Labs Labs: Laboratory Tests Test 11/28/19 11:49 11/28/19 16:27 11/28/19 20:31 11/29/19 05:15 Glucose (Fingerstick) 202 mg/dL (70-99) 215 mg/dL (70-99) 193 mg/dL (70-99) White Blood Count 11.8 x10^3/uL (4.0-11.0) Red Blood Count 3.55 x10^6/uL (4.30-5.70) Hemoglobin 11.2 g/dL (13.0-17.5) Hematocrit 33.3 % (39.0-53.0) Mean Corpuscular Volume 94 fL (79-100) Mean Corpuscular Hemoglobin 32 pg (25-35) Mean Corpuscular Hemoglobin Concent 34 g/dL (31-37) Red Cell Distribution Width 13.6 % (11.5-14.5) Platelet Count 153 x10^3/uL (140-400) Review of Systems Review of Systems: Patient denies weakness. Patient denies nausea. Assessment and Plan Assessmemt and Plan Problems Medical Problems: (1) Acute exacerbation of CHF (congestive heart failure) Status: Acute (2) Elevated troponin Status: Acute (3) Hypomagnesemia Status: Acute (4) Hypoxia Status: Acute (5) Respiratory failure Status: Acute (6) Suspected 2019 novel coronavirus infection Status: Acute (7) V-tach Status: Acute Assessment Respiratory failure Prior history of CHF, CAD Constipation Stroke Diabetes Hyperlipidemia Hypertension Myocardial infarction Appendectomy Previous tobacco abuse Plan Resume Flomax Cardiac monitoring Continue PO anticoagulation Continue medical management for cardiac disease Evaluate for SNU Continue home meds Trend labs Full code PT OT Comment Review of Relevant I have reviewed the following items stewart (where applicable) has been applied. Medications: Current Medications Medications (Trade) Dose Ordered Sig/Jai Route PRN Reason Start Time Stop Time Status Last Admin Dose Admin Docusate Sodium (Colace) 100 mg DAILY PO 11/28/19 11:00 11/29/19 08:18 Polyethylene Glycol (miraLAX PACKET) 17 gm DAILY PO 11/28/19 11:00 11/28/19 11:23 Pantoprazole Sodium (Protonix) 40 mg DAILYAC PO 11/29/19 07:30 11/29/19 08:25 Zolpidem Tartrate (Ambien) 5 mg PRN QHS PRN PO INSOMNIA 11/28/19 21:30 11/28/19 21:46 Justifications for Admission Other Justification [place] CALVO III DO Nov 29, 2019 10:07
[2019-11-29 11:00] VITALS: BP 138/88
[2019-11-29 15:00] VITALS: BP 123/56
[2019-11-29] MEDS: ANTI-COAG MONITOR BY PHARMACY. MC PRN (16:01)
[2019-11-29] MEDS: RIVAROXABAN 15 MG TABLET. PO SCH (17:30)
[2019-11-29] MEDS: LISINOPRIL 20 MG TABLET PO SCH (17:31)
[2019-11-29 19:30] VITALS: BP 143/65
[2019-11-29 22:35] VITALS: BP 141/68
[2019-11-29] MEDS: TERAZOSIN 5 MG CAPSULE. PO SCH (22:38)
[2019-11-29] MEDS: ATORVASTATIN CALCIUM 10 MG TABLET. PO SCH (22:39)
[2019-11-29] MEDS: ZOLPIDEM 5 MG TABLET. PO PRN (22:39)
[2019-11-30 03:15] VITALS: BP 115/59
[2019-11-30 07:00] VITALS: BP 154/70
[2019-11-30] MEDS: ANTI-COAG MONITOR BY PHARMACY. MC PRN (07:49)
[2019-11-30] MEDS: FUROSEMIDE 40 MG/4 ML VIAL. IVP SCH (09:47)
[2019-11-30] MEDS: POLYETHYLENE GLYCOL 3350 17 GM PACKET. PO SCH (09:47)
[2019-11-30] MEDS: AMIODARONE HCL 200 MG TABLET. PO SCH (09:48)
[2019-11-30] MEDS: PANTOPRAZOLE 40 MG TABLET.DR. PO SCH (09:48)
[2019-11-30] MEDS: amLODIPine BESYLATE 10 MG TABLET PO SCH (09:48)
[2019-11-30] MEDS: DOCUSATE SODIUM 100 MG CAPSULE. PO SCH (09:48)
[2019-11-30] MEDS: ASPIRIN CHEWABLE 81 MG TABLET. PO SCH (09:48)
[2019-11-30] MEDS: METOPROLOL SUCC 24HR ER 25 MG TAB.ER.24H. PO SCH (09:49)
--- NOTE | 2019-11-30 10:07 | PDOC ---
PULMONARY PROGRESS NOTES DATE: 11/30/19 TIME: 10:03 Subjective extubated / Remains on 2 liters no SOA, no Cough, No CP Sitting EOB today Vitals Vital Signs Date Time Temp Pulse Resp B/P (MAP) Pulse Ox O2 Delivery O2 Flow Rate FiO2 11/30/19 09:49 71 154/70 11/30/19 07:00 98.3 16 98 Nasal Cannula 2.0 98.3 ROS: No Nausea, No Chest Pain, No Abdominal Pain, No Increase Cough General: Alert, No acute distress Lungs: Clear Cardiovascular: S1, S2 Abdomen: Soft Neuro Exam: Alert Extremities: No Edema Skin: Warm Labs Laboratory Tests Test 11/28/19 11:49 11/28/19 16:27 11/28/19 20:31 11/29/19 05:15 Glucose (Fingerstick) 202 mg/dL (70-99) 215 mg/dL (70-99) 193 mg/dL (70-99) White Blood Count 11.8 x10^3/uL (4.0-11.0) Red Blood Count 3.55 x10^6/uL (4.30-5.70) Hemoglobin 11.2 g/dL (13.0-17.5) Hematocrit 33.3 % (39.0-53.0) Mean Corpuscular Volume 94 fL (79-100) Mean Corpuscular Hemoglobin 32 pg (25-35) Mean Corpuscular Hemoglobin Concent 34 g/dL (31-37) Red Cell Distribution Width 13.6 % (11.5-14.5) Platelet Count 153 x10^3/uL (140-400) Test 11/29/19 11:24 11/29/19 16:25 11/29/19 21:10 11/30/19 07:40 Glucose (Fingerstick) 232 mg/dL (70-99) 201 mg/dL (70-99) 225 mg/dL (70-99) 162 mg/dL (70-99) Laboratory Tests Test 11/29/19 11:24 11/29/19 16:25 11/29/19 21:10 11/30/19 07:40 Glucose (Fingerstick) 232 mg/dL (70-99) 201 mg/dL (70-99) 225 mg/dL (70-99) 162 mg/dL (70-99) Medications Active Scripts Medications Dose Route/Sig Max Daily Dose Days Date Category Amlodipine Besylate 10 Mg Tablet 10 Mg PO DAILY 30 09/20/19 Rx Pacerone (Amiodarone Hcl) 200 Mg Tablet 200 Mg PO DAILY 30 09/20/19 Rx Xarelto (Rivaroxaban) 15 Mg Tablet 15 Mg PO DAILY 11/19/18 Reported Terazosin Hcl 10 Mg Capsule 10 Mg PO HS 11/19/18 Reported Aspirin Ec (Aspirin) 81 Mg Tablet.dr 1 Tab PO DAILY 06/26/18 Rx Metoprolol Tartrate 50 Mg Tablet 50 Mg PO BID 30 06/17/18 Rx Nitrostat (Nitroglycerin) 0.4 Mg Tab.subl 0.4 Mg SL PRN Q5MIN PRN 30 06/17/18 Rx Zolpidem Tartrate 5 Mg Tablet 5 Mg PO PRN QHS PRN 06/19/17 Reported Lisinopril 20 Mg Tablet 20 Mg PO DAILYBFRSUP 06/19/17 Reported Pravastatin Sodium 10 Mg Tablet 10 Mg PO QHS 06/19/17 Reported Metformin Hcl 500 Mg Tablet 500 Mg PO BID 08/04/13 Reported Impression . 1. Acute hypoxic respiratory failure secondary to ventricular arrhythmias in a patient with severe cardiomyopathy- improved 2. 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 3. Metabolic acidosis, likely related to acute kidney injury.-improved 4. Markedly increased troponin level suggestive of non STEMI. (peak at 12) 5. Abnormal chest x-ray consistent with congestive heart failure. Plan . Continue supplemental oxygen, currently on 2 liters N/C 6 min walk prior to D/C Follow cardiology recs CAD- ignificant lesions to RCA and LCx but with collaterals, noted with diffuse disease-- medical treatment PT/OT Social work for D/C planning -- could D/C in next 24-48 hours D/W FITZ EARLY MD Nov 30, 2019 10:07
[2019-11-30] MEDS ORDERED: INSULIN GLARGINE SYRINGE. SQ SCH ×2 (11:00→21:00)
[2019-11-30 11:32] VITALS: BP 144/69
[2019-11-30] MEDS ORDERED: INSULIN GLARGINE SYRINGE. SQ ONE (12:30)
--- NOTE | 2019-11-30 14:24 | PDOC ---
PROGRESS NOTES Date of Service: DATE: 11/30/19 TIME: 14:21 Chief Complaint Chief Complaint Respiratory failure requiring mechanical ventilation Prior history of CHF, CAD that was being treated medically because the lesions were not able to be stented stroke, diabetes mellitus type 2 hyperlipidemia, essential hypertension, history of myocardial infarction, previous tobacco abuse Plan Case management to help with discharge planning Continue supportive measures History of Present Illness History of Present Illness 11/30/2019 Patient sitting in bed no acute distress. Extubated on November 26 No dysphagia odynophagia reported Good appetite Physical therapy has been working with him and seems to be improving 11/29/2019 Patient seen and examined Patient is upright Patient in NAD Patient has abdominal distention Discussed with RNs Chart reviewed 11/28/2019 Patient seen and examined Patient is upright Patient in NAD Patient has triple lumen central line to right internal jugular vain Discussed with RNs Chart reviewed 11/27/2019 Patient seen and examined in the ICU He is now extubated Discussed with case management Discussed with RNs Chart reviewed 11/26/2019 Patient seen and examined in the ICU He is mechanically ventilated Assist-control/16/07 50/40% with 6 of PEEP He has OG feeds running at 45 cc/h Discussed with case management Discussed with RN Chart reviewed Vitals Vitals Vital Signs Date Time Temp Pulse Resp B/P (MAP) Pulse Ox O2 Delivery O2 Flow Rate FiO2 11/30/19 11:32 98.9 78 16 144/69 (94) 99 Nasal Cannula 2.0 98.9 Physical Exam General: Alert, No acute distress Heart: Regular rate (SR with LBBB) Lungs: Clear Abdomen: Soft Extremities: Other (2+ bilateral LE pitting edema) Skin: No breakdown Labs LABS Laboratory Tests Test 11/29/19 16:25 11/29/19 21:10 11/30/19 07:40 11/30/19 10:42 Glucose (Fingerstick) 201 mg/dL (70-99) 225 mg/dL (70-99) 162 mg/dL (70-99) 264 mg/dL (70-99) Assessment and Plan Assessmemt and Plan Problems Medical Problems: (1) Acute exacerbation of CHF (congestive heart failure) Status: Acute (2) Elevated troponin Status: Acute (3) Hypomagnesemia Status: Acute (4) Hypoxia Status: Acute (5) Respiratory failure Status: Acute (6) Suspected 2019 novel coronavirus infection Status: Acute (7) V-tach Status: Acute Comment Review of Relevant I have reviewed the following items stewart (where applicable) has been applied. Labs Laboratory Tests Test 11/28/19 16:27 11/28/19 20:31 11/29/19 05:15 11/29/19 11:24 Glucose (Fingerstick) 215 mg/dL (70-99) 193 mg/dL (70-99) 232 mg/dL (70-99) White Blood Count 11.8 x10^3/uL (4.0-11.0) Red Blood Count 3.55 x10^6/uL (4.30-5.70) Hemoglobin 11.2 g/dL (13.0-17.5) Hematocrit 33.3 % (39.0-53.0) Mean Corpuscular Volume 94 fL (79-100) Mean Corpuscular Hemoglobin 32 pg (25-35) Mean Corpuscular Hemoglobin Concent 34 g/dL (31-37) Red Cell Distribution Width 13.6 % (11.5-14.5) Platelet Count 153 x10^3/uL (140-400) Test 11/29/19 16:25 11/29/19 21:10 11/30/19 07:40 11/30/19 10:42 Glucose (Fingerstick) 201 mg/dL (70-99) 225 mg/dL (70-99) 162 mg/dL (70-99) 264 mg/dL (70-99) Laboratory Tests Test 11/29/19 16:25 11/29/19 21:10 11/30/19 07:40 11/30/19 10:42 Glucose (Fingerstick) 201 mg/dL (70-99) 225 mg/dL (70-99) 162 mg/dL (70-99) 264 mg/dL (70-99) Medications Current Medications Aspirin (Nidhi Aspirin) 325 mg 1X ONCE PO ; Start 11/24/19 at 23:00; Stop 11/24/19 at 23:52; Status DC Sodium Chloride 1,000 ml @ 1,000 mls/hr 1X ONCE IV Last administered on 11/24/19at 23:00; Start 11/24/19 at 23:00; Stop 11/24/19 at 23:59; Status DC Amiodarone HCl 450 mg/Dextrose 259 ml @ 0 mls/hr CONT PRN IV SEE I/O RECORD; Start 11/24/19 at 22:45 Amiodarone HCl (Cordarone) 150 mg 1X ONCE IVP Last administered on 11/24/19at 22:39; Start 11/24/19 at 23:00; Stop 11/24/19 at 23:01; Status DC Fentanyl Citrate (Fentanyl 2ml Vial) 50 mcg 1X ONCE IV Last administered on 11/24/19at 23:53; Start 11/24/19 at 23:00; Stop 11/24/19 at 23:01; Status DC Rocuronium [place] (Zemuron) 50 mg 1X ONCE IV Last administered on 11/24/19at 23:09; Start 11/24/19 at 23:30; Stop 11/24/19 at 23:31; Status DC Etomidate (Amidate) 20 mg 1X ONCE IV Last administered on 11/24/19at 23:09; Start 11/24/19 at 23:30; Stop 11/24/19 at 23:31; Status DC Propofol 100 ml @ 0 mls/hr CONT PRN IV SEE PROTOCOL Last administered on 11/26/19at 09:07; Start 11/24/19 at 23:00; Stop 11/27/19 at 16:19; Status DC Fentanyl Citrate (Fentanyl 2ml Vial) 50 mcg PRN Q1HR PRN IV SEE COMMENTS Last administered on 11/26/19at 03:18; Start 11/24/19 at 23:00; Stop 11/27/19 at 16:19; Status DC Chlorhexidine Gluconate (Peridex) 15 ml BID MM Last administered on 11/25/19at 07:42; Start 11/25/19 at 09:00; Stop 11/26/19 at 09:13; Status DC Sodium Bicarbonate 150 meq/Sterile Water 1,150 ml @ 125 mls/hr 1X ONCE IV Last administered on 11/25/19at 05:11; Start 11/25/19 at 00:30; Stop 11/25/19 at 09:41; Status DC Bumetanide (Bumex) 1 mg 1X ONCE IV Last administered on 11/25/19at 00:29; Start 11/25/19 at 00:30; Stop 11/25/19 at 00:31; Status DC Norepinephrine Bitartrate 8 mg/ Dextrose 258 ml @ 20.124 mls/ hr 1X ONCE IV Last administered on 11/25/19at 01:30; Start 11/25/19 at 00:30; Stop 11/25/19 at 13:19; Status DC Aspirin (Aspirin Rectal Supp) 300 mg 1X ONCE OK Last administered on 11/25/19at 00:30; Start 11/25/19 at 00:30; Stop 11/25/19 at 00:31; Status DC Propofol 50 ml @ 1.56 mls/hr CONT PRN PRN IV SEDATION Last administered on 11/25/19at 00:23; Start 11/25/19 at 00:15; Stop 11/25/19 at 03:00; Status DC Ondansetron HCl (Zofran) 4 mg PRN Q8HRS PRN IV NAUSEA/VOMITING 1ST CHOICE; Start 11/25/19 at 00:30; Stop 11/26/19 at 00:29; Status DC Insulin Human Lispro (HumaLOG) 0-5 UNITS TIDWMEALS SQ Last administered on 11/25/19at 17:25; Start 11/25/19 at 08:00; Stop 11/25/19 at 20:24; Status DC Dextrose (Dextrose 50%-Water Syringe) 12.5 gm PRN Q15MIN PRN IV SEE COMMENTS; Start 11/25/19 at 00:30; Status Cancel Fentanyl Citrate (Fentanyl 2ml Vial) 100 mcg 1X ONCE IV Last administered on 11/25/19at 01:04; Start 11/25/19 at 01:00; Stop 11/25/19 at 01:01; Status DC Midazolam HCl (Versed) 5 mg 1X ONCE IV Last administered on 11/25/19at 01:03; Start 11/25/19 at 01:00; Stop 11/25/19 at 01:01; Status DC Midazolam HCl 100 ml @ 0 mls/hr CONT PRN IV SEE PROTOCOL; Start 11/25/19 at 03:30; Stop 11/27/19 at 16:19; Status DC Magnesium Sulfate 50 ml @ 25 mls/hr 1X ONCE IV Last administered on 11/25/19at 04:27; Start 11/25/19 at 03:30; Stop 11/25/19 at 05:29; Status DC Propofol 50 ml @ As Directed STK-MED ONCE IV ; Start 11/25/19 at 03:06; Stop 11/25/19 at 03:06; Status DC Norepinephrine Bitartrate 8 mg/ Dextrose 258 ml @ 17.028 mls/ hr CONT PRN IV PER PROTOCOL Last administered on 11/26/19at 07:52; Start 11/25/19 at 06:15; Stop 11/28/19 at 07:51; Status DC Etomidate (Amidate) 20 mg STK-MED ONCE IV ; Start 11/25/19 at 07:09; Stop 11/25/19 at 07:09; Status DC Rocuronium [place] (Zemuron) 50 mg STK-MED ONCE .ROUTE ; Start 11/25/19 at 07:09; Stop 11/25/19 at 07:10; Status DC Heparin Sodium/ Dextrose 250 ml @ 10.56 mls/ hr CONT PRN IV PER PROTOCOL; Start 11/25/19 at 09:00; Status Cancel Heparin Sodium (Porcine) (Heparin Sodium) 2,200 unit PRN Q6HRS PRN IV FOR UFH LEVEL LESS THAN 0.2; Start 11/25/19 at 09:00; Status Cancel Heparin Sodium/ Dextrose 250 ml @ 10.56 mls/ hr CONT PRN IV PER PROTOCOL Last administered on 11/27/19at 05:17; Start 11/25/19 at 09:00; Stop 11/27/19 at 09:37; Status DC Heparin Sodium (Porcine) (Heparin Sodium) 2,200 unit PRN Q6HRS PRN IV FOR PTT < 40; Start 11/25/19 at 09:00; Stop 11/27/19 at 09:39; Status DC Amiodarone HCl (Cordarone) 200 mg DAILY PO Last administered on 11/30/19at 09:48; Start 11/25/19 at 11:00 Atorvastatin Calcium (Lipitor) 5 mg QHS PO Last administered on 11/29/19at 22:39; Start 11/25/19 at 21:00 Furosemide (Lasix) 40 mg 1X ONCE IVP Last administered on 11/25/19at 10:51; Start 11/25/19 at 10:45; Stop 11/25/19 at 10:46; Status DC Sodium Chloride 1,000 ml @ 60 mls/hr [id number] IV Last administered on 9/5/20at 04:41; Start 11/25/19 at 10:45; Stop 11/28/19 at 16:28; Status DC Aspirin (Aspirin Chewable) 81 mg DAILYWBKFT PO Last administered on 11/30/19at 09:48; Start 11/26/19 at 08:00 Info (Anti-Coagulation Monitoring By Pharmacy) 1 each PRN DAILY PRN MC SEE COMMENTS Last administered on 11/26/19at 11:03; Start 11/25/19 at 13:00; Stop 11/27/19 at 11:58; Status DC Pantoprazole Sodium (PROTONIX VIAL for IV PUSH) 40 mg DAILYAC IVP Last administered on 11/28/19 08:48; Start 11/25/19 at 14:00; Stop 11/28/19 at 15:41; Status DC Dextrose (Dextrose 50%-Water Syringe) 12.5 gm PRN Q15MIN PRN IV SEE COMMENTS; Start 11/25/19 at 20:30 Furosemide (Lasix) 40 mg DAILY IVP Last administered on 11/30/19at 09:47; Start 11/26/19 at 09:00 Lorazepam (Ativan Inj) 1 mg PRN Q4HRS PRN IVP ANXIETY / AGITATION Last administered on 11/27/19 04:18; Start 11/26/19 at 23:30 Rivaroxaban (Xarelto) 15 mg DAILYWSUP PO Last administered on 11/29/19 17:30; Start 11/27/19 at 15:00 Magnesium Sulfate 100 ml @ 25 mls/hr 1X ONCE IV Last administered on 11/27/19 09:41; Start 11/27/19 at 10:00; Stop 11/27/19 at 13:59; Status DC Metoprolol Tartrate (Lopressor) 50 mg BID PO Last administered on 11/29/19 08:19; Start 11/27/19 at 13:00; Stop 11/29/19 at 11:05; Status DC Lisinopril (Prinivil) 20 mg DAILYBFRSUP PO Last administered on 11/29/19at 17:31; Start 11/27/19 at 17:00 Hydralazine HCl (Apresoline Inj) 10 mg PRN Q4HRS PRN IVP ELEVATED BP, SEE COMMENTS; Start 11/27/19 at 13:00 Info (Anti-Coagulation Monitoring By Pharmacy) 1 each PRN DAILY PRN MC SEE COMMENTS Last administered on 11/30/19at 07:49; Start 11/28/19 at 08:00 Docusate Sodium (Colace) 100 mg DAILY PO Last administered on 11/30/19at 09:48; Start 11/28/19 at 11:00 Polyethylene Glycol (miraLAX PACKET) 17 gm DAILY PO Last administered on 11/30/19at 09:47; Start 11/28/19 at 11:00 Pantoprazole Sodium (Protonix) 40 mg DAILYAC PO Last administered on 11/30/19 09:48; Start 11/29/19 at 07:30 Zolpidem Tartrate (Ambien) 5 mg PRN QHS PRN PO INSOMNIA Last administered on 11/29/19at 22:39; Start 11/28/19 at 21:30 Metoprolol Succinate (Toprol Xl) 75 mg DAILY PO Last administered on 11/30/19at 09:49; Start 11/30/19 at 09:00 Amlodipine Besylate (Norvasc) 10 mg DAILY PO Last administered on 11/30/19at 09:48; Start 11/30/19 at 09:00 Terazosin HCl (Hytrin) 10 mg QHS PO Last administered on 11/29/19at 22:38; Start 11/29/19 at 21:00 Insulin Glargine (Lantus Syringe) 10 unit QHS SQ ; Start 11/30/19 at 11:00; Status Cancel Insulin Glargine (Lantus Syringe) 10 unit QHS SQ ; Start 11/30/19 at 21:00 Insulin Glargine (Lantus Syringe) 10 unit 1X ONCE SQ Last administered on 11/30/19at 12:29; Start 11/30/19 at 12:30; Stop 11/30/19 at 12:31; Status DC Active Scripts Active Amlodipine Besylate 10 Mg Tablet 10 Mg PO DAILY 30 Days Pacerone (Amiodarone Hcl) 200 Mg Tablet 200 Mg PO DAILY 30 Days Aspirin Ec (Aspirin) 81 Mg Tablet.dr 1 Tab PO DAILY Metoprolol Tartrate 50 Mg Tablet 50 Mg PO BID 30 Days Nitrostat (Nitroglycerin) 0.4 Mg Tab.subl 0.4 Mg SL PRN Q5MIN PRN 30 Days Reported Xarelto (Rivaroxaban) 15 Mg Tablet 15 Mg PO DAILY Terazosin Hcl 10 Mg Capsule 10 Mg PO HS Zolpidem Tartrate 5 Mg Tablet 5 Mg PO PRN QHS PRN Lisinopril 20 Mg Tablet 20 Mg PO DAILYBFRSUP Pravastatin Sodium 10 Mg Tablet 10 Mg PO QHS Metformin Hcl 500 Mg Tablet 500 Mg PO BID Vitals/I & O Vital Sign - Last 24 Hours 11/29/19 11/29/19 11/29/19 11/29/19 15:00 17:31 19:30 20:00 Temp 98.0 98.1 98.0 98.1 Pulse 64 85 64 Resp 19 18 B/P (MAP) 123/56 (78) 143/65 (91) Pulse Ox 95 97 O2 Delivery Nasal Cannula Nasal Cannula Nasal Cannula O2 Flow Rate 2.0 2.0 2.0 11/29/19 11/29/19 11/30/19 11/30/19 22:35 22:38 03:15 07:00 Temp 98.8 97.5 98.3 98.8 97.5 98.3 Pulse 65 64 60 71 Resp 16 16 16 B/P (MAP) 141/68 (92) 143/65 115/59 (77) 154/70 (98) Pulse Ox 97 97 98 O2 Delivery Nasal Cannula Nasal Cannula Nasal Cannula O2 Flow Rate 2.0 2.0 2.0 11/30/19 11/30/19 11/30/19 11/30/19 07:40 09:48 09:48 09:49 Pulse 71 71 71 B/P (MAP) 154/70 154/70 154/70 O2 Delivery Nasal Cannula O2 Flow Rate 2.0 11/30/19 11:32 Temp 98.9 98.9 Pulse 78 Resp 16 B/P (MAP) 144/69 (94) Pulse Ox 99 O2 Delivery Nasal Cannula O2 Flow Rate 2.0 Intake and Output 11/29/19 11/29/19 11/30/19 15:00 23:00 07:00 Intake Total 200 ml 300 ml 100 ml Output Total 175 ml 200 ml Balance 200 ml 125 ml -100 ml Justicifation of Admission Dx: Justifications for Admission: Justification of Admission Dx: Yes CHF: Cardiac Arrhythmias Respiratory Failure: Mechanical Ventilation CHASTITY RAYO MD Nov 30, 2019 14:24
[2019-11-30 15:00] VITALS: BP 124/56
[2019-11-30] MEDS: LISINOPRIL 20 MG TABLET PO SCH (17:02)
[2019-11-30] MEDS: RIVAROXABAN 15 MG TABLET. PO SCH (17:02)
[2019-11-30] MEDS: INSULIN LISPRO 300 UNITS/3 ML VIAL. SQ SCH (17:07)
[2019-11-30 19:58] VITALS: BP 135/58
[2019-11-30] MEDS: ATORVASTATIN CALCIUM 10 MG TABLET. PO SCH (20:35)
[2019-11-30] MEDS: TERAZOSIN 5 MG CAPSULE. PO SCH (20:35)
[2019-11-30] MEDS: ZOLPIDEM 5 MG TABLET. PO PRN (20:36)
[2019-11-30 22:24] VITALS: BP 109/53
[2019-12-01 02:18] VITALS: BP 137/63
[2019-12-01 07:15] VITALS: BP 139/64
[2019-12-01] MEDS: POLYETHYLENE GLYCOL 3350 17 GM PACKET. PO SCH (08:43)
[2019-12-01] MEDS: METOPROLOL SUCC 24HR ER 25 MG TAB.ER.24H. PO SCH (08:45)
[2019-12-01] MEDS: PANTOPRAZOLE 40 MG TABLET.DR. PO SCH (08:45)
[2019-12-01] MEDS: ASPIRIN CHEWABLE 81 MG TABLET. PO SCH (08:45)
[2019-12-01] MEDS: DOCUSATE SODIUM 100 MG CAPSULE. PO SCH (08:45)
[2019-12-01] MEDS: AMIODARONE HCL 200 MG TABLET. PO SCH (08:46)
[2019-12-01] MEDS: amLODIPine BESYLATE 10 MG TABLET PO SCH (08:46)
[2019-12-01] MEDS: FUROSEMIDE 40 MG/4 ML VIAL. IVP SCH (08:47)
[2019-12-01] MEDS: INSULIN LISPRO 300 UNITS/3 ML VIAL. SQ SCH ×2 (08:54→12:24)
[2019-12-01 09:17] LABS: HEMATOCRIT 33.1 % (39.0-53.0); HEMOGLOBIN 11.2 g/dL (13.0-17.5); RED BLOOD COUNT 3.57 x10^6/uL (4.30-5.70); RED CELL DISTRIBUTION WIDTH 13.5 % (11.5-14.5); WHITE BLOOD COUNT 11.3 x10^3/uL (4.0-11.0)
--- NOTE | 2019-12-01 10:21 | NUR ---
SS following up with discharge planning. SS reviewed pt chart and discussed with pt RN. Pt is currently requiring oxygen. COVID19 negative. PT recommended home with home healthcare. Six minute walk ordered. SS will continue to follow for discharge planning.
--- NOTE | 2019-12-01 10:21 | PDOC ---
PULMONARY PROGRESS NOTES DATE: 12/01/19 TIME: 10:21 Subjective extubated 9/3 Remains on 2 liters no SOA, no Cough, No CP Sitting EOB today Vitals Vital Signs Date Time Temp Pulse Resp B/P (MAP) Pulse Ox O2 Delivery O2 Flow Rate FiO2 12/01/19 08:46 84 139/64 12/01/19 07:30 Nasal Cannula 2.0 12/01/19 07:15 98.0 18 99 98.0 ROS: No Nausea, No Chest Pain, No Abdominal Pain, No Increase Cough General: Alert, No acute distress Lungs: Clear Cardiovascular: S1, S2 Abdomen: Soft Neuro Exam: Alert Extremities: No Edema Skin: Warm Labs Laboratory Tests Test 11/29/19 11:24 11/29/19 16:25 11/29/19 21:10 11/30/19 07:40 Glucose (Fingerstick) 232 mg/dL (70-99) 201 mg/dL (70-99) 225 mg/dL (70-99) 162 mg/dL (70-99) Test 11/30/19 10:42 11/30/19 16:02 11/30/19 20:34 12/01/19 07:00 Glucose (Fingerstick) 264 mg/dL (70-99) 310 mg/dL (70-99) 289 mg/dL (70-99) 151 mg/dL (70-99) Test 12/01/19 09:03 White Blood Count 11.3 x10^3/uL (4.0-11.0) Red Blood Count 3.57 x10^6/uL (4.30-5.70) Hemoglobin 11.2 g/dL (13.0-17.5) Hematocrit 33.1 % (39.0-53.0) Mean Corpuscular Volume 93 fL (79-100) Mean Corpuscular Hemoglobin 32 pg (25-35) Mean Corpuscular Hemoglobin Concent 34 g/dL (31-37) Red Cell Distribution Width 13.5 % (11.5-14.5) Platelet Count 189 x10^3/uL (140-400) Laboratory Tests Test 11/30/19 10:42 11/30/19 16:02 11/30/19 20:34 12/01/19 07:00 Glucose (Fingerstick) 264 mg/dL (70-99) 310 mg/dL (70-99) 289 mg/dL (70-99) 151 mg/dL (70-99) Test 12/01/19 09:03 White Blood Count 11.3 x10^3/uL (4.0-11.0) Red Blood Count 3.57 x10^6/uL (4.30-5.70) Hemoglobin 11.2 g/dL (13.0-17.5) Hematocrit 33.1 % (39.0-53.0) Mean Corpuscular Volume 93 fL (79-100) Mean Corpuscular Hemoglobin 32 pg (25-35) Mean Corpuscular Hemoglobin Concent 34 g/dL (31-37) Red Cell Distribution Width 13.5 % (11.5-14.5) Platelet Count 189 x10^3/uL (140-400) Medications Active Scripts Medications Dose Route/Sig Max Daily Dose Days Date Category Amlodipine Besylate 10 Mg Tablet 10 Mg PO DAILY 30 09/20/19 Rx Pacerone (Amiodarone Hcl) 200 Mg Tablet 200 Mg PO DAILY 30 09/20/19 Rx Xarelto (Rivaroxaban) 15 Mg Tablet 15 Mg PO DAILY 11/19/18 Reported Terazosin Hcl 10 Mg Capsule 10 Mg PO HS 11/19/18 Reported Aspirin Ec (Aspirin) 81 Mg Tablet.dr 1 Tab PO DAILY 06/26/18 Rx Metoprolol Tartrate 50 Mg Tablet 50 Mg PO BID 30 06/17/18 Rx Nitrostat (Nitroglycerin) 0.4 Mg Tab.subl 0.4 Mg SL PRN Q5MIN PRN 30 06/17/18 Rx Zolpidem Tartrate 5 Mg Tablet 5 Mg PO PRN QHS PRN 06/19/17 Reported Lisinopril 20 Mg Tablet 20 Mg PO DAILYBFRSUP 06/19/17 Reported Pravastatin Sodium 10 Mg Tablet 10 Mg PO QHS 06/19/17 Reported Metformin Hcl 500 Mg Tablet 500 Mg PO BID 08/04/13 Reported Impression . 1. Acute hypoxic respiratory failure secondary to ventricular arrhythmias in a patient with severe cardiomyopathy- improved 2. 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 3. Metabolic acidosis, likely related to acute kidney injury.-improved 4. Markedly increased troponin level suggestive of non STEMI. (peak at 12) 5. Abnormal chest x-ray consistent with congestive heart failure. Plan . Continue supplemental oxygen, currently on 2 liters N/C 6 min walk prior to D/C Follow cardiology recs CAD- ignificant lesions to RCA and LCx but with collaterals, noted with diffuse disease-- medical treatment PT/OT Social work for D/C planning -- could D/C in next 24-48 hours D/W SOFIA DRIVER MD Dec 01, 2019 10:21
[2019-12-01 10:29] VITALS: BP 86/43
--- NOTE | 2019-12-01 11:15 | SNU/HH DC ---
DISCHARGE WITH HOME HEALTH DISCHARGE INFORMATION: Discharge Date: Dec 01, 2019 Final Diagnosis: Problems Medical Problems: (1) Acute exacerbation of CHF (congestive heart failure) Status: Acute (2) Elevated troponin Status: Acute (3) Hypomagnesemia Status: Acute (4) Hypoxia Status: Acute (5) Respiratory failure Status: Acute (6) ruled out 2018 novel coronavirus infection Status: Acute (7) V-tach Status: Acute Condition on Discharge: Stable CODE STATUS: Code Status: Full HOME HEALTH: Face to Face: I certify this patient is under my care and that I, or a nurse practitioner or physician's infertility medical assistant working with me, had a face to face encounter that meets the physician face to face encounter requirements with this patient on []. Medical Complications: CHF RN For Eval/Treatment: Yes Physical Therapy For: Evalulation/Treatment Occupational Therapy For: Evaluation/Treatment Pt Meets Homebound Status: Extreme weakness w/ amb., Limited distance walking POST DISCHARGE ORDERS: Activity Instructions for Disc: Activity as tolerated Weight Bearing Status after Di: As tolerated CHECKS AFTER DISCHARGE: Checks after discharge: Check blood press - daily, Weigh Yourself Daily TREATMENT/EQUIPMENT ORDERS: Adaptive Equipment Issued: None CERTIFICATION STATEMENT: Certification Statement: Certification Statement: Based on the above finding, I certify that this patient is confined to the home and needs intermittent snf care, physical therapy and/or speech therapy, or continues to need occupational therapy.~ This patient is under my care, and I have initiated the establishment of the plan of care.~ This patient will be followed by myself or a community physician who will periodically review the plan of care. Home Meds Active Scripts Amlodipine Besylate (AMLODIPINE BESYLATE) 10 Mg Tablet, 10 MG PO DAILY for htn for 30 Days, #30 TAB Prov:CHASTITY RAYO MD 09/20/19 Amiodarone Hcl (PACERONE) 200 Mg Tablet, 200 MG PO DAILY for a fib for 30 Days, #30 TAB Prov:CHASTITY RAYO MD 09/20/19 Aspirin (ASPIRIN EC) 81 Mg Tablet., 1 TAB PO DAILY for CAD, #30 TAB 3 Refills Prov:BEVERLY BOND MACHINE OPERATOR FARMWORKER 06/26/18 Metoprolol Tartrate (METOPROLOL TARTRATE) 50 Mg Tablet, 50 MG PO BID for bp for 30 Days, #60 TAB Prov:HALEY MARTINEZ MD 06/17/18 Nitroglycerin (NITROSTAT) 0.4 Mg Tab.subl, 0.4 MG SL PRN Q5MIN PRN for CHEST PAIN for 30 Days, #100 TAB Prov:HALEY MARTINEZ MD 06/17/18 Reported Medications Rivaroxaban (XARELTO) 15 Mg Tablet, 15 MG PO DAILY for Atrial fibrillation 11/19/18 Terazosin Hcl (TERAZOSIN HCL) 10 Mg Capsule, 10 MG PO HS for BPH 11/19/18 Zolpidem Tartrate (ZOLPIDEM TARTRATE) 5 Mg Tablet, 5 MG PO PRN QHS PRN for INSOMNIA 06/19/17 Lisinopril (LISINOPRIL) 20 Mg Tablet, 20 MG PO DAILYBFRSUP for FOR HYPERTENSION 06/19/17 Pravastatin Sodium (PRAVASTATIN SODIUM) 10 Mg Tablet, 10 MG PO QHS for HLD 06/19/17 Metformin Hcl (METFORMIN HCL) 500 Mg Tablet, 500 MG PO BID for Diabetes 08/04/13 CHASTITY RAYO MD Dec 01, 2019 11:15
--- NOTE | 2019-12-01 11:22 | PDOC3 ---
Discharge Summary Visit Information Date of Admission: Nov 25, 2019 Date of Discharge: Dec 01, 2019 Admitting Diagnosis Comment: Respiratory failure. 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 recent LHC as noted above HTN; controlled Acute on chronic respiratory failure due to CHF: succesfully extubated PAFIB: presently SR with LBBB VT?: no copies noted in chart. potential from sinus tach with underlying LBBB or abberant AFIB. No recurrence Hx of Severe ICM: EF was 25% now at 55% Hematuria: noted with [place] and still having burning sensation but no evidence of infection most likely irritation from catheter Brief Hospital Course Allergies Allergies Coded Allergies Type Severity Reaction Last Updated Verified lovastatin Allergy Intermediate 11/25/19 Yes codeine Adverse Reaction Intermediate mental status change 06/24/17 Yes Vital Signs Vital Signs Date Time Temp Pulse Resp B/P (MAP) Pulse Ox O2 Delivery O2 Flow Rate FiO2 12/01/19 10:29 97.8 76 18 86/43 (57) 96 Nasal Cannula 2.0 97.8 Lab Results Laboratory Tests Test 11/29/19 11:24 11/29/19 16:25 11/29/19 21:10 11/30/19 07:40 Glucose (Fingerstick) 232 mg/dL (70-99) 201 mg/dL (70-99) 225 mg/dL (70-99) 162 mg/dL (70-99) Test 11/30/19 10:42 11/30/19 16:02 11/30/19 20:34 12/01/19 07:00 Glucose (Fingerstick) 264 mg/dL (70-99) 310 mg/dL (70-99) 289 mg/dL (70-99) 151 mg/dL (70-99) Test 12/01/19 09:03 12/01/19 11:11 White Blood Count 11.3 x10^3/uL (4.0-11.0) Red Blood Count 3.57 x10^6/uL (4.30-5.70) Hemoglobin 11.2 g/dL (13.0-17.5) Hematocrit 33.1 % (39.0-53.0) Mean Corpuscular Volume 93 fL (79-100) Mean Corpuscular Hemoglobin 32 pg (25-35) Mean Corpuscular Hemoglobin Concent 34 g/dL (31-37) Red Cell Distribution Width 13.5 % (11.5-14.5) Platelet Count 189 x10^3/uL (140-400) Glucose (Fingerstick) 266 mg/dL (70-99) Laboratory Tests Test 11/30/19 16:02 11/30/19 20:34 12/01/19 07:00 12/01/19 09:03 Glucose (Fingerstick) 310 mg/dL (70-99) 289 mg/dL (70-99) 151 mg/dL (70-99) White Blood Count 11.3 x10^3/uL (4.0-11.0) Red Blood Count 3.57 x10^6/uL (4.30-5.70) Hemoglobin 11.2 g/dL (13.0-17.5) Hematocrit 33.1 % (39.0-53.0) Mean Corpuscular Volume 93 fL (79-100) Mean Corpuscular Hemoglobin 32 pg (25-35) Mean Corpuscular Hemoglobin Concent 34 g/dL (31-37) Red Cell Distribution Width 13.5 % (11.5-14.5) Platelet Count 189 x10^3/uL (140-400) Test 12/01/19 11:11 Glucose (Fingerstick) 266 mg/dL (70-99) Brief Hospital Course HISTORY OF PRESENT ILLNESS: The patient is an 89-year-old male who has history of coronary artery disease, history of previous echo with an EF of 25-30% and global hypokinesis of left ventricle. He was brought into the hospital with increasing shortness of breath. Per EMS report, he had suspected V-tach. He was intubated by the ER physician. He had no exposures to COVID-19. I have reviewed post-intubation chest x-rays that revealed evidence of mild CHF. He is currently on Levophed. He is sedated. His ABGs showed a pH of 7.12, pCO2 of 39, a pO2 of less than 42 with bicarbonate of 13. Latest ABG showed a pH of 7.44, pCO2 of 31 and a pO2 of 409. He is on 50% oxygen and 12 of PEEP. 11/30/2019 Patient sitting in bed no acute distress. Extubated on November 26 No dysphagia odynophagia reported Good appetite Physical therapy has been working with him and seems to be improving 11/29/2019 Patient seen and examined Patient is upright Patient in NAD Patient has abdominal distention Discussed with RNs Chart reviewed 11/28/2019 Patient seen and examined Patient is upright Patient in NAD Patient has triple lumen central line to right internal jugular vain Discussed with RNs Chart reviewed 11/27/2019 Patient seen and examined in the ICU He is now extubated Discussed with case management Discussed with RNs Chart reviewed 11/26/2019 Patient seen and examined in the ICU He is mechanically ventilated Assist-control/16/07 50/40% with 6 of PEEP He has OG feeds running at 45 cc/h Discussed with case management Discussed with RN Chart reviewed Patient was deemed appropriate from the medical standpoint of view after consultants had signed off on the patient. The only changes in medications is metoprolol to Toprol-XL 75 mg daily recommendation was to consider outpatient spironolactone moving forward. Mathematics Faculty Member recommends continuing aspirin statin and Xarelto for atrial fibrillation, case was discussed with family members and they wanted to hold off on cardiac catheterization at this point and continue with medical treatment, greater than 35 minutes were spent in the discharge process the patient counseling coordination of care and arrangement for a safe discharge Physical exam: a/ox 3 NAD lungs clr no edema. normal heart tones. Assessment Assessment IMAGING REPORT Signed PATIENT: MATTHEW GALLARDO ACCOUNT: [id number] : 1930 LOCATION: [facility] ICU AGE: 89 SEX: M EXAM STATUS: ADM IN ORD. PHYSICIAN: ALMA ROSA ECHOLS DO REASON: adjustment (advanced 2cm) of ETT PROCEDURE: CHEST AP ONLY EXAM: CHEST AP ONLY INDICATION: Reason: adjustment (advanced 2cm) of ETT / Spl. Instructions: / History: . TECHNIQUE: Single view COMPARISON: Chest x-ray 11/25/2019 at 2:47 AM FINDINGS: Endotracheal tube appears to have been advanced in the interval. Tip now terminates 3.1 cm above the korey. Stable right jugular approach central venous catheter with tip in the proximal SVC. Stable enteric tube passing below the diaphragms. The heart size is unchanged, borderline enlarged.. The great vessels show aortic calcification and tortuosity similar to prior.. There is no hilar or mediastinal mass. The lungs show improvement in aeration of the right lung base with less volume loss. Perihilar hazy densities in the left lung base are marginally improved as well. There is no evidence of a pleural effusion or pneumothorax but the costophrenic angles are partly excluded.. There are no significant osseous abnormalities. IMPRESSION: Interval advancement of endotracheal tube with the tip now 3 cm above the korey, and slight improvement in aeration of the lungs, most notably at the right lung base. Electronically signed by: Paulette Dorantes MD (11/25/2019 8:38 AM) [id number] DICTATED and SIGNED BY: PAULETTE DORANTES MD DATE: 11/25/19 0806 Discharge Information Condition at Discharge: Improved Follow Up: Weeks Disposition/Orders: D/C to Home w/ HH Scheduled Amiodarone Hcl (Pacerone) 200 Mg Tablet, 200 MG PO DAILY for a fib for 30 Days, #30 Prescribed by: CHASTITY RAYO MD on 09/20/19 1205 Last Action: Continued on 11/25/19 1027 by BEVERLY BOND Amlodipine Besylate (Amlodipine Besylate) 10 Mg Tablet, 10 MG PO DAILY for htn for 30 Days, #30 Prescribed by: CHASTITY RAYO MD on 09/20/19 1205 Last Action: Continued on 11/29/19 1704 by ROSLYN CASTELLANOS Aspirin (Aspirin Ec) 81 Mg Tablet., 1 TAB PO DAILY for CAD, #30 Ref 3 Prescribed by: BEVERLY BOND on 06/18/18 1308 Lisinopril (Lisinopril) 20 Mg Tablet, 20 MG PO DAILYBFRSUP for FOR HYPERTENSION, (Reported) Entered as Reported by: DIOGENES RICKS on 06/19/17 1540 Last Action: Continued on 11/27/19 1252 by BEVERLY BOND Metformin Hcl (Metformin Hcl) 500 Mg Tablet, 500 MG PO BID for Diabetes, (Reported) Entered as Reported by: DIONICIO HERNANDEZ on 08/04/13 1104 Last Action: HELD on 11/25/19 1027 by BEVERLY BOND Metoprolol Tartrate (Metoprolol Tartrate) 50 Mg Tablet, 50 MG PO BID for bp for 30 Days, #60 Prescribed by: HALEY MARTINEZ MD on 06/17/18 1656 Last Action: Continued on 11/27/19 1252 by BEVERLY BOND Pravastatin Sodium (Pravastatin Sodium) 10 Mg Tablet, 10 MG PO QHS for HLD, (Reported) Entered as Reported by: DIOGENES RICKS on 06/19/17 1539 Last Action: Converted on 11/25/19 1027 by BEVERLY BOND Rivaroxaban (Xarelto) 15 Mg Tablet, 15 MG PO DAILY for Atrial fibrillation, (Reported) Entered as Reported by: DEE CABALLERO on 11/19/18 1036 Last Action: HELD on 11/25/19 1027 by BEVERLY BOND Terazosin Hcl (Terazosin Hcl) 10 Mg Capsule, 10 MG PO HS for BPH, (Reported) Entered as Reported by: DEE CABALLERO on 11/19/18 1036 Last Action: Converted on 11/29/19 1704 by ROSLYN CASTELLANOS Scheduled PRN Nitroglycerin (Nitrostat) 0.4 Mg Tab.subl, 0.4 MG SL PRN Q5MIN PRN for CHEST PAIN for 30 Days, #100 Prescribed by: HALEY MARTINEZ MD on 06/17/186 Zolpidem Tartrate (Zolpidem Tartrate) 5 Mg Tablet, 5 MG PO PRN QHS PRN for INSOMNIA, (Reported) Entered as Reported by: DIOGENES RICKS on 06/19/17 1541 Justicifation of Admission Dx: Justifications for Admission: Justification of Admission Dx: Yes CHF: Cardiac Arrhythmias Respiratory Failure: Mechanical Ventilation CHASTITY RAYO MD Dec 01, 2019 11:22
--- NOTE | 2019-12-01 11:24 | NUR ---
SS following up with discharge planning. Discharge orders received for home healthcare. SS met with pt and discussed. Pt agreeable to home healthcare with no preference of company. Discharge orders and referral phoned and faxed to [facility], ; fax [phone]. Pt's RN notified.
[2019-12-01] MEDS ORDERED: METO-239 PO (11:30)
--- NOTE | 2019-12-01 15:44 | NUR ---
Discharge Note: MATTHEW GALLARDO [address] Discharge instructions and discharge home medications reviewed with Patient and a copy given. All questions have been answered and understanding verbalized. The following instructions and handouts were given: metoprolol, symtopms worsening, follow up cardiology appointment, discharge paperwork. Discontinued lines and drains: centeral line and peripheral lines discontinued. Patient discharged to home with services via wheelchair accompanied by spouse.
== END 2019-12-01 14:00 | disposition home health service (06) | DRG 208 ==
LOC: ER 22:32 → 1 WEST ICU 11-25 00:21 → 2 NORTH 11-27 16:32
PROVIDERS: ADMIT Internal Medicine; ATTEND Internal Medicine
PROC: 5A1945Z Respiratory Ventilation, 24-96 Consecutive Hours (ICD-10-PCS; principal; 2019-11-25)
PROC: 0BH17EZ Insertion of Endotracheal Airway into Trachea, Via Natural or Artificial Opening (ICD-10-PCS; 2019-11-25)
PROC: 02HV33Z Insertion of Infusion Device into Superior Vena Cava, Percutaneous Approach (ICD-10-PCS; 2019-11-25)
PROC: B548ZZA Ultrasonography of Superior Vena Cava, Guidance (ICD-10-PCS; 2019-11-25)
DX: J96.21 Acute and chronic respiratory failure with hypoxia (principal); I21.4 Non-ST elevation (NSTEMI) myocardial infarction; I50.43 Acute on chronic combined systolic (congestive) and diastolic (congestive) heart failure; R57.0 Cardiogenic shock; I47.2 Ventricular tachycardia; N17.9 Acute kidney failure, unspecified; E87.2 Acidosis; I13.0 Hypertensive heart and chronic kidney disease with heart failure and stage 1 through stage 4 chronic kidney disease, or unspecified chronic kidney disease; I42.9 Cardiomyopathy, unspecified; E11.22 Type 2 diabetes mellitus with diabetic chronic kidney disease; E78.00 Pure hypercholesterolemia, unspecified; E78.5 Hyperlipidemia, unspecified; E83.42 Hypomagnesemia; E87.5 Hyperkalemia; I25.10 Atherosclerotic heart disease of native coronary artery without angina pectoris; I25.2 Old myocardial infarction; I44.7 Left bundle-branch block, unspecified; I48.0 Paroxysmal atrial fibrillation; K59.00 Constipation, unspecified; N18.9 Chronic kidney disease, unspecified; Z79.899 Other long term (current) drug therapy; Z82.49 Family history of ischemic heart disease and other diseases of the circulatory system; Z86.73 Personal history of transient ischemic attack (TIA), and cerebral infarction without residual deficits; Z87.891 Personal history of nicotine dependence; Z90.49 Acquired absence of other specified parts of digestive tract; M19.90 Unspecified osteoarthritis, unspecified site; Z20.828 Contact with and (suspected) exposure to other viral communicable diseases; Z88.8 Allergy status to other drugs, medicaments and biological substances
CPT/HCPCS: 31500; 36415; 36556; 36600; 71045; 80048; 80053; 80061; 81001; 82805; 82962; 83690; 83735; 83880; 84443; 84484; 85025; 85027; 85610; 85730; 93005; 93308; 94002; 94003; 94618; 96361; 96365; 96375; 96376; C9113; J0282; J1644; J1815; J1940; J2060; J2250; J2704; J3010; J3475; J3490; J7030; J7060; 92526-GN; 92610-GN; 97110-GP; 97116-GP; 97530-GP; 99291-25; G0378; U0003-CS